=== PATIENT | male | born 1955 | race Caucasian/White ===

== ENCOUNTER 2017-11-12 08:41 | Emergency (ER) | payer OTHER ==
[~2017-11-12] VITALS: Ht 172.7 cm; Wt 99.8 kg
[~2017-11-12 08:41] MED LIST: (None)15 G1 TOP; ACET325 PO; ALUMAG30SU PO; AMLO10 PO; AMLO5 PO; AMLOATOR; AMOCLA875 PO; ANTACID; AQUAPHOR99 GM TOP; ASPI325 PO; ASPI325EC PO; ASPI81CH PO; ASPI81EC PO; Advil200 M1 PO; Aspir 8181 MG PO; Augmentin 875-1 EACH PO; BACITO TOP; BENZ10TG; BENZ10TG MT; BUSP10; BUSP15 PO; Buspirone HCl15 MG PO; CANASA; CANASA PR; CEPH500 PO; CHLGLU.12S; CHLORHEXIDINE GLUCONATE; CIPRSO OD; CLON1 PO; Canasa1000 MG PR; Clotrimazole-Be15 GM TP; DEBROX; DEBROX AU; DEBROX EAR DROPS; DELTASONE20 MG PO; DOC250; DOXY100 PO; EAR WAX DROPS15 ML BOTHEARS; FURO40 PO; Fergon240 M1 PO; Ferrocite324 MG PO; GLIM2 PO; GLIMEPIRIDE; GLUCOSE PO; GUAI100SY PO; Glucophage1000 MG PO; HYDACE5 PO; HYDCHL12.5; HYDCOR1TC TOP; HYDGUAL120 PO; IBUP400; IBUP400 PO; K-Tab10 MEQ PO; LEVFLO500 PO; LEVO-T112 MCG PO; LEVSOD100 PO; LEVSOD112 PO; LEVSOD125 PO; LEVSOD175 PO; LEVSOD200; LISHYD1012 PO; LISHYD2012 PO; LISI20 PO; LOPE2C PO; LOVA20 PO; Lovastatin20 MG PO; MAALOX; MELO7.5 PO; MENTHOL-ZINC OXIDE; MESA400ER; MESALAMINE PR; METF500 PO; METO100ER PO; METO25 PO; METO25ER PO; METO50; METO50 PO; METO50ER PO; MINE10T UD; NYST100P TOP; OLAN10; OLAN10 PO; OLAN5; OLAN7.5 PO; OMEP20ER PO; OXYC5 PO; OXYM.05NI; Omeprazole20 M1 PO; PARO20; PARO20 PO; PAROEX473 ML PO; PEPTO BISMOL PO; PERIDEX; POLY500; Pepto-Bism525 MG/15; Pepto-Bism525 MG/15 PO; Peridex480 ML PO; SACC250C PO; SODBIC650; SODBIC650 PO; SODCHL1 PO; SULTRIDS PO; TERB24TC TOP; TRIA80TC; TRIA80TC TOP; TUSSIN CF COUG118 ML PO; Triple Antibi28.4 G1 TP; Triple Antibio1 EACH TP; VASELINE18 ML TP; VICODIN 5-3001 EACH; VICODIN 5-3001 EACH PO; ZESTRIL40 MG PO; ZINCODVICR; Zestril40 MG; Zyprexa10 MG PO; Zyprexa15 MG PO; [UNRECOGNIZED DRUG - OTHER]; [UNRECOGNIZED DRUG - OTHER]; [UNRECOGNIZED DRUG - OTHER]; [UNRECOGNIZED DRUG - OTHER] PR
[2017-11-12] MEDS ORDERED: Cleocin HCl300 MG PO (10:57)
[2017-11-12] MEDS ORDERED: Cleocin HCl150 MG PO (10:58)
[2017-11-12] MEDS ORDERED: PENVK250 PO (11:22)
[2018-04-29] MEDS ORDERED: GLIP5 PO (12:07)
[2018-05-05] MEDS ORDERED: Ferrocite324 MG PO (10:33)
[2018-05-05] MEDS ORDERED: MAGOXI400 PO (11:59)
== END 2017-11-12 11:29 | disposition home or self-care (01) ==
LOC: ER 08:41
DX: K04.7 Periapical abscess without sinus (principal); K21.9 Gastro-esophageal reflux disease without esophagitis; F32.9 Major depressive disorder, single episode, unspecified; E11.9 Type 2 diabetes mellitus without complications; Z79.899 Other long term (current) drug therapy; Z79.82 Long term (current) use of aspirin; Z79.84 Long term (current) use of oral hypoglycemic drugs; Z86.14 Personal history of Methicillin resistant Staphylococcus aureus infection
CPT/HCPCS: 94640; 99283

== ENCOUNTER 2017-12-03 17:58 | Observation (INO) | payer OTHER ==
[~2017-12-03] VITALS: Ht 182.9 cm; Wt 103.1 kg
[~2017-12-03 17:58] MED LIST changes: +Altoprev20 MG PO; +Cleocin HCl150 MG PO; +Cleocin HCl300 MG PO; -Lovastatin20 MG PO; +PENVK250 PO
[2017-12-03 18:25] LABS: BASOPHILS ABSOLUTE AUTO 0.03 K/mm3 (0.00-0.23); BASOPHILS PERCENT AUTO 0 % (0-2); EOSINOPHILS ABSOLUTE AUTO 0.28 K/mm3 (0.00-0.68); EOSINOPHILS PERCENT AUTO 4 % (0-6); Hematocrit 35.8 % (37.0-53.0); Hemoglobin 10.9 g/dL (13.5-17.5); IMMATURE GRAN ABSOLUTE AUTO 0.05 K/mm3 (0.00-0.10); IMMATURE GRAN PERCENT AUTO 1 % (0-1); LYMPHOCYTES ABSOLUTE AUTO 1.15 K/mm3 (0.84-5.20); LYMPHOCYTES PERCENT AUTO 15 % (21-46); MONOCYTES PERCENT AUTO 9 % (4-13); Mean Corpuscular HGB 22.7 pg (26.0-34.0); Mean Corpuscular HGB Conc 30.4 g/dL (31.5-36.5); Mean Corpuscular Volume 75 fL (80-100); Mean Platelet Volume 9.4 fL (9.1-12.4); NEUTROPHILS PERCENT AUTO 71 % (41-73); Platelet Count 226 K/mm3 (150-400); RDW Coefficient Variation 15.4 % (11.7-14.2); White Blood Cell Count 7.61 K/mm3 (4.00-11.30)
[2017-12-03] MEDS ORDERED: AMLO10 PO (18:25)
[2017-12-03] MEDS ORDERED: SODCHL1 PO (18:27)
[2017-12-03] MEDS ORDERED: GLIP5 PO (18:28)
[2017-12-03 18:45] LABS: Alanine Aminotransfer (ALT/SGP 28 U/L (12-78); Albumin, Blood 3.5 g/dL (3.4-5.0); Alk Phos 64 U/L (50-136); Anion Gap 7 mmol/L (6-16); Aspartate Aminotrans (AST/SGOT 20 U/L (12-37); Bilirubin, Total 0.4 mg/dL (0.1-1.0); Blood Urea Nitrogen 11 mg/dL (8-24); Bun/Creatinine Ratio 12.2 (12.0-20.0); CO2, Blood 30 mmol/L (21-32); Calcium, Blood 8.2 mg/dL (8.5-10.1); Chloride, Blood 92 mmol/L (98-108); Globulin, Blood 3.6 g/dL (2.2-4.0); Glomerular Filtration Rate >60 (60-); Glucose, Blood 110 mg/dL (70-99); Potassium, Blood 3.4 mmol/L (3.5-5.5); Sodium, Blood 129 mmol/L (136-145); Total Protein, Blood 7.1 g/dL (6.4-8.2); Troponin I 0.042 ng/mL (0.000-0.040)
[2017-12-03 19:34] LABS: International Normalized Ratio 1.01; Prothrombin Time Results 10.5 Sec (9.7-11.5)
[2017-12-04 05:27] LABS: BASOPHILS ABSOLUTE AUTO 0.02 K/mm3 (0.00-0.23); BASOPHILS PERCENT AUTO 0 % (0-2); EOSINOPHILS ABSOLUTE AUTO 0.03 K/mm3 (0.00-0.68); EOSINOPHILS PERCENT AUTO 0 % (0-6); Hematocrit 36.4 % (37.0-53.0); Hemoglobin 11.2 g/dL (13.5-17.5); IMMATURE GRAN ABSOLUTE AUTO 0.05 K/mm3 (0.00-0.10); IMMATURE GRAN PERCENT AUTO 1 % (0-1); LYMPHOCYTES PERCENT AUTO 10 % (21-46); MONOCYTES ABSOLUTE AUTO 0.14 K/mm3 (0.16-1.47); MONOCYTES PERCENT AUTO 2 % (4-13); Mean Corpuscular HGB 22.4 pg (26.0-34.0); Mean Corpuscular HGB Conc 30.8 g/dL (31.5-36.5); Mean Corpuscular Volume 73 fL (80-100); Mean Platelet Volume 9.5 fL (9.1-12.4); NEUTROPHILS ABSOLUTE AUTO 6.07 K/mm3 (1.96-9.15); NEUTROPHILS PERCENT AUTO 87 % (41-73); Platelet Count 204 K/mm3 (150-400); RDW Coefficient Variation 15.4 % (11.7-14.2); RDW Standard Deviation 39.6 fL (35.1-46.3); White Blood Cell Count 7.01 K/mm3 (4.00-11.30)
[2017-12-04 05:54] LABS: Anion Gap 10 mmol/L (6-16); Blood Urea Nitrogen 12 mg/dL (8-24); Bun/Creatinine Ratio 14.7 (12.0-20.0); CO2, Blood 28 mmol/L (21-32); Calcium, Blood 8.5 mg/dL (8.5-10.1); Chloride, Blood 94 mmol/L (98-108); Creatinine, Blood 0.82 mg/dL (0.60-1.20); Glomerular Filtration Rate >60 (60-); Glucose, Blood 225 mg/dL (70-99); Potassium, Blood 3.9 mmol/L (3.5-5.5); Sodium, Blood 132 mmol/L (136-145)
[2017-12-04 12:11] LABS: Source, Urine Catheter
[2017-12-04 12:32] LABS: Bilirubin, Urine Neg (Neg); Blood, Urine 2+ (Neg); Glucose Qualitative, Urine 3+ (Neg); Ketones, Urine Neg (Neg); Leukocyte Esterase, Urine 3+ (Neg); Nitrite, Urine Neg (Neg); Protein, Urine Neg (Neg); Urobilinogen, Urine NORM (Normal)
[2017-12-04 12:40] LABS: Color, Urine Pale Yellow (P-Yellow)
[2017-12-04 12:41] LABS: Appearance, Urine Cloudy (Clear); White Blood Cells, Urine TNTC /hpf (0-5)
[2017-12-04 12:42] LABS: Transitional Epithelial Cells Rare /hpf (0-Rare)
[2017-12-04 12:43] LABS: Bacteria Mod /hpf; Squamous Epithelial Cells Not Seen /hpf (Few)
[2017-12-04 16:37] LABS: Influenza A Negative (NEGATIVE); Influenza B Negative (NEGATIVE)
[2017-12-05] MEDS ORDERED: ALBU3IS INH (14:17)
[2017-12-05] MEDS ORDERED: LEVO750 PO (14:18)
== END 2017-12-05 16:44 | disposition home or self-care (01) ==
LOC: ER 17:58 → MEDS 20:45
PROVIDERS: Emergency Medicine; Family Medicine; Hospitalist
DX: J98.11 Atelectasis (principal); N39.0 Urinary tract infection, site not specified; B95.1 Streptococcus, group B, as the cause of diseases classified elsewhere; E11.9 Type 2 diabetes mellitus without complications; D64.9 Anemia, unspecified; E87.1 Hypo-osmolality and hyponatremia; R79.89 Other specified abnormal findings of blood chemistry; I10 Essential (primary) hypertension; E03.9 Hypothyroidism, unspecified; F84.0 Autistic disorder; F89 Unspecified disorder of psychological development; D50.9 Iron deficiency anemia, unspecified; E78.5 Hyperlipidemia, unspecified; K21.9 Gastro-esophageal reflux disease without esophagitis; F32.9 Major depressive disorder, single episode, unspecified; F79 Unspecified intellectual disabilities; R33.9 Retention of urine, unspecified; F29 Unspecified psychosis not due to a substance or known physiological condition; Z79.82 Long term (current) use of aspirin; Z79.899 Other long term (current) drug therapy; Z90.49 Acquired absence of other specified parts of digestive tract; Z93.3 Colostomy status; Z79.84 Long term (current) use of oral hypoglycemic drugs; Z79.01 Long term (current) use of anticoagulants
CPT/HCPCS: 36415; 51701; 71046; 71260; 80048; 80053; 81001; 82947; 83880; 84484; 85025; 85610; 85730; 87086; 87147; 87804; 92610; 93005; 93010; 94640; 94760; 94761; 96372; 96374; 96376; 99285; G0378; G8996; G8997; J1650; J2920; Q9967

== ENCOUNTER 2017-12-12 17:09 | Emergency (ER) | payer OTHER ==
[~2017-12-12] VITALS: Ht 182.9 cm; Wt 99.8 kg
[~2017-12-12 17:09] MED LIST changes: +ALBU3IS INH; +GLIP5 PO; +LEVO750 PO
[2017-12-12 17:56] LABS: BASOPHILS ABSOLUTE AUTO 0.02 K/mm3 (0.00-0.23); BASOPHILS PERCENT AUTO 0 % (0-2); EOSINOPHILS ABSOLUTE AUTO 0.36 K/mm3 (0.00-0.68); EOSINOPHILS PERCENT AUTO 7 % (0-6); Hematocrit 35.3 % (37.0-53.0); Hemoglobin 10.6 g/dL (13.5-17.5); IMMATURE GRAN ABSOLUTE AUTO 0.06 K/mm3 (0.00-0.10); IMMATURE GRAN PERCENT AUTO 1 % (0-1); LYMPHOCYTES ABSOLUTE AUTO 0.68 K/mm3 (0.84-5.20); LYMPHOCYTES PERCENT AUTO 13 % (21-46); MONOCYTES ABSOLUTE AUTO 0.66 K/mm3 (0.16-1.47); MONOCYTES PERCENT AUTO 13 % (4-13); Mean Corpuscular HGB 22.4 pg (26.0-34.0); Mean Corpuscular Volume 75 fL (80-100); Mean Platelet Volume 9.1 fL (9.1-12.4); NEUTROPHILS PERCENT AUTO 65 % (41-73); Platelet Count 196 K/mm3 (150-400); RDW Coefficient Variation 14.9 % (11.7-14.2); RDW Standard Deviation 40.3 fL (35.1-46.3); Red Blood Cell Count 4.73 M/mm3 (4.30-5.90); White Blood Cell Count 5.08 K/mm3 (4.00-11.30)
[2017-12-12 18:16] LABS: Alanine Aminotransfer (ALT/SGP 23 U/L (12-78); Albumin, Blood 3.3 g/dL (3.4-5.0); Alk Phos 62 U/L (50-136); Anion Gap 4 mmol/L (6-16); Aspartate Aminotrans (AST/SGOT 15 U/L (12-37); Bilirubin, Total 0.3 mg/dL (0.1-1.0); Blood Urea Nitrogen 13 mg/dL (8-24); Bun/Creatinine Ratio 14.4 (12.0-20.0); CO2, Blood 31 mmol/L (21-32); Calcium, Blood 8.7 mg/dL (8.5-10.1); Chloride, Blood 96 mmol/L (98-108); Creatinine, Blood 0.91 mg/dL (0.60-1.20); Globulin, Blood 3.4 g/dL (2.2-4.0); Glomerular Filtration Rate >60 (60-); Glucose, Blood 118 mg/dL (70-99); Potassium, Blood 3.9 mmol/L (3.5-5.5); Sodium, Blood 131 mmol/L (136-145); Total Protein, Blood 6.7 g/dL (6.4-8.2)
== END 2017-12-12 19:28 | disposition home or self-care (01) ==
LOC: ER 17:09
PROVIDERS: Emergency Medicine
DX: J98.11 Atelectasis (principal); J98.6 Disorders of diaphragm; K21.9 Gastro-esophageal reflux disease without esophagitis; F32.9 Major depressive disorder, single episode, unspecified; Z79.899 Other long term (current) drug therapy; Z79.82 Long term (current) use of aspirin; Z79.84 Long term (current) use of oral hypoglycemic drugs; Z86.14 Personal history of Methicillin resistant Staphylococcus aureus infection
CPT/HCPCS: 71046; 80053; 83880; 84484; 85025; 93005; 93010; 94640; 99283

== ENCOUNTER 2017-12-23 08:04 | Emergency (ER) | payer OTHER ==
[~2017-12-23] VITALS: Ht 182.9 cm; Wt 86.2 kg
[~2017-12-23 08:04] MED LIST changes: -Altoprev20 MG PO; +Lovastatin20 MG PO
[2017-12-23 08:41] LABS: BASOPHILS ABSOLUTE AUTO 0.05 K/mm3 (0.00-0.23); BASOPHILS PERCENT AUTO 0 % (0-2); EOSINOPHILS ABSOLUTE AUTO 0.17 K/mm3 (0.00-0.68); EOSINOPHILS PERCENT AUTO 1 % (0-6); Hematocrit 32.7 % (37.0-53.0); Hemoglobin 10.2 g/dL (13.5-17.5); IMMATURE GRAN ABSOLUTE AUTO 0.06 K/mm3 (0.00-0.10); IMMATURE GRAN PERCENT AUTO 1 % (0-1); LYMPHOCYTES ABSOLUTE AUTO 0.61 K/mm3 (0.84-5.20); LYMPHOCYTES PERCENT AUTO 5 % (21-46); MONOCYTES ABSOLUTE AUTO 0.72 K/mm3 (0.16-1.47); MONOCYTES PERCENT AUTO 6 % (4-13); Mean Corpuscular HGB 22.7 pg (26.0-34.0); Mean Corpuscular HGB Conc 31.2 g/dL (31.5-36.5); Mean Corpuscular Volume 73 fL (80-100); Mean Platelet Volume 9.7 fL (9.1-12.4); NEUTROPHILS ABSOLUTE AUTO 10.27 K/mm3 (1.96-9.15); NEUTROPHILS PERCENT AUTO 87 % (41-73); Platelet Count 234 K/mm3 (150-400); RDW Coefficient Variation 14.8 % (11.7-14.2); RDW Standard Deviation 39.1 fL (35.1-46.3); Red Blood Cell Count 4.49 M/mm3 (4.30-5.90); White Blood Cell Count 11.88 K/mm3 (4.00-11.30)
[2017-12-23 09:19] LABS: Alanine Aminotransfer (ALT/SGP 24 U/L (12-78); Albumin, Blood 3.1 g/dL (3.4-5.0); Albumin/Globulin Ratio 0.9 (0.8-1.8); Alk Phos 59 U/L (50-136); Anion Gap 6 mmol/L (6-16); Aspartate Aminotrans (AST/SGOT 11 U/L (12-37); Bilirubin, Total 0.4 mg/dL (0.1-1.0); Blood Urea Nitrogen 19 mg/dL (8-24); Bun/Creatinine Ratio 24.9 (12.0-20.0); CO2, Blood 28 mmol/L (21-32); Calcium, Blood 8.6 mg/dL (8.5-10.1); Chloride, Blood 97 mmol/L (98-108); Creatinine, Blood 0.76 mg/dL (0.60-1.20); Globulin, Blood 3.4 g/dL (2.2-4.0); Glomerular Filtration Rate >60 (60-); Glucose, Blood 156 mg/dL (70-99); Potassium, Blood 4.1 mmol/L (3.5-5.5); Sodium, Blood 131 mmol/L (136-145); Total Protein, Blood 6.5 g/dL (6.4-8.2); Troponin I 0.036 ng/mL (0.000-0.040)
[2017-12-23 10:53] LABS: Source, Urine Voided
[2017-12-23 11:06] LABS: Bilirubin, Urine Neg (Neg); Blood, Urine Neg (Neg); Glucose Qualitative, Urine 1+ (Neg); Ketones, Urine Neg (Neg); Leukocyte Esterase, Urine 2+ (Neg); Nitrite, Urine Pos (Neg); Protein, Urine Neg (Neg); Urobilinogen, Urine NORM (Normal)
[2017-12-23 11:09] LABS: Appearance, Urine Clear (Clear); Color, Urine Yellow (P-Yellow)
[2017-12-23 11:14] LABS: White Blood Cells, Urine TNTC /hpf (0-5)
[2017-12-23 11:15] LABS: Bacteria Few /hpf; Red Blood Cells, Urine Not Seen /hpf (0-2); Squamous Epithelial Cells Not Seen /hpf (Few)
[2017-12-23 11:16] LABS: Spermatozoa Few /hpf
[2017-12-23] MEDS ORDERED: CEPH500 PO (11:40)
[2017-12-24] MEDS ORDERED: IRON PO (18:58)
[2017-12-24] MEDS ORDERED: MINERAL OIL BOTHEARS (19:00)
== END 2017-12-23 12:24 | disposition home or self-care (01) ==
LOC: ER 08:04
PROVIDERS: Emergency Medicine
DX: J96.11 Chronic respiratory failure with hypoxia (principal); N39.0 Urinary tract infection, site not specified; K21.9 Gastro-esophageal reflux disease without esophagitis; F32.9 Major depressive disorder, single episode, unspecified; E11.9 Type 2 diabetes mellitus without complications; Z79.899 Other long term (current) drug therapy; Z79.82 Long term (current) use of aspirin; Z79.84 Long term (current) use of oral hypoglycemic drugs
CPT/HCPCS: 71046; 80053; 81001; 83880; 84484; 85025; 87077; 87086; 87186; 93005; 93010; 94640; 96374; 99284; J0696

== ENCOUNTER 2017-12-24 11:21 | Inpatient (IN) | payer OTHER ==
[~2017-12-24] VITALS: Ht 177.8 cm; Wt 104.7 kg
[2017-12-24 12:08] LABS: BASOPHILS ABSOLUTE AUTO 0.03 K/mm3 (0.00-0.23); BASOPHILS PERCENT AUTO 0 % (0-2); EOSINOPHILS ABSOLUTE AUTO 0.23 K/mm3 (0.00-0.68); EOSINOPHILS PERCENT AUTO 2 % (0-6); Hematocrit 37.2 % (37.0-53.0); Hemoglobin 11.1 g/dL (13.5-17.5); IMMATURE GRAN ABSOLUTE AUTO 0.06 K/mm3 (0.00-0.10); IMMATURE GRAN PERCENT AUTO 1 % (0-1); LYMPHOCYTES ABSOLUTE AUTO 0.72 K/mm3 (0.84-5.20); LYMPHOCYTES PERCENT AUTO 6 % (21-46); MONOCYTES ABSOLUTE AUTO 0.65 K/mm3 (0.16-1.47); MONOCYTES PERCENT AUTO 5 % (4-13); Mean Corpuscular HGB 22.4 pg (26.0-34.0); Mean Corpuscular HGB Conc 29.8 g/dL (31.5-36.5); Mean Corpuscular Volume 75 fL (80-100); Mean Platelet Volume 9.8 fL (9.1-12.4); NEUTROPHILS ABSOLUTE AUTO 10.26 K/mm3 (1.96-9.15); NEUTROPHILS PERCENT AUTO 86 % (41-73); Platelet Count 231 K/mm3 (150-400); RDW Coefficient Variation 15.3 % (11.7-14.2); RDW Standard Deviation 41.2 fL (35.1-46.3); Red Blood Cell Count 4.95 M/mm3 (4.30-5.90); White Blood Cell Count 11.95 K/mm3 (4.00-11.30)
[2017-12-24 12:21] LABS: Alanine Aminotransfer (ALT/SGP 24 U/L (12-78); Albumin, Blood 3.5 g/dL (3.4-5.0); Albumin/Globulin Ratio 0.9 (0.8-1.8); Alk Phos 66 U/L (50-136); Anion Gap 5 mmol/L (6-16); Aspartate Aminotrans (AST/SGOT 15 U/L (12-37); Bilirubin, Total 0.4 mg/dL (0.1-1.0); Blood Urea Nitrogen 11 mg/dL (8-24); Bun/Creatinine Ratio 12.2 (12.0-20.0); CO2, Blood 31 mmol/L (21-32); Calcium, Blood 9.1 mg/dL (8.5-10.1); Chloride, Blood 99 mmol/L (98-108); Ethanol (Alcohol), Blood, Med <3 mg/dL; Globulin, Blood 3.9 g/dL (2.2-4.0); Glomerular Filtration Rate >60 (60-); Glucose, Blood 109 mg/dL (70-99); Sodium, Blood 135 mmol/L (136-145); Total Protein, Blood 7.4 g/dL (6.4-8.2)
[2017-12-24 13:05] LABS: PCO2 Arterial 55 mmHg (35-45); PO2 Arterial 92 mmHg (80-100); pH Blood Arterial 7.38 (7.35-7.45)
[2017-12-24] MEDS ORDERED: IRON PO (18:58)
[2017-12-24] MEDS ORDERED: MINERAL OIL BOTHEARS (19:00)
[2017-12-25 04:39] LABS: Albumin, Blood 2.8 g/dL (3.4-5.0); Anion Gap 5 mmol/L (6-16); Blood Urea Nitrogen 11 mg/dL (8-24); Bun/Creatinine Ratio 11.9 (12.0-20.0); CO2, Blood 32 mmol/L (21-32); Calcium, Blood 8.7 mg/dL (8.5-10.1); Chloride, Blood 100 mmol/L (98-108); Creatinine, Blood 0.93 mg/dL (0.60-1.20); Glomerular Filtration Rate >60 (60-); Glucose, Blood 120 mg/dL (70-99); Phosphorus, Blood 3.3 mg/dL (2.5-4.9); Potassium, Blood 3.6 mmol/L (3.5-5.5); Sodium, Blood 137 mmol/L (136-145)
== END 2017-12-26 10:40 | disposition home or self-care (01) | DRG 91 ==
LOC: ER 11:21 → PCU 11:22 → ER 11:22 → PCU 11:23
PROVIDERS: Emergency Medicine; Hospitalist; Internal Medicine
DX: G92 Toxic encephalopathy (principal); J96.01 Acute respiratory failure with hypoxia; J96.02 Acute respiratory failure with hypercapnia; F84.0 Autistic disorder; I10 Essential (primary) hypertension; E11.9 Type 2 diabetes mellitus without complications; E03.9 Hypothyroidism, unspecified; F79 Unspecified intellectual disabilities; N31.2 Flaccid neuropathic bladder, not elsewhere classified; E78.5 Hyperlipidemia, unspecified; K21.9 Gastro-esophageal reflux disease without esophagitis; R33.9 Retention of urine, unspecified
CPT/HCPCS: 36415; 36600; 51701; 71045; 71260; 80053; 80069; 82140; 82803; 82947; 83605; 83735; 83880; 84443; 85025; 87040; 93005; 93010; 94640; 94660; 94762; 96365; 99285; G0480; J0696; J1650; J7120; Q9967

== ENCOUNTER → 2017-12-28 | Outpatient (CLI) | payer OTHER ==
[~2017-12-28] MED LIST changes: +IRON PO; +MINERAL OIL BOTHEARS
[2017-12-28 14:56] LABS: Appearance, Urine Clear (Clear); Bilirubin, Urine Neg (Neg); Blood, Urine Neg (Neg); Color, Urine Yellow (P-Yellow); Glucose Qualitative, Urine Neg (Neg); Ketones, Urine Neg (Neg); Leukocyte Esterase, Urine 1+ (Neg); Nitrite, Urine Neg (Neg); Protein, Urine Neg (Neg); Specific Gravity, Urine 1.005 (1.003-1.022); Urobilinogen, Urine NORM (Normal)
[2017-12-28 15:35] LABS: Bacteria Rare /hpf; Red Blood Cells, Urine Not Seen /hpf (0-2); Squamous Epithelial Cells Few /hpf (Few); White Blood Cells, Urine 0-2 /hpf (0-5)
== END ==
LOC: LAB SHORT 11:21 → LAB 11:21
PROVIDERS: Nurse Practitioner Family
DX: N39.0 Urinary tract infection, site not specified (principal)
CPT/HCPCS: 81001

== ENCOUNTER 2018-04-26 09:45 | Inpatient (IN) | payer OTHER ==
[~2018-04-26] VITALS: Ht 177.8 cm; Wt 100.2 kg
[2018-04-26 10:23] LABS: Source, Urine Catheter
[2018-04-26 10:26] LABS: BASOPHILS ABSOLUTE AUTO 0.02 K/mm3 (0.00-0.23); BASOPHILS PERCENT AUTO 0 % (0-2); EOSINOPHILS PERCENT AUTO 0 % (0-6); Hematocrit 35.6 % (37.0-53.0); IMMATURE GRAN ABSOLUTE AUTO 0.08 K/mm3 (0.00-0.10); IMMATURE GRAN PERCENT AUTO 1 % (0-1); LYMPHOCYTES ABSOLUTE AUTO 0.81 K/mm3 (0.84-5.20); LYMPHOCYTES PERCENT AUTO 6 % (21-46); MONOCYTES ABSOLUTE AUTO 1.16 K/mm3 (0.16-1.47); MONOCYTES PERCENT AUTO 9 % (4-13); Mean Corpuscular HGB 22.8 pg (26.0-34.0); Mean Corpuscular HGB Conc 30.9 g/dL (31.5-36.5); Mean Corpuscular Volume 74 fL (80-100); NEUTROPHILS ABSOLUTE AUTO 11.57 K/mm3 (1.96-9.15); NEUTROPHILS PERCENT AUTO 85 % (41-73); Platelet Count 195 K/mm3 (150-400); RDW Coefficient Variation 16.6 % (11.7-14.2); RDW Standard Deviation 43.4 fL (35.1-46.3); Red Blood Cell Count 4.83 M/mm3 (4.30-5.90); White Blood Cell Count 13.64 K/mm3 (4.00-11.30)
[2018-04-26] MEDS ORDERED: BACITRACIN ZIN1 EACH (10:31)
[2018-04-26 10:35] LABS: Bilirubin, Urine Neg (Neg); Blood, Urine 2+ (Neg); Glucose Qualitative, Urine 3+ (Neg); Ketones, Urine Neg (Neg); Leukocyte Esterase, Urine 2+ (Neg); Nitrite, Urine Neg (Neg); Protein, Urine 3+ (Neg); Urobilinogen, Urine NORM (Normal)
[2018-04-26 11:02] LABS: Alanine Aminotransfer (ALT/SGP 25 U/L (12-78); Albumin, Blood 3.3 g/dL (3.4-5.0); Albumin/Globulin Ratio 0.8 (0.8-1.8); Alk Phos 62 U/L (50-136); Anion Gap 11 mmol/L (6-16); Aspartate Aminotrans (AST/SGOT 10 U/L (12-37); Bilirubin, Total 0.6 mg/dL (0.1-1.0); Blood Urea Nitrogen 16 mg/dL (8-24); Bun/Creatinine Ratio 12.5 (12.0-20.0); CO2, Blood 23 mmol/L (21-32); Calcium, Blood 8.6 mg/dL (8.5-10.1); Chloride, Blood 101 mmol/L (98-108); Creatinine, Blood 1.28 mg/dL (0.60-1.20); Glomerular Filtration Rate >60 (60-); Glucose, Blood 271 mg/dL (70-99); Potassium, Blood 3.6 mmol/L (3.5-5.5); Sodium, Blood 135 mmol/L (136-145); Total Protein, Blood 7.3 g/dL (6.4-8.2); Troponin I 0.096 ng/mL (0.000-0.040)
[2018-04-26 11:06] LABS: Appearance, Urine Hazy (Clear); Color, Urine Yellow (P-Yellow)
[2018-04-26 11:07] LABS: White Blood Cells, Urine TNTC /hpf (0-5)
[2018-04-26 11:08] LABS: Bacteria Many /hpf; Granular Casts TNTC /lpf (0); Red Blood Cells, Urine 25-50 /hpf (0-2); Squamous Epithelial Cells Mod /hpf (Few)
[2018-04-26 11:09] LABS: Transitional Epithelial Cells Few /hpf (0-Rare)
[2018-04-26 19:11] LABS: CPK Creatine Kinase 66 U/L (39-308); Troponin I 0.104 ng/mL (0.000-0.040)
[2018-04-26 19:12] LABS: Creatine Kinase MB < 1.0 ng/mL (0.0-3.6); Creatine Kinase MB Index 1.5 (0.0-4.0)
[2018-04-26 19:13] LABS: Free Thyroxine 1.24 ng/dL (0.70-1.60)
[2018-04-26 19:17] LABS: Thyroid Stimulating Hormone 2.65 uIU/mL (0.360-4.800)
[2018-04-27 02:38] LABS: Hematocrit 33.8 % (37.0-53.0); Hemoglobin 10.1 g/dL (13.5-17.5); Mean Corpuscular HGB 22.6 pg (26.0-34.0); Mean Corpuscular HGB Conc 29.9 g/dL (31.5-36.5); Mean Corpuscular Volume 76 fL (80-100); Mean Platelet Volume 9.7 fL (9.1-12.4); Platelet Count 159 K/mm3 (150-400); RDW Coefficient Variation 16.6 % (11.7-14.2); RDW Standard Deviation 45.1 fL (35.1-46.3); Red Blood Cell Count 4.46 M/mm3 (4.30-5.90); White Blood Cell Count 9.61 K/mm3 (4.00-11.30)
[2018-04-27 02:58] LABS: LDL/HDL RATIO 0.7
[2018-04-27 02:59] LABS: Anion Gap 5 mmol/L (6-16); Blood Urea Nitrogen 16 mg/dL (8-24); Bun/Creatinine Ratio 11.9 (12.0-20.0); CHOL/HDL RATIO 2.6; CO2, Blood 29 mmol/L (21-32); Calcium, Blood 8.1 mg/dL (8.5-10.1); Chloride, Blood 101 mmol/L (98-108); Cholesterol 92 mg/dL (50-200); Creatinine, Blood 1.34 mg/dL (0.60-1.20); Glomerular Filtration Rate 57 (60-); Glucose, Blood 235 mg/dL (70-99); HDL Cholesterol 36 mg/dL (>39); Low Density Lipoprotein Chol 24 mg/dL (0-110); Potassium, Blood 4.1 mmol/L (3.5-5.5); Sodium, Blood 135 mmol/L (136-145); Triglycerides 158 mg/dL (30-160); Very Low Density Lipoprot Chol 31 mg/dL (6-32)
[2018-04-27 03:00] LABS: Creatine Kinase MB 1.7 ng/mL (0.0-3.6); Creatine Kinase MB Index 2.8 (0.0-4.0); Troponin I 0.083 ng/mL (0.000-0.040)
[2018-04-29 05:39] LABS: Hematocrit 35.7 % (37.0-53.0); Hemoglobin 10.8 g/dL (13.5-17.5); Mean Corpuscular HGB 22.5 pg (26.0-34.0); Mean Corpuscular HGB Conc 30.3 g/dL (31.5-36.5); Mean Corpuscular Volume 75 fL (80-100); Mean Platelet Volume 9.7 fL (9.1-12.4); Platelet Count 215 K/mm3 (150-400); RDW Coefficient Variation 15.8 % (11.7-14.2); RDW Standard Deviation 42.4 fL (35.1-46.3); Red Blood Cell Count 4.79 M/mm3 (4.30-5.90); White Blood Cell Count 4.93 K/mm3 (4.00-11.30)
[2018-04-29 06:08] LABS: Anion Gap 7 mmol/L (6-16); Blood Urea Nitrogen 10 mg/dL (8-24); Bun/Creatinine Ratio 10.3 (12.0-20.0); CO2, Blood 28 mmol/L (21-32); Calcium, Blood 8.3 mg/dL (8.5-10.1); Chloride, Blood 101 mmol/L (98-108); Creatinine, Blood 0.97 mg/dL (0.60-1.20); Glomerular Filtration Rate >60 (60-); Glucose, Blood 206 mg/dL (70-99); Potassium, Blood 4.2 mmol/L (3.5-5.5); Sodium, Blood 136 mmol/L (136-145)
[2018-04-29] MEDS ORDERED: CEFU500T30 PO (10:34)
[2018-04-29] MEDS ORDERED: ACIDOPHILUS LA1 EACH PO (10:36)
[2018-04-29] MEDS ORDERED: GLIP5 (12:07)
== END 2018-04-29 14:12 | disposition home or self-care (01) | DRG 698 ==
LOC: ER 09:45 → MEDS 16:23 → ENPENDDIS 04-29 10:29 → MEDS 04-29 11:52
PROVIDERS: Emergency Medicine; Internal Medicine
DX: T83.511A Infection and inflammatory reaction due to indwelling urethral catheter, initial encounter (principal); A41.51 Sepsis due to Escherichia coli [E. coli]; N17.9 Acute kidney failure, unspecified; I24.8 Other forms of acute ischemic heart disease; E87.1 Hypo-osmolality and hyponatremia; F84.0 Autistic disorder; J98.11 Atelectasis; N39.0 Urinary tract infection, site not specified; N31.9 Neuromuscular dysfunction of bladder, unspecified; I48.0 Paroxysmal atrial fibrillation; I10 Essential (primary) hypertension; E11.9 Type 2 diabetes mellitus without complications; R77.8 Other specified abnormalities of plasma proteins; E03.9 Hypothyroidism, unspecified; K21.9 Gastro-esophageal reflux disease without esophagitis; E78.5 Hyperlipidemia, unspecified; R62.50 Unspecified lack of expected normal physiological development in childhood; F91.9 Conduct disorder, unspecified; F29 Unspecified psychosis not due to a substance or known physiological condition; R06.00 Dyspnea, unspecified; B96.20 Unspecified Escherichia coli [E. coli] as the cause of diseases classified elsewhere; Z79.899 Other long term (current) drug therapy; Z79.82 Long term (current) use of aspirin; Z79.84 Long term (current) use of oral hypoglycemic drugs; Z90.49 Acquired absence of other specified parts of digestive tract; Z93.3 Colostomy status; Z86.14 Personal history of Methicillin resistant Staphylococcus aureus infection
CPT/HCPCS: 36415; 71046; 80048; 80053; 80061; 81001; 82550; 82553; 82947; 83036; 84439; 84443; 84484; 85025; 85027; 87077; 87086; 87186; 93005; 93010; 93306; 96365; 99285-25; J0696; J1650; J7030

== ENCOUNTER 2018-05-18 15:13 | Emergency (ER) | payer OTHER ==
[~2018-05-18] VITALS: Ht 177.8 cm; Wt 102.1 kg
[~2018-05-18 15:13] MED LIST changes: +ACIDOPHILUS LA1 EACH PO; +BACITRACIN ZIN1 EACH; +CEFU500T30 PO; +MAGOXI400 PO
== END 2018-05-18 18:20 | disposition home or self-care (01) ==
LOC: ER 15:13
DX: R10.9 Unspecified abdominal pain (principal); Z88.2 Allergy status to sulfonamides; Z88.1 Allergy status to other antibiotic agents; Z79.899 Other long term (current) drug therapy; Z79.82 Long term (current) use of aspirin; Z79.84 Long term (current) use of oral hypoglycemic drugs; E11.9 Type 2 diabetes mellitus without complications; K21.9 Gastro-esophageal reflux disease without esophagitis; F32.9 Major depressive disorder, single episode, unspecified
CPT/HCPCS: 74018; 99283-25

== ENCOUNTER 2018-09-04 11:25 | Day surgery (SDC) | payer OTHER ==
[~2018-09-04] VITALS: Ht 177.8 cm; Wt 93.9 kg
[~2018-09-04 11:25] MED LIST changes: +ALBU2.5V5 NEB; +ALUM-MAG HYDRO360 ML; +AMERICAINE28 GM TP; +Aspirin EC81 MG PO; +BACITRACIN ZIN1 EACH TP; +CHLORASEPTIC MA30 ML; +CORTISONE28 G1 TP; +FERROCITE PLUS PO; +Glucotrol5 MG PO; +Klor-Con 1010 MEQ PO; +LAMISIL AT30 GM; +MINERAL OIL HEAV1 ML; +NYST237S MT; +OMEPRAZOLE MAGN20 MG PO; +PERIDEX15 ML; +PROBIOTIC1 EACH PO; +ROBITUSSIN COU118 ML; +TAMS.4ER PO; +TRIA15CR3 TOP; +TRIPLE ANTIBIO1 EACH; +[UNRECOGNIZED DRUG - OTHER]
== END 2018-09-04 13:16 | disposition home or self-care (01) ==
LOC: ORSCSDS 11:25
PROVIDERS: Surgery
PROC: 0DJD8ZZ Inspection of Lower Intestinal Tract, Via Natural or Artificial Opening Endoscopic (ICD-10-PCS; principal; 2018-09-04 12:30)
DX: K51.20 Ulcerative (chronic) proctitis without complications (principal); I10 Essential (primary) hypertension; G47.33 Obstructive sleep apnea (adult) (pediatric); I48.91 Unspecified atrial fibrillation; E11.9 Type 2 diabetes mellitus without complications; Z79.82 Long term (current) use of aspirin; Z79.899 Other long term (current) drug therapy
CPT/HCPCS: 82947; J7120

== ENCOUNTER → 2018-09-20 | Outpatient (CLI) | payer OTHER ==
[2018-09-20 14:49] LABS: Bilirubin, Urine Neg (Neg); Blood, Urine Neg (Neg); Glucose Qualitative, Urine Neg (Neg); Ketones, Urine Neg (Neg); Leukocyte Esterase, Urine Neg (Neg); Nitrite, Urine Neg (Neg); Protein, Urine 1+ (Neg); Urobilinogen, Urine NORM (Normal)
[2018-09-20 15:01] LABS: Appearance, Urine Clear (Clear); Color, Urine Yellow (P-Yellow)
== END | disposition home or self-care (01) ==
LOC: LAB 13:25 → LAB SHORT 13:25 → LAB FUT 04-27 14:55 → EDSTATUS 04-27 14:55
PROVIDERS: Family Medicine
DX: N39.0 Urinary tract infection, site not specified (principal); R34 Anuria and oliguria
CPT/HCPCS: 81003

== ENCOUNTER 2019-10-17 07:49 | Day surgery (SDC) | payer OTHER ==
[~2019-10-17] VITALS: Ht 177.8 cm; Wt 102.5 kg
[~2019-10-17 07:49] MED LIST changes: +ACET325; +ACIDOPHILUS1 EAC3; +ALBU2.5V5 INH; +AMERICAINE28 GM; +ANTIBIOTIC28.4 GM; +BUDE6HFA INH; +Buspirone HCl15 MG; +CARBAMOXIDE15 ML BOTHEARS; +CORTIZONE 1028 GM; +DIAPER RASH OIN56 GM; +Duoneb 2.5-0.5 M3 ML INH; +GUAI600T33 PO; +IBUP200 PO; +LAMISIL AT12 GM; +MAALOX ADVANCE1 EACH PO; +MINERAL OIL473 ML BOTHEARS; +NYST237S; +PAROEX473 ML; +POTA10T PO; +Paxil20 MG PO; +TRIA15CR3; +TUSSIN CF MAX118 M1; +Triple Antibi28.4 G1; +UCERIS9 MG PR; +ZESTRIL40 M1 PO; +[UNRECOGNIZED DRUG - OTHER]
--- NOTE | 2019-10-17 08:45 | NUR ---
10/17/19 0831 PATY DIAS ONE BAD IV IN FOREARM BY RN, ONE GOOD IV IN R HAND BY RN. RUNNING GREAT.
--- NOTE | 2019-10-17 09:21 | NUR ---
10/17/19 0921 Rocio Carty RECTAL SWAB DONE FOR ESBL.
== END 2019-10-17 09:57 | disposition home or self-care (01) ==
LOC: ORSCSDS 07:49
PROVIDERS: Surgery
PROC: 0DBP8ZX Excision of Rectum, Via Natural or Artificial Opening Endoscopic, Diagnostic (ICD-10-PCS; principal; 2019-10-17 09:00)
DX: Z87.19 Personal history of other diseases of the digestive system (principal); K51.20 Ulcerative (chronic) proctitis without complications; K62.89 Other specified diseases of anus and rectum; I10 Essential (primary) hypertension; E11.9 Type 2 diabetes mellitus without complications; E03.9 Hypothyroidism, unspecified; F84.0 Autistic disorder; G47.33 Obstructive sleep apnea (adult) (pediatric); E66.9 Obesity, unspecified; Z68.33 Body mass index [BMI] 33.0-33.9, adult; Z79.82 Long term (current) use of aspirin; Z79.899 Other long term (current) drug therapy
CPT/HCPCS: 82947; 87081; 88305; J2405; J2704; J7120

== ENCOUNTER → 2019-11-26 | Outpatient (CLI) | payer OTHER ==
[2019-11-26 17:04] LABS: Bilirubin, Urine Neg (Neg); Blood, Urine Neg (Neg); Glucose Qualitative, Urine 2+ (Neg); Ketones, Urine Neg (Neg); Leukocyte Esterase, Urine Neg (Neg); Nitrite, Urine Neg (Neg); Protein, Urine Neg (Neg); Urobilinogen, Urine NORM (Normal)
[2019-11-26 17:07] LABS: Appearance, Urine Clear (Clear); Color, Urine Yellow (P-Yellow)
== END | disposition home or self-care (01) ==
LOC: LAB 14:58 → LAB SHORT 14:58
PROVIDERS: Family Medicine
DX: R82.90 Unspecified abnormal findings in urine (principal)
CPT/HCPCS: 81003

== ENCOUNTER 2020-03-10 09:15 | Inpatient (IN) | payer MEDICARE, OTHER ==
[~2020-03-10] VITALS: Ht 177.8 cm; Wt 87.5 kg
[~2020-03-10 09:15] MED LIST changes: +BASAGLAR K100 UNIT/1 SC; -Buspirone HCl15 MG; +FEROSUL325 M1 PO; +GLUCOPHAGE1000 MG PO; +HUMALOG KW100 UNIT/1 SC; +Nyamyc15 GM TOP; +ONDA4ODT MM; +PROBIOTIC PO; +TYLENOL325 M1 PO; +UCERIS PR
[2020-03-10 10:24] LABS: BASOPHILS ABSOLUTE AUTO 0.07 K/mm3 (0.00-0.23); BASOPHILS PERCENT AUTO 1 % (0-2); EOSINOPHILS ABSOLUTE AUTO 0.06 K/mm3 (0.00-0.68); EOSINOPHILS PERCENT AUTO 1 % (0-6); Hematocrit 46.9 % (37.0-53.0); Hemoglobin 16.3 g/dL (13.5-17.5); IMMATURE GRAN ABSOLUTE AUTO 0.15 K/mm3 (0.00-0.10); IMMATURE GRAN PERCENT AUTO 1 % (0-1); LYMPHOCYTES ABSOLUTE AUTO 1.44 K/mm3 (0.84-5.20); LYMPHOCYTES PERCENT AUTO 12 % (21-46); MONOCYTES ABSOLUTE AUTO 0.92 K/mm3 (0.16-1.47); MONOCYTES PERCENT AUTO 8 % (4-13); Mean Corpuscular HGB 29.5 pg (26.0-34.0); Mean Corpuscular HGB Conc 34.8 g/dL (31.5-36.5); Mean Corpuscular Volume 85 fL (80-100); Mean Platelet Volume 10.3 fL (9.1-12.4); NEUTROPHILS ABSOLUTE AUTO 8.96 K/mm3 (1.96-9.15); NEUTROPHILS PERCENT AUTO 77 % (41-73); Platelet Count 343 K/mm3 (150-400); RDW Coefficient Variation 12.2 % (11.7-14.2); RDW Standard Deviation 37.3 fL (35.1-46.3); Red Blood Cell Count 5.53 M/mm3 (4.30-5.90)
[2020-03-10 10:46] LABS: Source, Urine Clean Catch
[2020-03-10 10:47] LABS: Albumin, Blood 4.2 g/dL (3.4-5.0); Albumin/Globulin Ratio 0.8 (0.8-1.8); Bilirubin, Total 0.7 mg/dL (0.1-1.0); Calcium, Blood 9.9 mg/dL (8.5-10.1); Globulin, Blood 5.6 g/dL (2.2-4.0); Total Protein, Blood 9.8 g/dL (6.4-8.2)
[2020-03-10 10:52] LABS: Bun/Creatinine Ratio 8.7 (12.0-20.0); Creatinine, Blood 8.07 mg/dL (0.60-1.20); Potassium, Blood 7.6 mmol/L (3.5-5.5)
[2020-03-10 10:55] LABS: Blood, Urine 2+ (Neg); Glucose Qualitative, Urine 1+ (Neg); Ketones, Urine Neg (Neg); Leukocyte Esterase, Urine 2+ (Neg); Nitrite, Urine Neg (Neg); Protein, Urine 2+ (Neg); Specific Gravity, Urine 1.025 (1.003-1.022); Urobilinogen, Urine 1+ (Normal)
[2020-03-10 11:03] LABS: Appearance, Urine Hazy (Clear); Bilirubin, Urine 1+ (Neg); Color, Urine Amber (P-Yellow)
[2020-03-10 11:06] LABS: White Blood Cells, Urine 25-50 /hpf (0-5)
[2020-03-10 11:07] LABS: Amorphous Mod (0-Heavy); Bacteria Many /hpf; Spermatozoa Mod /hpf; Squamous Epithelial Cells Few /hpf (Few)
[2020-03-10 11:09] LABS: Granular Casts 0-2 /lpf (0)
[2020-03-10] MEDS ORDERED: ZYPREXA15 MG PO (12:49)
[2020-03-10] MEDS ORDERED: SODCHL1 PO ×2 (12:50→16:10)
[2020-03-10] MEDS ORDERED: OLAN7.5 PO (12:56)
[2020-03-10] MEDS ORDERED: BUDESONIDE PR (12:59)
--- NOTE | 2020-03-10 13:30 | NUR ---
HEMODIALYSIS ORDERED BY DR JIMÉNEZ FOR PATIENT ADMITTED WITH K+ 7.3 URGENT TREATMENT WILL COMMENCE SOON PATIENT TRANSFERED FROM ER TO FLOOR.
[2020-03-10] MEDS ORDERED: Afrin15 ML (15:44)
[2020-03-10] MEDS ORDERED: GLIP5 PO (15:59)
[2020-03-10] MEDS ORDERED: IBUP200 PO (16:01)
[2020-03-10] MEDS ORDERED: METF500 PO (16:04)
[2020-03-10] MEDS ORDERED: Feverall650 MG PR (16:30)
--- NOTE | 2020-03-10 18:34 | NUR ---
PT ARRIVED TO THE MEDICAL FLOOR FROM THE ER AROUND 1530 VIA GURMICHAEL ACCOMPANIED BY CAREGIVER, THE PT APPEARS TO BE BREATHING EASILY AT THIS TIME, PASSPORT SUPPORT ASSOCIATE NANCY IN THE ROOM TO PERFORM DIALYSIS FOR THE PT, THE PT IS MENTALY DELAYED LIVES AT [facility] FOR THE HANDICAPPED. THE PT WAS ORIENTED TO THE ROOM CALL SYSTEM, THE PTS HEART RATE BECAME ELEVATED TO 130-150 AND A-FLUTTER PER TELE, A CALL WAS MADE TO THE HOSPITIALIST AND AN ORDER TO PUSH IV LOPRESSOR WAS GIVEN, SINCE THEN THE PTS HR RATE HAS CAME DOWN INTO THE 120'S PER TELE, PT DENIES ANY PAIN AT THIS TIME, THE PT WAS ABLE TO EAT A FULL DINEER WITHOUT VOMITING SO FAR, BED ALARM ON, CALL LIGHT IN REACH
--- NOTE | 2020-03-10 20:47 | NUR ---
TRANSFER REPORT TAKEN FROM FROM BELINDA DUNHAM TO ASSUME CARE OF PT AT THIS TIME. PT HAS BEEN TRANSFERRED TO ROOM 344. RESTING COMFORTABLY IN BED, BELONGINGS IN PLACE.
--- NOTE | 2020-03-10 20:56 | NUR ---
PT MENTALLY DELAYED. WAS OBSERVED PULLING OFF MED TELE LEADS AND THROWING ITEMS ON THE FLOOR. NON REDIRECTABLE. CHARGE NURSE NOTIFIED, PT TRANSFERRED TO ROOM 344 FOR CLOSER OBSERVATION FOR HIS SAFETY.
--- NOTE | 2020-03-11 04:25 | NUR ---
SHIFT SUMMARY PT HAS RESTED QUIETLY IN BED FOR MOST OF THE NIGHT. THERE ARE TIMES WHEN KURT REMOVES TELE LEADS, BUT HE HAS NOT THROWN THINGS IN THE ROOM AND HAS BEEN COOPERATIVE WITH STAFF. DEVELOPMENTALLY DELAYED. PT A/O TO SELF, AND IS ABLE TO ANSWER SOME OF MY QUESTIONS. HOWEVER, THERE ARE ALSO TIMES WHERE PT JUST REPEATS THE QUESTIONS THAT ARE ASKED WITHOUT GIVING AN ANSWER. PT HAD ALUTTER HR IN THE 120'S BEFORE TRANSFER TO SCU THIS SHIFT. PT MEDICATED BY HIS PRIOR NURSE BEFORE TRANSFER. HR NOW NSR PER TELETYPE OR VARITYPE KEYBOARD OPERATOR. VITALS ARE STABLE. NO ACUTE CHANGES TO REPORT SINCE TRANSFER. BED IN LOWEST POSITION, CALL LIGHT WITHIN REACH.
[2020-03-11 05:35] LABS: BASOPHILS ABSOLUTE AUTO 0.11 K/mm3 (0.00-0.23); BASOPHILS PERCENT AUTO 1 % (0-2); EOSINOPHILS ABSOLUTE AUTO 0.19 K/mm3 (0.00-0.68); EOSINOPHILS PERCENT AUTO 2 % (0-6); Hematocrit 43.1 % (37.0-53.0); Hemoglobin 14.4 g/dL (13.5-17.5); IMMATURE GRAN ABSOLUTE AUTO 0.12 K/mm3 (0.00-0.10); IMMATURE GRAN PERCENT AUTO 1 % (0-1); LYMPHOCYTES ABSOLUTE AUTO 1.47 K/mm3 (0.84-5.20); LYMPHOCYTES PERCENT AUTO 14 % (21-46); MONOCYTES ABSOLUTE AUTO 1.31 K/mm3 (0.16-1.47); MONOCYTES PERCENT AUTO 13 % (4-13); Mean Corpuscular HGB 29.1 pg (26.0-34.0); Mean Corpuscular HGB Conc 33.4 g/dL (31.5-36.5); Mean Corpuscular Volume 87 fL (80-100); Mean Platelet Volume 10.4 fL (9.1-12.4); NEUTROPHILS ABSOLUTE AUTO 7.31 K/mm3 (1.96-9.15); NEUTROPHILS PERCENT AUTO 70 % (41-73); Platelet Count 303 K/mm3 (150-400); RDW Coefficient Variation 12.4 % (11.7-14.2); RDW Standard Deviation 39.5 fL (35.1-46.3); Red Blood Cell Count 4.94 M/mm3 (4.30-5.90); White Blood Cell Count 10.51 K/mm3 (4.00-11.30)
[2020-03-11 05:59] LABS: Albumin, Blood 3.4 g/dL (3.4-5.0); Albumin/Globulin Ratio 0.7 (0.8-1.8); Bilirubin, Total 0.6 mg/dL (0.1-1.0); Bun/Creatinine Ratio 8.9 (12.0-20.0); Calcium, Blood 9.2 mg/dL (8.5-10.1); Creatinine, Blood 6.84 mg/dL (0.60-1.20); Globulin, Blood 4.7 g/dL (2.2-4.0); Magnesium, Blood 1.8 mg/dL (1.6-2.4); Phosphorus, Blood 6.3 mg/dL (2.5-4.9); Potassium, Blood 5.9 mmol/L (3.5-5.5); Total Protein, Blood 8.1 g/dL (6.4-8.2)
[2020-03-11 06:00] LABS: Troponin I 0.066 ng/mL (0.000-0.040)
--- NOTE | 2020-03-11 09:35 | NUR ---
PT TO DIALYSIS VIA HIS BED AT 0922.
--- NOTE | 2020-03-11 12:20 | NUR ---
HD COMPLETE, PATIENT BACK TO ROOM AT 1201. PT REMOVED COLOSTOMY APPLIANCE DURING DIALYSIS, REPLACED BY THIS AUTHOR.
--- NOTE | 2020-03-11 17:32 | NUR ---
SHIFT SUMMARY PATIENT DENIES PAIN, NAUSEA, AND SHORTNESS OF BREATH. PATIENT UP SBA W/FWW. PATIENT HAD DIALYSIS TODAY. PATIENT EATING AND DRINKING WELL. [facility] STAFF MEMBER SAT WITH PATIENT THIS AFTERNOON. CALL LIGHT IN REACH.
--- NOTE | 2020-03-12 04:27 | NUR ---
SHIFT SUMMARY ALERT, ABLE TO MAKE NEEDS KNOWN. COOPERATIVE WITH CARE. ANSWERS QUESTIONS TO OWN ABILITY. NO C/O PAIN/DISCOMFORT. TOOK OFF OSTOMY APPLIANCE; REPLACED, NO FURTHER ATTEMPTS. TOOK MEDS WITHOUT COMPLICATIONS. DRINKING AND EATING WELL. APPEARED TO REST MUCH OF SHIFT. VSS. NO ACUTE CHANGES NOTED OVERNIGHT. BED REAMINS IN LOWEST POSITION; ALARM ON. CALL LIGHT AND BELONGINGS WITHIN REACH. WCTM. REPORT TO ONCOMING RN.
[2020-03-12 05:32] LABS: Hematocrit 37.6 % (37.0-53.0); Hemoglobin 12.7 g/dL (13.5-17.5)
[2020-03-12 06:23] LABS: Albumin, Blood 3.1 g/dL (3.4-5.0); Anion Gap 11 mmol/L (6-16); Blood Urea Nitrogen 56 mg/dL (8-24); CO2, Blood 23 mmol/L (21-32); Calcium, Blood 8.4 mg/dL (8.5-10.1); Chloride, Blood 97 mmol/L (98-108); Glomerular Filtration Rate 10 (60-); Glucose, Blood 127 mg/dL (70-99); Magnesium, Blood 1.5 mg/dL (1.6-2.4); Phosphorus, Blood 5.6 mg/dL (2.5-4.9); Potassium, Blood 4.8 mmol/L (3.5-5.5); Sodium, Blood 131 mmol/L (136-145)
--- NOTE | 2020-03-12 09:46 | NUR ---
PATIENT IS IN DIALYSIS AT THIS TIME
--- NOTE | 2020-03-12 18:08 | NUR ---
PATIENT IS ALERT AND ORIENTED TO SELF, FOLLOWING DIRECTIONS AND HIS CAREGIVER/FRIEND. HE HAD DIALYSIS TODAY. CARE MANAGEMENT IS WORKING WITH AN OUTSIDE SOURCE TO GET THIS PATIENT SET UP WITH [facility] AN OUTPATIENT. HE IS INCONTINENT OF URINE, ATTENDS IN PLACE. HE HAS NOT VOIDED SINCE DIALYSIS, A BLADDER SCAN WAS DONE SHOWING 300ML OF URINE. RN TRIED TO GET THE PATIENT TO USE THE URINAL EARLIER BUT HE BECAME UPSET. WILL ATTEMPT TO USE THE URINAL FOLLOWING DINNER. HE HAS NO COMPLAINTS. WILL CONTINUE TO MONITOR
--- NOTE | 2020-03-13 04:05 | NUR ---
SHIFT SUMMARY ALERT, ABLE TO MAKE NEEDS KNOWN. ANSWERS QUESTIONS TO BEST OF ABILITY. COOPERATIVE WITH CARE. NO C/O PAIN/DISCOMFORT. OSTOMY REMAINED IN PLACE T/O SHIFT. APPEARED TO REST WELL OVERNIGHT. VSS/AFEBRILE. DURING SHIFT CHANGE, NOTED TO THIS RN THAT PATIENT HAD NOT VOIDED AFTER DIALYSIS YESTERDAY. HE WAS BLADDER SCANNED AND YEILDING 300. DURING THIS SHIFT; VOIDED X1 INCONTINENT. BLADDER SCANNED AGAIN YEILDING 295 POST RESIDUAL. WILL KEEP CLOSE EYE ON I/O'S. NO OTHER ACUTE CHANGES NOTED OVERNIGHT. BED REMAINS IN LOWEST POSITION. CALL LIGHT AND BELONGINGS WITHIN REACH. WCTM. REPORT TO ONCOMING RN.
[2020-03-13 05:23] LABS: Hematocrit 32.4 % (37.0-53.0); Hemoglobin 10.9 g/dL (13.5-17.5)
[2020-03-13 05:42] LABS: Magnesium, Blood 1.3 mg/dL (1.6-2.4)
[2020-03-13 05:43] LABS: Albumin, Blood 2.9 g/dL (3.4-5.0); Anion Gap 8 mmol/L (6-16); Blood Urea Nitrogen 39 mg/dL (8-24); Bun/Creatinine Ratio 8.9 (12.0-20.0); CO2, Blood 28 mmol/L (21-32); Calcium, Blood 7.8 mg/dL (8.5-10.1); Chloride, Blood 95 mmol/L (98-108); Creatinine, Blood 4.37 mg/dL (0.60-1.20); Glomerular Filtration Rate 15 (60-); Glucose, Blood 105 mg/dL (70-99); Phosphorus, Blood 3.3 mg/dL (2.5-4.9); Potassium, Blood 3.9 mmol/L (3.5-5.5); Sodium, Blood 131 mmol/L (136-145)
--- NOTE | 2020-03-13 17:24 | NUR ---
PATIENT IS ALERT AND ORIENTED TO FOLLOWING DIRECTIONS AND SURROUNDINGS. HE IS COOPERATIVE WITH CARE. PATIENT WAS STRAIGHT CATHED TODAY TO DRAIN 650ML OF URINE. HE HAS A TELE MONITOR IN PLACE. HE IS A 1PA TO THE BSC AND CHAIR. NO DIALYSIS TODAY. NO COMPLAINTS OF PAIN. WILL CONTINUE TO MONITOR
--- NOTE | 2020-03-14 05:45 | NUR ---
SHIFT SUMMARY: BP 93/59. DENIES DIZZINESS/LIGHTHEADEDNESS. AAO TO SELF AND SURROUNDINGS. COOPERATIVE W/CARES. PERMACATH IN R UPPER CHEST W/DRSG CDI. PT SLEPT WELL. PULLED TELE LEADS OFF SEVERAL TIMES. SINUS RHYTHM 94 PER WHARF WORKER. STRAIGHT CATHED X1 AT HS. 700 CC URINE OUT. PT HAD A CONT AND INCONT VOID THIS AM, SOAKED THE BED. CONSTANT SOFT DARK BROWN STOOL AND GAS FROM COLOSTOMY. BED ALARM AND CHAIR ALARM ON. NO ACUTE CHANGES OVERNIGHT.
--- NOTE | 2020-03-14 07:32 | NUR ---
PT YELLING OUT, FOUND TO BE HITTING HIMSELF IN THE HEAD, BITING HIS WRIST, AND SWATTING AT STAFF. YELLING HE HAS A HEADACHE WHILE HITTING HIMSELF IN THE HEAD. SPOKE W/HOSPITALIST DR. RASCON. NEW ORDER FOR ATIVAN PRN. TYLENOL ADMINISTERED AFTER PT CALMED DOWN SOME. PT RELAXED AND NO ATIVAN NEEDED AT THIS TIME. FOREHEAD APPEARS RED.
--- NOTE | 2020-03-14 17:38 | NUR ---
PT IS ALERT AND PLESANTLY CONFUSED. HE WENT FOR DYALISIS TODAY AND TOLERATED WELL. HE IS EATING AND DRINKING WELL. HIS BLADDER SCAN SHOWED OVER 500, STRAIGHT CATH PER ORDERS. HE AMBULATED IN THE [facility] THIS AFTERNOON. UPDATED HIS CARE PROVIDER. THEY ARE WORKING ON HIGHER LEVEL OF CARE WITHIN THEIR FACILITY
--- NOTE | 2020-03-15 03:16 | NUR ---
PT FOUND TO BE PULLING TELE STICKERS OFF OF HIS CHEST WELL TEGADERM COVERING PERMACATH ON R CHEST. RIPPED THE SUTURES OUT OF THE MEDIAL ASPECT OF THE PERMATH SECUREMENT DEVICE. CLEANSED THE ENTIRE AREA W/CHLORHEXADINE AND REAPPLIED TEGADERM CHG. PLACED TEGADERM OVER ACCESS PORTS WELL TO KEEP PT FROM GRIPPING AND PULLING PORTACATH OUT. WILL CONT TO MONITOR.
[2020-03-15 05:26] LABS: Hematocrit 32.3 % (37.0-53.0); Hemoglobin 11.2 g/dL (13.5-17.5)
[2020-03-15 05:45] LABS: Albumin, Blood 2.9 g/dL (3.4-5.0); Anion Gap 10 mmol/L (6-16); Blood Urea Nitrogen 26 mg/dL (8-24); Bun/Creatinine Ratio 8.3 (12.0-20.0); CO2, Blood 24 mmol/L (21-32); Calcium, Blood 7.7 mg/dL (8.5-10.1); Chloride, Blood 91 mmol/L (98-108); Creatinine, Blood 3.13 mg/dL (0.60-1.20); Glomerular Filtration Rate 21 (60-); Glucose, Blood 150 mg/dL (70-99); Magnesium, Blood 1.2 mg/dL (1.6-2.4); Phosphorus, Blood 2.9 mg/dL (2.5-4.9); Potassium, Blood 3.9 mmol/L (3.5-5.5); Sodium, Blood 125 mmol/L (136-145)
--- NOTE | 2020-03-15 06:49 | NUR ---
SHIFT SUMMARY: AAO TO SELF AND SURROUNDINGS. NO YELLING OR SELF INJURIOUS BEHAVIOR TONIGHT. DID NOT SLEEP WELL. NO VOID TONIGHT. BLADDER SCAN SHOWED >600CC, STRAIGHT CATH PRODUCED 700CC. TYLENOL ADMINISTERED AFTER PT PULLED TAPE OFF OF PERMACATH AND REMOVED TELE LEADS. PT FELL ASLEEP AFTER. TACHYCARDIC AT START OF SHIFT. PULSE DOWN TO 90'S AFTER METOPROLOL. COLOSTOMY PRODUCING SOFT BROWN STOOL. PT COOPERATIVE W/ CARES. NO ACUTE CHANGES OVERNIGHT. WILL CONT TO MONITOR.
--- NOTE | 2020-03-15 17:32 | NUR ---
SHIFT SUMMARY- PT IS PLESANT AND COOPERATIVE. HE IS EATING AND DRINKING WELL. STRIGHT CATH FOR POST VOID RES. HE DID NOT RECIEVE DYALISIS TODAY. WILL BE PLACED ON FLOWMAX. HE REMOVED HIS COLOSTOMY BAG SEVERAL TIMES THIS SHIFT. ORDERED ABDOMINAL BINDER TO PREVENT HIM FROM PULLING IT.
--- NOTE | 2020-03-15 18:07 | NUR ---
pt up eating dinner and comfortable. will remain available if needed for disharge plan.
[2020-03-16 05:53] LABS: Hematocrit 32.9 % (37.0-53.0); Hemoglobin 11.3 g/dL (13.5-17.5)
[2020-03-16 06:17] LABS: Anion Gap 10 mmol/L (6-16); Blood Urea Nitrogen 24 mg/dL (8-24); Bun/Creatinine Ratio 8.9 (12.0-20.0); CO2, Blood 23 mmol/L (21-32); Calcium, Blood 7.8 mg/dL (8.5-10.1); Chloride, Blood 94 mmol/L (98-108); Creatinine, Blood 2.71 mg/dL (0.60-1.20); Glomerular Filtration Rate 25 (60-); Glucose, Blood 165 mg/dL (70-99); Magnesium, Blood 1.4 mg/dL (1.6-2.4); Phosphorus, Blood 3.1 mg/dL (2.5-4.9); Potassium, Blood 4.3 mmol/L (3.5-5.5); Sodium, Blood 127 mmol/L (136-145)
--- NOTE | 2020-03-16 06:44 | NUR ---
SHIFT SUMMARY: VSS. AFEB. AAO TO SELF AND SURROUNDINGS. MED X 2 W/TYL FOR INCREASED FIDGETING/ PULLING APART BEDDING/ AND REMOVING COLOSTOMY BAG. HELPFUL. PT FELL ASLEEP AFTER TYL ADMINISTRATION EACH TIME. PLEASANT AND TALKATIVE. NO SELF INJURIOUS BEHAVIOR OR OUTBURSTS TONIGHT. NO ACUTE CHANGES. WILL CONT TO MONITOR.
--- NOTE | 2020-03-16 18:46 | NUR ---
SHIFT SUMMARY. A&OX1, SBA TO BATHROOM. PT PLEASANT AND APPROPRIATE WITH CARE. PT HAD DIALYSIS TODAY AND TOLERATED WELL. MAG RIDER INFUSED. PT DENIES PAIN, SOB, N/V. GOOD MEAL INTAKE.
[2020-03-17 04:58] LABS: Hematocrit 32.5 % (37.0-53.0); Hemoglobin 11.1 g/dL (13.5-17.5)
--- NOTE | 2020-03-17 05:32 | NUR ---
SHIFT SUMMARY ALERT, DEVELOP. DELAYED. ANSWERS YES/NO QUESTIONS APPROPRIATE. FOLLOWS DIRECTIONS. COOPERATIVE W/CARE, HOWEVER PT YELLED OUT AGRESSIVELY A FEW TIMES TONIGHT & WOULD BITE RIGHT WRIST WHEN YELLING. SMALL SORE NOW ON RT WRIST, GAUZE & COBAN PLACED. NO S/S OF N/V OR DYSPNEA. REPORTED HEADACHE WHEN YELLING & WAS MEDICATED 1X W/TYLENOL, NO FURTHER COMPLAINTS OF PAIN. PT PULLED OUT IV, THEREFORE A NO IV ACCESS ORDER WAS OBTAINED. COLOSTOMY APPLIANCE IS C/D/I & DRAINING SOFT BROWN STOOL. REDNESS AROUND OSTOMY APPLIANCE & ABD FOLD. CALL LIGHT IN REACH & BED ALARM IN PLACE. WCTM.
[2020-03-17 05:33] LABS: Albumin, Blood 3.1 g/dL (3.4-5.0); Anion Gap 8 mmol/L (6-16); Blood Urea Nitrogen 21 mg/dL (8-24); Bun/Creatinine Ratio 8.3 (12.0-20.0); CO2, Blood 26 mmol/L (21-32); Chloride, Blood 97 mmol/L (98-108); Creatinine, Blood 2.52 mg/dL (0.60-1.20); Glomerular Filtration Rate 27 (60-); Glucose, Blood 114 mg/dL (70-99); Magnesium, Blood 1.7 mg/dL (1.6-2.4); Potassium, Blood 4.5 mmol/L (3.5-5.5); Sodium, Blood 131 mmol/L (136-145)
--- NOTE | 2020-03-17 18:17 | NUR ---
SHIFT SUMMARY. NO DIALYSIS TODAY. THERE HAS BEEN NO CHANGE IN PT'S STATUS THIS SHIFT. PLEASANT AND COOPERATIVE WITH CARE. PT RECIEVED SHOWER TODAY. PT DID NOT REMOVE COLOSTOMY TODAY.
[2020-03-18 04:59] LABS: Hematocrit 31.4 % (37.0-53.0); Hemoglobin 10.7 g/dL (13.5-17.5)
--- NOTE | 2020-03-18 05:16 | NUR ---
SHIFT SUMMARY AOX2, PLACE & SELF, DEVELOP DELAYED. VSS. FOLLOWS SIMPLE DIRECTIONS. NO S/S OF N/V OR DYSPNEA. REPORTED HEADACHE & MEDICATED 1X W/TYLENOL, NO FURTHER COMPLAINTS OF PAIN. PT REMOVED OSTOMY & APPLIANCE 1X THIS SHIFT, REPLACED & IS CURRENTLY C/D/I. CALL LIGHT IN REACH.
[2020-03-18 05:27] LABS: Albumin, Blood 3.1 g/dL (3.4-5.0); Anion Gap 5 mmol/L (6-16); Blood Urea Nitrogen 23 mg/dL (8-24); Bun/Creatinine Ratio 8.8 (12.0-20.0); CO2, Blood 26 mmol/L (21-32); Calcium, Blood 8.5 mg/dL (8.5-10.1); Chloride, Blood 93 mmol/L (98-108); Creatinine, Blood 2.62 mg/dL (0.60-1.20); Glomerular Filtration Rate 26 (60-); Glucose, Blood 110 mg/dL (70-99); Magnesium, Blood 1.2 mg/dL (1.6-2.4); Phosphorus, Blood 3.9 mg/dL (2.5-4.9); Potassium, Blood 4.7 mmol/L (3.5-5.5); Sodium, Blood 124 mmol/L (136-145)
--- NOTE | 2020-03-18 10:10 | NUR ---
Hemo dialyiss patient pulled his cath out. 350cc blood loss, bleeding stopped, weight placed, dr aware. floor nurse aware, consult for replacement will be made
--- NOTE | 2020-03-18 10:23 | NUR ---
PATIENT PULLED HIS CATHETER. HIS BLOCK HANDLER WAS AT SIDE AND VERY ATTENTIVE, BUT COULD NOT KEEP THIS FROM HAPPENING. SHE WAS ABLE TO APPLY PRESSURE AND CALL FOR HELP IMMEDIATLEY. BLEEDING WAS STOPPED WITH IN 3 MINS WITH PRESSURE. PATIENT WAS CLEANED UP GOWN AND BEDDING CHANGED. DR JIMÉNEZ WAS CALLED. STAT K, CREATENINE AND HGB PLACED. WILL CALL JESSY WITH RESULTS WHEN THEY ARE IN. ALFREDO SANTOS RN IS ALSO AWARE. PT TAKEN TO ROOM AT 1030. AFTER CLEANING SITE WITH CHLORAPREP A NEW DRESSING WAS PLACED. A WEIGHT WAS APPLIED.
[2020-03-18 10:59] LABS: Creatinine, Blood 2.27 mg/dL (0.60-1.20); Potassium, Blood 4.6 mmol/L (3.5-5.5)
--- NOTE | 2020-03-18 12:48 | NUR ---
pt up in hallway eating lunch. site where catheter pulled is patients. pt criesa and complainst that his ear hurts. prn meds given by nurse. Therpautic time with pt soothing him an playing with his toys. Met with ethic team will meet this afternoon for comprehensive watermelon harvesting supervisor plan for pt.
--- NOTE | 2020-03-18 16:42 | NUR ---
SHIFT SUMMARY PT PULLED PERMACATH THIS AM WHILE IN DIALYSIS. PT HAS DRESSING TO RIGHT CHEST THAT IS INTACT WITH NO NEW BLEEDING. PT DOES TRY TO PULL DRESSING OFF AND STAFF HAS TO REMIND PT TO NOT PULL ON. MEDICATED FOR RIGHT EAR PAIN THIS AFTERNOON. PT HAS A GOOD APPETITE. CAREGIVERS HAVE BEEN IN ROOM WITH PT OFF AND ON. PT HAD AN EPISODE OF AGGITATION BUT CALMED DOWN WITH CAREGIVER. NO ACUTE CHANGES AT THIS TIME. PT SLEEPING AT THIS TIME. CALL LIGHT IN REACH.
--- NOTE | 2020-03-18 20:20 | NUR ---
Multiple visits to pt today and participation in Ethical care plan and consult. Called to dislysis room to review events of the day with pt removal of dislysis catheter. Dialysis expressing distress and concern of events and the care plan. They state the caregiver has difficut task in comforting him and controlling his stimulation and stress during treatment. The dialysis staff notified Lyubov Ayala, Dr Mix, Dr Whaley and hospitaist of the event. Ethics consult requested by physicians and team. Follow up assessment of patient they have him up in chair in the hallway so they can monitor closely he pulls off ostomy bag and they are watching that he does not pull at dressing off catheter site. Theaputic time with pt he is crying and states he has and earache on the side of the catheter. Therputic touch and talked with him about his toy and got him more coffee and some distration. Team ethics meeting to review possible plans of care for pt that would give him a successful discharge plan. Review of treatment and best care that is comprehensive and addresses his primary issues of autism, aging and end stage renal failure. Pt is now requires life supporting dialysis treatments. Careful discussion and review that respects comprehensive disability care. pt was trialed with dialysis. Noted difficutlies with tolerating the stimulus. suggest his care team and decison makers review benefit versus burden and quality of life. pt lennie need to be managed in multiple setting of his home, dialysis clinic, medical appointments and hospital care. pt high risk for infection and self harm. Concern that pt may not be able to express pain or dyspnea to dialysis staff during treatment. Assessment based on the the directive of [employer]I #33 and 57 for ethical care. Will follow up with Care managers, Dialsysis clinic and pysicians. Goal is quailty medical care that enhaces the patients comfort and quality of life. Will review symptoms with Brushing Operator concen is that pt may need restraints to be safe on dialysis. Pt at risk for extended hospital stays and admissions. If he misses treatments at clinic or does not tolerate he may suffer dyspnea nd symtoms of uremia. Concern is if he pulls catheter again and team can not respond fast enough could be life threatening event.
--- NOTE | 2020-03-18 20:26 | NUR ---
ASSUMED CARE. WILL IS AOX3, DISPITE HIS DEVELOPMENT DELAY. HE FOLLOWS DIRECTION WELL. DRESSING TO RIGHT UPPER CHEST HAS BEEN TORN, THE PATIENT WAS MESSING WITH IT. WILL APPLY TEGADERM OVER IT. LUNG SOUNDS CLEAR, HR REGULAR. NO EDEMA NOTED. TOOK ALL OF HIS MEDS WELL IN APPLESAUCE. BLOOD SUGAR 136. LANTUS GIVEN. CHANGED HIS ATTENDS, VOIDED IN URINAL 250ML. DENIES ANY OTHER NEEDS AT THIS TIME. WILL CONTINUE TO MONITOR. BED ALARM ON.
--- NOTE | 2020-03-19 03:35 | NUR ---
CAME BACK FROM LUNCH TO FIND WILL HAD PULLED OFF HIS OSTOMY AND ATTENDS. LINEN CHANGED DUE TO SATURATION OF URINE. NEW APPLIANCE APPLIED TO OSTOMY, ATTENDS PLACED. TUCKED INTO BED, AND TURNED ON HIS MUSIC. WILL CONTINUE TO MONITOR.
--- NOTE | 2020-03-19 05:12 | NUR ---
SHIFT SUMMARY: WILL REMAINED PLEASANT AND COOPERATIVE THIS SHIFT. HE PULLED OFF OSTOMY AND ATTENDS X1. ENCOURAGED HIM TO LEAVE IN PLACE. VS HAVE REMAINED STABLE. AFEBRILE. [facility], HAS BEEN RIPPED SOME, HE CONTINUES TO REMOVE THE EXTRA DRESSING THAT WE KEEP PUTTING ON. HE SLEPT OFF AND ON THROUGHOUT THE NIGHT, PLAYING HIS MUSIC. ALARM REMAINED ON. NO ACUTE CHANGES TO NOTE. WILL CONTINUE TO MONITOR TILL DAY SHIFT ARRIVES.
[2020-03-19 05:47] LABS: Hematocrit 30.3 % (37.0-53.0); Hemoglobin 10.4 g/dL (13.5-17.5)
[2020-03-19 06:12] LABS: Albumin, Blood 3.1 g/dL (3.4-5.0); Anion Gap 6 mmol/L (6-16); Blood Urea Nitrogen 21 mg/dL (8-24); Bun/Creatinine Ratio 8.8 (12.0-20.0); CO2, Blood 26 mmol/L (21-32); Calcium, Blood 8.5 mg/dL (8.5-10.1); Chloride, Blood 93 mmol/L (98-108); Creatinine, Blood 2.38 mg/dL (0.60-1.20); Glomerular Filtration Rate 29 (60-); Glucose, Blood 102 mg/dL (70-99); Phosphorus, Blood 4.4 mg/dL (2.5-4.9); Potassium, Blood 4.5 mmol/L (3.5-5.5); Sodium, Blood 125 mmol/L (136-145)
--- NOTE | 2020-03-19 17:46 | NUR ---
SHIFT SUMMARY PT HAS BEEN SLEEPING MOST OF THE SHIFT. HAS A GOOD APPETITE. NO COMPLAINTS OF PAIN. CAREGIVERS AT BEDSIDE MOST OF THE SHIFT. IVF INFUSING WITHOUT DIFFICULTY. STILL WAITING TO HEAR WHAT THE PLAN IS FOR PT WITH GETTING A NEW PERMACATH OR NOT. NO ACUTE CHANGES AT THIS TIME. CALL LIGHT IN REACH. WILL CONTINUE TO MONITOR. BED ALARM ON FOR SAFETY.
--- NOTE | 2020-03-19 20:30 | NUR ---
ASSUMED CARE: WILL WAS SLEEPING, AWAKEND BY VERBAL STIMULI. AOX3, ABLE TO UNDERSTAND SPEECH BETTER TODAY. HE WAS TALKING ABOUT [employer], AND THAT HE HAD TO LEAVE HIS IV ALONE. CLEANED OUT OSTOMY, STOOL PUDDING LIKE WITH SOME AREAS OF MORE THICK AREAS, COLOR BLACK, NOT GRAIN LIKE. ABDOMIN SOFT ROUND, BRUISED ALL OVER, NON PAINFUL. DID NOT MOVE WHEN GIVING HIS INJECTION MEDICATIONS. ASSISTED WITH URINAL USE. VOIDED 250ML CLEAR YELLOW URINE. ATTENDS DRY. IV STILL INTACT, FLUSHED, IS POSITIONAL. SO FAR HE HAS NOT PULLED IT OUT. HE TALKED ABOUT [employer] AND GETTING THE TOYS THERE. TOOK HIS MEDS IN APPLESAUCE. REPORTED BODY ACHES. NO HEADACHE. BED ALARM ON. DRANK A FULL GLASS OF WATER. CALL LIGHT IN REACH. MUSIC ON. WILL CONTINUE TO MONITOR.
--- NOTE | 2020-03-19 22:31 | NUR ---
WILL IS ASLEEP TOSSING AND TURNING IN BED LISTENING TO HIS MUSIC. NO SIGN OF DISTRESS. IV STILL THERE, OSTOMY STILL ON. BED ALARM ON. WILL CONTINUE TO MONITOR.
--- NOTE | 2020-03-20 02:57 | NUR ---
CAME BACK FROM LUNCH, THE PATIENT WAS AWAKE WITH HIS ATTENDS OFF, BED WET. OSTOMY APPLIANCE PULLED OFF FOR THE SECOND TIME TONIGHT. TRIED TO CONCEAL IT BUT HE JUST UNCOVERS IT AND PULLS IT OFF. LINEN CHANGED, ATTENDS CHANGE, NEW APPLIANCE APPLIED. BED ALARM BACK ON
--- NOTE | 2020-03-20 05:32 | NUR ---
SHIFT SUMMARY: WILL WAS A BUSY JOHNY TONIGHT. HE TOSSED AND TURNED THROUGHOUT THE NIGHT. PULLED HIS OSTOMY APPLIANCE OFF TWICE IN HIS SLEEP ALONG WITH HIS ATTENDS. LINEN CHANGE X1. NEEDS REPEATED INSTRUCTIONS TO NOT TOUCH HIS IV AND OSTOMY. OSTOMY PUT OUT DARK BLACK SOFT STOOLS. SEVERAL WET ATTENDS NOTED. IV CONTINUED TO INFUSE AT 50ML/HR. VS WNL, AFEBRILE. BLOOD SUGAR TONIGHT 129. TOOK MEDS WITH NO PROBLEMS. NO OTHER CHANGES TO NOTE THIS SHIFT.
[2020-03-20 06:02] LABS: Hematocrit 29.3 % (37.0-53.0)
[2020-03-20 06:26] LABS: Albumin, Blood 2.8 g/dL (3.4-5.0); Anion Gap 9 mmol/L (6-16); Blood Urea Nitrogen 18 mg/dL (8-24); Bun/Creatinine Ratio 8.8 (12.0-20.0); CO2, Blood 21 mmol/L (21-32); Calcium, Blood 8.2 mg/dL (8.5-10.1); Chloride, Blood 97 mmol/L (98-108); Creatinine, Blood 2.04 mg/dL (0.60-1.20); Glomerular Filtration Rate 35 (60-); Glucose, Blood 103 mg/dL (70-99); Magnesium, Blood 1.5 mg/dL (1.6-2.4); Phosphorus, Blood 4.3 mg/dL (2.5-4.9); Potassium, Blood 4.6 mmol/L (3.5-5.5); Sodium, Blood 127 mmol/L (136-145); Uric Acid, Blood 6.5 mg/dL (3.5-7.2)
--- NOTE | 2020-03-20 07:33 | NUR ---
ASSUMED CARE OF PT- BEDSIDE REPORT COMPLETED WITH NIGHT RN MARY. PER REPORT PT ALERT TO SELF, VERY DEVELOPMENTALLY DELAYED. PT HAS AN OSTOMY WHICH HE FREQUENTLY REMOVES. PT HAD A PERMACATH FOR DIALYSIS WHICH HE REMOVED HIMSELF. IT HAS YET TO BE DETERMINED IF ANOTHER WILL BE PLACED OR IF THE PT WILL BE BETTER IF PLACED ON HOSPICE. 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 THIS RUNS CONSTATNTLY, THE PT OFTEN TURNS IT UP AND NEEDS TO BE REMINDED THERE ARE OTHERS TRYING TO SLEEP. PT CURRENTLY LAYING IN BED CALL LIGHT IN REACH, THOUGH HE DOES NOT CALL APPROPRIATELY; MUSIC PLAYING AND HE SEEMS COMFORTABLE NO S&S OF DISTRESS NOTED. PT ON THE CAMERAS FOR SAFETY.
[2020-03-20 08:07] LABS: Free Thyroxine 0.74 ng/dL (0.70-1.60)
[2020-03-20 08:08] LABS: Triiodothyronine, Free 1.31 pg/mL (2.18-3.98)
--- NOTE | 2020-03-20 15:52 | NUR ---
SHIFT SUMMARY- PT HAS HAD NO ACUTE CHANGES T/O THE SHIFT. OSTOMY BAG CHANGED ONCE TWICE IT REQUIRED BURPING PT PRODUCES QUITE A BIT OF GAS. OSTOMY APPLIANCE BEGAN LEAKING AROUND THE BASE APPLIANCE WAS CHANGED AT 1545 TODAY. SKIN CONDITION LOOKS GOOD AT THIS TIME SKINTEGRITY APPLIED TO PREVENT DAMAGE. PT TAKES MED WHOLE IN APPLE SAUCE WELL. PT HAS DENIED THE NEED FOR PAIN MEDICATION T/O THE DAY SO FAR, WILL CTM. PT HAS A CAREGIVER AT THE BEDSIDE. PERMACAT SITE THAT THE PT PULLED HAS NO S&S OF BLEEDING OR INFECTION AT THIS TIME. DRESSING IS ROLLING UP A LITTLE ON THE EDGES BUT APPEARS TO BE C/D/I AT THIS TIME.
--- NOTE | 2020-03-20 19:00 | NUR ---
ASSUMED CARE: ALARM SOUNDING, WILL WAS GETTING UP, HAD TO USE THE BATHROOM. ASSISTED HIM TO SIDE OF THE BED, WITH OTHER STAFF TO PREVENT PULLING OUT IV. OSTOMY WAS BLOWN UP WITH GAS, BURPED, BROWN LIQUID STOOL. VOIDED IN URINAL 325ML, CLEAR YELLOW. REPORTED HEADACHE 6/10 TOP OF HEAD. SHAYY TOBAR ADMINISTERED TYLENOL. SAT HIM UP IN CHAIR. IV INFUSING WITH NO PROBLEMS. SKIN IMPROVING, REDNESS NOTED STILL IN PANUS. BRUISING ALL OVER LOWER ABDOMEN. GAVE COOL RAG FOR FORHEAD. AND GOT HIM BACK INTO BED. COVERED UP. BED ALARM ON.
--- NOTE | 2020-03-20 22:15 | NUR ---
WILL PULLED OFF HIS OSTOMY BY THE TIME I GOT TO THE ROOM. NEW ONE APPLIED OSTOMY BELT APPLIED. HE CONTINUES TO PULL OFF HIS GOWN, THEREFORE PUT A SHIRT ON. NEW DRESSING APPLIED TO PERMA CATH SIDE HE TORN THE DRESSING. REMOVED THE PLASTIC WHITE [place] THAT WAS STICHED TO HIS SKIN, DUE TO HIM TRYING TO PULL IT OUT. SAT HIM UP IN THE CHAIR. LINEN AND ATTENDS CHANGED. HE WAS TRYING TO SAY SOMETHING THAT I COULD NOT UNDERSTAND AND GOT FRUSTRATED HITTING HIMSELF IN THE FACE. GOT HIM CALMED DOWN AND GAVE HIM APPLESAUCE.
[2020-03-21 05:12] LABS: Hematocrit 29.7 % (37.0-53.0); Hemoglobin 10.1 g/dL (13.5-17.5)
[2020-03-21 05:32] LABS: Albumin, Blood 2.9 g/dL (3.4-5.0); Anion Gap 8 mmol/L (6-16); Blood Urea Nitrogen 16 mg/dL (8-24); Bun/Creatinine Ratio 8.4 (12.0-20.0); CO2, Blood 21 mmol/L (21-32); Calcium, Blood 7.7 mg/dL (8.5-10.1); Chloride, Blood 97 mmol/L (98-108); Glomerular Filtration Rate 38 (60-); Glucose, Blood 128 mg/dL (70-99); Magnesium, Blood 1.4 mg/dL (1.6-2.4); Phosphorus, Blood 3.9 mg/dL (2.5-4.9); Potassium, Blood 4.7 mmol/L (3.5-5.5); Sodium, Blood 126 mmol/L (136-145)
--- NOTE | 2020-03-21 05:33 | NUR ---
SHIFT SUMMARY: YADI HAS ONE EPISODE WHERE HE GOT AGGITATED, YELLING AND STARTED TO HIT HIMSELF IN THE HEAD. CALMED HIM DOWN WITH A SODA AND GAVE HIM 1MG OF ATIVAN. HE STAYED UP FOR A WHILE WATCHING TV. THEN LAID IN BED TO SLEEP. HE PULLED OFF HIS OSTOMY TWICE THIS SHIFT. WHEN PLACING A NEW ONE ADDED A OSTOMY BELT TO SEE IF IT WILL HELP HIM KEEP IT ON. VITALS WNL. AFEBRILE. IV CONTINUES TO INFUSE. NO ACUTE CHANGES THIS SHIFT.
--- NOTE | 2020-03-21 08:22 | NUR ---
ENTERED THE ROOM AND PT WAS PULLING AT THE DRESSING FOR HIS IV THAT WAS INFUSING IV MAG. PT BECAME AGGITATED WHEN STAFF ADVISED HIM NOT TO TAKE THAT OFF RIPPED THE IV OUT OF HIS ARM AND THREW IT AT STAFF. WRAPPED THE SITE WITH GAUZE AND COBAN AND HE PROMPTLY REMOVED THAT WELL. CALLED DR FREEDMAN AND RECIEVED ORDER FOR PO MAGNESIUM AND NO IV ACCESS NEEDED.
--- NOTE | 2020-03-21 11:52 | NUR ---
CALLED [facility] TO UPDATE ON PT CONDITION. DR FREEDMAN ASKED RN TO INFORM THEM OF THE PLAN TO DISCHARGE HIM BACK HOME TOMORROW. SPOKE TO LEE THE HOUSE AND SHE IS CONTACTING THE NURSE. LEFT CONTACT INFO SHE IS AFRAID THEY CANT TAKE THE PT BACK UNTIL MONDAY SHE WILL CALL BACK AFTER TALKING TO THE NURSE.
--- NOTE | 2020-03-21 12:18 | NUR ---
SPOKE TO OLGA FROM [facility] AND SHE STATED THEY ARE UNABLE TO TAKE THE PT BACK UNTIL MONDAY. CALLED DR FREEDMAN AND SHE IS AWARE OF THIS. OLGA ALSO WANTED STAFF TO KNOW WHEN THE PT DISCHARGES HE CAN NOT HAVE A SLIDING SCALE INSULIN THEY CAN NOT ADMINISTER THAT AT THERE HOUSE.
--- NOTE | 2020-03-21 16:49 | NUR ---
SHIFT SUMMARY- PT ALERT AND ORIENTED TO SELF. PT HAS BEEN COMPLIANT WITH CARE AFTER THIS MORING WHEN HE PULLED OUT HIS IV AND THREW IT AT STAFF. PT HAS BEEN PLEASENT THIS AFTERNOON, PT HAS NOT REMOVED HIS OSTOMY T/O THE DAY AND HE HAS BEEN CONTINENT IN THE ABILITY TO USE THE BATHROOM HOWEVER HE HAS BECOME MORE IMPULSIVE BECAUSE OF IT. ATTENDS ARE DAMP SO CHANGED EACH TIME HE VOIDS. PT SITTING IN BED AT THIS TIME WAITING FOR DINNER TO ARRIVE, MEDS WHOLE IN APPLESAUCE, OSTOMY JUST EMPTIED, HE JUST WENT TO THE BATHROOM AND VOIDED WELL. CALL LIGHT IS IN REACH, HE DOES NOT USE IT. PLAN IS FOR HIM TO DISCHARGE HOME ON MONDAY. FOLLOW UP OUT PT WITH DR JIMÉNEZ.
--- NOTE | 2020-03-22 00:32 | NUR ---
03/22/20 8782 PT PULLED OFF COLOSTOMY APPLIANCE AND BAG. SITE CLEANSED AND NEW APPLIANCE REAPPLIED. ABDOMINAL BINDER PUT ON PT TO PREVENT HIM FREQUENTLY TAKING OFF BAG AND/OR APPLIANCE. REPOSITIONED IN BED FOR COMFORT. BED ALARM ON AT ALL TIMES. SIDERAILS X 3 UP.
[2020-03-22 08:54] LABS: Hemoglobin 10.6 g/dL (13.5-17.5)
[2020-03-22 09:08] LABS: Albumin, Blood 3.2 g/dL (3.4-5.0); Anion Gap 7 mmol/L (6-16); Blood Urea Nitrogen 13 mg/dL (8-24); Bun/Creatinine Ratio 7.3 (12.0-20.0); CO2, Blood 22 mmol/L (21-32); Calcium, Blood 8.4 mg/dL (8.5-10.1); Chloride, Blood 100 mmol/L (98-108); Creatinine, Blood 1.77 mg/dL (0.60-1.20); Glomerular Filtration Rate 41 (60-); Glucose, Blood 116 mg/dL (70-99); Sodium, Blood 129 mmol/L (136-145)
[2020-03-22 09:25] LABS: Magnesium, Blood 1.1 mg/dL (1.6-2.4)
--- NOTE | 2020-03-22 15:43 | NUR ---
SHIFT SUMMARY- PT HAS HAD NO ACUTE CHANGE T/O THE DAY MAG LEVEL WAS LOW AGAIN THIS MORNINING DR JIMÉNEZ CHANGED THE BID MAG TO TID MAGOX. PT HAS BEEN MORE PLEASENT TODAY AND MORE AWAKE. PLAN IS FOR HIM TO DC BACK TO [facility] TOMORROW. WILL PASS ALL ON TO NIGHT RN IN BEDSIDE REPORT.
--- NOTE | 2020-03-23 00:55 | NUR ---
03/23/20 0025 DURING ROUNDS, FRUIT SORTER FOUND THAT PT HAD REMOVED COLOSTOMY BAG AND APPLIANCE AGAIN. ONLY SMALL AMT OF BROWN STOOL IN BAG. PT DID NOT SAY WHY HE REMOVED IT. PT ALSO PLAYING HIS MUSIC LOUD AND DISRUPTING OTHER PTS. RN SHUT OFF MUSIC AND EXPLAINED THAT IT WAS TOO LOUD. PT BECAME VERY UPSET AND WAS YELLING VERY LOUD INCOHERANT WORDS AND CRYING. AFTER 10M MINUTES OF THIS LOUD YELLING, RN TURNED HIS MUSIC BACK ON. NEW COLOSTOMY APPLIANCE APPLIED AND ABDOMINAL BINDER REAPPLIED TO HELP PREVENT FURTHER EPISODES OF REMOVAL. PT THEN BECAME QUIET AND RESTING IN BED.
--- NOTE | 2020-03-23 05:55 | NUR ---
03/23/20 0515 PT AWAKE AND VOIDED IN BR WITH HELP OF FRONT END APPLICATION DEVELOPER. C/O HEADACHE AND MEDICATED PER OCT. ANXIOUS AND WANTING TO SIT IN CHAIR IN HALLWAY BY NURSES. COLOSTOMY BAG IN PLACE AND ABDOMINAL BINDER ON TO HAMPER FREQUENT REMOVALS.
[2020-03-23 06:58] LABS: Hemoglobin 10.6 g/dL (13.5-17.5)
[2020-03-23 07:27] LABS: Albumin, Blood 3.3 g/dL (3.4-5.0); Anion Gap 6 mmol/L (6-16); Blood Urea Nitrogen 12 mg/dL (8-24); Bun/Creatinine Ratio 6.9 (12.0-20.0); CO2, Blood 23 mmol/L (21-32); Calcium, Blood 8.8 mg/dL (8.5-10.1); Chloride, Blood 99 mmol/L (98-108); Creatinine, Blood 1.74 mg/dL (0.60-1.20); Glomerular Filtration Rate 42 (60-); Glucose, Blood 96 mg/dL (70-99); Phosphorus, Blood 3.7 mg/dL (2.5-4.9); Potassium, Blood 4.7 mmol/L (3.5-5.5); Sodium, Blood 128 mmol/L (136-145)
[2020-03-23 07:30] LABS: Magnesium, Blood 1.1 mg/dL (1.6-2.4)
[2020-03-23] MEDS ORDERED: EUTHYROX125 MCG PO (10:44)
[2020-03-23] MEDS ORDERED: MAGNESIUM OXID400 M1 PO (10:45)
[2020-03-23] MEDS ORDERED: SENN187 PO (10:46)
[2020-03-23] MEDS ORDERED: TAMS.4ER PO (10:47)
[2020-03-23] MEDS ORDERED: Afrin15 ML (12:32)
[2020-03-23] MEDS ORDERED: Aquaphor Healin50 GM TOP (12:33)
[2020-03-23] MEDS ORDERED: [UNRECOGNIZED DRUG - OTHER] (12:35)
[2020-03-23] MEDS ORDERED: BENADRYL25 MG PO (12:36)
[2020-03-23] MEDS ORDERED: Chloraseptic177 ML TOP (12:37)
[2020-03-23] MEDS ORDERED: PAROEX473 ML TOP (12:38)
[2020-03-23] MEDS ORDERED: DEBROX 6.5% TOP (12:44)
[2020-03-23] MEDS ORDERED: [UNRECOGNIZED DRUG - OTHER] TOP (12:47)
[2020-03-23] MEDS ORDERED: ALMACONE SUSPE355 ML TOP (12:49)
[2020-03-23] MEDS ORDERED: MINERAL OIL LIGHT TOP (12:53)
[2020-03-23] MEDS ORDERED: ORAJEL 20% (12:54)
[2020-03-23] MEDS ORDERED: ROBITUSSIN COU118 M2 PO (12:55)
[2020-03-23] MEDS ORDERED: [UNRECOGNIZED DRUG - OTHER] (12:56)
[2020-03-23] MEDS ORDERED: TRIA15CR3 TOP (12:57)
[2020-03-23] MEDS ORDERED: TRIPLE ANTIBIO TOP (12:58)
[2020-03-23] MEDS ORDERED: UCERIS PO (12:59)
[2020-03-23] MEDS ORDERED: PETROLEUM JELLY (13:00)
--- NOTE | 2020-03-23 13:26 | NUR ---
DISCHARGE NOTE: EDUCATION/INSTRUCTIONS GONE OVER WITH PT'S CAREGIVER DUE TO PATIENT HAVING A DEVELOPMENTAL DELAY. CAREGIVER HAD NO ADDITIONAL QUESTIONS. IV REMOVED FROM LEFT WRIST. PT TOW. PT TAKEN TO [place] VIA W/C BY CAREGIVERS. PT DISCHARGED AT 1319.
[2020-04-14] MEDS ORDERED: Afrin15 ML (21:54)
== END 2020-03-23 13:20 | disposition home or self-care (01) | DRG 682 ==
LOC: ER 09:15 → MEDS 12:38
PROVIDERS: Internal Medicine Nephrology; Physician Assistant; ADMIT Internal Medicine
PROC: 5A1D70Z Performance of Urinary Filtration, Intermittent, Less than 6 Hours Per Day (ICD-10-PCS; principal; 2020-03-10)
DX: I12.0 Hypertensive chronic kidney disease with stage 5 chronic kidney disease or end stage renal disease (principal); R65.11 Systemic inflammatory response syndrome (SIRS) of non-infectious origin with acute organ dysfunction; N18.6 End stage renal disease; N25.81 Secondary hyperparathyroidism of renal origin; E87.1 Hypo-osmolality and hyponatremia; E87.2 Acidosis; E87.5 Hyperkalemia; N31.9 Neuromuscular dysfunction of bladder, unspecified; E03.9 Hypothyroidism, unspecified; E78.5 Hyperlipidemia, unspecified; Z79.4 Long term (current) use of insulin; R62.50 Unspecified lack of expected normal physiological development in childhood; Z93.2 Ileostomy status; E11.65 Type 2 diabetes mellitus with hyperglycemia; Z90.49 Acquired absence of other specified parts of digestive tract; K21.9 Gastro-esophageal reflux disease without esophagitis; E83.39 Other disorders of phosphorus metabolism; E11.22 Type 2 diabetes mellitus with diabetic chronic kidney disease; I48.0 Paroxysmal atrial fibrillation
CPT/HCPCS: 36415; 51701; 71045; 74176; 80053; 80069; 81001; 82533; 82565; 82947; 83605; 83735; 84100; 84132; 84439; 84443; 84481; 84484; 84550; 85014; 85018; 85025; 87040; 87086; 93005; 93010; 94760; 96361; 96365; 96366; 99285-25; A9270; G0103; J0610; J1644; J1815; J2060; J2997; J3475; J7030

== ENCOUNTER → 2020-04-06 | Outpatient (CLI) | payer OTHER ==
[~2020-04-06] MED LIST changes: +ALMACONE SUSPE355 ML TOP; +Afrin15 ML; +Aquaphor Healin50 GM TOP; +BENADRYL25 MG PO; +BUDESONIDE PR; +Chloraseptic177 ML TOP; +DEBROX 6.5% TOP; +EUTHYROX125 MCG PO; +Feverall650 MG PR; +MAGNESIUM OXID400 M1 PO; +MINERAL OIL LIGHT TOP; +ORAJEL 20%; +PAROEX473 ML TOP; +PETROLEUM JELLY; +ROBITUSSIN COU118 M2 PO; +SENN187 PO; +TRIPLE ANTIBIO TOP; +UCERIS PO; +ZYPREXA15 MG PO; +[UNRECOGNIZED DRUG - OTHER]; +[UNRECOGNIZED DRUG - OTHER]; +[UNRECOGNIZED DRUG - OTHER] TOP
[2020-04-06 17:11] LABS: Microalbumin, Urine Quant. 17.8 mg/L (0.000-20.000); Protein, Urine Quantitative 5.2 mg/dL (0.0-11.9)
== END | disposition home or self-care (01) ==
LOC: LAB SHORT 15:25 → LAB 15:25 → LAB FUT 04-03 10:35 → EDSTATUS 04-03 10:35
PROVIDERS: Internal Medicine Nephrology
DX: E55.9 Vitamin D deficiency, unspecified (principal); N25.81 Secondary hyperparathyroidism of renal origin; E78.00 Pure hypercholesterolemia, unspecified; N18.3 Chronic kidney disease, stage 3 (moderate); D63.1 Anemia in chronic kidney disease; R76.9 Abnormal immunological finding in serum, unspecified; R94.5 Abnormal results of liver function studies; G60.9 Hereditary and idiopathic neuropathy, unspecified; R94.6 Abnormal results of thyroid function studies
CPT/HCPCS: 81050; 82043; 82570; 84156

== ENCOUNTER 2020-05-25 17:19 | Inpatient (IN) | payer OTHER ==
[~2020-05-25] VITALS: Ht 177.8 cm; Wt 90.7 kg
[2020-05-25 18:20] LABS: BASOPHILS ABSOLUTE AUTO 0.03 K/mm3 (0.00-0.23); BASOPHILS PERCENT AUTO 0 % (0-2); EOSINOPHILS ABSOLUTE AUTO 0.22 K/mm3 (0.00-0.68); EOSINOPHILS PERCENT AUTO 3 % (0-6); Hematocrit 36.9 % (37.0-53.0); IMMATURE GRAN ABSOLUTE AUTO 0.03 K/mm3 (0.00-0.10); IMMATURE GRAN PERCENT AUTO 0 % (0-1); LYMPHOCYTES ABSOLUTE AUTO 1.05 K/mm3 (0.84-5.20); LYMPHOCYTES PERCENT AUTO 13 % (21-46); MONOCYTES PERCENT AUTO 9 % (4-13); Mean Corpuscular HGB 30.2 pg (26.0-34.0); Mean Corpuscular HGB Conc 35.2 g/dL (31.5-36.5); Mean Corpuscular Volume 86 fL (80-100); Mean Platelet Volume 8.7 fL (9.1-12.4); NEUTROPHILS ABSOLUTE AUTO 5.85 K/mm3 (1.96-9.15); NEUTROPHILS PERCENT AUTO 74 % (41-73); Platelet Count 199 K/mm3 (150-400); RDW Coefficient Variation 12.9 % (11.7-14.2); White Blood Cell Count 7.88 K/mm3 (4.00-11.30)
[2020-05-25 18:49] LABS: Troponin I 0.063 ng/mL (0.000-0.040)
[2020-05-25 18:50] LABS: Alanine Aminotransfer (ALT/SGP 20 U/L (12-78); Albumin, Blood 3.5 g/dL (3.4-5.0); Alk Phos 62 U/L (50-136); Anion Gap 7 mmol/L (6-16); Aspartate Aminotrans (AST/SGOT 22 U/L (12-37); Bilirubin, Total 0.6 mg/dL (0.1-1.0); Blood Urea Nitrogen 11 mg/dL (8-24); Bun/Creatinine Ratio 10.5 (12.0-20.0); CO2, Blood 30 mmol/L (21-32); Chloride, Blood 90 mmol/L (98-108); Creatinine, Blood 1.05 mg/dL (0.60-1.20); Globulin, Blood 3.6 g/dL (2.2-4.0); Glomerular Filtration Rate >60 (60-); Glucose, Blood 146 mg/dL (70-99); Potassium, Blood 3.5 mmol/L (3.5-5.5); Sodium, Blood 127 mmol/L (136-145); Total Protein, Blood 7.1 g/dL (6.4-8.2)
[2020-05-25] MEDS ORDERED: ACET325 PO (23:19)
[2020-05-25] MEDS ORDERED: LOSA25 PO (23:23)
[2020-05-25] MEDS ORDERED: FURO40 PO (23:27)
[2020-05-25] MEDS ORDERED: OLAN7.5 PO (23:32)
[2020-05-25] MEDS ORDERED: POTA10T PO (23:33)
[2020-05-25] MEDS ORDERED: Vitamin D2000 UNIT PO (23:35)
[2020-05-25] MEDS ORDERED: Afrin15 ML (23:37)
[2020-05-26 04:56] LABS: BASOPHILS ABSOLUTE AUTO 0.03 K/mm3 (0.00-0.23); BASOPHILS PERCENT AUTO 1 % (0-2); EOSINOPHILS PERCENT AUTO 3 % (0-6); Hematocrit 36.3 % (37.0-53.0); Hemoglobin 12.7 g/dL (13.5-17.5); IMMATURE GRAN ABSOLUTE AUTO 0.02 K/mm3 (0.00-0.10); IMMATURE GRAN PERCENT AUTO 0 % (0-1); LYMPHOCYTES PERCENT AUTO 11 % (21-46); MONOCYTES ABSOLUTE AUTO 0.66 K/mm3 (0.16-1.47); MONOCYTES PERCENT AUTO 10 % (4-13); Mean Corpuscular HGB 30.3 pg (26.0-34.0); Mean Corpuscular Volume 87 fL (80-100); Mean Platelet Volume 8.8 fL (9.1-12.4); NEUTROPHILS ABSOLUTE AUTO 4.75 K/mm3 (1.96-9.15); NEUTROPHILS PERCENT AUTO 75 % (41-73); Platelet Count 177 K/mm3 (150-400); RDW Coefficient Variation 12.8 % (11.7-14.2); RDW Standard Deviation 40.1 fL (35.1-46.3); Red Blood Cell Count 4.19 M/mm3 (4.30-5.90); White Blood Cell Count 6.36 K/mm3 (4.00-11.30)
--- NOTE | 2020-05-26 04:58 | NUR ---
SHIFT SUMMARY ADMITTED FROM ER THIS SHIFT FOR PNEUMONIA. FULL CODE. SOFT BILAT WRIST RESTRAINTS APPLIED THIS SHIFT. PT PULLED OFF TWO COLOSTOMY APPLIANCES SINCE ADMIT AND REMOVED TELEMETRY CORDS. PT IS AUTISTIC AND DEVELOPMENTALLY DELAYED. NS IS INFUSING @ 100 ML/HR. PT IS ON A MECHANICAL SOFT ADA DIET AT HIS FACILITY. TELEMETRY: NSR W/BBB AND PVC'S @ 66 BPM. HE IS ALERT TO SELF AND CAREGIVERS ONLY. HE IS COVID NEGATIVE. PLAN IS FOR IV ANTIBIOTICS AND FLUIDS, MONITOR LABS & S/SX, THEN DC BACK TO HIS FACILITY WHEN STABLE. HE IS ON 3 LPM O2 VIA NC, RA @ HOME.
[2020-05-26 05:17] LABS: Anion Gap 5 mmol/L (6-16); Blood Urea Nitrogen 7 mg/dL (8-24); Bun/Creatinine Ratio 6.3 (12.0-20.0); CO2, Blood 32 mmol/L (21-32); Calcium, Blood 8.3 mg/dL (8.5-10.1); Chloride, Blood 89 mmol/L (98-108); Creatinine, Blood 1.11 mg/dL (0.60-1.20); Glomerular Filtration Rate >60 (60-); Glucose, Blood 121 mg/dL (70-99); Sodium, Blood 126 mmol/L (136-145); Troponin I 0.069 ng/mL (0.000-0.040)
--- NOTE | 2020-05-26 16:02 | NUR ---
PT WAS ABLE TO GET OUT OF RESTAINTS . HE HAS HAD CAREGIVERS WITH HIM ALL SHIFT. PT HAS NOT BEEN DISTRUPTIVE, JUST VERY CONFUSED AND WOULD PULL AT HIS IV OR COLOSTOMY BAG. PT IS COMPLIANT WITH HIS CG PRESENT. HE IS VERY PLEASANT AND COOPERATIVE WITH STAFF WHEN HE CAN UNDERSTAND WHAT IS BEING ASKED OF HIM. PT CONTINUES TO DESAT WHEN O2 IS REMOVED. PT CURRENTLY AT 3 L NC. CG IN ROOM AT THIS TIME, CALL LIGHT WITHIN REACH.
--- NOTE | 2020-05-27 04:40 | NUR ---
SHIFT SUMMARY ADMITTED FOR LLL PNEUMONIA. FULL CODE. PLAN IS FOR POSSIBLE DC TODAY TO [facility]. BLOOD CULTURES POSITIVE FOR GRAM POSITIVE COCCI IN CLUSTERS, HOSPITALIST INFORMED. TELEMETRY: NSR @ 82 BPM. CAREGIVERS INFORM ME THAT HIS MEDS SHOULD BE CRUSHED IN APPLESAUCE. HE SHOULD BE ON A MECHANICAL SOFT DIET. CAREGIVERS AT BEDSIDE. IV FLUIDS INFUSING @ 100 ML/HR
[2020-05-27 04:49] LABS: BASOPHILS ABSOLUTE AUTO 0.02 K/mm3 (0.00-0.23); BASOPHILS PERCENT AUTO 0 % (0-2); EOSINOPHILS ABSOLUTE AUTO 0.18 K/mm3 (0.00-0.68); EOSINOPHILS PERCENT AUTO 3 % (0-6); Hematocrit 36.9 % (37.0-53.0); Hemoglobin 12.8 g/dL (13.5-17.5); IMMATURE GRAN ABSOLUTE AUTO 0.02 K/mm3 (0.00-0.10); IMMATURE GRAN PERCENT AUTO 0 % (0-1); LYMPHOCYTES ABSOLUTE AUTO 0.69 K/mm3 (0.84-5.20); LYMPHOCYTES PERCENT AUTO 12 % (21-46); MONOCYTES ABSOLUTE AUTO 0.51 K/mm3 (0.16-1.47); MONOCYTES PERCENT AUTO 9 % (4-13); Mean Corpuscular HGB 30.4 pg (26.0-34.0); Mean Corpuscular HGB Conc 34.7 g/dL (31.5-36.5); Mean Corpuscular Volume 88 fL (80-100); Mean Platelet Volume 8.7 fL (9.1-12.4); NEUTROPHILS ABSOLUTE AUTO 4.56 K/mm3 (1.96-9.15); NEUTROPHILS PERCENT AUTO 76 % (41-73); Platelet Count 186 K/mm3 (150-400); RDW Coefficient Variation 12.9 % (11.7-14.2); RDW Standard Deviation 41.3 fL (35.1-46.3); Red Blood Cell Count 4.21 M/mm3 (4.30-5.90); White Blood Cell Count 5.98 K/mm3 (4.00-11.30)
[2020-05-27 05:09] LABS: Alanine Aminotransfer (ALT/SGP 15 U/L (12-78); Albumin, Blood 3.1 g/dL (3.4-5.0); Albumin/Globulin Ratio 0.9 (0.8-1.8); Alk Phos 61 U/L (50-136); Anion Gap 4 mmol/L (6-16); Aspartate Aminotrans (AST/SGOT 14 U/L (12-37); Bilirubin, Total 0.5 mg/dL (0.1-1.0); Blood Urea Nitrogen 9 mg/dL (8-24); Bun/Creatinine Ratio 9.1 (12.0-20.0); CO2, Blood 32 mmol/L (21-32); Calcium, Blood 8.6 mg/dL (8.5-10.1); Chloride, Blood 95 mmol/L (98-108); Creatinine, Blood 0.98 mg/dL (0.60-1.20); Globulin, Blood 3.3 g/dL (2.2-4.0); Glomerular Filtration Rate >60 (60-); Glucose, Blood 186 mg/dL (70-99); Potassium, Blood 3.7 mmol/L (3.5-5.5); Sodium, Blood 131 mmol/L (136-145); Total Protein, Blood 6.4 g/dL (6.4-8.2)
[2020-05-27] MEDS ORDERED: LEVFLO500 PO (11:04)
--- NOTE | 2020-05-27 11:39 | NUR ---
1115 PT DISCHARGED BACK TO HOME. MEDS FAXED TO [facility]. PT LIVES AT [facility] AND STAFF PRESENT. NURSE WENT OVER NEW MEDS WITH CAREGIVERS. PT WAS DRESSED AND PACKED BY CAREGIVERS. IV REMOVED WITH NO SS OF INFECTION NOTED. PT WAS TAKEN OUT BY WC BY NURSE. PT TO FOLLOW UP WITH PCP.
== END 2020-05-27 11:30 | disposition home or self-care (01) | DRG 193 ==
LOC: ER 17:19 → MEDS 21:34
PROVIDERS: Internal Medicine; Physician Assistant; ADMIT Hospitalist
DX: J18.9 Pneumonia, unspecified organism (principal); J96.01 Acute respiratory failure with hypoxia; E87.1 Hypo-osmolality and hyponatremia; F84.0 Autistic disorder; I24.8 Other forms of acute ischemic heart disease; K51.90 Ulcerative colitis, unspecified, without complications; I16.0 Hypertensive urgency; I10 Essential (primary) hypertension; E11.9 Type 2 diabetes mellitus without complications; E03.9 Hypothyroidism, unspecified; N40.0 Benign prostatic hyperplasia without lower urinary tract symptoms; E66.9 Obesity, unspecified; Z68.28 Body mass index [BMI] 28.0-28.9, adult; Z79.82 Long term (current) use of aspirin; Z79.4 Long term (current) use of insulin; Z93.3 Colostomy status
CPT/HCPCS: 36415; 71046; 80048; 80053; 82947; 83605; 83880; 84484; 85025; 87040; 93005; 93010; 96365; 96366; 99285-25; A9270; A9270-GY; J0692; J1650; J7030; U0003

== ENCOUNTER 2020-05-29 21:04 | Emergency (ER) | payer OTHER ==
[~2020-05-29] VITALS: Ht 175.3 cm; Wt 107.7 kg
[~2020-05-29 21:04] MED LIST changes: +CARB10OTL BOTHEARS; -DEBROX 6.5% TOP; +DIAPER RASH113 G1 PR; +LOSA25 PO; +Vitamin D2000 UNIT PO; -[UNRECOGNIZED DRUG - OTHER] TOP
[2020-05-29 21:45] LABS: BASOPHILS ABSOLUTE AUTO 0.04 K/mm3 (0.00-0.23); BASOPHILS PERCENT AUTO 1 % (0-2); EOSINOPHILS ABSOLUTE AUTO 0.33 K/mm3 (0.00-0.68); EOSINOPHILS PERCENT AUTO 4 % (0-6); Hematocrit 37.5 % (37.0-53.0); IMMATURE GRAN ABSOLUTE AUTO 0.04 K/mm3 (0.00-0.10); IMMATURE GRAN PERCENT AUTO 1 % (0-1); LYMPHOCYTES PERCENT AUTO 12 % (21-46); MONOCYTES ABSOLUTE AUTO 0.78 K/mm3 (0.16-1.47); MONOCYTES PERCENT AUTO 10 % (4-13); Mean Corpuscular HGB 30.8 pg (26.0-34.0); Mean Corpuscular HGB Conc 34.7 g/dL (31.5-36.5); Mean Corpuscular Volume 89 fL (80-100); Mean Platelet Volume 8.9 fL (9.1-12.4); NEUTROPHILS ABSOLUTE AUTO 5.68 K/mm3 (1.96-9.15); NEUTROPHILS PERCENT AUTO 73 % (41-73); Platelet Count 213 K/mm3 (150-400); RDW Coefficient Variation 12.9 % (11.7-14.2); Red Blood Cell Count 4.22 M/mm3 (4.30-5.90); White Blood Cell Count 7.77 K/mm3 (4.00-11.30)
[2020-05-29 22:02] LABS: Alanine Aminotransfer (ALT/SGP 27 U/L (12-78); Albumin, Blood 3.4 g/dL (3.4-5.0); Albumin/Globulin Ratio 0.9 (0.8-1.8); Alk Phos 61 U/L (50-136); Anion Gap 7 mmol/L (6-16); Aspartate Aminotrans (AST/SGOT 27 U/L (12-37); Bilirubin, Total 0.4 mg/dL (0.1-1.0); Blood Urea Nitrogen 12 mg/dL (8-24); Bun/Creatinine Ratio 12.2 (12.0-20.0); CO2, Blood 29 mmol/L (21-32); Calcium, Blood 8.6 mg/dL (8.5-10.1); Chloride, Blood 91 mmol/L (98-108); Creatinine, Blood 0.98 mg/dL (0.60-1.20); Globulin, Blood 3.8 g/dL (2.2-4.0); Glomerular Filtration Rate >60 (60-); Glucose, Blood 215 mg/dL (70-99); Potassium, Blood 3.5 mmol/L (3.5-5.5); Sodium, Blood 127 mmol/L (136-145); Total Protein, Blood 7.2 g/dL (6.4-8.2)
== END 2020-05-30 03:10 ==
LOC: ER 21:04
PROVIDERS: Physician Assistant
DX: I10 Essential (primary) hypertension (principal); K21.9 Gastro-esophageal reflux disease without esophagitis; F32.9 Major depressive disorder, single episode, unspecified; E11.9 Type 2 diabetes mellitus without complications; F29 Unspecified psychosis not due to a substance or known physiological condition; N40.0 Benign prostatic hyperplasia without lower urinary tract symptoms; E03.9 Hypothyroidism, unspecified; Z88.2 Allergy status to sulfonamides; Z88.1 Allergy status to other antibiotic agents; Z88.8 Allergy status to other drugs, medicaments and biological substances; Z79.82 Long term (current) use of aspirin; Z79.899 Other long term (current) drug therapy; Z79.4 Long term (current) use of insulin; Z79.52 Long term (current) use of systemic steroids
CPT/HCPCS: 36415; 51798; 71045; 71260; 80053; 83605; 83880; 84484; 85025; 93005; 93010; 96374; 99284-25; Q9967

== ENCOUNTER 2020-06-01 10:56 | Observation (INO) | payer OTHER ==
[~2020-06-01] VITALS: Ht 177.8 cm; Wt 102.3 kg
[2020-06-01 12:11] LABS: BASOPHILS ABSOLUTE AUTO 0.04 K/mm3 (0.00-0.23); BASOPHILS PERCENT AUTO 1 % (0-2); EOSINOPHILS ABSOLUTE AUTO 0.17 K/mm3 (0.00-0.68); EOSINOPHILS PERCENT AUTO 3 % (0-6); Hematocrit 40.1 % (37.0-53.0); Hemoglobin 13.6 g/dL (13.5-17.5); IMMATURE GRAN ABSOLUTE AUTO 0.06 K/mm3 (0.00-0.10); IMMATURE GRAN PERCENT AUTO 1 % (0-1); LYMPHOCYTES ABSOLUTE AUTO 0.91 K/mm3 (0.84-5.20); LYMPHOCYTES PERCENT AUTO 16 % (21-46); MONOCYTES ABSOLUTE AUTO 0.59 K/mm3 (0.16-1.47); MONOCYTES PERCENT AUTO 10 % (4-13); Mean Corpuscular HGB 30.1 pg (26.0-34.0); Mean Corpuscular HGB Conc 33.9 g/dL (31.5-36.5); Mean Corpuscular Volume 89 fL (80-100); Mean Platelet Volume 8.8 fL (9.1-12.4); NEUTROPHILS ABSOLUTE AUTO 4.01 K/mm3 (1.96-9.15); NEUTROPHILS PERCENT AUTO 70 % (41-73); Platelet Count 223 K/mm3 (150-400); RDW Coefficient Variation 12.6 % (11.7-14.2); RDW Standard Deviation 41.1 fL (35.1-46.3); Red Blood Cell Count 4.52 M/mm3 (4.30-5.90); White Blood Cell Count 5.78 K/mm3 (4.00-11.30)
[2020-06-01 12:28] LABS: Alanine Aminotransfer (ALT/SGP 30 U/L (12-78); Albumin, Blood 3.6 g/dL (3.4-5.0); Albumin/Globulin Ratio 0.9 (0.8-1.8); Alk Phos 55 U/L (50-136); Anion Gap 4 mmol/L (6-16); Aspartate Aminotrans (AST/SGOT 15 U/L (12-37); Bilirubin, Total 0.6 mg/dL (0.1-1.0); Blood Urea Nitrogen 12 mg/dL (8-24); Bun/Creatinine Ratio 11.5 (12.0-20.0); CO2, Blood 38 mmol/L (21-32); Calcium, Blood 9.3 mg/dL (8.5-10.1); Chloride, Blood 91 mmol/L (98-108); Creatinine, Blood 1.04 mg/dL (0.60-1.20); Globulin, Blood 4.1 g/dL (2.2-4.0); Glomerular Filtration Rate >60 (60-); Glucose, Blood 136 mg/dL (70-99); Potassium, Blood 3.1 mmol/L (3.5-5.5); Sodium, Blood 133 mmol/L (136-145); Total Protein, Blood 7.7 g/dL (6.4-8.2); Troponin I 0.079 ng/mL (0.000-0.040)
[2020-06-01 12:34] LABS: Source, Urine Catheter
[2020-06-01 12:46] LABS: Bilirubin, Urine Neg (Neg); Blood, Urine Neg (Neg); Glucose Qualitative, Urine Neg (Neg); Ketones, Urine Neg (Neg); Leukocyte Esterase, Urine Neg (Neg); Nitrite, Urine Neg (Neg); Protein, Urine Neg (Neg); Urobilinogen, Urine NORM (Normal); pH, Urine 6.5 (5.0-8.0)
[2020-06-01 12:51] LABS: Appearance, Urine Clear (Clear); Color, Urine Pale Yellow (P-Yellow)
[2020-06-01 12:55] LABS: PO2 Arterial 62.4 mmHg (80-100); pH Blood Arterial 7.45 (7.35-7.45)
[2020-06-01 13:43] LABS: Stool Occult Blood Guaiac 1 Neg (Neg)
[2020-06-01 15:23] LABS: Campylobacter Sp Not Detected (NOT DETECT)
[2020-06-01 15:24] LABS: Adenovirus F 40/41 Not Detected (NOT DETECT); Astrovirus Not Detected (NOT DETECT); Cryptosporidium Not Detected (NOT DETECT); Cyclospora Cayetanensis Not Detected (NOT DETECT); E. Coli O157 Not Detected (NOT DETECT); Entamoeba Histolytica Not Detected (NOT DETECT); Enteroaggregative E. coli-EAEC Not Detected (NOT DETECT); Enteropathogenic E. coli-EPEC Not Detected (NOT DETECT); Enterotoxigenic E. coli-ETEC Not Detected (NOT DETECT); Giardia Lamblia Not Detected (NOT DETECT); Norovirus GI/GII Not Detected (NOT DETECT); Plesiomonas Shigelloides Not Detected (NOT DETECT); Rotavirus A Not Detected (NOT DETECT); Salmonella Sp Not Detected (NOT DETECT); Sapovirus Not Detected (NOT DETECT); Shiga Toxin-prod E. coli-STEC Not Detected (NOT DETECT); Shigella/Enteroin E. coli-EIEC Not Detected (NOT DETECT); Vibrio Cholerae Not Detected (NOT DETECT); Vibrio Sp Not Detected (NOT DETECT); Yersinia Enterocolitica Not Detected (NOT DETECT)
[2020-06-01] MEDS ORDERED: HURRICAINE PO (20:53)
[2020-06-01] MEDS ORDERED: UCERIS PR (20:56)
[2020-06-01] MEDS ORDERED: TRIPLE ANTIBIOT28 GM TOP (20:59)
[2020-06-01] MEDS ORDERED: OXYM.05NI (21:01)
[2020-06-01] MEDS ORDERED: CHLORASEPTIC177 ML PO (21:02)
[2020-06-01] MEDS ORDERED: Q-Tussin100 MG/5 M PO (21:02)
[2020-06-01] MEDS ORDERED: SODIUM CHLORIDE (21:04)
[2020-06-01] MEDS ORDERED: VITAMIN D32000 UNI1 PO (21:05)
[2020-06-01] MEDS ORDERED: [UNRECOGNIZED DRUG - OTHER] TOP (21:06)
[2020-06-01] MEDS ORDERED: LEVFLO500 PO (21:07)
--- NOTE | 2020-06-02 05:40 | NUR ---
SUMMARY: PT IS DEVELOPMENTALLY DELAYED W/CAREGIVERS AT BEDSIDE WHO ASSIST W/CARE AND CONVEYING NEEDS. SPEECH IS GARBLED BUT HE'S ABLE TO RELAY NEEDS EFFECTIVELY. HE USED URINAL APPROPRIATELY W/ASSIST, ATE SNACKS AND FED SELF. PILLS TOLERATED CRUSHED IN APPLESAUCE. PT REMOVED ILEOSTOMY APPARATUS WHICH HE APPARENTLY DOES OFTEN, SKIN WAS CLEANSED AND APPARATUS REPLACED. STOMA IS PINK W/BROWN SOFT STOOL OUTPUT OBSERVED. HE ALSO PULLED HIS OWN IV OUT AND REMOVED TELEMTRY T/O NOCTE. NEW IV WAS PLACED TO L.WRIST AND WAS SL THEN SECURED W/COBAN AND GAUZE. HE WAS NSR W/BBB AND PVC'S AT 60'S-80'S BPM PER PCU FORESTRY FIRE AID. SPO2 WNL ON 3L O2 (BASELINE). BP IMPROVED T/O NOCTE W/SCHEDULED APRESOLINE AND ANTIHYPERTENSIVES PROVING EFFECTIVE. NO ACUTE CHANGES, VSS AND AFEBRILE. WCTM AND REPORT TO DAY RN.
[2020-06-02 05:54] LABS: Anion Gap 4 mmol/L (6-16); Blood Urea Nitrogen 15 mg/dL (8-24); CO2, Blood 38 mmol/L (21-32); Calcium, Blood 9.5 mg/dL (8.5-10.1); Chloride, Blood 91 mmol/L (98-108); Creatinine, Blood 1.15 mg/dL (0.60-1.20); Glomerular Filtration Rate >60 (60-); Glucose, Blood 146 mg/dL (70-99); Potassium, Blood 3.1 mmol/L (3.5-5.5); Sodium, Blood 133 mmol/L (136-145)
[2020-06-02 06:48] LABS: BASOPHILS ABSOLUTE AUTO 0.05 K/mm3 (0.00-0.23); BASOPHILS PERCENT AUTO 1 % (0-2); EOSINOPHILS ABSOLUTE AUTO 0.22 K/mm3 (0.00-0.68); EOSINOPHILS PERCENT AUTO 3 % (0-6); Hematocrit 39.3 % (37.0-53.0); IMMATURE GRAN ABSOLUTE AUTO 0.04 K/mm3 (0.00-0.10); IMMATURE GRAN PERCENT AUTO 1 % (0-1); LYMPHOCYTES ABSOLUTE AUTO 0.98 K/mm3 (0.84-5.20); LYMPHOCYTES PERCENT AUTO 13 % (21-46); MONOCYTES ABSOLUTE AUTO 0.64 K/mm3 (0.16-1.47); MONOCYTES PERCENT AUTO 8 % (4-13); Mean Corpuscular HGB 29.6 pg (26.0-34.0); Mean Corpuscular HGB Conc 33.1 g/dL (31.5-36.5); Mean Corpuscular Volume 90 fL (80-100); Mean Platelet Volume 8.7 fL (9.1-12.4); NEUTROPHILS ABSOLUTE AUTO 5.76 K/mm3 (1.96-9.15); NEUTROPHILS PERCENT AUTO 75 % (41-73); Platelet Count 218 K/mm3 (150-400); RDW Coefficient Variation 12.5 % (11.7-14.2); RDW Standard Deviation 41.2 fL (35.1-46.3); Red Blood Cell Count 4.39 M/mm3 (4.30-5.90); White Blood Cell Count 7.69 K/mm3 (4.00-11.30)
--- NOTE | 2020-06-02 17:19 | NUR ---
SHIFT SUMMARY- PT IS ALERT, PLESANT AND COOPERATIVE. HE HAD AN EPISODE THIS MORNING OF YELLING, BITING HIS HAND AND BEING DIFFICULT TO SETTLE. CARE PROVIDERS AT BEDSIDE AND WE WERE ABLE TO CALM HIM. HE HAS BEEN PLESANT THE REST OF THE DAY. CARE PROVIDERS HAVE BEEN AT BED SIDE THROUGHOUT THIS SHIFT. HE IS USING THE URINAL AND VOIDING WELL. HE IS RECIEVING BLOOD PRESSURE MEDICATIONS AND HIS PRESSURES HAVE GONE DOWN. HE HAS SLEPT INTERMITENTLY THROUGHOUT THIS SHIFT. HE IS EATING AND DRINKING WELL
--- NOTE | 2020-06-02 23:54 | NUR ---
SONAM OK'D TO LEAVE IV OUT AT THIS TIME DESPITE PT BEING ON TELEMTRY W/INSTRUCTION TO HAVE DAY SHIFT HOSPITALIST REEVALUATE. PT PULLED HIS IV OUT AGAIN WHICH MAKES 2 IV'S REMOVED IN LESS THAN 24 HOURS. HE IS ALSO A PROBABLE DC TOMORROW AND IS RECIEVING NO IV MEDS AND HASN'T SINCE ADMIT. HIS BP HAS IMPROVED AND REMAINED STABLE AT 150'S/90'S. WILL ENSURE DAY STAFF ARE AWARE.
--- NOTE | 2020-06-03 04:16 | NUR ---
SUMMARY: PT A/O TO SELF AND CAREGIVERS. HE LOOKS FORWARD TO GOING HOME TO [facility] AND BEHAVIOR HAS BEEN A SLIGHTLY MORE LABILE AND IMPULSIVE LIKELY IN REACTION TO HOSPITALISATION AND CHANGE IN ROUTINE. PT OCCASIONALLY YELLS OUT AND GETS AGGITATED WHEN CARE NEEDS AREN'T MET QUICKLY. HE WAS COOPERATIV W/CARE OTHERWISE. HE PULLED HIS IV OUT AGAIN AND SONAM OK LEAVING IT OUT UNTIL DAY HOSPITALIST REEVALUATION. HIS RHYTHM IS UNCHANGED AND REMAINS NSR W/BBB AND PVC'S PER TELEMETRY. BP CONT'S TO IMPROVE FROM SBP 150'S TO 130'S. SNACKS AND DRINKS PROVIDED PER PT REQUEST. MEDS TOLERATED CRUSHED IN APPLESAUCE. BT'S (+) X4 QUADS. CAREGIVERS HELP TO MANAGE ILEOSTOMY. TYLENOL RECIEVED PRN FOR TOLERABLE RELIEF OF MONTEIRO. PT ASSISTED W/REPOSITIONING AND URINAL USE. HE REMAINS ON 3L O2 (BASELINE) BUT REMOVES IT OFTEN AND WILL DESAT TO 80'S% ON RA. NO S/S RESP OR CARDIAC DISTRESS. PROBABLE D/C TODAY. VSS AND AFEBRILE, NO ACUTE CHANGES. WCTM AND REPORT TO DAY RN.
[2020-06-03] MEDS ORDERED: CLON.1 PO (12:03)
[2020-06-03] MEDS ORDERED: HYDR10 PO ×2 (12:04→12:05)
[2020-06-03] MEDS ORDERED: HYDCHL25 PO (12:05)
--- NOTE | 2020-06-03 12:59 | NUR ---
PATIENT DISCHARGED AT 1259 ON 06/03/20
== END 2020-06-03 13:00 | disposition home or self-care (01) ==
LOC: ER 10:56 → MEDS 10:57
PROVIDERS: Physician Assistant; ADMIT Internal Medicine
DX: I16.0 Hypertensive urgency (principal); F84.0 Autistic disorder; E11.22 Type 2 diabetes mellitus with diabetic chronic kidney disease; N18.2 Chronic kidney disease, stage 2 (mild); E87.1 Hypo-osmolality and hyponatremia; K51.90 Ulcerative colitis, unspecified, without complications; Z88.2 Allergy status to sulfonamides; Z88.8 Allergy status to other drugs, medicaments and biological substances; Z79.82 Long term (current) use of aspirin; Z79.4 Long term (current) use of insulin; Z79.899 Other long term (current) drug therapy; E03.9 Hypothyroidism, unspecified; K21.9 Gastro-esophageal reflux disease without esophagitis; Z88.1 Allergy status to other antibiotic agents
CPT/HCPCS: 0097U; 36415; 36600; 71045; 80048; 80053; 81003; 82272; 82803; 82947; 83605; 83880; 84132; 84484; 85025; 87040; 87086; 93005; 93010; 96372; 99285-25; A9270; A9270-GY; G0008; G0378; J1650; Q2038

== ENCOUNTER 2020-06-10 17:28 | Inpatient (IN) | payer OTHER ==
[~2020-06-10] VITALS: Ht 170.2 cm; Wt 103.8 kg
[~2020-06-10 17:28] MED LIST changes: -ALBU2.5V5 INH; -ALMACONE SUSPE355 ML TOP; -Aquaphor Healin50 GM TOP; -BASAGLAR K100 UNIT/1 SC; -BENADRYL25 MG PO; -CARB10OTL BOTHEARS; +CLON.1 PO; -DIAPER RASH113 G1 PR; -EUTHYROX125 MCG PO; -FEROSUL325 M1 PO; +HURRICAINE PO; +HYDCHL25 PO; +HYDR10 PO; -LOSA25 PO; -MAGNESIUM OXID400 M1 PO; -SENN187 PO; +SODIUM CHLORIDE; +VITAMIN D32000 UNI1 PO; -Vitamin D2000 UNIT PO; -ZYPREXA15 MG PO
[2020-06-10 18:10] LABS: BASOPHILS ABSOLUTE AUTO 0.04 K/mm3 (0.00-0.23); BASOPHILS PERCENT AUTO 0 % (0-2); EOSINOPHILS ABSOLUTE AUTO 0.22 K/mm3 (0.00-0.68); EOSINOPHILS PERCENT AUTO 3 % (0-6); Hemoglobin 14.6 g/dL (13.5-17.5); IMMATURE GRAN ABSOLUTE AUTO 0.03 K/mm3 (0.00-0.10); IMMATURE GRAN PERCENT AUTO 0 % (0-1); LYMPHOCYTES ABSOLUTE AUTO 0.88 K/mm3 (0.84-5.20); LYMPHOCYTES PERCENT AUTO 10 % (21-46); MONOCYTES ABSOLUTE AUTO 0.72 K/mm3 (0.16-1.47); MONOCYTES PERCENT AUTO 8 % (4-13); Mean Corpuscular HGB 30.4 pg (26.0-34.0); Mean Corpuscular HGB Conc 36.5 g/dL (31.5-36.5); Mean Corpuscular Volume 83 fL (80-100); Mean Platelet Volume 9.3 fL (9.1-12.4); NEUTROPHILS ABSOLUTE AUTO 7.03 K/mm3 (1.96-9.15); NEUTROPHILS PERCENT AUTO 79 % (41-73); Platelet Count 234 K/mm3 (150-400); RDW Standard Deviation 36.6 fL (35.1-46.3); White Blood Cell Count 8.92 K/mm3 (4.00-11.30)
[2020-06-10 18:28] LABS: Alanine Aminotransfer (ALT/SGP 22 U/L (12-78); Albumin, Blood 3.5 g/dL (3.4-5.0); Albumin/Globulin Ratio 0.9 (0.8-1.8); Alk Phos 71 U/L (50-136); Anion Gap 10 mmol/L (6-16); Aspartate Aminotrans (AST/SGOT 20 U/L (12-37); Bilirubin, Total 0.6 mg/dL (0.1-1.0); Blood Urea Nitrogen 12 mg/dL (8-24); Bun/Creatinine Ratio 13.3 (12.0-20.0); CO2, Blood 32 mmol/L (21-32); Calcium, Blood 8.8 mg/dL (8.5-10.1); Chloride, Blood 76 mmol/L (98-108); Glomerular Filtration Rate >60 (60-); Glucose, Blood 257 mg/dL (70-99); Potassium, Blood 2.8 mmol/L (3.5-5.5); Sodium, Blood 118 mmol/L (136-145); Total Protein, Blood 7.5 g/dL (6.4-8.2)
[2020-06-10] MEDS ORDERED: MAGNESIUM OXID400 M1 PO (20:41)
[2020-06-10] MEDS ORDERED: BASAGLAR K100 UNIT/1 SC (20:42)
[2020-06-10] MEDS ORDERED: LEVSOD150 PO (20:42)
[2020-06-10] MEDS ORDERED: INSULIN LI100 UNIT/6 SC (20:44)
[2020-06-10] MEDS ORDERED: Buspirone HCl15 MG PO (20:45)
[2020-06-10] MEDS ORDERED: OLAN7.5 PO (20:45)
[2020-06-10 20:48] LABS: Magnesium, Blood 1.7 mg/dL (1.6-2.4)
[2020-06-10 21:27] LABS: Source, Urine Voided
[2020-06-10 21:30] LABS: Bilirubin, Urine Neg (Neg); Blood, Urine Neg (Neg); Glucose Qualitative, Urine 2+ (Neg); Ketones, Urine Neg (Neg); Leukocyte Esterase, Urine Neg (Neg); Nitrite, Urine Neg (Neg); Protein, Urine 2+ (Neg); Urobilinogen, Urine NORM (Normal); pH, Urine 6.5 (5.0-8.0)
[2020-06-10 21:33] LABS: Appearance, Urine Clear (Clear); Color, Urine Yellow (P-Yellow)
[2020-06-10 21:43] LABS: Bacteria Not Seen /hpf; Red Blood Cells, Urine Not Seen /hpf (0-2); Squamous Epithelial Cells Rare /hpf (Few); White Blood Cells, Urine Not Seen /hpf (0-5)
[2020-06-10] MEDS ORDERED: METO25 PO (21:52)
[2020-06-10] MEDS ORDERED: Lovastatin20 MG PO (21:53)
[2020-06-10] MEDS ORDERED: FEROSUL325 M1 PO (21:54)
[2020-06-10] MEDS ORDERED: CLON1 PO (21:54)
[2020-06-10] MEDS ORDERED: ALBU2.5V5 INH (21:55)
[2020-06-10] MEDS ORDERED: Aspirin EC81 MG PO (21:55)
[2020-06-10] MEDS ORDERED: OMEP20ER PO (21:56)
[2020-06-10] MEDS ORDERED: SENN187 PO (21:56)
[2020-06-10] MEDS ORDERED: TAMS.4ER PO (21:57)
[2020-06-10] MEDS ORDERED: TRIA15CR3 TOP (21:57)
[2020-06-10] MEDS ORDERED: ACET325 PO (21:58)
[2020-06-10] MEDS ORDERED: LOSA25 PO (21:59)
[2020-06-10] MEDS ORDERED: Vitamin D2000 UNIT PO (21:59)
[2020-06-10] MEDS ORDERED: CARB10OTL BOTHEARS (22:13)
[2020-06-10] MEDS ORDERED: FURO40 PO (22:14)
[2020-06-10] MEDS ORDERED: POTA10T PO (22:16)
[2020-06-10] MEDS ORDERED: ZYPREXA15 MG PO (22:16)
[2020-06-10] MEDS ORDERED: OXYM.05NI (22:58)
[2020-06-10] MEDS ORDERED: BENADRYL25 MG PO (22:59)
[2020-06-10] MEDS ORDERED: Aquaphor Healin50 GM TOP (22:59)
[2020-06-10] MEDS ORDERED: Chloraseptic177 ML PO (23:01)
[2020-06-10] MEDS ORDERED: DIAPER RASH113 G1 PR (23:01)
[2020-06-10] MEDS ORDERED: ALMACONE SUSPE355 ML TOP (23:03)
[2020-06-10] MEDS ORDERED: Muri-Lube Minera2 ML BOTHEARS (23:04)
[2020-06-10] MEDS ORDERED: [UNRECOGNIZED DRUG - OTHER] PO (23:07)
[2020-06-10] MEDS ORDERED: UCERIS PR (23:08)
[2020-06-10] MEDS ORDERED: TRIPLE ANTIBIOT28 GM TOP (23:08)
[2020-06-10] MEDS ORDERED: VASELINE TOP (23:09)
[2020-06-10] MEDS ORDERED: AQUAPHOR99 GM TOP (23:27)
[2020-06-10] MEDS ORDERED: AYR SALINE TOP (23:31)
[2020-06-10] MEDS ORDERED: [UNRECOGNIZED DRUG - OTHER] MT (23:38)
[2020-06-11] MEDS ORDERED: HYDR10 PO (00:13)
[2020-06-11] MEDS ORDERED: HYDCHL12.5 PO (00:15)
[2020-06-11 04:12] LABS: BASOPHILS ABSOLUTE AUTO 0.04 K/mm3 (0.00-0.23); BASOPHILS PERCENT AUTO 1 % (0-2); EOSINOPHILS ABSOLUTE AUTO 0.17 K/mm3 (0.00-0.68); EOSINOPHILS PERCENT AUTO 3 % (0-6); Hematocrit 34.7 % (37.0-53.0); Hemoglobin 12.4 g/dL (13.5-17.5); IMMATURE GRAN ABSOLUTE AUTO 0.03 K/mm3 (0.00-0.10); IMMATURE GRAN PERCENT AUTO 0 % (0-1); LYMPHOCYTES PERCENT AUTO 10 % (21-46); MONOCYTES ABSOLUTE AUTO 0.77 K/mm3 (0.16-1.47); MONOCYTES PERCENT AUTO 11 % (4-13); Mean Corpuscular HGB Conc 35.7 g/dL (31.5-36.5); Mean Corpuscular Volume 84 fL (80-100); Mean Platelet Volume 9.3 fL (9.1-12.4); NEUTROPHILS ABSOLUTE AUTO 5.11 K/mm3 (1.96-9.15); NEUTROPHILS PERCENT AUTO 75 % (41-73); Platelet Count 203 K/mm3 (150-400); RDW Standard Deviation 36.6 fL (35.1-46.3); Red Blood Cell Count 4.14 M/mm3 (4.30-5.90); White Blood Cell Count 6.82 K/mm3 (4.00-11.30)
[2020-06-11 04:29] LABS: Albumin, Blood 2.8 g/dL (3.4-5.0); Anion Gap 8 mmol/L (6-16); Blood Urea Nitrogen 10 mg/dL (8-24); CO2, Blood 32 mmol/L (21-32); Calcium, Blood 7.7 mg/dL (8.5-10.1); Chloride, Blood 79 mmol/L (98-108); Creatinine, Blood 0.91 mg/dL (0.60-1.20); Glomerular Filtration Rate >60 (60-); Glucose, Blood 221 mg/dL (70-99); Phosphorus, Blood 3.5 mg/dL (2.5-4.9); Potassium, Blood 3.1 mmol/L (3.5-5.5); Sodium, Blood 119 mmol/L (136-145)
--- NOTE | 2020-06-11 05:45 | NUR ---
SHIFT SUMMARY PT ARRIVED TO THE UNIT AROUND 2315 IN STABLE CONDTION, BP HYPERTENSIVE 184/115 SLOWLY FALLING T/O THE MORNING COMING DOWN TO 131/87. HR STABLE IN THE 80'S, O2 SATS IN LOW 90'S WHEN PT WAS AWAKE, WHEN PT SLEPT O2 SATS DROPPED DOWN INTO THE LOW 80'S. PUT ON 3L VIA NC AND O2 SATS IN THE LOW 90'S. SODIUM CRITICAL LOW AT 118 UPON ARRIVAL, UP TO 119 AT [facility] DRAW. POTASSIUM WAS 2.8 AND UP TO 3.1 BY AM. PT WAS CONFUSED AT TIMES AND IS DIFFICULT TO UNDERSTAND DUE TO A DEVELOPMENTAL DELAY. PT QUIET AND SLEPT MOST OF THE SHIFT. WILL CONTINUE TO MONITOR UNTIL SHIFT CHANGE.
[2020-06-11 09:22] LABS: Anion Gap 7 mmol/L (6-16); Blood Urea Nitrogen 10 mg/dL (8-24); Bun/Creatinine Ratio 11.4 (12.0-20.0); CO2, Blood 32 mmol/L (21-32); Calcium, Blood 8.1 mg/dL (8.5-10.1); Chloride, Blood 83 mmol/L (98-108); Creatinine, Blood 0.88 mg/dL (0.60-1.20); Glomerular Filtration Rate >60 (60-); Glucose, Blood 163 mg/dL (70-99); Potassium, Blood 3.4 mmol/L (3.5-5.5); Sodium, Blood 122 mmol/L (136-145)
--- NOTE | 2020-06-11 10:25 | NUR ---
NS INCREASED TO 100ML/HR PER ORDERS.
[2020-06-11 13:44] LABS: Anion Gap 5 mmol/L (6-16); Blood Urea Nitrogen 9 mg/dL (8-24); Bun/Creatinine Ratio 8.8 (12.0-20.0); CO2, Blood 33 mmol/L (21-32); Calcium, Blood 7.8 mg/dL (8.5-10.1); Chloride, Blood 83 mmol/L (98-108); Creatinine, Blood 1.02 mg/dL (0.60-1.20); Glomerular Filtration Rate >60 (60-); Glucose, Blood 171 mg/dL (70-99); Potassium, Blood 3.6 mmol/L (3.5-5.5); Sodium, Blood 121 mmol/L (136-145)
[2020-06-11 17:27] LABS: Anion Gap 8 mmol/L (6-16); Blood Urea Nitrogen 8 mg/dL (8-24); Bun/Creatinine Ratio 7.7 (12.0-20.0); CO2, Blood 30 mmol/L (21-32); Calcium, Blood 8.2 mg/dL (8.5-10.1); Chloride, Blood 87 mmol/L (98-108); Creatinine, Blood 1.04 mg/dL (0.60-1.20); Glomerular Filtration Rate >60 (60-); Glucose, Blood 130 mg/dL (70-99); Potassium, Blood 3.6 mmol/L (3.5-5.5); Sodium, Blood 125 mmol/L (136-145)
--- NOTE | 2020-06-11 17:38 | NUR ---
ASSUMED CARE AT 0700, REPORT FROM EKATERINA GONZALEZ. ALERT AND AWAKE TO BASELINE PER CAREGIVER WHO IS IN ROOM. HX OF DEVELOPMENTAL DELAY, MUMBLES WHEN ASKED QUESTIONS AND IS DIFFICULTY TO UNDERSTAND. FOLLOWS INSTRUCTIONS. 3L [address] THROUGHOUT DAY WHEN SLEEPING TO MAINTAIN SATS OF 94% ILLEOSTOMY IN PLACE, USES URINAL WITH ASSISTANCE FROM CAREGIVER. NS INFUSING AT 100ML/HR PER ORDER FOR SODIUM OF 121. MEDICATED PER ORDERS THROUGHOUT DAY, MEDS CRUSHED IN APPLESAUCE. NO ACUTE MEDICAL CHANGES DURING SHIFT, WILL CONTINUE TO TREAT AND MONITOR UNTIL CHANGE OF SHIFT.
[2020-06-11 21:01] LABS: Anion Gap 7 mmol/L (6-16); Blood Urea Nitrogen 9 mg/dL (8-24); CO2, Blood 32 mmol/L (21-32); Calcium, Blood 8.6 mg/dL (8.5-10.1); Chloride, Blood 87 mmol/L (98-108); Glomerular Filtration Rate >60 (60-); Glucose, Blood 137 mg/dL (70-99); Potassium, Blood 3.8 mmol/L (3.5-5.5); Sodium, Blood 126 mmol/L (136-145)
--- NOTE | 2020-06-12 02:15 | NUR ---
ASSUMED CARE AT 1900. CARE PERSON SISI RELIEVING OTHER CARE PERSON. PT SHOWS COMFORT AND EXCITEMENT IN SISI HIS HELPER.PRIOR TO THIS W/ OTHER CARE PERSON PULLED OFF COLOSTOMY FLANGE X 2. REPLACED AND LEFT ON SINCE 2029. THICK STICKY VERY DK BROWN STOOL, SMALL AMT. EXPRESSES FOOD DESIRES AND FASTS FOOD LOVE HE MUMBLES , AND VERY DIFFICULT TO UNDERSTAND, CARE PERSON FROM [facility] EASILY UNDERSTANDS REPETITIVE COMMENTS AND TWO - THREE SENTENCES. KEEPS EYES CLOSED AT ALL TIMES. ALLOWS THIS NURSE TO CHECK PUPILS. PIN POINT. FED CRUSHED PILLS W/ APPLE SAUCE. AND TOLERATED VERY WELL. ADDITIONAL APPLE SAUCE AND YOGURT. FEEDS SELF W/ COMPLETE SUPERVISION. WHEN FALLS TO SLEEP EASILY ACCEPTS O2 PER NC. INITIALLY NEEDED 6L NC IN MOUTH COMPLETE MOUTH BREATHER.REPOSITIONED HEAD AND REDUCING TO 3 L. SAME IN MOUTH THOUGH. REPOSITIONED SLIGHTLY TO GET OFF BACK. SOAKED BED X 2 AT BEGINNING OF SHIFT. REPORTS NEED TO VOID BUT URINAL NOT FASST ENOUGH. MEDS REDUCED BP , BUT ALSO ASLEEP WHEN RETAKE. ASSISTS SELF EARLIER W/ DRINKING H2O W/O STRAW. ASPIRATION PRECAUTIONS..HOB HIGH FOWLEERS.
--- NOTE | 2020-06-12 05:47 | NUR ---
SHIFT SUMMARY. SLEPT ALL NOC AND INCONTINENT OF URINE X3 AND PARTIALLY WAKES UP WITH COMPLETE BED CHANGE. MUMBLES PARTIALLY AND BACK TO SLEEP. NOT AWAKE ENOUGH TO GIVE 0600 MEDS NOW. ADJUSTSING HEAD POSITIONING AND O2 NC RQANGES 3-4L. NO SKIN CONDITIONS OR BREAK DOWN. TURNED Q 2-3 HR WITH BED CHANGES AND PILLOW CHANGES. SR W/ PACS BBB
--- NOTE | 2020-06-12 12:53 | NUR ---
review of pt with nursing. Will call [facility] to see what the plan is for his care and if they have a polst or AD. pt high risk for readmission.
[2020-06-12 16:58] LABS: Anion Gap 5 mmol/L (6-16); Blood Urea Nitrogen 8 mg/dL (8-24); Bun/Creatinine Ratio 9.1 (12.0-20.0); CO2, Blood 33 mmol/L (21-32); Calcium, Blood 8.3 mg/dL (8.5-10.1); Chloride, Blood 91 mmol/L (98-108); Creatinine, Blood 0.88 mg/dL (0.60-1.20); Glomerular Filtration Rate >60 (60-); Glucose, Blood 127 mg/dL (70-99); Potassium, Blood 3.9 mmol/L (3.5-5.5); Sodium, Blood 129 mmol/L (136-145)
--- NOTE | 2020-06-12 17:37 | NUR ---
SHIFT SUMMARY PT ALERT AND ORIENTED TO SELF AND FOLLOWING DIRECTIONS. SPEECH IS GARBLED AND MOST TIMES, PT JUST MOANS. PT DEVELOPMENTALLY DELAYED AT BASELINE. VS STABLE. O2 SATS REMAIN ABOVE 90% ON 2L NC. PT PULLS NC OFF FREQUENTLY WHEN AWAKE. BP STABLE. TELEMETRY DISCONTINUED THIS SHIFT. PT REPOSITIONED Q2H. PT CONTINENT OF BLADDER WHEN AWAKE AND INCONTINENT WHEN HE IS SLEEPING. ATTENDS IN PLACE. OSTOMY WITH SOFT BROWN OUTPUT. CAREGIVER AT BEDSIDE. WILL CONTINUE TO MONITOR AND REPORT TO ONCOMING RN.
[2020-06-13 03:34] LABS: BASOPHILS ABSOLUTE AUTO 0.03 K/mm3 (0.00-0.23); BASOPHILS PERCENT AUTO 0 % (0-2); EOSINOPHILS ABSOLUTE AUTO 0.09 K/mm3 (0.00-0.68); EOSINOPHILS PERCENT AUTO 1 % (0-6); Hematocrit 38.8 % (37.0-53.0); Hemoglobin 13.2 g/dL (13.5-17.5); IMMATURE GRAN ABSOLUTE AUTO 0.06 K/mm3 (0.00-0.10); IMMATURE GRAN PERCENT AUTO 1 % (0-1); LYMPHOCYTES ABSOLUTE AUTO 0.82 K/mm3 (0.84-5.20); LYMPHOCYTES PERCENT AUTO 10 % (21-46); MONOCYTES ABSOLUTE AUTO 0.83 K/mm3 (0.16-1.47); MONOCYTES PERCENT AUTO 10 % (4-13); Mean Corpuscular Volume 88 fL (80-100); Mean Platelet Volume 8.7 fL (9.1-12.4); NEUTROPHILS ABSOLUTE AUTO 6.58 K/mm3 (1.96-9.15); NEUTROPHILS PERCENT AUTO 78 % (41-73); Platelet Count 203 K/mm3 (150-400); RDW Standard Deviation 38.9 fL (35.1-46.3); White Blood Cell Count 8.41 K/mm3 (4.00-11.30)
[2020-06-13 03:48] LABS: Albumin, Blood 3.1 g/dL (3.4-5.0); Anion Gap 4 mmol/L (6-16); Blood Urea Nitrogen 9 mg/dL (8-24); Bun/Creatinine Ratio 10.2 (12.0-20.0); CO2, Blood 34 mmol/L (21-32); Calcium, Blood 8.7 mg/dL (8.5-10.1); Chloride, Blood 88 mmol/L (98-108); Creatinine, Blood 0.89 mg/dL (0.60-1.20); Glomerular Filtration Rate >60 (60-); Glucose, Blood 143 mg/dL (70-99); Magnesium, Blood 1.8 mg/dL (1.6-2.4); Potassium, Blood 3.6 mmol/L (3.5-5.5); Sodium, Blood 126 mmol/L (136-145)
--- NOTE | 2020-06-13 06:04 | NUR ---
END OF SHIFT SUMMARY NO ACUTE CHANGES THIS SHIFT. VSS EXCEPT HYPERTENSIVE EPISODE, MEDS PER EMAR. PT REMAINS AXO BUT SLOW. CAREGIVER WAS AT BEDSIDE AT BEGINNING OF SHIFT BUT LEFT BEFORE 0000. ILEOSTOMY REMAINS INTACT, WITH MODERATE OUTPUT. PT WITH MINIMAL ORAL FLUID INTAKE. REMAINS OFF OF TELE PER ORDERS. FOLLOWING COMMANDS, HAD 0 BEHAVIORAL ISSUES THIS SHIFT. HAS BEEN SLEEPING T/O MOST OF SHIFT. BED ALARM IN PLACE. WILL CONTINUE TO MONITOR UNTIL SHIFT CHANGE.
--- NOTE | 2020-06-13 07:30 | NUR ---
ASSUMED CARE: PT RESTING IN BED, CAREGIVER AT BEDSIDE. BED ALARM ON. MED NO TELE STATUS. NO ACUTE NEEDS OR CONCERNS AT THIS TIME.
--- NOTE | 2020-06-13 08:08 | NUR ---
DR JOHNS AT BEDSIDE. ORDERED IV FLUIDS AND RECHECK THIS AFTERNOON. RELAYED TO HIM THAT CAREGIVERS STATE THAT THIS IS NOT PT'S BASELINE. PT CONTINUES TO REST AT THIS TIME.
--- NOTE | 2020-06-13 14:17 | NUR ---
REPORT GIVEN TO EKATERINA CARDOZA. AWARE OF CAREGIVERS AT BEDSIDE AND CONTINUED MONITORING OF SODIUM AND NEURO STATUS. CAREGIVER AT BEDSIDE AND AWARE OF NEW ROOM NUMBER AND TRANSFER. TRANSFERRED VIA BED BY TITLE AGENT ON 3L O2.
--- NOTE | 2020-06-13 19:05 | NUR ---
ASSUMED CARE RECEIVED REPORT FROM EKATERINA CARDOZA. ASSUMED CARE OF PT. PT ASLEEP AT THIS TIME, RESP EVEN AND UNLABORED. NO S/S ACUTE DISTRESS NOTED. DENIES NEEDS. CALL LIGHT, POSSESSIONS IN REACH, BED IN LOWEST POSITION WITH ALARMS ON. CAREGIVER FROM [facility] AT THE BEDSIDE. WILL CONTINUE TO MONITOR PT.
--- NOTE | 2020-06-14 00:50 | NUR ---
NOTIFIED DR. PIERCE OF PT'S CONTINUED DROWSINESS AND HOLDING SEDATING MEDICATIONS. NO NEW ORDERS RECEIVED. CONTINUE TO MONITOR.
[2020-06-14 05:45] LABS: Anion Gap 2 mmol/L (6-16); Blood Urea Nitrogen 10 mg/dL (8-24); Bun/Creatinine Ratio 10.8 (12.0-20.0); CO2, Blood 34 mmol/L (21-32); Calcium, Blood 8.4 mg/dL (8.5-10.1); Chloride, Blood 94 mmol/L (98-108); Creatinine, Blood 0.93 mg/dL (0.60-1.20); Glomerular Filtration Rate >60 (60-); Glucose, Blood 130 mg/dL (70-99); Potassium, Blood 4.1 mmol/L (3.5-5.5); Sodium, Blood 130 mmol/L (136-145)
--- NOTE | 2020-06-14 06:45 | NUR ---
THIS RN IN PT ROOM ASSESSING PT O2 SATS. CURRENTLY SATTING IN LOW 80'S ON 3L/NC. INCREASED TO 8L/NC PER RT DIRECTION. O2 SATS INCREASING SLOWLY. VS TAKEN, BBS CONGESTED, RHONCHI NOTED TO UPPER LOBES, FINE CRACKLES IN BASES. TACHYPNEIC. ENCOURAGED PT TO TAKE SLOW DEEP BREATHS. RT AT THE BEDSIDE. WILL NOTIFY PROVIDER OF PT CONDITION.
--- NOTE | 2020-06-14 07:02 | NUR ---
SPOKE TO DR. JOHNS REGARDING PT'S INCREASED O2 NEEDS. ORDERS RECEIVED.
--- NOTE | 2020-06-14 07:48 | NUR ---
SHIFT SUMMARY PT RESTING COMFORTABLY, VS REVIEWED, O2 SATS IMPROVING. RT AT BEDSIDE ADJUSTING CPAP. PT HAS HAD AN UNEVENTFUL NIGHT OTHERWISE, SLEPT T/O. REMAINS DROWSY. TOLERATED CARES WELL. [facility] CAREGIVE AT BEDSIDE. PT DENIES NEEDS AT THIS TIME. CALL LIGHT, POSSESSIONS IN REACH, BED IN LOW POSITION WITH ALARMS ON. REPORT GIVEN TO EKATERINA CARDOZA.
[2020-06-14 08:01] LABS: PO2 Arterial 77.6 mmHg (80-100); pH Blood Arterial 7.32 (7.35-7.45)
--- NOTE | 2020-06-14 11:58 | NUR ---
PT HAS BEEN VERY DROWSY THIS MORNING, DIFFICULT TO AROUSE, NOT AWAKENING ENOUGH TO SWALLOW, AM PO MEDICATIONS HELD. CPAP IN PLACE WITH 5 LITERS O2. SATS MAINTAINING 92-93%. WILL CONTINUE TO MONITOR
--- NOTE | 2020-06-14 13:08 | NUR ---
PT AWOKE WITH ATTENDS CHANGE, AWAKE AND TALKING, BIPAP REMOVED AND OXYMIZER PLACED, PT SITTING UPRIGHT EATING LUNCH. O2 SATS AT 91%. WILL MONITOR
--- NOTE | 2020-06-14 19:10 | NUR ---
ASSUMED CARE RECEIVED REPORT FROM EKATERINA CARDOZA. ASSUMED CARE OF PT. NO S/S ACUTE DISTRESS NOTED, O2 SATS STABLE. TALKING TO CAREGIVER AND STAFF. RESPS EVEN AND UNLABORED. DENIES NEEDS AT THIS TIME. CALL LIGHT, POSSESSIONS IN REACH, BED IN LOWEST POSITION WITH ALARMS ON. WILL CONTINUE TO MONITOR.
[2020-06-15 05:27] LABS: Anion Gap 3 mmol/L (6-16); Blood Urea Nitrogen 12 mg/dL (8-24); Bun/Creatinine Ratio 10.6 (12.0-20.0); CO2, Blood 35 mmol/L (21-32); Calcium, Blood 9.1 mg/dL (8.5-10.1); Chloride, Blood 95 mmol/L (98-108); Creatinine, Blood 1.13 mg/dL (0.60-1.20); Glomerular Filtration Rate >60 (60-); Glucose, Blood 101 mg/dL (70-99); Sodium, Blood 133 mmol/L (136-145)
--- NOTE | 2020-06-15 05:52 | NUR ---
SHIFT SUMMARY PT RESTING AT THIS TIME, WAS UP MOST OF THE NIGHT, CONVERSING WITH STAFF. O2 SATS STABLE ON 4L /. TOLERATED MEDS WELL, NO S/S ASPIRATION NOTED. VS REVIEWED, BP IMPROVING. AM LABS REVIEWED. PT DENIES NEEDS AT THIS TIME. CALL LIGHT, POSSESSIONS IN REACH, BED IN LOWEST POSITION WITH ALARMS ON. WILL CONTINUE TO MONITOR AND PROVIDE CARE NEEDED UNTIL DAY RN ASSUMES CARE.
--- NOTE | 2020-06-15 17:39 | NUR ---
SHIFT SUMMARY PT HAS DEVELOPMENTAL DELAYED. PARTS SALESPERSON AT BEDSIDE. PT ON 4L 02 VIA OXYMIZER. SATS ON HIGH 80S AND LOW 90S. DR JOHNS AWARE. PT IS A HIGH RISK ASPIRATION PRECAUTION- SPEECH EVAL TODAY- SEE ORDERS. PT C/O HEADACHE THIS LATE AFTERNOON; MEDICATED PER EMAR. PT HAS ILEOSTOMY THAT IS INTACT. NO OTHER ACUTE CHANGES AT THIS SHIFT. BED IS IN THE LOWEST POSITION; CALLS LIGHTS WITHIN REACH AND WILL CONT MONITOR.
[2020-06-16 04:52] LABS: Anion Gap 4 mmol/L (6-16); Blood Urea Nitrogen 14 mg/dL (8-24); Bun/Creatinine Ratio 12.4 (12.0-20.0); CO2, Blood 34 mmol/L (21-32); Calcium, Blood 9.1 mg/dL (8.5-10.1); Chloride, Blood 98 mmol/L (98-108); Creatinine, Blood 1.13 mg/dL (0.60-1.20); Glomerular Filtration Rate >60 (60-); Glucose, Blood 106 mg/dL (70-99); Potassium, Blood 3.6 mmol/L (3.5-5.5); Sodium, Blood 136 mmol/L (136-145)
--- NOTE | 2020-06-16 05:25 | NUR ---
SHIFT SUMMARY NO ACUTE CHANGES THIS SHIFT. PT HAS NOT SLEPT DURING THIS SHIFT. PT WILL TAKE OFF O2 CONSISTANTLY, THIS RN HAS REEDUCATED ON WHY O2 IS NEEDED. MEDICATED FOR HEADACHE X1 PER MAR. PT IS LAYING IN BED, AWAKE. EVEN AND UNLABORED RESPIRATIONS. BED IS IN LOWERED POSITION WITH BED ALARM ON. CALL LIGHT AND PERSONAL ITEMS WITHIN REACH. NO APPARENT NEEDS OR DISTRESS AT THIS TIME, WILL CONTINUE TO MONITOR UNTIL REPORT GIVEN TO RN.
--- NOTE | 2020-06-16 18:35 | NUR ---
SHIFT SUMMARY PT HAD EPISODES OF SCREAMING TODAY. PT IS ON OXYMIZER 4L; SATS HIGH 80S TO LOW 90S. PT C/O HEADACHE;MEDICATED PER EMAR. PT ALSO HAD EPISODES OF HIGH BP; CALLED DR JOHNS THIS MORNING AND RECEIVED AN ORDER FOR LASIX DUE TO THE FACT THAT THE PT DEVELOPED SOME CRACKLES IN THE BASES. ALSO RECEIVED AN ORDER FOR CLONIDINE FOR HTN. BED ALARM IS ON; CALL LIGHTS WITHIN REACH; AND BED IS IN THE LOWEST POSITION.
--- NOTE | 2020-06-17 03:44 | NUR ---
SHIFT SUMMARY PT HAS RESTED COMFORTABLY MOST OF THE NIGHT. PLESANTLY CONFUSED, HE DENIES NEEDS WHEN ASKS. TOOK MEDICATIONS CRUSHED IN APPLESAUCE WITHOUT DIFFICULTY. NEW IV ESTABLISHED THIS SHIFT AND PT RECEIVED IV LASIKS D/T FLUID OVERLOAD. PT HAS BEEN VOIDING ADEQUATLY. AT TIMES PT IS INCONTINENT AND OTHER TIMES HE IS ABLE TO USE THE URINAL WITH ASSISTANCE. OSTOMY IN PLACE, PATENT AND DRAINING TO RLQ, PT GASSY AND OSTOMY REQUIRES BURPING. THERE HAVE BEEN NO ACUTE CHANGES IN PT ASSESSMENT. BED IN LOWEST POSITION, CALL LIGHT WITHIN REACH.
[2020-06-17 05:13] LABS: Hematocrit 42.4 % (37.0-53.0); Mean Corpuscular HGB 29.5 pg (26.0-34.0); Mean Corpuscular Volume 90 fL (80-100); Mean Platelet Volume 8.5 fL (9.1-12.4); Platelet Count 234 K/mm3 (150-400); RDW Coefficient Variation 11.9 % (11.7-14.2); Red Blood Cell Count 4.74 M/mm3 (4.30-5.90); White Blood Cell Count 6.68 K/mm3 (4.00-11.30)
[2020-06-17 05:40] LABS: Anion Gap 6 mmol/L (6-16); Blood Urea Nitrogen 15 mg/dL (8-24); Bun/Creatinine Ratio 12.3 (12.0-20.0); CO2, Blood 36 mmol/L (21-32); Calcium, Blood 9.2 mg/dL (8.5-10.1); Chloride, Blood 92 mmol/L (98-108); Creatinine, Blood 1.22 mg/dL (0.60-1.20); Glomerular Filtration Rate >60 (60-); Glucose, Blood 132 mg/dL (70-99); Potassium, Blood 3.4 mmol/L (3.5-5.5); Sodium, Blood 134 mmol/L (136-145)
--- NOTE | 2020-06-17 18:13 | NUR ---
SHIFT SUMMARY PT GARBLED SPEECH BUT FOLLOWS SOME COMMANDS. DIFFICULT TO UNDERSTAND SPEECH AT TIMES. ON 5L THROUGHOUT THE SHIFT CORRIE NC HOWEVER, PT REMOVES NC AND EAR PROBE FREQUENTLY. AT 1710 PT DESAT TO 84. RT CALLED. PT O2 BUMPED TO 7L NC PER CHARGE NURSE CELIA MARTINEZ RN. PT 88% ON 5L AT THIS TIME BUT KEEPS REMOVING NC. OSTOMY APPLIANCE CHANGED THIS SHIFT. BED IN LOW POSITION, CALL LIGHT WITHIN REACH, BED ALARM ON. VSS.
[2020-06-18 12:07] LABS: Anion Gap 5 mmol/L (6-16); Blood Urea Nitrogen 16 mg/dL (8-24); Bun/Creatinine Ratio 13.8 (12.0-20.0); CO2, Blood 36 mmol/L (21-32); Calcium, Blood 9.8 mg/dL (8.5-10.1); Chloride, Blood 94 mmol/L (98-108); Creatinine, Blood 1.16 mg/dL (0.60-1.20); Glomerular Filtration Rate >60 (60-); Glucose, Blood 133 mg/dL (70-99); Potassium, Blood 3.4 mmol/L (3.5-5.5); Sodium, Blood 135 mmol/L (136-145)
[2020-06-18] MEDS ORDERED: AMLO5 PO (14:40)
[2020-06-18] MEDS ORDERED: HURRICAINE ONE1 EACH TOP (14:42)
[2020-06-18] MEDS ORDERED: CLON.1 PO (14:49)
[2020-06-18] MEDS ORDERED: AMOCLA875 PO (15:06)
--- NOTE | 2020-06-18 16:10 | NUR ---
PATIENT DISCHARGED TO [facility] WITH CAREGIVERS. IV SALINE LOCK REMOVED WITHOUT INCIDENT. CAREGIVERS GIVEN DISCHARGE INSTRUCTIONS AND NEW MEDICATION LIST. PATIENT TAKEN OFF UNIT IN HIS OWN W/C BY CAREGIVERS AT 1406. NO BELONGINGS LEFT BEHIND.
== END 2020-06-18 16:09 | DRG 640 ==
LOC: ER 17:28 → PCU 17:29 → MEDS 06-11 12:11 → PCU 06-11 12:11 → MEDS 06-13 14:48
PROVIDERS: Emergency Medicine; Internal Medicine; Nurse Practitioner Acute Care; Physician Assistant; ADMIT Family Medicine
DX: E87.1 Hypo-osmolality and hyponatremia (principal); G92 Toxic encephalopathy; J96.01 Acute respiratory failure with hypoxia; J69.0 Pneumonitis due to inhalation of food and vomit; F84.0 Autistic disorder; K51.90 Ulcerative colitis, unspecified, without complications; Z79.82 Long term (current) use of aspirin; Z79.4 Long term (current) use of insulin; K21.9 Gastro-esophageal reflux disease without esophagitis; E03.9 Hypothyroidism, unspecified; Z93.2 Ileostomy status; Z90.49 Acquired absence of other specified parts of digestive tract; E87.6 Hypokalemia; E78.5 Hyperlipidemia, unspecified; I48.0 Paroxysmal atrial fibrillation; N18.1 Chronic kidney disease, stage 1; E11.22 Type 2 diabetes mellitus with diabetic chronic kidney disease
CPT/HCPCS: 36415; 36600; 71045; 80048; 80053; 80069; 80400; 81001; 82530; 82533; 82570; 82803; 82947; 83735; 83880; 83935; 84100; 84145; 84295; 84300; 84439; 84481; 85025; 85027; 92526; 92610; 93005; 93010; 94640; 94660; 94760; 94761; 94762; 96361; 96372; 96374; 99284-25; A9270; A9270-GY; G0378; J0696; J0834; J1650; J1940; J2060; J3480; J7030; J7050

== ENCOUNTER 2020-07-20 09:49 | Inpatient (IN) | payer OTHER ==
[~2020-07-20] VITALS: Ht 165.1 cm; Wt 101.6 kg
[~2020-07-20 09:49] MED LIST changes: +ALBU2.5V5 INH; +ALMACONE SUSPE355 ML TOP; +AYR SALINE TOP; +Aquaphor Healin50 GM TOP; +BASAGLAR K100 UNIT/1 SC; +BENADRYL25 MG PO; +CARB10OTL BOTHEARS; +Chloraseptic177 ML PO; +DIAPER RASH113 G1 PR; +FEROSUL325 M1 PO; +FURO20 PO; +HURRICAINE ONE1 EACH TOP; +HYDCHL12.5 PO; +INSULIN LI100 UNIT/6 SC; +LEVSOD150 PO; +LOSA25 PO; +MAGNESIUM OXID400 M1 PO; +Muri-Lube Minera2 ML BOTHEARS; +SENN187 PO; +TRIPLE ANTIBIOT28 GM TOP; +VASELINE TOP; +Vitamin D2000 UNIT PO; +ZYPREXA15 MG PO; +[UNRECOGNIZED DRUG - OTHER] MT; +[UNRECOGNIZED DRUG - OTHER] PO
[2020-07-20 11:14] LABS: BASOPHILS ABSOLUTE AUTO 0.04 K/mm3 (0.00-0.23); BASOPHILS PERCENT AUTO 1 % (0-2); EOSINOPHILS ABSOLUTE AUTO 0.08 K/mm3 (0.00-0.68); EOSINOPHILS PERCENT AUTO 1 % (0-6); Hematocrit 29.2 % (37.0-53.0); Hemoglobin 10.2 g/dL (13.5-17.5); IMMATURE GRAN ABSOLUTE AUTO 0.13 K/mm3 (0.00-0.10); IMMATURE GRAN PERCENT AUTO 2 % (0-1); LYMPHOCYTES ABSOLUTE AUTO 0.85 K/mm3 (0.84-5.20); LYMPHOCYTES PERCENT AUTO 12 % (21-46); MONOCYTES ABSOLUTE AUTO 0.77 K/mm3 (0.16-1.47); MONOCYTES PERCENT AUTO 11 % (4-13); Mean Corpuscular HGB 29.1 pg (26.0-34.0); Mean Corpuscular HGB Conc 34.9 g/dL (31.5-36.5); Mean Corpuscular Volume 83 fL (80-100); Mean Platelet Volume 8.9 fL (9.1-12.4); NEUTROPHILS ABSOLUTE AUTO 5.09 K/mm3 (1.96-9.15); NEUTROPHILS PERCENT AUTO 73 % (41-73); NRBC ABSOLUTE 0.02 K/mm3 (0.00-0.02); NRBC Auto 0.3 /100 WBC (0.0-0.2); Platelet Count 136 K/mm3 (150-400); RDW Coefficient Variation 12.9 % (11.7-14.2); RDW Standard Deviation 38.7 fL (35.1-46.3); Red Blood Cell Count 3.51 M/mm3 (4.30-5.90); White Blood Cell Count 6.96 K/mm3 (4.00-11.30)
[2020-07-20 11:42] LABS: Free Thyroxine 1.17 ng/dL (0.70-1.60); Magnesium, Blood 1.7 mg/dL (1.6-2.4)
[2020-07-20 11:43] LABS: Alanine Aminotransfer (ALT/SGP 19 U/L (12-78); Albumin/Globulin Ratio 0.9 (0.8-1.8); Alk Phos 62 U/L (50-136); Anion Gap 4 mmol/L (6-16); Aspartate Aminotrans (AST/SGOT 19 U/L (12-37); Bilirubin, Total 1.3 mg/dL (0.1-1.0); Blood Urea Nitrogen 14 mg/dL (8-24); Bun/Creatinine Ratio 16.9 (12.0-20.0); CO2, Blood 36 mmol/L (21-32); Calcium, Blood 8.8 mg/dL (8.5-10.1); Chloride, Blood 77 mmol/L (98-108); Creatinine, Blood 0.83 mg/dL (0.60-1.20); Globulin, Blood 3.3 g/dL (2.2-4.0); Glomerular Filtration Rate >60 (60-); Glucose, Blood 113 mg/dL (70-99); Potassium, Blood 3.3 mmol/L (3.5-5.5); Sodium, Blood 117 mmol/L (136-145); Total Protein, Blood 6.3 g/dL (6.4-8.2)
[2020-07-20 12:06] LABS: Influenza A, PCR Negative (NEGATIVE); Influenza B, PCR Negative (NEGATIVE); Resp Syncytial Virus, PCR Negative (NEGATIVE); SARS-Cov-2 (COVID-19) PCR, MMC Negative (NEGATIVE)
[2020-07-20] MEDS ORDERED: SYNTHROID175 MC1 PO (13:25)
[2020-07-20] MEDS ORDERED: CLONAZEPAM1 MG PO (13:27)
[2020-07-20] MEDS ORDERED: OLANZAPINE PO (13:31)
[2020-07-20 13:39] LABS: PCO2 Arterial 63.4 mmHg (35-45); PO2 Arterial 71.7 mmHg (80-100); pH Blood Arterial 7.36 (7.35-7.45)
[2020-07-20 14:33] LABS: International Normalized Ratio 1.04; Prothrombin Time Results 11.1 Sec (9.7-11.5)
[2020-07-20 15:06] LABS: Source, Urine Voided
[2020-07-20 15:25] LABS: Appearance, Urine Clear (Clear); Bilirubin, Urine Neg (Neg); Blood, Urine Neg (Neg); Color, Urine Yellow (P-Yellow); Glucose Qualitative, Urine Neg (Neg); Ketones, Urine Neg (Neg); Leukocyte Esterase, Urine Neg (Neg); Nitrite, Urine Neg (Neg); Protein, Urine 1+ (Neg); Specific Gravity, Urine 1.015 (1.003-1.022); Urobilinogen, Urine NORM (Normal); pH, Urine 6.5 (5.0-8.0)
[2020-07-20 15:28] LABS: Anion Gap 1 mmol/L (6-16); Blood Urea Nitrogen 13 mg/dL (8-24); Bun/Creatinine Ratio 14.1 (12.0-20.0); CO2, Blood 39 mmol/L (21-32); Calcium, Blood 8.5 mg/dL (8.5-10.1); Chloride, Blood 82 mmol/L (98-108); Creatinine, Blood 0.92 mg/dL (0.60-1.20); Glomerular Filtration Rate >60 (60-); Glucose, Blood 107 mg/dL (70-99); Potassium, Blood 3.2 mmol/L (3.5-5.5); Sodium, Blood 122 mmol/L (136-145)
[2020-07-20 17:12] LABS: U Amphetamine Screen Not Detected; U Barbituate Screen Not Detected; U Benzodiazapine Screen Not Detected; U Buprenorphine Screen Not Detected; U Cannabinoids Screen Not Detected; U Cocaine Screen Not Detected; U Methadone Screen Not Detected; U Methamphetamine Screen Not Detected; U Opiates Screen Not Detected; U Oxycodone Screen Not Detected; U Phencyclidine Screen Not Detected; U Propoxyphene Screen Not Detected
[2020-07-20 19:37] LABS: Hemoglobin 9.7 g/dL (13.5-17.5)
[2020-07-20 20:07] LABS: Anion Gap 4 mmol/L (6-16); Blood Urea Nitrogen 12 mg/dL (8-24); Bun/Creatinine Ratio 14.8 (12.0-20.0); CO2, Blood 38 mmol/L (21-32); Calcium, Blood 8.2 mg/dL (8.5-10.1); Chloride, Blood 78 mmol/L (98-108); Creatinine, Blood 0.81 mg/dL (0.60-1.20); Glomerular Filtration Rate >60 (60-); Glucose, Blood 179 mg/dL (70-99); Potassium, Blood 3.5 mmol/L (3.5-5.5); Sodium, Blood 120 mmol/L (136-145)
--- NOTE | 2020-07-20 20:27 | NUR ---
REPORT RECIEVED REPORT RECIEVED FROM EKATERINA COLEMAN.
[2020-07-20] MEDS ORDERED: CLON.1 PO (21:16)
[2020-07-20] MEDS ORDERED: OLAN7.5 PO (21:20)
[2020-07-21 03:58] LABS: Hematocrit 28.1 % (37.0-53.0); Hemoglobin 9.7 g/dL (13.5-17.5)
[2020-07-21 04:00] LABS: BASOPHILS ABSOLUTE AUTO 0.03 K/mm3 (0.00-0.23); BASOPHILS PERCENT AUTO 1 % (0-2); EOSINOPHILS ABSOLUTE AUTO 0.05 K/mm3 (0.00-0.68); EOSINOPHILS PERCENT AUTO 1 % (0-6); Hematocrit 28.7 % (37.0-53.0); Hemoglobin 9.8 g/dL (13.5-17.5); IMMATURE GRAN ABSOLUTE AUTO 0.07 K/mm3 (0.00-0.10); IMMATURE GRAN PERCENT AUTO 1 % (0-1); LYMPHOCYTES ABSOLUTE AUTO 0.58 K/mm3 (0.84-5.20); LYMPHOCYTES PERCENT AUTO 10 % (21-46); MONOCYTES ABSOLUTE AUTO 0.62 K/mm3 (0.16-1.47); MONOCYTES PERCENT AUTO 10 % (4-13); Mean Corpuscular HGB Conc 34.1 g/dL (31.5-36.5); Mean Corpuscular Volume 85 fL (80-100); Mean Platelet Volume 9.3 fL (9.1-12.4); NEUTROPHILS ABSOLUTE AUTO 4.62 K/mm3 (1.96-9.15); NEUTROPHILS PERCENT AUTO 77 % (41-73); Platelet Count 150 K/mm3 (150-400); RDW Standard Deviation 39.5 fL (35.1-46.3); Red Blood Cell Count 3.38 M/mm3 (4.30-5.90); White Blood Cell Count 5.97 K/mm3 (4.00-11.30)
[2020-07-21 04:20] LABS: Alanine Aminotransfer (ALT/SGP 19 U/L (12-78); Albumin/Globulin Ratio 0.9 (0.8-1.8); Alk Phos 62 U/L (50-136); Anion Gap 4 mmol/L (6-16); Aspartate Aminotrans (AST/SGOT 15 U/L (12-37); Bilirubin, Total 1.3 mg/dL (0.1-1.0); Blood Urea Nitrogen 10 mg/dL (8-24); Bun/Creatinine Ratio 12.2 (12.0-20.0); CO2, Blood 39 mmol/L (21-32); Calcium, Blood 8.4 mg/dL (8.5-10.1); Chloride, Blood 80 mmol/L (98-108); Creatinine, Blood 0.82 mg/dL (0.60-1.20); Globulin, Blood 3.3 g/dL (2.2-4.0); Glomerular Filtration Rate >60 (60-); Glucose, Blood 92 mg/dL (70-99); Potassium, Blood 3.1 mmol/L (3.5-5.5); Sodium, Blood 123 mmol/L (136-145); Total Protein, Blood 6.3 g/dL (6.4-8.2)
--- NOTE | 2020-07-21 04:43 | NUR ---
PHYSICIAN UPDATED PHYSICIAN UPDATED ON CURRENT SODIUM LEVEL OF 123. NO ORDERS PROVIDED AT THIS TIME.
--- NOTE | 2020-07-21 06:10 | NUR ---
SHIFT SUMMARY PT LETHARGIC UPON ARRIVAL TO UNIT. PT WAKES UP TO VERBAL STIMULI AT TIMES. UPON ARRIVAL TO UNIT PT ON 4 L OF OXYGEN VIA NC. PT OXYGEN LEVEL AT 90%. RESPIRATORY CARE ORDERED. PT NOW ON CPAP AT 10-14 L BLEED IN. PT OXYGEN SATURATION MAINTAINED AT 93%. PT HAS ILLEOSTOMY IN RLQ. PT TURNED Q 2 HRS. HR REMAINED STABLE. BP STABLE. UNABLE TO ASSESS PT'S PAIN D/T COGNITIVE LEVEL. CAREGIVER TO ARRIVE THIS AM. PT ALERT TO SELF, CAREGIVERS AND LOCATION. WILL CONTINUE TO MONITOR UNTIL REPORT GIVEN TO DAYSJOSHUA RN.
--- NOTE | 2020-07-21 06:38 | NUR ---
PHYSICIAN NOTIFIED PHYSICIAN NOTIFIED OF PT'S K+ LEVEL OF 3.1. PHYSICIAN ORDERED 40 MEQ OF K+ ONCE.
[2020-07-21 11:14] LABS: Hematocrit 28.8 % (37.0-53.0); Hemoglobin 10.2 g/dL (13.5-17.5)
[2020-07-21 12:06] LABS: Anion Gap 5 mmol/L (6-16); Blood Urea Nitrogen 11 mg/dL (8-24); Bun/Creatinine Ratio 11.5 (12.0-20.0); CO2, Blood 35 mmol/L (21-32); Calcium, Blood 8.6 mg/dL (8.5-10.1); Chloride, Blood 82 mmol/L (98-108); Creatinine, Blood 0.96 mg/dL (0.60-1.20); Glomerular Filtration Rate >60 (60-); Glucose, Blood 153 mg/dL (70-99); Potassium, Blood 3.7 mmol/L (3.5-5.5); Sodium, Blood 122 mmol/L (136-145)
--- NOTE | 2020-07-21 18:30 | NUR ---
SHIFT SUMMARY; INCREASINGLY MORE ALERT THROUGHOUT DAY. APPEARS TO BE AT BASELINE PER CAREGIVERS WHO VISITED TODAY. HX OF AUTISM. 4L O2 VIA NC THROUGHOUT SHIFT. VSS, SATS 94%. ASSISTED WITH EATING WITH GOOD APPETITITE. REPOSITIONS SELF IN BED NEEDED. ILLEOSTOMY BAG IN PLACE AND EPTIED THROUGHOUT SHIFT. NO ACUTE MEDICAL CHANGES, WILL CONTINUE TO MONITOR.
[2020-07-22 04:08] LABS: BASOPHILS ABSOLUTE AUTO 0.03 K/mm3 (0.00-0.23); BASOPHILS PERCENT AUTO 0 % (0-2); EOSINOPHILS ABSOLUTE AUTO 0.06 K/mm3 (0.00-0.68); EOSINOPHILS PERCENT AUTO 1 % (0-6); Hematocrit 29.7 % (37.0-53.0); IMMATURE GRAN ABSOLUTE AUTO 0.07 K/mm3 (0.00-0.10); IMMATURE GRAN PERCENT AUTO 1 % (0-1); LYMPHOCYTES ABSOLUTE AUTO 0.96 K/mm3 (0.84-5.20); LYMPHOCYTES PERCENT AUTO 13 % (21-46); MONOCYTES ABSOLUTE AUTO 1.08 K/mm3 (0.16-1.47); MONOCYTES PERCENT AUTO 14 % (4-13); Mean Corpuscular HGB 29.5 pg (26.0-34.0); Mean Corpuscular HGB Conc 33.7 g/dL (31.5-36.5); Mean Corpuscular Volume 88 fL (80-100); Mean Platelet Volume 8.9 fL (9.1-12.4); NEUTROPHILS ABSOLUTE AUTO 5.36 K/mm3 (1.96-9.15); NEUTROPHILS PERCENT AUTO 71 % (41-73); NRBC ABSOLUTE 0.02 K/mm3 (0.00-0.02); NRBC Auto 0.3 /100 WBC (0.0-0.2); Platelet Count 144 K/mm3 (150-400); RDW Coefficient Variation 13.2 % (11.7-14.2); RDW Standard Deviation 41.3 fL (35.1-46.3); Red Blood Cell Count 3.39 M/mm3 (4.30-5.90); White Blood Cell Count 7.56 K/mm3 (4.00-11.30)
[2020-07-22 04:25] LABS: Alanine Aminotransfer (ALT/SGP 16 U/L (12-78); Albumin, Blood 2.9 g/dL (3.4-5.0); Albumin/Globulin Ratio 0.9 (0.8-1.8); Alk Phos 62 U/L (50-136); Anion Gap 3 mmol/L (6-16); Aspartate Aminotrans (AST/SGOT 13 U/L (12-37); Bilirubin, Total 1.5 mg/dL (0.1-1.0); Blood Urea Nitrogen 9 mg/dL (8-24); Bun/Creatinine Ratio 8.1 (12.0-20.0); CO2, Blood 36 mmol/L (21-32); Calcium, Blood 8.7 mg/dL (8.5-10.1); Chloride, Blood 86 mmol/L (98-108); Creatinine, Blood 1.11 mg/dL (0.60-1.20); Globulin, Blood 3.4 g/dL (2.2-4.0); Glomerular Filtration Rate >60 (60-); Glucose, Blood 94 mg/dL (70-99); Potassium, Blood 3.7 mmol/L (3.5-5.5); Sodium, Blood 125 mmol/L (136-145); Total Protein, Blood 6.3 g/dL (6.4-8.2)
--- NOTE | 2020-07-22 06:57 | NUR ---
SHIFT SUMMARY UNABLE TO THOROUGHLY ASSESS PT MENTATION. PT UNABLE TO STATE NAME & , OR ANSWER ASSESSMENT Q's, BUT PT CONFIRMING NAME & WHEN STATED. PT VSS. SPO2 > 92% ON 4L NC OR CPAP WHILE SLEEPING. MONITOR SHOWING SR-ST, HR 80's-110. ILEOSTOMY IN TACT W/ LOOSE BROWN STOOL. NO EVENTS OVER NIGHT.
--- NOTE | 2020-07-22 18:47 | NUR ---
SHIFT SUMMARY; A/A/OX4 AT PT'S BASELINE THROUGHOUT SHIFT. REMAINS ON 4L O2 VIA NC. STATUS CHANGED TO MEDICAL TODAY. CONSULT CALLED FOR ORTHO FOR POSSIBLE RIGHT LEG HEMATOMA EVACUATION. ASSISTED WITH EATING WITH GOOD APPETITE. ILLEOSTOMY CARE BY NETWORK OPERATIONS MANAGER THROUGHOUT SHIFT. REPOSITIONED Q 2 HOURS FOR COMFORT. NO ACUTE MEDICAL CHANGES DURING SHIFT. WILL CONTINUE TO MONITOR AND TREAT UNTIL CHANGE OF SHIFT.
[2020-07-23 03:48] LABS: BASOPHILS ABSOLUTE AUTO 0.02 K/mm3 (0.00-0.23); BASOPHILS PERCENT AUTO 0 % (0-2); EOSINOPHILS ABSOLUTE AUTO 0.07 K/mm3 (0.00-0.68); EOSINOPHILS PERCENT AUTO 1 % (0-6); Hematocrit 28.5 % (37.0-53.0); Hemoglobin 9.7 g/dL (13.5-17.5); IMMATURE GRAN ABSOLUTE AUTO 0.07 K/mm3 (0.00-0.10); IMMATURE GRAN PERCENT AUTO 1 % (0-1); LYMPHOCYTES ABSOLUTE AUTO 0.86 K/mm3 (0.84-5.20); LYMPHOCYTES PERCENT AUTO 11 % (21-46); MONOCYTES ABSOLUTE AUTO 1.15 K/mm3 (0.16-1.47); MONOCYTES PERCENT AUTO 15 % (4-13); Mean Corpuscular HGB 29.8 pg (26.0-34.0); Mean Corpuscular Volume 88 fL (80-100); Mean Platelet Volume 8.8 fL (9.1-12.4); NEUTROPHILS ABSOLUTE AUTO 5.72 K/mm3 (1.96-9.15); NEUTROPHILS PERCENT AUTO 72 % (41-73); Platelet Count 154 K/mm3 (150-400); RDW Coefficient Variation 13.2 % (11.7-14.2); RDW Standard Deviation 41.8 fL (35.1-46.3); Red Blood Cell Count 3.25 M/mm3 (4.30-5.90); White Blood Cell Count 7.89 K/mm3 (4.00-11.30)
[2020-07-23 04:07] LABS: Alanine Aminotransfer (ALT/SGP 15 U/L (12-78); Albumin, Blood 2.8 g/dL (3.4-5.0); Albumin/Globulin Ratio 0.9 (0.8-1.8); Alk Phos 57 U/L (50-136); Anion Gap 4 mmol/L (6-16); Aspartate Aminotrans (AST/SGOT 17 U/L (12-37); Bilirubin, Total 1.9 mg/dL (0.1-1.0); Blood Urea Nitrogen 7 mg/dL (8-24); Bun/Creatinine Ratio 6.7 (12.0-20.0); CO2, Blood 35 mmol/L (21-32); Calcium, Blood 8.8 mg/dL (8.5-10.1); Chloride, Blood 88 mmol/L (98-108); Creatinine, Blood 1.05 mg/dL (0.60-1.20); Globulin, Blood 3.2 g/dL (2.2-4.0); Glomerular Filtration Rate >60 (60-); Glucose, Blood 125 mg/dL (70-99); Potassium, Blood 3.9 mmol/L (3.5-5.5); Sodium, Blood 127 mmol/L (136-145)
--- NOTE | 2020-07-23 05:58 | NUR ---
SHIFT SUMMARY ASSUMED CARE OF PT AT 1900. PT IS A/OX1, DIFFICULT TO ASSESS DUE TO MENATION. HEART SOUNDS REGULAR, TELE SHOWS SINUS TACH W/PVC/PAC @ 110. LUNG SOUNDS CLEAR, PT WORE CPAP T/O THE NIGHT. PT IS HAVING LOOSE KENNA STOOLS FROM ILEOSTOMY. PT WAS INCONTINENT OF URINE T/O THE NIGHT. PT R LEG IS SWOLLEN AND BRUISED, PT SHOUTS IN PAIN WHEN TOUCHED. NO ACUTE EVETNS DURING THE NIGHT. PT SLEPT T/O THE NIGHT. CALL LIGHT IN REACH, BED IN LOWEST POSTION, WILL CONTINUE TO MONITOR UNTIL DAYSHIFT NURSE ARRIVES.
--- NOTE | 2020-07-23 07:15 | NUR ---
ASSUMING CARE OF PT, RECEIVED REPORT FROM EKATERINA JACOB. PT RESTING QUIETLY IN BED WITH CPAP IN PLACE, EYES CLOSED, EVEN AND UNLABORED RESPIRATIONS.
--- NOTE | 2020-07-23 13:54 | NUR ---
DR LAINEZ TO AND FROM ROOM FOR EVAL OF PT'S RT LEG. PER DR LAINEZ, CT SCAN IS NEGATIVE, HEMATOMA AROUND RT KNEE IS SOFT. THIS RN ASSISTS DR LAINEZ WITH APPLICATION OF ABD BANDAGE TO RT KNEE AND TOM BANDAGE TO RT LEG. LEG IS PROPPED ON PILLOW TO AID WITH EDEMA. PT TOLERATES WELL.
--- NOTE | 2020-07-23 16:44 | NUR ---
PT CONTINUES ALERT AND COOPERATIVE WITH CARE TODAY. PT RESTS QUIETLY WHEN ALONE, ENGAGES WITH STAFF WHILE IN ROOM, SPEECH IS GARBLED AND DIFFICULT TO UNDERSTAND AT TIMES. PT CONTINUES INCONTINENT OF URINE, ATTENS CHANGED NEEDED T/OUT SHIFT. PT'S OSTOMY BAG ALSO EMPTIED NEEDED T/OUT SHIFT. RT LEG CONTINUES ELEVATED ON PILLOWS. PT TOLERATING OXYGEN VIA NC AT 4L/MIN. REPORT HAS BEEN GIVEN TO EKATERINA SHAH TO RECEIVE PT IN MEDICAL DEPT.
[2020-07-24 05:10] LABS: BASOPHILS ABSOLUTE AUTO 0.03 K/mm3 (0.00-0.23); BASOPHILS PERCENT AUTO 0 % (0-2); EOSINOPHILS ABSOLUTE AUTO 0.13 K/mm3 (0.00-0.68); EOSINOPHILS PERCENT AUTO 2 % (0-6); Hematocrit 29.6 % (37.0-53.0); Hemoglobin 9.8 g/dL (13.5-17.5); IMMATURE GRAN ABSOLUTE AUTO 0.07 K/mm3 (0.00-0.10); IMMATURE GRAN PERCENT AUTO 1 % (0-1); LYMPHOCYTES ABSOLUTE AUTO 1.08 K/mm3 (0.84-5.20); LYMPHOCYTES PERCENT AUTO 13 % (21-46); MONOCYTES ABSOLUTE AUTO 1.22 K/mm3 (0.16-1.47); MONOCYTES PERCENT AUTO 15 % (4-13); Mean Corpuscular HGB 29.3 pg (26.0-34.0); Mean Corpuscular HGB Conc 33.1 g/dL (31.5-36.5); Mean Corpuscular Volume 89 fL (80-100); Mean Platelet Volume 8.5 fL (9.1-12.4); NEUTROPHILS ABSOLUTE AUTO 5.68 K/mm3 (1.96-9.15); NEUTROPHILS PERCENT AUTO 69 % (41-73); Platelet Count 170 K/mm3 (150-400); RDW Coefficient Variation 13.2 % (11.7-14.2); RDW Standard Deviation 42.9 fL (35.1-46.3); Red Blood Cell Count 3.34 M/mm3 (4.30-5.90); White Blood Cell Count 8.21 K/mm3 (4.00-11.30)
--- NOTE | 2020-07-24 05:18 | NUR ---
SHIFT SUMMARY NO ACUTE CHANGES TO REPORT THIS SHIFT. PT HAS RESTED MOST OF THE NIGHT. TOLERATED HIS CPAP. PT FORGETFUL AND WILL CLIMB OOB WITHOUT ASSISTANCE. BED ALARM IN PLACE FOR SAFETY. ASSESSMENT HAS REMAINED UNCHANGED. BED IN LOWEST POSITION, CALL LIGHT WITHIN REACH.
[2020-07-24 05:34] LABS: Alanine Aminotransfer (ALT/SGP 14 U/L (12-78); Albumin, Blood 2.7 g/dL (3.4-5.0); Albumin/Globulin Ratio 0.7 (0.8-1.8); Alk Phos 54 U/L (50-136); Anion Gap 5 mmol/L (6-16); Aspartate Aminotrans (AST/SGOT 10 U/L (12-37); Bilirubin, Total 1.7 mg/dL (0.1-1.0); Blood Urea Nitrogen 13 mg/dL (8-24); Bun/Creatinine Ratio 11.3 (12.0-20.0); CO2, Blood 34 mmol/L (21-32); Calcium, Blood 9.4 mg/dL (8.5-10.1); Chloride, Blood 91 mmol/L (98-108); Creatinine, Blood 1.15 mg/dL (0.60-1.20); Globulin, Blood 3.8 g/dL (2.2-4.0); Glomerular Filtration Rate >60 (60-); Glucose, Blood 143 mg/dL (70-99); Magnesium, Blood 1.7 mg/dL (1.6-2.4); Phosphorus, Blood 4.5 mg/dL (2.5-4.9); Potassium, Blood 3.9 mmol/L (3.5-5.5); Sodium, Blood 130 mmol/L (136-145); Total Protein, Blood 6.5 g/dL (6.4-8.2)
--- NOTE | 2020-07-24 14:10 | NUR ---
PT H/R FLUCTUATING BETWEEN 115-145 PER PULSE BIOX ON WALL. CALLED ISTRATE. PT IS ASYMPTOMATIC, BUT IS AUTISTIC. ORDERS FOR 500 FLUID BOLUS. NO TELE.
--- NOTE | 2020-07-24 17:19 | NUR ---
PT PLEASANT TODAY. ALWAYS GARBLED AND MUMBLES AT BASELINE, BUT PLEASANT AND SAYS MARIBELL, HAPPY BIRTHDAY,THINGS LIKE THIS. DENIES PAIN. LEG WAS OBSERVED AND REWRAPPED BY DR LAINEZ AND MYSELF. KNEE WOUND IS CLEAN AND DRY. COVERED WITH DRESSING. PT HAS ILLIOSTOMY AND ATTENDS FOR INCONT OF URINE. NO NEW CONCERHNS AT THIS ITME. BED IN LOW POSITION, CALL LITE IN REACH, BED ALARM ON FOR SAFETY
--- NOTE | 2020-07-24 18:13 | NUR ---
PT H/R INCREASES TO MID 140S WITH SITTING UP. EATING, DECAFF COFFEE, ETC. CALLED DR DE LA VEGA. NEW MED ORDDRED.
--- NOTE | 2020-07-25 04:03 | NUR ---
LETTERER SUMMARY PT A&OX2, GARBLED SPEECH. ABLE TO MAKE NEEDS KNOWN. PLEASANT AND COOPERATIVE TO CARE. PT MEDICATED FOR RLE PAIN PER EMAR. PT ALSO MEDICATED WITH X1 DOSE OF ZYPREXA 10MG IM ORDERED FOR ANXIETY. PT CALM AND RESTED IN BED REMAINING OF SHIFT. ON O2 4LPM VIA NC. RESP EVEN AND UNLABORED. NO C/O CP OR N&V. TOM WRAP ON RLE CDI. AFFECTED AREA ELEVATED. BED AT LOWEST POSITION, CALL LIGHT WITHIN REACH.
[2020-07-25 04:57] LABS: BASOPHILS ABSOLUTE AUTO 0.02 K/mm3 (0.00-0.23); BASOPHILS PERCENT AUTO 0 % (0-2); EOSINOPHILS ABSOLUTE AUTO 0.23 K/mm3 (0.00-0.68); EOSINOPHILS PERCENT AUTO 3 % (0-6); Hematocrit 28.6 % (37.0-53.0); Hemoglobin 9.3 g/dL (13.5-17.5); IMMATURE GRAN ABSOLUTE AUTO 0.06 K/mm3 (0.00-0.10); IMMATURE GRAN PERCENT AUTO 1 % (0-1); LYMPHOCYTES ABSOLUTE AUTO 0.93 K/mm3 (0.84-5.20); LYMPHOCYTES PERCENT AUTO 13 % (21-46); MONOCYTES ABSOLUTE AUTO 0.92 K/mm3 (0.16-1.47); MONOCYTES PERCENT AUTO 13 % (4-13); Mean Corpuscular HGB 29.3 pg (26.0-34.0); Mean Corpuscular HGB Conc 32.5 g/dL (31.5-36.5); Mean Corpuscular Volume 90 fL (80-100); Mean Platelet Volume 8.9 fL (9.1-12.4); NEUTROPHILS ABSOLUTE AUTO 4.76 K/mm3 (1.96-9.15); NEUTROPHILS PERCENT AUTO 69 % (41-73); Platelet Count 173 K/mm3 (150-400); RDW Coefficient Variation 12.9 % (11.7-14.2); RDW Standard Deviation 42.6 fL (35.1-46.3); Red Blood Cell Count 3.17 M/mm3 (4.30-5.90); White Blood Cell Count 6.92 K/mm3 (4.00-11.30)
[2020-07-25 05:26] LABS: Alanine Aminotransfer (ALT/SGP 17 U/L (12-78); Albumin, Blood 2.7 g/dL (3.4-5.0); Albumin/Globulin Ratio 0.7 (0.8-1.8); Alk Phos 47 U/L (50-136); Anion Gap 4 mmol/L (6-16); Aspartate Aminotrans (AST/SGOT 17 U/L (12-37); Bilirubin, Total 1.6 mg/dL (0.1-1.0); Blood Urea Nitrogen 17 mg/dL (8-24); Bun/Creatinine Ratio 14.2 (12.0-20.0); CO2, Blood 34 mmol/L (21-32); Calcium, Blood 9.1 mg/dL (8.5-10.1); Chloride, Blood 95 mmol/L (98-108); Globulin, Blood 3.8 g/dL (2.2-4.0); Glomerular Filtration Rate >60 (60-); Glucose, Blood 139 mg/dL (70-99); Magnesium, Blood 1.6 mg/dL (1.6-2.4); Phosphorus, Blood 4.1 mg/dL (2.5-4.9); Potassium, Blood 4.1 mmol/L (3.5-5.5); Sodium, Blood 133 mmol/L (136-145); Total Protein, Blood 6.5 g/dL (6.4-8.2)
[2020-07-25] MEDS ORDERED: ACET325 PO (10:08)
[2020-07-25] MEDS ORDERED: NYSTATIN15 GM TOP ×2 (10:09→11:32)
[2020-07-25] MEDS ORDERED: ONDA4ODT MM (10:10)
[2020-07-25] MEDS ORDERED: VISBIOME PROBIOTIC PO (10:11)
[2020-07-25] MEDS ORDERED: Norco 5-325 Ta1 EACH PO (11:11)
--- NOTE | 2020-07-25 14:54 | NUR ---
PT DISCHARGED AT TO [facility] TODAY. ALL PAPERWORK WAS SENT WITH PT AND CASEWORK PICKED PT UP VIA [facility].PT ESCORTED OUT VIA HIS OWN WHEEL CHAIR. PT WAS A TWO PERSON TRANSFER HE DOES NOT WANT TO STAND ON HIS L FOOT DUE TO IT BEING SORE. ALL BELONGINGS COLLECTED AND IVs REMOVED PRIOR TO DISCHARGE. HARD SCRIPT FOR PAIN MEDS SENT IN PACKET. NO DISTRESS NOTED.
== END 2020-07-25 13:22 | disposition home or self-care (01) | DRG 640 ==
LOC: ER 09:49 → PCU 16:04 → ERHOLD 16:04 → PCU 20:55 → MEDS 07-23 16:53
PROVIDERS: Emergency Medicine; Family Medicine; ADMIT Internal Medicine
DX: E87.1 Hypo-osmolality and hyponatremia (principal); G93.41 Metabolic encephalopathy; J96.01 Acute respiratory failure with hypoxia; F84.0 Autistic disorder; E87.6 Hypokalemia; E86.0 Dehydration; E11.65 Type 2 diabetes mellitus with hyperglycemia; E78.5 Hyperlipidemia, unspecified; D63.8 Anemia in other chronic diseases classified elsewhere; E03.9 Hypothyroidism, unspecified; F32.9 Major depressive disorder, single episode, unspecified; G47.33 Obstructive sleep apnea (adult) (pediatric); K21.9 Gastro-esophageal reflux disease without esophagitis; N31.9 Neuromuscular dysfunction of bladder, unspecified; S70.11XA Contusion of right thigh, initial encounter; Z93.3 Colostomy status; I95.9 Hypotension, unspecified; I10 Essential (primary) hypertension; W19.XXXA Unspecified fall, initial encounter; Z20.828 Contact with and (suspected) exposure to other viral communicable diseases
CPT/HCPCS: 0241U; 36415; 36600; 70450; 71045; 73552; 73590; 73701; 80048; 80053; 82140; 82803; 82947; 83735; 84100; 84439; 84443; 85014; 85018; 85025; 85379; 85610; 93005; 93010; 93971; 94660; 94762; 96361; 96365; 96366; 96375; 99285-25; A9270; A9270-GY; J2310; J3010; J3480; J7030; J7040; Q9967

== ENCOUNTER → 2020-09-29 | Outpatient (CLI) | payer OTHER ==
[~2020-09-29] MED LIST changes: +AMOCLA250S PO; +AQUAPHOR ITCH R28 GM TOP; +CLONAZEPAM1 MG PO; +FURO80 PO; +HYDROCODONE-AC1 EA11 PO; +INSULANPEN SC; +NYSTATIN15 GM TOP; +Norco 5-325 Ta1 EACH PO; +OLANZAPINE PO; +ORAL ANESTHETIC9 GM MM; +PAROEX473 ML MM; +Q-Tussin100 MG/5 M PO; +SYNTHROID175 MC1 PO; +VISBIOME PROBIOTIC PO
[2020-09-29 14:17] LABS: Source, Urine Clean Catch
[2020-09-29 16:06] LABS: Appearance, Urine Clear (Clear); Bilirubin, Urine Neg (Neg); Blood, Urine Neg (Neg); Color, Urine Yellow (P-Yellow); Glucose Qualitative, Urine Neg (Neg); Ketones, Urine Neg (Neg); Leukocyte Esterase, Urine Neg (Neg); Nitrite, Urine Neg (Neg); Protein, Urine Neg (Neg); Specific Gravity, Urine 1.015 (1.003-1.022); Urobilinogen, Urine NORM (Normal)
== END ==
LOC: PLD 14:00 → LAB SHORT 14:00
PROVIDERS: Family Medicine
DX: R30.0 Dysuria (principal)
CPT/HCPCS: 81003

== ENCOUNTER 2020-11-12 20:20 | Inpatient (IN) | payer OTHER, MEDICARE ==
[~2020-11-12] VITALS: Ht 180.3 cm; Wt 96.2 kg
[~2020-11-12 20:20] MED LIST changes: -AMOCLA250S PO; -AQUAPHOR ITCH R28 GM TOP; -FURO80 PO; -HYDROCODONE-AC1 EA11 PO; -INSULANPEN SC; -ORAL ANESTHETIC9 GM MM; -PAROEX473 ML MM; -Q-Tussin100 MG/5 M PO
[2020-11-12 22:25] LABS: BASOPHILS ABSOLUTE AUTO 0.03 K/mm3 (0.00-0.23); BASOPHILS PERCENT AUTO 0 % (0-2); EOSINOPHILS ABSOLUTE AUTO 0.09 K/mm3 (0.00-0.68); EOSINOPHILS PERCENT AUTO 1 % (0-6); Hematocrit 45.5 % (37.0-53.0); Hemoglobin 15.9 g/dL (13.5-17.5); IMMATURE GRAN ABSOLUTE AUTO 0.03 K/mm3 (0.00-0.10); IMMATURE GRAN PERCENT AUTO 0 % (0-1); LYMPHOCYTES ABSOLUTE AUTO 0.87 K/mm3 (0.84-5.20); LYMPHOCYTES PERCENT AUTO 8 % (21-46); MONOCYTES ABSOLUTE AUTO 1.06 K/mm3 (0.16-1.47); MONOCYTES PERCENT AUTO 10 % (4-13); Mean Corpuscular HGB 30.2 pg (26.0-34.0); Mean Corpuscular HGB Conc 34.9 g/dL (31.5-36.5); Mean Corpuscular Volume 86 fL (80-100); NEUTROPHILS ABSOLUTE AUTO 8.68 K/mm3 (1.96-9.15); NEUTROPHILS PERCENT AUTO 81 % (41-73); Platelet Count 194 K/mm3 (150-400); RDW Coefficient Variation 13.1 % (11.7-14.2); RDW Standard Deviation 40.8 fL (35.1-46.3); Red Blood Cell Count 5.27 M/mm3 (4.30-5.90); White Blood Cell Count 10.76 K/mm3 (4.00-11.30)
[2020-11-12 22:40] LABS: Alanine Aminotransfer (ALT/SGP 24 U/L (12-78); Albumin, Blood 3.4 g/dL (3.4-5.0); Albumin/Globulin Ratio 0.8 (0.8-1.8); Alk Phos 66 U/L (50-136); Anion Gap 5 mmol/L (6-16); Aspartate Aminotrans (AST/SGOT 16 U/L (12-37); Bilirubin, Total 0.5 mg/dL (0.1-1.0); Blood Urea Nitrogen 17 mg/dL (8-24); Bun/Creatinine Ratio 16.2 (12.0-20.0); CO2, Blood 35 mmol/L (21-32); Calcium, Blood 8.5 mg/dL (8.5-10.1); Chloride, Blood 97 mmol/L (98-108); Creatinine, Blood 1.05 mg/dL (0.60-1.20); Glomerular Filtration Rate >60 (60-); Glucose, Blood 271 mg/dL (70-99); Potassium, Blood 3.3 mmol/L (3.5-5.5); Sodium, Blood 137 mmol/L (136-145); Total Protein, Blood 7.4 g/dL (6.4-8.2); Troponin I 0.045 ng/mL (0.000-0.040)
[2020-11-13] MEDS ORDERED: FURO80 PO (01:11)
--- NOTE | 2020-11-13 04:58 | NUR ---
SHIFT SUMMARY: PT ARRIVED ON MED FLOOR FROM ED AT 0050. [id number]. REPEATS PHRASES SAID TO HIM. ACCOMPANIED BY CAREGIVER WHO LEFT AFTER ABOUT 1 HOUR. 02 93-95% ON 5L VIA NC. NO OBSERVED SOB OR COUGH. LSCTA W/ DIM BASES. PT REMAINS NPO AT THIS TIME. AFEB. BOTH CONT/INCONT OF URINE. COLOSTOMY IN PLACE AT TIME OF ARRIVAL. PT PULLED OFF COLOSTOMY AND THREW IT IN DIRECTION OF STAFF 1X TONIGHT. WILL ATTEMPT TO OBTAIN ABD BINDER TO PREVENT PT FROM REMOVING COLOSTOMY. BED ALARM ON. CALL BUTTON IN REACH. WCTM.
[2020-11-13 05:00] LABS: BASOPHILS ABSOLUTE AUTO 0.02 K/mm3 (0.00-0.23); BASOPHILS PERCENT AUTO 0 % (0-2); EOSINOPHILS ABSOLUTE AUTO 0.07 K/mm3 (0.00-0.68); EOSINOPHILS PERCENT AUTO 1 % (0-6); Hematocrit 44.3 % (37.0-53.0); Hemoglobin 15.4 g/dL (13.5-17.5); IMMATURE GRAN ABSOLUTE AUTO 0.04 K/mm3 (0.00-0.10); IMMATURE GRAN PERCENT AUTO 1 % (0-1); LYMPHOCYTES PERCENT AUTO 8 % (21-46); MONOCYTES ABSOLUTE AUTO 0.88 K/mm3 (0.16-1.47); MONOCYTES PERCENT AUTO 12 % (4-13); Mean Corpuscular HGB 30.4 pg (26.0-34.0); Mean Corpuscular HGB Conc 34.8 g/dL (31.5-36.5); Mean Corpuscular Volume 87 fL (80-100); Mean Platelet Volume 9.3 fL (9.1-12.4); NEUTROPHILS ABSOLUTE AUTO 5.95 K/mm3 (1.96-9.15); NEUTROPHILS PERCENT AUTO 79 % (41-73); Platelet Count 151 K/mm3 (150-400); RDW Coefficient Variation 13.1 % (11.7-14.2); RDW Standard Deviation 41.4 fL (35.1-46.3); Red Blood Cell Count 5.07 M/mm3 (4.30-5.90); White Blood Cell Count 7.56 K/mm3 (4.00-11.30)
[2020-11-13 05:20] LABS: Anion Gap 5 mmol/L (6-16); Blood Urea Nitrogen 15 mg/dL (8-24); Bun/Creatinine Ratio 13.5 (12.0-20.0); CO2, Blood 36 mmol/L (21-32); Calcium, Blood 8.5 mg/dL (8.5-10.1); Chloride, Blood 99 mmol/L (98-108); Creatinine, Blood 1.11 mg/dL (0.60-1.20); Glomerular Filtration Rate >60 (60-); Glucose, Blood 157 mg/dL (70-99); Potassium, Blood 3.2 mmol/L (3.5-5.5); Sodium, Blood 140 mmol/L (136-145)
[2020-11-13 09:04] LABS: Influenza A, PCR NEGATIVE (NEGATIVE); Influenza B, PCR NEGATIVE (NEGATIVE); Resp Syncytial Virus, PCR NEGATIVE (NEGATIVE); SARS-Cov-2 (COVID-19) PCR, MMC NEGATIVE (NEGATIVE)
--- NOTE | 2020-11-13 17:12 | NUR ---
SUMMARY PT RESTING QUIETLY IN BED, PT IS DD, PT HAS SLEPT OFF AND ON T/O THE DAY, CURRENTLY AWAITING SPEECH EVAL FOR DIET RECOMMENDATIONS, BED ALARM ON FOR SAFETY, VSS, WILL CONT TO MONITOR
--- NOTE | 2020-11-13 19:05 | NUR ---
ASSUMED CARE RECEIVED REPORT FROM EKATERINA PITT. PT LYING IN BED, REMOVED NC FROM NOSE. REPLACED. NO ACUTE DISTRESS NOTED. NO ACUTE NEEDS ASSESSED AT THIS TIME. CALL LIGHT IN REACH, BED IN LOW POSITION WITH ALARMS ON. CONTINUE TO MONITOR.
--- NOTE | 2020-11-13 21:15 | NUR ---
SPOKE TO RILEY MASTERS REGARDING PT'S NPO STATUS AND MEDICATIONS HELD WELL CBG RESULT. ORDERS RECEIVED. WILL CONTINUE TO MONITOR.
--- NOTE | 2020-11-13 22:40 | NUR ---
THIS RN PROVIDED AN UPDATE TO RADHA CORTEZ AT PT'S HALFWAY. UPDATED ON PT CONDITION AND PLAN OF CARE. ALLOWED FOR QUESTIONS AND PROVIDED REASSURANCE. CAREGIVER INFORMED THIS RN THAT DAY CAREGIVER WOULD BE CALLING FOR AN UPDATE IN THE MORNING.
--- NOTE | 2020-11-14 00:21 | NUR ---
PT O2 SATS IN LOW 90'S, O2 TITRATED UP TO 7L/OXYMIZER. O2 INCREASING TO 93%. APPEARS TO BE TOLERATING WELL. CONTINUE TO MONITOR.
--- NOTE | 2020-11-14 01:10 | NUR ---
THIS RN IN PT ROOM, PULSE OX ALARMING. PT O2 SATS DROPPING TO 77-78% ON 7L. TITRATED UP TO 8L. O2 SATS REMAIN LOW. TITRATED O2 TO 15L, RT AWARE. O2 SATS AT 96%. BBS COARSE, RESPS SHALLOW. WILL NOTIFY PROVIDER OF PT CHANGE IN CONDITION.
--- NOTE | 2020-11-14 01:27 | NUR ---
SPOKE TO DR. RASCON REGARDING PT'S INCREASED O2 NEEDS, AND CURRENTLY BEING ON 15L/OXYMIZER. ORDERS RECEIVED. WILL CONTINUE TO MONITOR.
--- NOTE | 2020-11-14 04:30 | NUR ---
[employer] BOAT SUMMARY PT ASLEEP, A&O TO SELF. AROUSES TO VERBAL STIMULI. IN NO ACUTE DISTRESS. VS REVIEWED, WNL. 02 SATS STABLE ON 15L/OXYMIZER, RESPS SHALLOW BUT UNLABORED; PT REFUSES TO WEAR CPAP. REPOSITIONED AND CHANGED THROUGHOUT THE NIGHT, PT TOLERATED WELL. NO OTHER ACUTE CHANGES NOTED, DENIES NEEDS. CALL LIGHT IN REACH, BED IN LOW POSITION WITH ALARMS ON. WILL CONTINUE TO PROVIDE CARE, REPORT OFF TO ONCOMING RN.
[2020-11-14 13:13] LABS: BASOPHILS ABSOLUTE AUTO 0.02 K/mm3 (0.00-0.23); BASOPHILS PERCENT AUTO 0 % (0-2); EOSINOPHILS ABSOLUTE AUTO 0.13 K/mm3 (0.00-0.68); EOSINOPHILS PERCENT AUTO 2 % (0-6); Hematocrit 44.8 % (37.0-53.0); Hemoglobin 14.9 g/dL (13.5-17.5); IMMATURE GRAN ABSOLUTE AUTO 0.02 K/mm3 (0.00-0.10); IMMATURE GRAN PERCENT AUTO 0 % (0-1); LYMPHOCYTES ABSOLUTE AUTO 0.62 K/mm3 (0.84-5.20); LYMPHOCYTES PERCENT AUTO 10 % (21-46); MONOCYTES ABSOLUTE AUTO 0.77 K/mm3 (0.16-1.47); MONOCYTES PERCENT AUTO 13 % (4-13); Mean Corpuscular HGB 30.2 pg (26.0-34.0); Mean Corpuscular HGB Conc 33.3 g/dL (31.5-36.5); Mean Corpuscular Volume 91 fL (80-100); Mean Platelet Volume 9.7 fL (9.1-12.4); NEUTROPHILS ABSOLUTE AUTO 4.45 K/mm3 (1.96-9.15); NEUTROPHILS PERCENT AUTO 74 % (41-73); Platelet Count 158 K/mm3 (150-400); RDW Coefficient Variation 12.9 % (11.7-14.2); RDW Standard Deviation 42.3 fL (35.1-46.3); Red Blood Cell Count 4.93 M/mm3 (4.30-5.90); White Blood Cell Count 6.01 K/mm3 (4.00-11.30)
[2020-11-14 13:31] LABS: Albumin, Blood 2.9 g/dL (3.4-5.0); Anion Gap 4 mmol/L (6-16); Blood Urea Nitrogen 12 mg/dL (8-24); CO2, Blood 38 mmol/L (21-32); Calcium, Blood 8.6 mg/dL (8.5-10.1); Chloride, Blood 101 mmol/L (98-108); Glomerular Filtration Rate >60 (60-); Glucose, Blood 183 mg/dL (70-99); Phosphorus, Blood 3.4 mg/dL (2.5-4.9); Potassium, Blood 3.4 mmol/L (3.5-5.5); Sodium, Blood 143 mmol/L (136-145)
--- NOTE | 2020-11-14 19:15 | NUR ---
ASSUMED CARE REPORT RECEIVED FROM EKATERINA WATSON. PT RESTING COMFORTABLY, IN NO ACUTE DISTRESS. NO ACUTE NEEDS ASSESSED AT THIS TIME. CALL LIGHT IN REACH, BED ALARM ON.
--- NOTE | 2020-11-14 19:23 | NUR ---
SHIFT SUMMARY: NO ACUTE CAHNGES TO REPORT THIS SHIFT. PT DEVELOPMENTALLY DELAYED; ALERT; ORIENTED TO SELF; CALM AND COOPERATIVE WITH CARE. SPEECH EVAL; DIET ADVANCED TO PUREE; THIN LIQUIDS BY SPOON; NO STRAWS; FEEDER. CAREGIVER @ [facility] UPDATED ON PATIENT STATUS. IV ABX CONTINUING. REPORT GIVEN TO CARLI TOBAR.
--- NOTE | 2020-11-15 00:34 | NUR ---
PHONE CALL PLACED TO OLESYA AT [facility], UPDATED ON PT CONDITION. ALLOWED FOR QUESTIONS. OLESYA REPORTING TO THIS RN THAT [facility] WILL BE ON SHIFT AT 0600. INFORMED OLESYA THAT DAY RN WOULD CONTACT THEM WITH UPDATES ON PT CONDITION.
--- NOTE | 2020-11-15 03:05 | NUR ---
RADIO CONTROL CRANE OPERATOR SUMMARY PT RESTING QUIETLY, IN NO ACUTE DISTRESS. VS REVIEWED,WNL. O2 SATS STABLE ON 13-15L/OXYMIZER. OSTOMY APPLIANCE CHANGED THIS SHIFT, ABD BINDER PLACE TO MAINTAIN C/D/I. TOLERATED PO MEDS WELL, NO S/S ASPIRATION NOTED; SEDATING MEDS HELD. NO OTHER ACUTE CHANGES THIS SHIFT. CALL LIGHT, POSSESSIONS IN REACH, BED IN LOW POSITION. CONITNUE TO MONITOR, REPORT OFF TO ONCOMING RN.
[2020-11-15 04:43] LABS: BASOPHILS ABSOLUTE AUTO 0.03 K/mm3 (0.00-0.23); BASOPHILS PERCENT AUTO 1 % (0-2); EOSINOPHILS ABSOLUTE AUTO 0.24 K/mm3 (0.00-0.68); EOSINOPHILS PERCENT AUTO 4 % (0-6); Hematocrit 43.4 % (37.0-53.0); Hemoglobin 14.4 g/dL (13.5-17.5); IMMATURE GRAN ABSOLUTE AUTO 0.02 K/mm3 (0.00-0.10); IMMATURE GRAN PERCENT AUTO 0 % (0-1); LYMPHOCYTES ABSOLUTE AUTO 0.73 K/mm3 (0.84-5.20); LYMPHOCYTES PERCENT AUTO 13 % (21-46); MONOCYTES ABSOLUTE AUTO 0.76 K/mm3 (0.16-1.47); MONOCYTES PERCENT AUTO 14 % (4-13); Mean Corpuscular HGB 29.8 pg (26.0-34.0); Mean Corpuscular HGB Conc 33.2 g/dL (31.5-36.5); Mean Corpuscular Volume 90 fL (80-100); Mean Platelet Volume 9.8 fL (9.1-12.4); NEUTROPHILS ABSOLUTE AUTO 3.71 K/mm3 (1.96-9.15); NEUTROPHILS PERCENT AUTO 68 % (41-73); Platelet Count 160 K/mm3 (150-400); RDW Standard Deviation 42.3 fL (35.1-46.3); Red Blood Cell Count 4.83 M/mm3 (4.30-5.90); White Blood Cell Count 5.49 K/mm3 (4.00-11.30)
[2020-11-15 05:01] LABS: Albumin, Blood 2.8 g/dL (3.4-5.0); Anion Gap 3 mmol/L (6-16); Blood Urea Nitrogen 16 mg/dL (8-24); Bun/Creatinine Ratio 15.7 (12.0-20.0); CO2, Blood 35 mmol/L (21-32); Calcium, Blood 8.9 mg/dL (8.5-10.1); Chloride, Blood 105 mmol/L (98-108); Creatinine, Blood 1.02 mg/dL (0.60-1.20); Glomerular Filtration Rate >60 (60-); Glucose, Blood 117 mg/dL (70-99); Phosphorus, Blood 3.6 mg/dL (2.5-4.9); Potassium, Blood 4.3 mmol/L (3.5-5.5); Sodium, Blood 143 mmol/L (136-145)
--- NOTE | 2020-11-15 19:15 | NUR ---
ASSUMED CARE RECEIVED REPORT FROM EKATERINA WATSON. PT RESTING, IN NO ACUTE DISTRESS. NO ACUTE NEEDS ASSESSED AT THIS TIME. CALL LIGHT, POSSESSIONS IN REACH, CONTINUE TO MONITOR.
--- NOTE | 2020-11-15 19:28 | NUR ---
SHIFT SUMMARY: NO ACUTE CHANGES TO REPORT THIS SHIFT. PT ALERT; ORIENTED TO SELF ONLY; CALM AND COOPERATIVE WITHCARE. MEDICATED FOR GENERALIZED PAIN PER EMAR. O2 @ 5L. CAREGIVERS ([facility] UPDATED ON PLAN OF CARE. IV ABX CONTINUING. REPORT GIVEN TO ONCOMING RN.
--- NOTE | 2020-11-16 06:17 | NUR ---
CHAIRMAN OF THE BOARD SUMMARY PT ASLEEP, IN NO ACUTE DISTRESS. VS REVIEWED,WNL. NO ACUTE CHANGES TO REPORT THIS SHIFT, O2 SATS STABLE ON 3L/OXYMIZER WHILE AWAKE, 9L WHEN ASLEEP. PT INCREASINGLY ALERT, TALKATIVE TOWARDS STAFF. SCANT AMOUNT OF RUST-COLORED BLOOD OK NOTED, PT REPORTS SORENESS TO RECTAL AREA; CLEANSED AND KEPT CLEAN AND DRY. OSTOMY INTACT, ABD BINDER IN PLACE. PT DENIES PAIN, NEEDS AT THIS TIME. CALL LIGHT, POSSESSIONS IN REACH, BED IN LOW POSITION WITH ALARMS ON. WILL REPORT OFF TO ONCOMING RN.
--- NOTE | 2020-11-16 17:26 | NUR ---
Pt was admitted with Acute respiratory failure, but symptoms have improved. He may be returning home tomorrow. Met with a CG in pt's room, CG states he has worked with the pt for many years, but does not know anything about who helps make decisions with POLST, advanced directive, etc. Pt is pleasant. He is unable to make decisions on his own due to cognition, but plan to call [facility] to find out what their process is, and if pt does in fact have any living relatives or POA. No specific needs identified at this time without further discussion with [facility]. Pt denies pain or SOB, and is currently using 02. He uses it at home as well. Will remain available as needed. Plan to follow up tomorrow with [facility].
--- NOTE | 2020-11-16 18:34 | NUR ---
SHIFT SUMMARY PT AxOx1 TO SELF. PT IS DEVELOPMENTALLY DELAYED AT BASELINE. LIVES AT [facility]. PT IS ON 5L O2 VIA OXIMIZER. PT RIPS O2 OFF OCCASIONALLY, USUALLY REDIRECTABLE. PT RIPPED OFF OSTOMY BAG TODAY. PT CLEANED UP AND BAG REPLACED. INTAKE AND OUTPUT IS WNL. PT GETTING IV ABX. PT AND OT WORKED WITH PATIENT TODAY. PT 1 ASSIST WITH FWW AND GB. SAT UP IN CHAIR FOR DINNER. CURRENTLY RESTING IN BED WATCHING TV, WITH CALL LIGHT IN REACH. CAREGIVER IN FOR VISIT TODAY. STAFF FROM [facility] CALLED AND GIVEN UPDATE. VITALS REVIEWED. PT APPEARS CONTENT AT THIS TIME.
--- NOTE | 2020-11-16 23:15 | NUR ---
CALLED WORKING FOREMAN/ PT AGITATED PT IS AGITATED AND CONTINUOUSLY REMOVING HIS OXYGEN. HE IS CONTINUOUSLY REMOVING THE COBAN COVERING HIS IV FREQUENTLY WELL. HE YELLS, "NO!" WHEN WE TRY TO PUT THE OXYGEN BACK ON OR REWRAP THE IV WITH COBAN. HE DOES NOT UNDERSTAND WHY WE DO THESE THINGS HE IS DEVELOPMENTALY DELAYED. NEW MEDICATION GIVEN FOR AGITATION. THE HOPE IS THAT WE CAN GET HIS OXYGEN BACK ON IF HE FALLS ASLEEP.
--- NOTE | 2020-11-17 03:51 | NUR ---
SHIFT SUMMARY ADMITTED FOR HYPOXIA. POSSIBLE ASPIRATION PNEUMONIA. FULL CODE. PT COMES FROM [facility] AND WILL RETURN THERE WHEN STABLE. HE IS ON ASPIRATION PRECAUTIONS, FEEDER, MEDS CRUSHED IN APPLESAUCE. OSTOMY BAG IN PLACE, COVERED WITH A BINDER THE PT REMOVES HIS OSTOMY AND THROWS IT. PT REMOVES HIS OXYGEN, HE DOES DESATURATE. ZYPREXA GIVEN LAST NIGHT FOR AGITATION. HE IS DEVELOPMENTALY DELAYED. IV ANTIBIOTICS ARE SCHEDULED
[2020-11-17 04:49] LABS: BASOPHILS ABSOLUTE AUTO 0.02 K/mm3 (0.00-0.23); BASOPHILS PERCENT AUTO 0 % (0-2); EOSINOPHILS ABSOLUTE AUTO 0.27 K/mm3 (0.00-0.68); EOSINOPHILS PERCENT AUTO 6 % (0-6); Hematocrit 42.5 % (37.0-53.0); Hemoglobin 14.4 g/dL (13.5-17.5); IMMATURE GRAN ABSOLUTE AUTO 0.01 K/mm3 (0.00-0.10); IMMATURE GRAN PERCENT AUTO 0 % (0-1); LYMPHOCYTES ABSOLUTE AUTO 1.05 K/mm3 (0.84-5.20); LYMPHOCYTES PERCENT AUTO 21 % (21-46); MONOCYTES ABSOLUTE AUTO 0.59 K/mm3 (0.16-1.47); MONOCYTES PERCENT AUTO 12 % (4-13); Mean Corpuscular HGB 29.3 pg (26.0-34.0); Mean Corpuscular HGB Conc 33.9 g/dL (31.5-36.5); Mean Corpuscular Volume 87 fL (80-100); Mean Platelet Volume 9.3 fL (9.1-12.4); NEUTROPHILS ABSOLUTE AUTO 2.98 K/mm3 (1.96-9.15); NEUTROPHILS PERCENT AUTO 61 % (41-73); Platelet Count 156 K/mm3 (150-400); RDW Coefficient Variation 12.5 % (11.7-14.2); RDW Standard Deviation 39.8 fL (35.1-46.3); Red Blood Cell Count 4.91 M/mm3 (4.30-5.90); White Blood Cell Count 4.92 K/mm3 (4.00-11.30)
[2020-11-17 05:20] LABS: Anion Gap 5 mmol/L (6-16); Blood Urea Nitrogen 13 mg/dL (8-24); Bun/Creatinine Ratio 13.9 (12.0-20.0); CO2, Blood 32 mmol/L (21-32); Calcium, Blood 8.9 mg/dL (8.5-10.1); Chloride, Blood 102 mmol/L (98-108); Creatinine, Blood 0.94 mg/dL (0.60-1.20); Glomerular Filtration Rate >60 (60-); Glucose, Blood 89 mg/dL (70-99); Potassium, Blood 3.3 mmol/L (3.5-5.5); Sodium, Blood 139 mmol/L (136-145)
--- NOTE | 2020-11-17 16:35 | NUR ---
SHIFT SUMMARY PATIENT MEDICATED X1 FOR HEADACHE. DENIES NAUSEA AND SHORTNESS OF BREATH. 3L/NC TO MAINTAIN OXYGEN SATURATION ABOVE 92%. UP SBA TO CHAIR. OSTOMY PRODUCING STOOL, STOMA RED AND BEEFY. NEW IV TO RIGHT HAND. EATING AND DRINKING WELL. SPEECH EVAL TODAY, PATIENT ON THIN LIQUIDS, SUPERVISED FEEDING, AND PUREE. ASPIRATION PRECAUTIONS. PATIENT MOSTLY COOPERATIVE WITH CARE BUT HAD SEVERAL OUTBURTS WITH SCREAMING AND THROWING ITEMS. PATIETN TRANSFERED TO SCU. REPORT GIVEN TO EKATERINA SMITH.
--- NOTE | 2020-11-17 16:44 | NUR ---
I visited with pt today for a breif time, because he began to yell out during the visit appeared to cause some agitation, as pt was sipping on a drinki on my arrival and as I entered the open jacquelyn, he said,"Stay out! Don't you take my drink away!" I attemtped to calm him, but was not successful. His primary nurse entered the room and he did quickly calm, so I quickly left. Placed call to [facility], spoke to greenhouse technician Peggy regarding pt's code status and asked who assists this pt with his decisions. She reports it is made by the "IFP" teamc but she didn't specify how the groud decides on code status when needed. She did state the PCP will be involved and will assist with this process. She did say they would review him polst when he returns home, and that the doctor will review the information.
--- NOTE | 2020-11-17 18:44 | NUR ---
SHIFT SUMMARY PATIENT ALERT TO SELF. PATIENT TRANFERED ROOMS LATE THIS SHIFT. PATIENT COOPERATIVE WITH CARE THIS SHIFT. PATIENT ORIENTED TO ROOM AND MADE COMFORTABLE. PATIENT ASSISTED WITH DINNER BY AUTOMATIC PAD MAKING MACHINE OPERATOR. PATIENT CURRENTLY SITTING IN BED WATCHING TELEVISION.
[2020-11-18 05:06] LABS: BASOPHILS ABSOLUTE AUTO 0.02 K/mm3 (0.00-0.23); BASOPHILS PERCENT AUTO 0 % (0-2); EOSINOPHILS PERCENT AUTO 5 % (0-6); Hematocrit 43.6 % (37.0-53.0); Hemoglobin 14.9 g/dL (13.5-17.5); IMMATURE GRAN ABSOLUTE AUTO 0.01 K/mm3 (0.00-0.10); IMMATURE GRAN PERCENT AUTO 0 % (0-1); LYMPHOCYTES ABSOLUTE AUTO 0.94 K/mm3 (0.84-5.20); LYMPHOCYTES PERCENT AUTO 21 % (21-46); MONOCYTES ABSOLUTE AUTO 0.42 K/mm3 (0.16-1.47); MONOCYTES PERCENT AUTO 9 % (4-13); Mean Corpuscular HGB 29.6 pg (26.0-34.0); Mean Corpuscular HGB Conc 34.2 g/dL (31.5-36.5); Mean Corpuscular Volume 87 fL (80-100); Mean Platelet Volume 9.2 fL (9.1-12.4); NEUTROPHILS ABSOLUTE AUTO 2.87 K/mm3 (1.96-9.15); NEUTROPHILS PERCENT AUTO 64 % (41-73); Platelet Count 153 K/mm3 (150-400); RDW Coefficient Variation 12.5 % (11.7-14.2); RDW Standard Deviation 39.3 fL (35.1-46.3); Red Blood Cell Count 5.03 M/mm3 (4.30-5.90); White Blood Cell Count 4.46 K/mm3 (4.00-11.30)
[2020-11-18 05:23] LABS: Anion Gap 3 mmol/L (6-16); Blood Urea Nitrogen 15 mg/dL (8-24); Bun/Creatinine Ratio 14.3 (12.0-20.0); CO2, Blood 34 mmol/L (21-32); Calcium, Blood 8.9 mg/dL (8.5-10.1); Chloride, Blood 101 mmol/L (98-108); Creatinine, Blood 1.05 mg/dL (0.60-1.20); Glomerular Filtration Rate >60 (60-); Glucose, Blood 101 mg/dL (70-99); Potassium, Blood 3.9 mmol/L (3.5-5.5); Sodium, Blood 138 mmol/L (136-145)
--- NOTE | 2020-11-18 05:58 | NUR ---
65 year old MAle developmentally delayed who has KRIS uses home cpap at [facility] home continues to have KRIS here & desats intermittantly to as low as 86. He is also as high as 92 % on room air. He has [employer] monitor which alarms frequently. Requires oxygen 2 to 5 l to maintain sats greater than 90%. Aspiration risk needs supervision or feeding. Incontinent of large amts of urine & emptied colostomy bag of soft brown stool. Trickle of maroon drainage from rectum. Able to communicate, pleasant confusion.
--- NOTE | 2020-11-18 10:32 | NUR ---
BLOOD DISCHARGED FROM RECTUM DR. DE LA VEGA NOTIFIES OF BURGUNGY BLOOD & CLOTS SEEN AROUND PTS RECTUM. NO EXTERNAL HEMORRHOIDS NOTED. ORDER TO DC LOVENOX RECIEVED AT THIS TIME.
--- NOTE | 2020-11-18 12:20 | NUR ---
O2 TITRATED TO 2L. PT TITRATED TO 2L O2 AT 1200. PT SATING AT 92% ON 2L O2. PT CONTINUES TO DESAT ON RA TO THE MID 80S.
--- NOTE | 2020-11-18 12:27 | NUR ---
CHRISTIANO INTERNAL HEMORRHOIDS SPOKE WITH PTS CAREGIVER AT [facility] WHO INFORMED THIS RN THAT THE PT HAD A RECIEVE COLONOSCOPY ON 11/12, AND INTERNAL HEMORROIDS WERE SEEN BY . CAREGIVERS WERE INSTRUCTED TO CALL OFFICE IF BLEEDING GOT WORSE OR SIGNIFICANT AMOUNTS WERE SEEN.
--- NOTE | 2020-11-18 17:41 | NUR ---
SHIFT SUMMARY PT DID BECOME AGITATED ONCE TODAY WHEN HE THOUGHT THE SPEECH THERAPIST WAS TAKING HIS FOOD AWAY FROM HIM. P[T WAS CALMED DOWN ONCE HE REALIZED SHE WAS NOT GOING TO KEEP IT FROM HIM. SEE ST NOTE FOR INSTRUCTIONS ON RECOMMENDATIONS. [facility] CAREGIVER CAME IN TO VISIST PT & INFORMED THIS RN OF THE PTS BASELINE. THIS INCLUDES BEING CONTINENT OF URINE AND WALKING. PT DID TRANSFER WITH MINIMAL ASSIST TO THE RECLINER THIS AFTERNOON. NO IV ACCESS ORDER OBTAINED FROM DR. DE LA VEGA AFTER PT PULLED OUT HIS IV. OSTOMY BAG CHANGED AFTER PT REMOVED OLD ONE. ABD BINDER PLACED BACK OVER OSTOMY TO HELP KEEP PT FROM REMOVING IT. NO FURTHER BLEEDING FROM RECTUM THIS SHIFT. PT NOW ON REMOTE MONITORING. NO OTHER ACUTE CHANGES IN ASSESSMENT AT THIS TIME. VS REVIEWED & STABLE. CALL LIGHT IN REACH. O2 IN PLACE. CONT PULSE OX ON PTS TOE.
--- NOTE | 2020-11-18 19:15 | NUR ---
ASSUMED CARE REPORT RECEIVED FROM EKATERINA SHARP. PT TRANSFERRED FROM RECLINER TO BED WITH ASSIST OF ONE, STEADY GAIT. O2 SATS STABLE ON 2L/NC. ABD BIND IN PLACE TO KEEP COLOSTOMY FROM BEING REMOVED. PT A&O TO SELF, TALKATIVE TO STAFF. NO ACUTE DISTRESS OR NEEDS NOTED AT THIS TIME. CONTINUE TO MONITOR.
--- NOTE | 2020-11-19 04:01 | NUR ---
SUPPLY AIDE SUMMARY PT ASLEEP, IN NO ACUTE DISTRESS. VS REVIEWED,WNL, CURRENTLY ON 5L/NC TO MAINTAIN SATS >92%. COLOSTOMY INTACT, ABD BINDER IN PLACE. SLEPT T/O NIGHT. CALM AND COOPERATIVE WITH CARES, TOOK HS MEDS WITHOUT DIFFICULTY, NO S/S ASPIRATION NOTED. NO SIGNS OF PAIN, NO ACUTE NEEDS ASSESSED AT THIS TIME. CALL LIGHT, POSSESSIONS IN REACH, BED IN LOW POSITION WITH ALARMS ON. WILL REPORT OFF TO DAY RN.
[2020-11-19 05:07] LABS: BASOPHILS ABSOLUTE AUTO 0.02 K/mm3 (0.00-0.23); BASOPHILS PERCENT AUTO 0 % (0-2); EOSINOPHILS ABSOLUTE AUTO 0.23 K/mm3 (0.00-0.68); EOSINOPHILS PERCENT AUTO 4 % (0-6); Hematocrit 41.6 % (37.0-53.0); Hemoglobin 14.2 g/dL (13.5-17.5); IMMATURE GRAN ABSOLUTE AUTO 0.02 K/mm3 (0.00-0.10); IMMATURE GRAN PERCENT AUTO 0 % (0-1); LYMPHOCYTES ABSOLUTE AUTO 1.05 K/mm3 (0.84-5.20); LYMPHOCYTES PERCENT AUTO 20 % (21-46); MONOCYTES PERCENT AUTO 9 % (4-13); Mean Corpuscular HGB 29.4 pg (26.0-34.0); Mean Corpuscular HGB Conc 34.1 g/dL (31.5-36.5); Mean Corpuscular Volume 86 fL (80-100); Mean Platelet Volume 9.3 fL (9.1-12.4); NEUTROPHILS PERCENT AUTO 66 % (41-73); Platelet Count 158 K/mm3 (150-400); RDW Coefficient Variation 12.3 % (11.7-14.2); Red Blood Cell Count 4.83 M/mm3 (4.30-5.90); White Blood Cell Count 5.32 K/mm3 (4.00-11.30)
--- NOTE | 2020-11-19 19:05 | NUR ---
ASSUMED CARE RECEIVED REPORT FROM EKATERINA CARDOZA. PT RESTING, IN NO ACUTE DISTRESS. O2 SATS WNL ON 3L/NC. NO ACUTE NEEDS ASSESSED AT THIS TIME. CALL LIGHT, POSSESSIONS IN REACH, BED IN LOW POSITION WITH ALARMS ON.
--- NOTE | 2020-11-19 21:37 | NUR ---
CBG 161 AT 2115. GLUCOMETER NOT TRANSFERRING READING INTO Polatis.
--- NOTE | 2020-11-20 04:09 | NUR ---
LINOLEUM TILE LAYER SUMMARY PT ASLEEP, IN NO ACUTE DISTRESS. VS REVIEWED, WNL. O2 SATS STABLE ON 4L/NC AT THIS TIME. NO ACUTE CHANGES IN CONDITION TO REPORT. PT UP TO BATHROOM WITH 1 ASSIST, AMBULATES WELL. COLOSTOMY INTACT TO RLQ, ABD BINDER REMAINS IN PLACE. NO ACUTE NEEDS ASSESSED AT THIS TIME. CALL LIGHT, POSSESSIONS IN REACH, BED IN LOW POSITION WITH ALARMS ON. WILL REPORT OFF TO ONCOMING RN.
[2020-11-20 04:57] LABS: Hematocrit 43.5 % (37.0-53.0); Mean Corpuscular HGB 29.7 pg (26.0-34.0); Mean Corpuscular HGB Conc 34.5 g/dL (31.5-36.5); Mean Corpuscular Volume 86 fL (80-100); Mean Platelet Volume 9.2 fL (9.1-12.4); Platelet Count 158 K/mm3 (150-400); RDW Coefficient Variation 12.4 % (11.7-14.2); Red Blood Cell Count 5.05 M/mm3 (4.30-5.90); White Blood Cell Count 6.48 K/mm3 (4.00-11.30)
[2020-11-20 05:12] LABS: Anion Gap 3 mmol/L (6-16); Blood Urea Nitrogen 14 mg/dL (8-24); CO2, Blood 33 mmol/L (21-32); Chloride, Blood 102 mmol/L (98-108); Creatinine, Blood 1.08 mg/dL (0.60-1.20); Glomerular Filtration Rate >60 (60-); Glucose, Blood 104 mg/dL (70-99); Sodium, Blood 138 mmol/L (136-145)
--- NOTE | 2020-11-20 16:03 | NUR ---
PT HAS NOT BEEN VOIDING TODAY, HE DID FINALLY VOID 175 ML, BLADDER SCAN FOR PVR SHOWED 1343 REMAINING. T/C TO DR DE LA VEGA, ORDERS FOR STRAIGHT CATH TIME ONE AND THEN CAN PLACE PABON IF PT DOES NOT COMMENCE VOIDING ON HIS OWN THIS AFTERNOON
--- NOTE | 2020-11-20 16:10 | NUR ---
PABON CATH USED STRAIGHT CATH D/T LARGE AMOUNT OF PVR SHOWN ON BLADDER SCAN. 1400 CC URINE DRAINED WITHIN 10 MINUTES, T/C TO DR DE LA VEGA, ORDER TO LEAVE PABON IN PLACE AT THIS TIME.
[2020-11-20 17:36] LABS: Source, Urine Catheter
[2020-11-20 17:48] LABS: Appearance, Urine Clear (Clear); Bilirubin, Urine Neg (Neg); Blood, Urine 1+ (Neg); Color, Urine Yellow (P-Yellow); Glucose Qualitative, Urine Neg (Neg); Ketones, Urine Neg (Neg); Leukocyte Esterase, Urine Neg (Neg); Nitrite, Urine Neg (Neg); Protein, Urine Neg (Neg); Urobilinogen, Urine NORM (Normal)
[2020-11-20 18:01] LABS: Bacteria Not Seen /hpf; Red Blood Cells, Urine 0-2 /hpf (0-2); Squamous Epithelial Cells Not Seen /hpf (Few); White Blood Cells, Urine Not Seen /hpf (0-5)
--- NOTE | 2020-11-20 18:42 | NUR ---
PT UP TO BEDSIDE CHAIR FOR MEALS, INTO SHOWER WITHOUT DIFFICULTY. PABON CATHETER PLACED FOR RETENTION THIS AFTERNOON. WILL CONTINUE TO MONITOR AND REPORT TO ONCOMING RN
--- NOTE | 2020-11-21 06:39 | NUR ---
DIGITAL COMMUNICATIONS MANAGER SUMMARY NO ACUTE CHANGES THIS SHIFT. PT AAOX1 VERY PLEASANT AND FOLLOWS DIRECTION. COLOSTOMY BAG EMPTIED X2 WITH SOFT DARK GREEN STOOL. ABD BINDER OVER TOP OF COLOSTOMY PT HAS HX OF REMOVING BAGS. GIVEN PRN HYDRALAZINE THIS AM FOR SBP 165. O2 SATS >90% ON 2L O2 BUT DOES DESAT TO 80'S WHEN PT REMOVED CANULA. PT REMOVES CANULA OFTEN. OTHER VSS, WILL CONTINUE TO MONITOR.
--- NOTE | 2020-11-21 17:28 | NUR ---
PT IS ALERT, ORIENTED TO SELF ONLY, THE PT WAS UP IN THE CHAIR TODAY FOR MEALS, THE PT WAS TAKEN OFF O2 AROUND LUNCH O2 SAT'S ARE 88-94% RANGE, PT DOES NOT APPEARS SOB, THE PTS PABON CATHETER WAS REMOVED PER DR. DE LA VEGA VERBAL ORDER PT WAS ENCOURAGED TO DRINK MORE FLUIDS AFTER, WILL BLADDER SCAN IF PT IS UNABLE TO VOID, PT APPEARED TO HAVE SOME ABD DISCOMFORT AT ONE TIME TODAY AFTER REPOSITIONING THAT RESOLVED SHORTLY AFTER, CALL LIGHT IN REACH BED ALARM ON WILL CONTINUE TO MONITOR FOR CHANGES
--- NOTE | 2020-11-21 19:30 | NUR ---
O2 NC off and O2 sats at 85. O2 NC placed back in nose. O2 sats increased to 94%. Call light in reach
--- NOTE | 2020-11-22 03:17 | NUR ---
SHIFT SUMMARY AWAKE AT TIMES THIS SHIFT, TO VOID IN URINAL ANDONCE WHEN HE CRIED, FELT BETTER WHEN STAFF APPLIED A WARM BLANKET. VERBAL RESPONSE SLOW AND HAPPY. MADE VERBAL COMMENTS - "ITS ALMOST FULL..ITS ALMOST FULL.." WHEN HE VOIDED IN URINAL. CALL LIGHT IN REACH. NO NOTED S/S ACUTE DISTRESS.RAILS UP X 3
[2020-11-22 04:52] LABS: BASOPHILS ABSOLUTE AUTO 0.03 K/mm3 (0.00-0.23); BASOPHILS PERCENT AUTO 1 % (0-2); EOSINOPHILS ABSOLUTE AUTO 0.27 K/mm3 (0.00-0.68); EOSINOPHILS PERCENT AUTO 5 % (0-6); Hematocrit 42.1 % (37.0-53.0); Hemoglobin 14.5 g/dL (13.5-17.5); IMMATURE GRAN ABSOLUTE AUTO 0.01 K/mm3 (0.00-0.10); IMMATURE GRAN PERCENT AUTO 0 % (0-1); LYMPHOCYTES ABSOLUTE AUTO 1.26 K/mm3 (0.84-5.20); LYMPHOCYTES PERCENT AUTO 23 % (21-46); MONOCYTES ABSOLUTE AUTO 0.53 K/mm3 (0.16-1.47); MONOCYTES PERCENT AUTO 10 % (4-13); Mean Corpuscular HGB 29.5 pg (26.0-34.0); Mean Corpuscular HGB Conc 34.4 g/dL (31.5-36.5); Mean Corpuscular Volume 86 fL (80-100); Mean Platelet Volume 9.4 fL (9.1-12.4); NEUTROPHILS ABSOLUTE AUTO 3.28 K/mm3 (1.96-9.15); NEUTROPHILS PERCENT AUTO 61 % (41-73); Platelet Count 174 K/mm3 (150-400); RDW Coefficient Variation 12.4 % (11.7-14.2); RDW Standard Deviation 38.3 fL (35.1-46.3); Red Blood Cell Count 4.91 M/mm3 (4.30-5.90); White Blood Cell Count 5.38 K/mm3 (4.00-11.30)
[2020-11-22 05:33] LABS: Anion Gap 3 mmol/L (6-16); Blood Urea Nitrogen 11 mg/dL (8-24); Bun/Creatinine Ratio 10.5 (12.0-20.0); CO2, Blood 30 mmol/L (21-32); Calcium, Blood 8.9 mg/dL (8.5-10.1); Chloride, Blood 103 mmol/L (98-108); Creatinine, Blood 1.05 mg/dL (0.60-1.20); Glomerular Filtration Rate >60 (60-); Glucose, Blood 112 mg/dL (70-99); Potassium, Blood 3.9 mmol/L (3.5-5.5); Sodium, Blood 136 mmol/L (136-145)
--- NOTE | 2020-11-22 18:29 | NUR ---
PT IS ALERT ORIENTED TO SELF ONLY, THE PY IS UP TO THE CHAIR WITH MINIMAL ASSIST, THE PT HAS VOIDED SEVERAL TIMES TODAY, THE PT APPEARS TO BE BREATHING EASILY ON RA, CONTINUOUS BIX ON SAT'S IN THE LOW 90'S, PT WAS ENCOURAGED TO DRINK FLUIDS T/O THE DAY. PLAN IS FOR THE PT TO BE DISCHARGED TOMMOROW AM BACK TO HIS SENIOR LIVING, CALL ;LIGHT IN REACH, BED ALARM ON WILL CONTINUE TO MONITOR ANS ASSESS FOR CHANGES
--- NOTE | 2020-11-22 20:28 | NUR ---
RESTING QUIETLY. O2 MONITOR IN USE. SATS IN THE 90'S. CALL LIGHT IN REACH
--- NOTE | 2020-11-22 22:43 | NUR ---
O2 SATS DROPPED TO 87, NURSE CAME IN TO PLACE O2 CANNULA ON HIM, HE REFUSED "I DONT WANT IT - I DONT WANT IT!" ENCOURAGED TO TAKE DEEP BREATHS. HOB ELEVATED. CALL LIGHT IN REACH. WILL CONTINUE TOMONITOR
--- NOTE | 2020-11-23 04:35 | NUR ---
SHIFT SUMMARY INTERMITTENT WAKEFULNESS. REFUSED TO WEAR THE O2 NC WHEN SATS DROPPED IN THE HIGH 80'S, CAUSING O2 SAT ALARM. HOB REMAINED ELEVATED FOR BETTER BREATHING. DENIED DISTRESS WHEN ASKED. CALL LIGHT IN REACH. AWAKE EARLIER, AFFECT CHEERFUL. WILL CONTINUE TO MONITOR
[2020-11-23 04:52] LABS: BASOPHILS ABSOLUTE AUTO 0.03 K/mm3 (0.00-0.23); BASOPHILS PERCENT AUTO 1 % (0-2); EOSINOPHILS ABSOLUTE AUTO 0.28 K/mm3 (0.00-0.68); EOSINOPHILS PERCENT AUTO 5 % (0-6); Hematocrit 44.3 % (37.0-53.0); Hemoglobin 15.5 g/dL (13.5-17.5); IMMATURE GRAN ABSOLUTE AUTO 0.03 K/mm3 (0.00-0.10); IMMATURE GRAN PERCENT AUTO 1 % (0-1); LYMPHOCYTES ABSOLUTE AUTO 1.37 K/mm3 (0.84-5.20); LYMPHOCYTES PERCENT AUTO 23 % (21-46); MONOCYTES ABSOLUTE AUTO 0.59 K/mm3 (0.16-1.47); MONOCYTES PERCENT AUTO 10 % (4-13); Mean Corpuscular HGB 29.8 pg (26.0-34.0); Mean Corpuscular Volume 85 fL (80-100); Mean Platelet Volume 9.5 fL (9.1-12.4); NEUTROPHILS ABSOLUTE AUTO 3.72 K/mm3 (1.96-9.15); NEUTROPHILS PERCENT AUTO 62 % (41-73); Platelet Count 187 K/mm3 (150-400); RDW Coefficient Variation 12.3 % (11.7-14.2); RDW Standard Deviation 37.8 fL (35.1-46.3); White Blood Cell Count 6.02 K/mm3 (4.00-11.30)
[2020-11-23] MEDS ORDERED: HYDR10 PO (11:25)
--- NOTE | 2020-11-23 11:30 | NUR ---
REVIEW D'C WITH CAREGIVER. NO CHANGES IN MEDS. NORMALLY ON LOW SLIDING SCALE INSULIN AND HAS NOT CHANGED. AWARE CAN BRING BACK TO E.R. AWARE NEEDS TO MAKE F/U APPT WITH PCP FOR WITHIN ONE WEEK. ANSWER ALL QUESTIONS. VERBALIZES UNDERSTANDING. IN W/C TO POV.
[2020-12-02] MEDS ORDERED: BENADRYL25 MG PO (00:09)
== END 2020-11-23 11:45 | disposition home or self-care (01) | DRG 205 ==
LOC: ER 20:20 → MEDS 20:21 → ENPENDDIS 11-23 10:53 → MEDS 11-23 11:45
PROVIDERS: Emergency Medicine; Family Medicine; Nurse Practitioner Acute Care; ADMIT Internal Medicine
DX: J95.89 Other postprocedural complications and disorders of respiratory system, not elsewhere classified (principal); G92 Toxic encephalopathy; J69.0 Pneumonitis due to inhalation of food and vomit; J96.01 Acute respiratory failure with hypoxia; F84.0 Autistic disorder; K51.20 Ulcerative (chronic) proctitis without complications; K51.90 Ulcerative colitis, unspecified, without complications; R65.10 Systemic inflammatory response syndrome (SIRS) of non-infectious origin without acute organ dysfunction; E87.1 Hypo-osmolality and hyponatremia; Z20.822 Contact with and (suspected) exposure to COVID-19; E87.6 Hypokalemia; E11.22 Type 2 diabetes mellitus with diabetic chronic kidney disease; N18.2 Chronic kidney disease, stage 2 (mild); E78.5 Hyperlipidemia, unspecified; E03.9 Hypothyroidism, unspecified; K21.9 Gastro-esophageal reflux disease without esophagitis; F32.9 Major depressive disorder, single episode, unspecified; Z93.3 Colostomy status; Z88.2 Allergy status to sulfonamides; Z88.8 Allergy status to other drugs, medicaments and biological substances; Z79.82 Long term (current) use of aspirin; Z79.4 Long term (current) use of insulin
CPT/HCPCS: 0241U; 36415; 71045; 80048; 80053; 80069; 81001; 82947; 83880; 84132; 84484; 85025; 85027; 85379; 92526; 92610; 93005; 93010; 94762; 96365; 96366; 96372; 96376; 97162; 99285-25; A9270; G0378; J0295; J1650; J2405; J2704; J7030; J7050; J7120

== ENCOUNTER 2020-12-02 20:32 | Inpatient (IN) | payer OTHER, MEDICARE ==
[~2020-12-02] VITALS: Ht 177.8 cm; Wt 96.8 kg
[~2020-12-02 20:32] MED LIST changes: +FURO80 PO
[2020-12-02 22:31] LABS: BASOPHILS ABSOLUTE AUTO 0.03 K/mm3 (0.00-0.23); BASOPHILS PERCENT AUTO 0 % (0-2); EOSINOPHILS ABSOLUTE AUTO 0.24 K/mm3 (0.00-0.68); EOSINOPHILS PERCENT AUTO 2 % (0-6); Hematocrit 39.5 % (37.0-53.0); IMMATURE GRAN ABSOLUTE AUTO 0.05 K/mm3 (0.00-0.10); IMMATURE GRAN PERCENT AUTO 0 % (0-1); LYMPHOCYTES ABSOLUTE AUTO 1.01 K/mm3 (0.84-5.20); LYMPHOCYTES PERCENT AUTO 9 % (21-46); MONOCYTES ABSOLUTE AUTO 0.86 K/mm3 (0.16-1.47); MONOCYTES PERCENT AUTO 7 % (4-13); Mean Corpuscular HGB 30.2 pg (26.0-34.0); Mean Corpuscular HGB Conc 35.4 g/dL (31.5-36.5); Mean Corpuscular Volume 85 fL (80-100); Mean Platelet Volume 9.9 fL (9.1-12.4); NEUTROPHILS ABSOLUTE AUTO 9.61 K/mm3 (1.96-9.15); NEUTROPHILS PERCENT AUTO 81 % (41-73); Platelet Count 202 K/mm3 (150-400); RDW Coefficient Variation 12.4 % (11.7-14.2); RDW Standard Deviation 38.1 fL (35.1-46.3); Red Blood Cell Count 4.63 M/mm3 (4.30-5.90)
[2020-12-02 22:54] LABS: Alanine Aminotransfer (ALT/SGP 19 U/L (12-78); Albumin/Globulin Ratio 0.9 (0.8-1.8); Alk Phos 71 U/L (50-136); Anion Gap 3 mmol/L (6-16); Aspartate Aminotrans (AST/SGOT 8 U/L (12-37); Bilirubin, Total 0.7 mg/dL (0.1-1.0); Blood Urea Nitrogen 14 mg/dL (8-24); Bun/Creatinine Ratio 14.6 (12.0-20.0); CO2, Blood 34 mmol/L (21-32); Calcium, Blood 8.4 mg/dL (8.5-10.1); Chloride, Blood 97 mmol/L (98-108); Creatinine, Blood 0.96 mg/dL (0.60-1.20); Globulin, Blood 3.3 g/dL (2.2-4.0); Glomerular Filtration Rate >60 (60-); Glucose, Blood 289 mg/dL (70-99); Potassium, Blood 3.5 mmol/L (3.5-5.5); Sodium, Blood 134 mmol/L (136-145); Total Protein, Blood 6.3 g/dL (6.4-8.2); Troponin I 0.021 ng/mL (0.000-0.040)
[2020-12-02 23:23] LABS: PCO2 Arterial 60.9 mmHg (35-45); PO2 Arterial 58.2 mmHg (80-100); pH Blood Arterial 7.38 (7.35-7.45)
[2020-12-03 04:33] LABS: BASOPHILS ABSOLUTE AUTO 0.04 K/mm3 (0.00-0.23); BASOPHILS PERCENT AUTO 1 % (0-2); EOSINOPHILS ABSOLUTE AUTO 0.23 K/mm3 (0.00-0.68); EOSINOPHILS PERCENT AUTO 3 % (0-6); Hematocrit 40.1 % (37.0-53.0); Hemoglobin 13.8 g/dL (13.5-17.5); IMMATURE GRAN ABSOLUTE AUTO 0.04 K/mm3 (0.00-0.10); IMMATURE GRAN PERCENT AUTO 1 % (0-1); LYMPHOCYTES ABSOLUTE AUTO 1.03 K/mm3 (0.84-5.20); LYMPHOCYTES PERCENT AUTO 13 % (21-46); MONOCYTES ABSOLUTE AUTO 0.62 K/mm3 (0.16-1.47); MONOCYTES PERCENT AUTO 8 % (4-13); Mean Corpuscular HGB 29.8 pg (26.0-34.0); Mean Corpuscular HGB Conc 34.4 g/dL (31.5-36.5); Mean Corpuscular Volume 87 fL (80-100); Mean Platelet Volume 9.4 fL (9.1-12.4); NEUTROPHILS ABSOLUTE AUTO 6.31 K/mm3 (1.96-9.15); NEUTROPHILS PERCENT AUTO 76 % (41-73); Platelet Count 181 K/mm3 (150-400); RDW Coefficient Variation 12.6 % (11.7-14.2); RDW Standard Deviation 39.7 fL (35.1-46.3); Red Blood Cell Count 4.63 M/mm3 (4.30-5.90); White Blood Cell Count 8.27 K/mm3 (4.00-11.30)
[2020-12-03 04:50] LABS: Anion Gap 4 mmol/L (6-16); Blood Urea Nitrogen 13 mg/dL (8-24); Bun/Creatinine Ratio 13.9 (12.0-20.0); CO2, Blood 34 mmol/L (21-32); Calcium, Blood 8.4 mg/dL (8.5-10.1); Chloride, Blood 102 mmol/L (98-108); Creatinine, Blood 0.93 mg/dL (0.60-1.20); Glomerular Filtration Rate >60 (60-); Glucose, Blood 160 mg/dL (70-99); Potassium, Blood 3.2 mmol/L (3.5-5.5); Sodium, Blood 140 mmol/L (136-145)
--- NOTE | 2020-12-03 05:47 | NUR ---
SHIFT SUMMARY PT ARRIVED ON FLOOR VIA STRETCHER FROM ED WITH CAREGIVER. PT IS ALERT AND KNOWS WHERE HE IS; IDENTIFIES CAREGIVER; ORIENTED TO SELF AND SITUATION. PT HAS NOT HAD ANY ACUTE CHANGES SINCE ARRIVAL. DENIES PAIN. PT IS ON BIPAP HIGHFLOW SETTING OF 50LPM WITH SATS >90. PT HAS ILIOSTOMY AT RIGHT ABDOMEN THAT IS INTACT AND DRAINING. PT WAS INCONT OF URINE WHEN ARRIVED PLUS WHEN BEING CLEANED UP. PT HAS IV INTACT AND IS INFUSING. CAREGIVER WENT HOME AFTER HELPING FILL INFORMATION REGARDING PT. PT HAS NOT BEEN COMBATIVE DURING TIME ON UNIT.
[2020-12-03] MEDS ORDERED: AQUAPHOR ITCH R28 GM TOP (08:02)
--- NOTE | 2020-12-03 09:41 | NUR ---
SPOKE WITH PHYSICIAN HOLDING PO MEDICATION AT THIS TIME D/T POSSIBLE ASPIRATION. PT TO HAVE SWALLOW EVALUATION WHEN CAREGIVER AT BEDSIDE.
[2020-12-03] MEDS ORDERED: PAROEX473 ML MM (13:36)
[2020-12-03] MEDS ORDERED: Chloraseptic177 ML PO (13:37)
[2020-12-03] MEDS ORDERED: HYDROCODONE-AC1 EA11 PO (13:44)
[2020-12-03] MEDS ORDERED: ALMACONE SUSPE355 ML TOP (13:55)
[2020-12-03] MEDS ORDERED: ORAL ANESTHETIC9 GM MM (13:56)
[2020-12-03] MEDS ORDERED: Q-Tussin100 MG/5 M PO (14:00)
--- NOTE | 2020-12-03 15:20 | NUR ---
SPOKE WITH [facility] SPOKE WITH PLASTIC INJECTION MOLD MAKER OF [facility] REGARDING PT. WOULD LIKE ALL MEDICAL RECORDS FAXED AT DISCHARGE INCLUDING SWALLOW EVALUATION FROM SPEECH THERAPIST.
--- NOTE | 2020-12-03 17:53 | NUR ---
UPDATE ZI NICOLAS'Nora CURRENT PO MEDICATIONS. SYNTHROID, METOPROLOL, LASIX AND HYDRALIAZINE ORDERED IV UNDER PHYSICIAN ORDER. SEE EMAR. PO MEDICATIONS HELD FOR STRICT NPO AT THIS TIME.
--- NOTE | 2020-12-03 17:57 | NUR ---
SHIFT SUMMARY PT ALERT TO SELF AND LOCATION. DD. HR STABLE. BP STABLE. OXYGEN SATURATION MAINTAINED ABOVE 90% ON 50 L OF OXYGEN, FIOW 95% ON AIRVO. NO CP OR PRESSURE REPORTED. DEPENDS IN PLACE FOR INCONTINENCE. ILEOSTOMY BAG INTACT, WNL. PT ABLE TO TURN SELF IN BED. BED ALARM IN PLACE. SEE NOTES REGARDING UPDATES WITH PHYSICIAN, AND [facility]. WILL CONTINUE TO MONITOR UNTIL REPORT GIVEN TO NIGHTSHIFT RN.
--- NOTE | 2020-12-03 22:51 | NUR ---
TALKED TO BEAR LIN REGARDING PT'S SEVERE HEADACHE. PT CRYING AND POUNDING ON HEAD THAT HE HURTS. VERBAL ORDER OF 2MG OF MORPHINE X1.
--- NOTE | 2020-12-04 06:48 | NUR ---
SHIFT SUMMARY PT IS ALERT. PT IS COOPERATIVE WITH CARE AND RECEPTIVE TO CARE. DENIES PAIN. PT IS ON AIRVO/BIPAP 40L AT 95% WITH SATS OF >90%. TOLERATES HAVING TUBING ON WELL. PT HAS WEAKNESS AND IS TOLERATING TURNING WELL. INCONT OF URINE AND ATTENDS IN PLACE. ILEOSTOMY IS INTACT AND DRAINING WITH PINK STOMA. PT HAS RED RASH IN GROIN THAT IS ITCHY BECAUSE HE REACHES DOWN TO SCRATCH WITH CHANGES. SOME REDNESS ON SACRUM. NS IS INFUSING.
--- NOTE | 2020-12-04 08:00 | NUR ---
pt laying in bed, makes eye contact, speech is very difficult to understand, but he is able to make his needs known, lungs are clear in upper sorensen, dim in bases, resp even and unlabored at rest, currently on an airvo, no cough noted, hrr, tele in place running st per monitor, see strip, no edema noted, ppp+1, cap refill <3sec, vs stable, afebrile, iv sites are clear and pantent, btx4, abd round soft nontender, voids without diff, incont of urine, skin has yeast rash to eric area, other moore skin is clear, all ext weak, matteo, call light in reach.
--- NOTE | 2020-12-04 13:01 | NUR ---
Pt resting in bed and is on AIRVO. Pt reports pain in his abdomen, FLACC score of 2/10. Pt's speach difficult to understand at times. Pt is pleasant and states wanting meat loaf for dinner. Spoke with Bedside RN Faina and discussed case. Called and spoke with Pt's caregiver Peggy. Discussed Pt's code status with Peggy confirming Pt's wishes to be Full Code. Peggy reports no concerns at this time. Called and spoke with admitting. Changed person to notify to Peggy or any staff member. Current person to notify is outdated and incorrect. Palliative Care will remain available.
--- NOTE | 2020-12-04 18:01 | NUR ---
pt was assisted with eating, doing well with given small amounts at a time. no further changes this shift, call light in reach.
[2020-12-05 04:23] LABS: BASOPHILS ABSOLUTE AUTO 0.01 K/mm3 (0.00-0.23); BASOPHILS PERCENT AUTO 0 % (0-2); EOSINOPHILS ABSOLUTE AUTO 0.23 K/mm3 (0.00-0.68); EOSINOPHILS PERCENT AUTO 4 % (0-6); Hemoglobin 13.9 g/dL (13.5-17.5); IMMATURE GRAN ABSOLUTE AUTO 0.02 K/mm3 (0.00-0.10); IMMATURE GRAN PERCENT AUTO 0 % (0-1); LYMPHOCYTES ABSOLUTE AUTO 0.77 K/mm3 (0.84-5.20); LYMPHOCYTES PERCENT AUTO 13 % (21-46); MONOCYTES ABSOLUTE AUTO 0.54 K/mm3 (0.16-1.47); MONOCYTES PERCENT AUTO 9 % (4-13); Mean Corpuscular HGB 29.8 pg (26.0-34.0); Mean Corpuscular HGB Conc 33.9 g/dL (31.5-36.5); Mean Corpuscular Volume 88 fL (80-100); NEUTROPHILS ABSOLUTE AUTO 4.39 K/mm3 (1.96-9.15); NEUTROPHILS PERCENT AUTO 74 % (41-73); Platelet Count 170 K/mm3 (150-400); RDW Coefficient Variation 12.6 % (11.7-14.2); RDW Standard Deviation 40.1 fL (35.1-46.3); Red Blood Cell Count 4.66 M/mm3 (4.30-5.90); White Blood Cell Count 5.96 K/mm3 (4.00-11.30)
[2020-12-05 04:46] LABS: Alanine Aminotransfer (ALT/SGP 16 U/L (12-78); Albumin, Blood 2.9 g/dL (3.4-5.0); Albumin/Globulin Ratio 0.8 (0.8-1.8); Alk Phos 61 U/L (50-136); Anion Gap 2 mmol/L (6-16); Aspartate Aminotrans (AST/SGOT 8 U/L (12-37); Bilirubin, Total 0.7 mg/dL (0.1-1.0); Blood Urea Nitrogen 10 mg/dL (8-24); Bun/Creatinine Ratio 10.2 (12.0-20.0); CO2, Blood 36 mmol/L (21-32); Calcium, Blood 8.8 mg/dL (8.5-10.1); Chloride, Blood 106 mmol/L (98-108); Creatinine, Blood 0.98 mg/dL (0.60-1.20); Globulin, Blood 3.8 g/dL (2.2-4.0); Glomerular Filtration Rate >60 (60-); Glucose, Blood 159 mg/dL (70-99); Potassium, Blood 3.1 mmol/L (3.5-5.5); Sodium, Blood 144 mmol/L (136-145); Total Protein, Blood 6.7 g/dL (6.4-8.2)
--- NOTE | 2020-12-05 05:52 | NUR ---
PATIENT ADMITTED TO FLOOR AND RN ASSUMED CARE AT APPROXIMETLY 0130 FROM ED FOR SEPSIS/UTI. AMS MUCH IMPROVED PER PATIENT REPORT. STILL FORGETFUL AT TIMES BUT ALERT AND ORIENTED. FOLLOWS COMMANDS AND MOVES ALL EXTREMITIES. VSS. ON RA. SR ON THE MONITOR. VOIDING PER URINAL WITH SOME BURNING WITH URINATION NOTED. UP WITH ONE ASSIST TO BATHROOM AND SOME DIZZINESS NOTED SO BED ALARM IN PLACE. PATIENT EDUCATED ON FALL PRECAUTIONS. NPO STATUS REMAINS IN PLACE. AT BEDSIDE. NO COMPLAINTS OF PAIN OR DISTRESS NOTED. WILL CONTINUE TO MONITOR.
--- NOTE | 2020-12-05 07:48 | NUR ---
pt laying in bed, he was just changed and ostomy emtied, in good spirits today, ready for breakfast, lungs are clear in upper sorensen, dim in bases, resp even and unlabored, is currently on 6 liters 02 via high flow cannula, no cough noted, hrr, tele in place running sr to st per monitor, see strip, no edema noted, ppp+2, cap refill <3sec, vs stable, afebrile, iv sites are clear and patent, bt x3, illiostomy in place, draining brown soft stool, incont of urine, attends in place, helps to turn himself, has yeast rash to eric area, applying nystatin when changed, matteo, call light in reach.
--- NOTE | 2020-12-05 14:23 | NUR ---
pt states he's feeling some sob, placed him on 2 liters 02 via n/c, he immediatly felt better, v.s. stable. no further changes or complaints, sats were 94% on r/a, call light in reach.
--- NOTE | 2020-12-05 14:26 | NUR ---
pt resting in bed, wakes easily when staff enters room, v.s. stable. did remove one iv. call light in reach.
--- NOTE | 2020-12-05 18:34 | NUR ---
pt doing ok, no acute changes this shift. started him on his oral meds and potassium, eating really well with assist, no further changes this shift. call light in reach.
--- NOTE | 2020-12-06 02:56 | NUR ---
ASSUMED CARE OF PATIENT AT APPROXIMETLY 1900. PATIENT WITH DEVELOPMENTAL DELAY AND NEURO STATUS APPEARS BACK TO BASELINE. MOVING ALL EXTREMEITES. INTERMITTENTLY FOLLWS COMMANDS. FREQUENT BOUTS OF CRYING NOTED AND EASILY GETS ANXIOUS. WORKING WITH RT TO WEAN O2 AND CURRENTLY AT 6LNC SATING IN THE HIGH 90'S. VSS. TOLERATING NECTAR THICK LIQUIDS AND ORAL MEDS CRUSHED IN APPLESUACE. ORAL CARE ATTEMPTED Q2H WITH PATIENT OFTEN REFUSING. ILEOSTOMY REPLACED AT START OF SHIFT AND INCONTINENT IN BRIEF AT TIMES. EXCORATION TO REMIGIO AREA IMPROVING. NO SIGNS OF ACUTE DISTRESS OR PAIN NOTED. WILL CONTINUE TO MONITOR.
[2020-12-06 04:06] LABS: Hematocrit 41.6 % (37.0-53.0); Mean Corpuscular HGB 29.9 pg (26.0-34.0); Mean Corpuscular HGB Conc 33.7 g/dL (31.5-36.5); Mean Corpuscular Volume 89 fL (80-100); Mean Platelet Volume 9.4 fL (9.1-12.4); Platelet Count 156 K/mm3 (150-400); RDW Coefficient Variation 12.5 % (11.7-14.2); RDW Standard Deviation 40.2 fL (35.1-46.3); Red Blood Cell Count 4.68 M/mm3 (4.30-5.90); White Blood Cell Count 6.16 K/mm3 (4.00-11.30)
[2020-12-06 04:27] LABS: Alanine Aminotransfer (ALT/SGP 15 U/L (12-78); Albumin/Globulin Ratio 0.8 (0.8-1.8); Alk Phos 59 U/L (50-136); Anion Gap 2 mmol/L (6-16); Aspartate Aminotrans (AST/SGOT 10 U/L (12-37); Bilirubin, Total 0.6 mg/dL (0.1-1.0); Blood Urea Nitrogen 14 mg/dL (8-24); Bun/Creatinine Ratio 12.8 (12.0-20.0); CO2, Blood 37 mmol/L (21-32); Chloride, Blood 105 mmol/L (98-108); Creatinine, Blood 1.09 mg/dL (0.60-1.20); Globulin, Blood 3.7 g/dL (2.2-4.0); Glomerular Filtration Rate >60 (60-); Glucose, Blood 176 mg/dL (70-99); Potassium, Blood 3.4 mmol/L (3.5-5.5); Sodium, Blood 144 mmol/L (136-145); Total Protein, Blood 6.7 g/dL (6.4-8.2)
--- NOTE | 2020-12-06 17:19 | NUR ---
SHIFT SUMMARY: NO ACUTE CHANGES T/OUT THIS SHIFT. PT CONTINUES ALERT, ORIENTED TO SELF, PLACE, DAY OF WEEK. PT MAINTAINING O2 SATS >92% ON 4 L/MIN, DOES PULL NC OFF OFTEN AND O2 SATS WILL DECLINE TO MID-80s. STRICT FEEDING PLAN CONTINUES, PT IS TOLERATING NECTAR THICK LIQUIDS AND PUREE DIET WELL. OSTOMY BAG AND ATTENDS CHANGED NEEDED T/OUT SHIFT. WILL CONTINUE TO MONITOR AND TREAT ACCORDINGLY UNTIL CHANGE OF SHIFT.
--- NOTE | 2020-12-07 02:10 | NUR ---
SHIFT SUMMARY ASSUMED CARE OF PATIENT AT SHIFT CHANGE. NEURO STATUS AT BASELINE CONFUSION WITH DEVELOPMENTAL DELAY. FOLLOWS SOME COMMANDS. WALL. EMOTIONAL AT TIMES BUT EASILY REORIENTED AND DISTRACTED. ON 3.5L NC SATING IN MID 90'S WITH NO ACUTE DISTRESS NOTED UPON ASSESSMENT. STILL WITH INTERMITTENT DRY COUGH. NO TELE IN PLACE BUT HR/BP STABLE. TOLERATING MEDS IN APPLESAUCE AND NECTAR THICK LIQUIDS WITH SUPERVISED DRINKING AND ONLY WHEN SITTING UPRIGHT. ORAL CARE PERFORMED Q4H. CHECKING BRIEF OFTEN AND APPLYING BARRIER CREAM. TO PREVENT MORE REMIGIO SKIN BREAKDOWN FROM MOUISTURE. VSS. WILL CONTINUE TO MONITOR.
[2020-12-07 04:35] LABS: BASOPHILS ABSOLUTE AUTO 0.02 K/mm3 (0.00-0.23); BASOPHILS PERCENT AUTO 0 % (0-2); EOSINOPHILS PERCENT AUTO 8 % (0-6); Hematocrit 42.1 % (37.0-53.0); IMMATURE GRAN ABSOLUTE AUTO 0.01 K/mm3 (0.00-0.10); IMMATURE GRAN PERCENT AUTO 0 % (0-1); LYMPHOCYTES ABSOLUTE AUTO 0.99 K/mm3 (0.84-5.20); LYMPHOCYTES PERCENT AUTO 20 % (21-46); MONOCYTES ABSOLUTE AUTO 0.54 K/mm3 (0.16-1.47); MONOCYTES PERCENT AUTO 11 % (4-13); Mean Corpuscular HGB 29.4 pg (26.0-34.0); Mean Corpuscular HGB Conc 33.3 g/dL (31.5-36.5); Mean Corpuscular Volume 88 fL (80-100); Mean Platelet Volume 9.2 fL (9.1-12.4); NEUTROPHILS ABSOLUTE AUTO 3.04 K/mm3 (1.96-9.15); NEUTROPHILS PERCENT AUTO 61 % (41-73); Platelet Count 168 K/mm3 (150-400); RDW Coefficient Variation 12.3 % (11.7-14.2); RDW Standard Deviation 40.1 fL (35.1-46.3); Red Blood Cell Count 4.76 M/mm3 (4.30-5.90)
[2020-12-07 04:56] LABS: Alanine Aminotransfer (ALT/SGP 16 U/L (12-78); Albumin/Globulin Ratio 0.8 (0.8-1.8); Alk Phos 57 U/L (50-136); Anion Gap 2 mmol/L (6-16); Aspartate Aminotrans (AST/SGOT 10 U/L (12-37); Bilirubin, Total 0.8 mg/dL (0.1-1.0); Blood Urea Nitrogen 19 mg/dL (8-24); Bun/Creatinine Ratio 17.8 (12.0-20.0); CO2, Blood 36 mmol/L (21-32); Calcium, Blood 9.1 mg/dL (8.5-10.1); Chloride, Blood 105 mmol/L (98-108); Creatinine, Blood 1.07 mg/dL (0.60-1.20); Globulin, Blood 3.7 g/dL (2.2-4.0); Glomerular Filtration Rate >60 (60-); Glucose, Blood 133 mg/dL (70-99); Potassium, Blood 3.5 mmol/L (3.5-5.5); Sodium, Blood 143 mmol/L (136-145); Total Protein, Blood 6.7 g/dL (6.4-8.2)
[2020-12-07] MEDS ORDERED: AMOCLA250S PO (13:35)
[2020-12-07] MEDS ORDERED: INSULANPEN SC (13:46)
--- NOTE | 2020-12-07 14:45 | NUR ---
PT DISCHARGE: PT RETURNING TO BASELINE FUNCTION. DISCHARGE PAPERWORK AND INSTRUCTIONS PROVIDED, ERVIN AT [facility] HAS BEEN UPDATED AND INFORMED OF STRICT FEEDING PLAN. PT DEPARTS FROM UNIT IN NAD.
== END 2020-12-07 14:38 | disposition home or self-care (01) | DRG 177 ==
LOC: ER 20:32 → PCU 23:33 → ERHOLD 23:33 → PCU 12-03 01:18
PROVIDERS: Emergency Medicine; Internal Medicine; Nurse Practitioner Acute Care; ADMIT Internal Medicine
DX: J69.0 Pneumonitis due to inhalation of food and vomit (principal); J96.21 Acute and chronic respiratory failure with hypoxia; F84.0 Autistic disorder; E78.5 Hyperlipidemia, unspecified; G47.33 Obstructive sleep apnea (adult) (pediatric); E87.6 Hypokalemia; E11.22 Type 2 diabetes mellitus with diabetic chronic kidney disease; I12.9 Hypertensive chronic kidney disease with stage 1 through stage 4 chronic kidney disease, or unspecified chronic kidney disease; N18.9 Chronic kidney disease, unspecified; E03.9 Hypothyroidism, unspecified; K21.9 Gastro-esophageal reflux disease without esophagitis; F32.9 Major depressive disorder, single episode, unspecified; Z88.2 Allergy status to sulfonamides; Z79.84 Long term (current) use of oral hypoglycemic drugs; Z79.82 Long term (current) use of aspirin; Z86.14 Personal history of Methicillin resistant Staphylococcus aureus infection
CPT/HCPCS: 36415; 36600; 71045; 80048; 80053; 82803; 82947; 83605; 83880; 84484; 85025; 85027; 87040; 92526; 92610; 93005; 93010; 94640; 94660; 94762; 96365; 96375; 97110; 97112; 97116; 97161; 97530; 99285-25; A9270; J0360; J0456; J0696; J1650; J1940; J2270; J7030; J7050

== ENCOUNTER 2020-12-14 06:18 | Emergency (ER) | payer OTHER ==
[~2020-12-14] VITALS: Ht 177.8 cm; Wt 95.2 kg
[~2020-12-14 06:18] MED LIST changes: +AMOCLA250S PO; +AQUAPHOR ITCH R28 GM TOP; +HYDROCODONE-AC1 EA11 PO; +INSULANPEN SC; +ORAL ANESTHETIC9 GM MM; +PAROEX473 ML MM; +Q-Tussin100 MG/5 M PO
[2020-12-14 08:06] LABS: BASOPHILS ABSOLUTE AUTO 0.03 K/mm3 (0.00-0.23); BASOPHILS PERCENT AUTO 1 % (0-2); EOSINOPHILS ABSOLUTE AUTO 0.22 K/mm3 (0.00-0.68); EOSINOPHILS PERCENT AUTO 4 % (0-6); Hematocrit 40.4 % (37.0-53.0); IMMATURE GRAN ABSOLUTE AUTO 0.06 K/mm3 (0.00-0.10); IMMATURE GRAN PERCENT AUTO 1 % (0-1); LYMPHOCYTES PERCENT AUTO 23 % (21-46); MONOCYTES ABSOLUTE AUTO 0.44 K/mm3 (0.16-1.47); MONOCYTES PERCENT AUTO 8 % (4-13); Mean Corpuscular HGB Conc 34.7 g/dL (31.5-36.5); Mean Corpuscular Volume 87 fL (80-100); Mean Platelet Volume 9.9 fL (9.1-12.4); NEUTROPHILS ABSOLUTE AUTO 3.29 K/mm3 (1.96-9.15); NEUTROPHILS PERCENT AUTO 63 % (41-73); Platelet Count 177 K/mm3 (150-400); RDW Coefficient Variation 12.7 % (11.7-14.2); RDW Standard Deviation 39.8 fL (35.1-46.3); Red Blood Cell Count 4.66 M/mm3 (4.30-5.90); White Blood Cell Count 5.24 K/mm3 (4.00-11.30)
[2020-12-14 08:26] LABS: Alanine Aminotransfer (ALT/SGP 21 U/L (12-78); Albumin, Blood 3.3 g/dL (3.4-5.0); Albumin/Globulin Ratio 0.9 (0.8-1.8); Alk Phos 57 U/L (50-136); Anion Gap 3 mmol/L (6-16); Aspartate Aminotrans (AST/SGOT 11 U/L (12-37); Bilirubin, Total 0.5 mg/dL (0.1-1.0); Blood Urea Nitrogen 15 mg/dL (8-24); Bun/Creatinine Ratio 12.7 (12.0-20.0); CO2, Blood 27 mmol/L (21-32); Calcium, Blood 8.7 mg/dL (8.5-10.1); Chloride, Blood 111 mmol/L (98-108); Creatinine, Blood 1.18 mg/dL (0.60-1.20); Globulin, Blood 3.6 g/dL (2.2-4.0); Glomerular Filtration Rate >60 (60-); Glucose, Blood 107 mg/dL (70-99); Potassium, Blood 4.1 mmol/L (3.5-5.5); Sodium, Blood 141 mmol/L (136-145); Total Protein, Blood 6.9 g/dL (6.4-8.2)
[2020-12-14 08:28] LABS: Troponin I 0.021 ng/mL (0.000-0.040)
[2020-12-14 10:18] LABS: Influenza A, PCR Negative (NEGATIVE); Influenza B, PCR Negative (NEGATIVE); Resp Syncytial Virus, PCR Negative (NEGATIVE); SARS-Cov-2 (COVID-19) PCR, MMC Negative (NEGATIVE)
== END 2020-12-14 11:00 | disposition home or self-care (01) ==
LOC: ER 06:18
PROVIDERS: Emergency Medicine
DX: J18.9 Pneumonia, unspecified organism (principal); Z20.822 Contact with and (suspected) exposure to COVID-19
CPT/HCPCS: 0241U; 36415; 71045; 80053; 83880; 84484; 85025; 93005; 93010; 99284-25

== ENCOUNTER 2021-09-24 13:17 | Emergency (ER) | payer OTHER ==
[~2021-09-24] VITALS: Ht 180.3 cm; Wt 96.2 kg
[2021-09-24 14:12] LABS: BASOPHILS ABSOLUTE AUTO 0.05 K/mm3 (0.00-0.23); BASOPHILS PERCENT AUTO 1 % (0-2); EOSINOPHILS ABSOLUTE AUTO 0.32 K/mm3 (0.00-0.68); EOSINOPHILS PERCENT AUTO 4 % (0-6); Hematocrit 49.7 % (37.0-53.0); Hemoglobin 17.4 g/dL (13.5-17.5); IMMATURE GRAN ABSOLUTE AUTO 0.03 K/mm3 (0.00-0.10); IMMATURE GRAN PERCENT AUTO 0 % (0-1); LYMPHOCYTES ABSOLUTE AUTO 1.03 K/mm3 (0.84-5.20); LYMPHOCYTES PERCENT AUTO 13 % (21-46); MONOCYTES ABSOLUTE AUTO 0.52 K/mm3 (0.16-1.47); MONOCYTES PERCENT AUTO 7 % (4-13); Mean Corpuscular HGB 30.9 pg (26.0-34.0); Mean Corpuscular Volume 88 fL (80-100); Mean Platelet Volume 9.8 fL (9.1-12.4); NEUTROPHILS ABSOLUTE AUTO 5.76 K/mm3 (1.96-9.15); NEUTROPHILS PERCENT AUTO 75 % (41-73); Platelet Count 210 K/mm3 (150-400); RDW Coefficient Variation 12.1 % (11.7-14.2); RDW Standard Deviation 38.7 fL (35.1-46.3); Red Blood Cell Count 5.64 M/mm3 (4.30-5.90); White Blood Cell Count 7.71 K/mm3 (4.00-11.30)
[2021-09-24 14:17] LABS: Albumin, Blood 3.9 g/dL (3.4-5.0); Albumin/Globulin Ratio 0.9 (0.8-1.8); Bilirubin, Total 0.6 mg/dL (0.1-1.0); Calcium, Blood 9.5 mg/dL (8.5-10.1); Creatinine, Blood 1.33 mg/dL (0.60-1.20); Globulin, Blood 4.2 g/dL (2.2-4.0); Total Protein, Blood 8.1 g/dL (6.4-8.2)
[2021-09-24 16:21] LABS: Source, Urine Clean Catch
[2021-09-24 16:31] LABS: Bilirubin, Urine Neg (Neg); Blood, Urine Neg (Neg); Glucose Qualitative, Urine Neg (Neg); Ketones, Urine Neg (Neg); Leukocyte Esterase, Urine Neg (Neg); Nitrite, Urine Neg (Neg); Protein, Urine 2+ (Neg); Specific Gravity, Urine 1.015 (1.003-1.022); Urobilinogen, Urine NORM (Normal)
[2021-09-24 16:43] LABS: Appearance, Urine Clear (Clear); Color, Urine Pale Yellow (P-Yellow)
[2021-09-24 16:44] LABS: Bacteria Rare /hpf; Red Blood Cells, Urine 0-2 /hpf (0-2); Squamous Epithelial Cells Rare /hpf (Few); White Blood Cells, Urine 0-2 /hpf (0-5)
== END 2021-09-24 17:02 | disposition home or self-care (01) ==
LOC: ER 13:17
PROVIDERS: Physician Assistant
DX: K94.01 Colostomy hemorrhage (principal); K21.9 Gastro-esophageal reflux disease without esophagitis; E11.9 Type 2 diabetes mellitus without complications; E03.9 Hypothyroidism, unspecified; E78.5 Hyperlipidemia, unspecified; Z88.2 Allergy status to sulfonamides; Z79.899 Other long term (current) drug therapy
CPT/HCPCS: 36415; 74176; 80053; 81001; 85025; 86850; 86900; 86901; 93005; 93010

== ENCOUNTER 2022-02-04 07:23 | Day surgery (SDC) | payer OTHER ==
[~2022-02-04] VITALS: Ht 165.1 cm; Wt 98.2 kg
== END 2022-02-04 10:25 | disposition home or self-care (01) ==
LOC: ORSCSDS 07:23
PROVIDERS: Surgery
PROC: 0DJD8ZZ Inspection of Lower Intestinal Tract, Via Natural or Artificial Opening Endoscopic (ICD-10-PCS; principal; 2022-02-04 08:45)
DX: K51.90 Ulcerative colitis, unspecified, without complications (principal); K51.211 Ulcerative (chronic) proctitis with rectal bleeding; E11.9 Type 2 diabetes mellitus without complications; G47.33 Obstructive sleep apnea (adult) (pediatric); E03.9 Hypothyroidism, unspecified; F84.0 Autistic disorder; I10 Essential (primary) hypertension; R09.02 Hypoxemia; Z79.82 Long term (current) use of aspirin; Z79.4 Long term (current) use of insulin; Z79.899 Other long term (current) drug therapy
CPT/HCPCS: 82947; J2704; J7120

== ENCOUNTER → 2022-02-06 15:56 | Emergency (ER) | payer OTHER ==
[~2022-02-06 15:56] MED LIST changes: +CIPR500 PO; +Calcium Carbon500 MG PO; +Chloraseptic177 ML MM; +HYDRA25 PO; +NOVOLOG FL100 UNIT/3 SC; +NYAMYC15 G1 TOP; +Synthroid200 MCG PO
== END | disposition left against medical advice (07) ==
LOC: ER 15:56
DX: K94.11 Enterostomy hemorrhage (principal); Z53.21 Procedure and treatment not carried out due to patient leaving prior to being seen by health care provider
CPT/HCPCS: 36415; 74177; 80048; 81001; 85025; 87077; 87086; 87186; 99283-25; A9270; Q9967

== ENCOUNTER 2022-02-15 10:39 | Inpatient (IN) | payer OTHER ==
[~2022-02-15] VITALS: Ht 182.9 cm; Wt 98.5 kg
[~2022-02-15 10:39] MED LIST changes: -CIPR500 PO; -Calcium Carbon500 MG PO; -Chloraseptic177 ML MM; -HYDRA25 PO; -NOVOLOG FL100 UNIT/3 SC; -NYAMYC15 G1 TOP; -Synthroid200 MCG PO
[2022-02-15] MEDS ORDERED: CIPR500 PO (11:26)
[2022-02-15] MEDS ORDERED: FURO80 PO (11:27)
[2022-02-15] MEDS ORDERED: HYDRA25 PO (11:28)
[2022-02-15] MEDS ORDERED: Synthroid200 MCG PO (11:30)
[2022-02-15] MEDS ORDERED: NOVOLOG FL100 UNIT/3 SC (11:30)
[2022-02-15] MEDS ORDERED: POTA10T PO (11:33)
[2022-02-15 11:36] LABS: BASOPHILS ABSOLUTE AUTO 0.08 K/mm3 (0.00-0.23); BASOPHILS PERCENT AUTO 1 % (0-2); EOSINOPHILS ABSOLUTE AUTO 0.21 K/mm3 (0.00-0.68); EOSINOPHILS PERCENT AUTO 3 % (0-6); Hematocrit 43.3 % (37.0-53.0); Hemoglobin 15.2 g/dL (13.5-17.5); IMMATURE GRAN ABSOLUTE AUTO 0.14 K/mm3 (0.00-0.10); IMMATURE GRAN PERCENT AUTO 2 % (0-1); LYMPHOCYTES ABSOLUTE AUTO 1.06 K/mm3 (0.84-5.20); LYMPHOCYTES PERCENT AUTO 15 % (21-46); MONOCYTES ABSOLUTE AUTO 0.76 K/mm3 (0.16-1.47); MONOCYTES PERCENT AUTO 11 % (4-13); Mean Corpuscular HGB 31.3 pg (26.0-34.0); Mean Corpuscular HGB Conc 35.1 g/dL (31.5-36.5); Mean Corpuscular Volume 89 fL (80-100); NEUTROPHILS PERCENT AUTO 69 % (41-73); NRBC ABSOLUTE 0.03 K/mm3 (0.00-0.02); NRBC Auto 0.4 /100 WBC (0.0-0.2); RDW Coefficient Variation 13.5 % (11.7-14.2); RDW Standard Deviation 43.7 fL (35.1-46.3); Red Blood Cell Count 4.86 M/mm3 (4.30-5.90); White Blood Cell Count 7.25 K/mm3 (4.00-11.30)
[2022-02-15 11:44] LABS: Albumin, Blood 3.6 g/dL (3.4-5.0); Albumin/Globulin Ratio 1.1 (0.8-1.8); Bilirubin, Total 0.5 mg/dL (0.1-1.0); Bun/Creatinine Ratio 14.7 (12.0-20.0); Calcium, Blood 9.1 mg/dL (8.5-10.1); Creatinine, Blood 1.29 mg/dL (0.60-1.20); Globulin, Blood 3.4 g/dL (2.2-4.0)
[2022-02-15 12:15] LABS: PCO2 Arterial 67.4 mmHg (35-45); pH Blood Arterial 7.32 (7.35-7.45)
[2022-02-15 12:46] LABS: Influenza A, PCR NEGATIVE (NEGATIVE); Influenza B, PCR NEGATIVE (NEGATIVE); Resp Syncytial Virus, PCR NEGATIVE (NEGATIVE); SARS-Cov-2 (COVID-19) PCR, MMC NEGATIVE (NEGATIVE)
[2022-02-15 17:29] LABS: PCO2 Arterial 59.4 mmHg (35-45); PO2 Arterial 69.9 mmHg (80-100); pH Blood Arterial 7.37 (7.35-7.45)
--- NOTE | 2022-02-15 20:30 | NUR ---
PATIENT ARRIVED TO PCU 10 VIA GURNEY FROM ED. BIPAP 12/7 FIO2 35% IN PLACE, RT AT BEDSIDE. PATIENT TRANSFERRED TO PCU BED USING SLIDER SHEET, AND PLACED ON PCU MONITORING. PATIENT AWAKE AT BASELINE MENTATION PER CAREGIVER WHO IS AT BEDSIDE. RED RASH TO LEFT SIDE AND AXILLA, SKIN AROUND ILEOSTOMY RED, REDNESS ALSO TO PERIAREA AND UNDER PANUS. PICTURES PLACED ON CHART.
[2022-02-15 20:53] LABS: Source, Urine Clean Catch
[2022-02-15 20:56] LABS: Appearance, Urine Clear (Clear); Bilirubin, Urine Neg (Neg); Blood, Urine Neg (Neg); Color, Urine Yellow (P-Yellow); Glucose Qualitative, Urine Neg (Neg); Ketones, Urine Neg (Neg); Leukocyte Esterase, Urine Neg (Neg); Nitrite, Urine Neg (Neg); Protein, Urine 2+ (Neg); Urobilinogen, Urine NORM (Normal)
[2022-02-15 21:02] LABS: Granular Casts 0-2 /lpf (0); Hyaline Casts 0-2 /lpf (0-2)
[2022-02-15 21:03] LABS: Bacteria Few /hpf; Squamous Epithelial Cells Few /hpf (Few)
--- NOTE | 2022-02-15 22:47 | NUR ---
PATIENT PLACED ON 4L/NC FOR PO MEDICATIONS. PATIENT ML PILLS CRUSHED AND IN APPLESAUCE. WHILE AWAKE BIOX >90. PATIENT ASSISTED WITH ORAL CARE. BIPAP REPLACED FOR SLEEP DUE TO BIOX DROPPING DOWN TO 87%
[2022-02-16] MEDS ORDERED: OXYM.05NI (00:34)
[2022-02-16] MEDS ORDERED: Chloraseptic177 ML MM (00:37)
[2022-02-16] MEDS ORDERED: Calcium Carbon500 MG PO (00:38)
[2022-02-16] MEDS ORDERED: NYAMYC15 G1 TOP (00:40)
[2022-02-16 04:14] LABS: Base Excess Venous 9.8 mmol/L; PCO2 Venous 62.1 mmHg (38-42); PO2 Venous 57.8 mmHg (38-42); pH Blood Venous 7.36 (7.34-7.37)
[2022-02-16 04:26] LABS: BASOPHILS ABSOLUTE AUTO 0.04 K/mm3 (0.00-0.23); BASOPHILS PERCENT AUTO 1 % (0-2); EOSINOPHILS PERCENT AUTO 3 % (0-6); Hematocrit 41.3 % (37.0-53.0); IMMATURE GRAN ABSOLUTE AUTO 0.09 K/mm3 (0.00-0.10); IMMATURE GRAN PERCENT AUTO 1 % (0-1); LYMPHOCYTES PERCENT AUTO 17 % (21-46); MONOCYTES ABSOLUTE AUTO 0.71 K/mm3 (0.16-1.47); MONOCYTES PERCENT AUTO 10 % (4-13); Mean Corpuscular HGB 31.1 pg (26.0-34.0); Mean Corpuscular HGB Conc 33.9 g/dL (31.5-36.5); Mean Corpuscular Volume 92 fL (80-100); Mean Platelet Volume 9.1 fL (9.1-12.4); NEUTROPHILS ABSOLUTE AUTO 5.02 K/mm3 (1.96-9.15); NEUTROPHILS PERCENT AUTO 69 % (41-73); Platelet Count 153 K/mm3 (150-400); RDW Coefficient Variation 13.6 % (11.7-14.2); RDW Standard Deviation 45.7 fL (35.1-46.3); White Blood Cell Count 7.26 K/mm3 (4.00-11.30)
[2022-02-16 04:50] LABS: Albumin, Blood 3.1 g/dL (3.4-5.0); Albumin/Globulin Ratio 1.1 (0.8-1.8); Bilirubin, Total 0.5 mg/dL (0.1-1.0); Bun/Creatinine Ratio 14.9 (12.0-20.0); Calcium, Blood 8.7 mg/dL (8.5-10.1); Creatinine, Blood 1.21 mg/dL (0.60-1.20); Globulin, Blood 2.7 g/dL (2.2-4.0); Magnesium, Blood 1.7 mg/dL (1.6-2.4); Potassium, Blood 3.7 mmol/L (3.5-5.5); Total Protein, Blood 5.8 g/dL (6.4-8.2)
--- NOTE | 2022-02-16 05:21 | NUR ---
SUMMARY PATIENT SLEEPING T/O NIGHT WITH BIPAP 18/10 FIO2 45% IN PLACE. AWAKENS FOR REPOSITIONING FALLING BACK TO SLEEP WHEN UNDISTURBED. CAREGIVER FROM [facility] AT BEDSIDE PROVIDING GOOD SUPPORT. WHEN AWAKE FOR HS MEDICATIONS PATIENT ON 4L/NC TO KEEP BIOX >90%. ILEOSTOMY TO RIGHT UPPER QUD WITH SMALL AMT OF DARK BROWN STOOL CONTAINED IN OSTOMY BAG. SKIN REMANS RED TO AREA AROUND OSTOMY SITE AND LOW ABD. RASH TO LEFT SIDE AND ARM REMAINS UNCHANGED. PATIENT USING URINAL WITH ASSISTANCE. PATIENT DIFFICULT TO UNDERSTAND AT TIMES YET IS ABLE TO MAKE NEEDS KNOWN. NEEDING OCCASIONAL REMINDER TO KEEP BIPAP IN PLACE AND REQUIRING REASSURANCE PATIENT RESPONDING WELL TO CAREGIVERS.
--- NOTE | 2022-02-16 06:23 | NUR ---
PATIENT PLACED ON 4L/NC FOR 0600 MEDICATIONS. PLAN TO REPLACE BIPAP IF NEEDED.
--- NOTE | 2022-02-16 10:11 | NUR ---
Pt was given incentive spirometer and he and the caregiver Yony were instructed on its use. Pt demonstrated several times use of the incentive spirometer. Caregiver was instructed to have the pt use it at least once an hour. Pt took his oral medications without any difficulty.
--- NOTE | 2022-02-16 13:47 | NUR ---
Pt appears to be sleeping, caregiver at the bedside.
--- NOTE | 2022-02-16 15:08 | NUR ---
SpO2 decreased to 84-85% without any distress while awake and talking. Repositioned, encouraged to deep breathe and cough. Also had him use the incentive spirometer, but still had persistent hypoxia at 87%. Increased O2 to 7 l/min. Spo2 improved then to 89-90%. RT notified and high flow nasal cannula placed on the pt.
--- NOTE | 2022-02-16 16:35 | NUR ---
Dr. Moreno informed of increased oxygen requirements. Pt will be staying in PCU.
[2022-02-17 04:07] LABS: BASOPHILS ABSOLUTE AUTO 0.04 K/mm3 (0.00-0.23); BASOPHILS PERCENT AUTO 1 % (0-2); EOSINOPHILS ABSOLUTE AUTO 0.24 K/mm3 (0.00-0.68); EOSINOPHILS PERCENT AUTO 3 % (0-6); Hematocrit 40.4 % (37.0-53.0); Hemoglobin 13.9 g/dL (13.5-17.5); IMMATURE GRAN ABSOLUTE AUTO 0.06 K/mm3 (0.00-0.10); IMMATURE GRAN PERCENT AUTO 1 % (0-1); LYMPHOCYTES PERCENT AUTO 18 % (21-46); MONOCYTES ABSOLUTE AUTO 0.83 K/mm3 (0.16-1.47); MONOCYTES PERCENT AUTO 11 % (4-13); Mean Corpuscular HGB 30.7 pg (26.0-34.0); Mean Corpuscular HGB Conc 34.4 g/dL (31.5-36.5); Mean Corpuscular Volume 89 fL (80-100); Mean Platelet Volume 9.1 fL (9.1-12.4); NEUTROPHILS ABSOLUTE AUTO 4.88 K/mm3 (1.96-9.15); NEUTROPHILS PERCENT AUTO 66 % (41-73); Platelet Count 168 K/mm3 (150-400); RDW Coefficient Variation 13.2 % (11.7-14.2); RDW Standard Deviation 43.1 fL (35.1-46.3); Red Blood Cell Count 4.53 M/mm3 (4.30-5.90); White Blood Cell Count 7.35 K/mm3 (4.00-11.30)
[2022-02-17 04:27] LABS: Anion Gap 6 mmol/L (6-16); Blood Urea Nitrogen 15 mg/dL (8-24); Bun/Creatinine Ratio 13.4 (12.0-20.0); CO2, Blood 34 mmol/L (21-32); Calcium, Blood 7.8 mg/dL (8.5-10.1); Chloride, Blood 92 mmol/L (98-108); Creatinine, Blood 1.12 mg/dL (0.60-1.20); Glomerular Filtration Rate 72 (60-); Glucose, Blood 149 mg/dL (70-99); Magnesium, Blood 1.5 mg/dL (1.6-2.4); Phosphorus, Blood 3.4 mg/dL (2.5-4.9); Sodium, Blood 132 mmol/L (136-145)
--- NOTE | 2022-02-17 05:16 | NUR ---
SHIFT SUMMARY PT ALERT AND ORIENTED X3. AT BASELINE ACCORDING TO CAREGIVER. WILL FOLLOW COMMANDS, BUT SPEECH WILL BE RANDOM. CALLS OUT, OFTEN EXCLUSIVELY TALKING ABOUT FOOD OR DRINK ONLY. CAN MAKE NEEDS KNOWN. ON 12L OXYMIZER, SATS OVER 89%. ON BIPAP 18/10 45% FIO2, SATS OVER 93%. STOOL FROM OSTOMY BAG BROWN AND LOOSE. CAREGIVERS IN ROOM /, ALTERNATING. IN BED SLEEP WITH BIPAP ON, WILL CONTINUE TO MONITOR UNTIL REPORT GIVEN TO DAYSHIFT RN.
[2022-02-17 08:31] LABS: PCO2 Arterial 52.9 mmHg (35-45); PO2 Arterial 51.4 mmHg (80-100); pH Blood Arterial 7.46 (7.35-7.45)
--- NOTE | 2022-02-17 09:06 | NUR ---
Able to wean down from 11 l/min O2 to 8 l/min delivery at this time. SpO2 is 90% at this time, with patient sitting up in recliner chair after having taken his medications scheduled this morning.
--- NOTE | 2022-02-17 10:27 | NUR ---
Pt was given flutter valve and caregivers were instructed on its use. The pt was able to use it a little, but he is emotionally labile today, often bursting into tears. Caregiver states that the pt is becoming tired of being in the hospital and is less willing to be compliant with the incentive spirometer and flutter valve therapy. SpO2 was 88% on 8 l/min while sitting up in bed awake. Increased oxygen flow to 11 l/min and SpO2 improved to 90-91%.
--- NOTE | 2022-02-17 10:58 | NUR ---
The pt is very emotional and somewhat uncooperative this morning. He pulled his oxygen off and refused to let the caregiver put it back on. He was lying flat in bed, at his earlier request, to take a nap, caregiver said. Bipap put on the pt, by RN, and he was willing to do this. SpO2 had dropped at this point to 80%. Pt recovered to 97% spO2 after 2 minutes wearing the bipap. Settings unchanged on bipap.
--- NOTE | 2022-02-17 12:08 | NUR ---
Pt wore bipap for one hour until he was awakened by caregiver for lunchtime. His spo2 was 96-97 % while on the bipap, FiO2 setting 45%. He tolerated the bipap very well. Now sitting up in bed, eating lunch with assistance from the caregiver
--- NOTE | 2022-02-17 13:47 | NUR ---
pt went to imaging in wheelchair for 2 V chest XRay. Caregiver Yony accompanied him. Returned to room and pt pulled off his oxygen tubing while caregiver was in the bathroom, and spo2 dropped to 85%. Pt was agreeable to wear his bipap and appears to be settling down for a nap. spo2 improved to 95% while lying flat with the bipap on. Caregiver is at the bedside.
--- NOTE | 2022-02-17 16:10 | NUR ---
Pt took another nap this afternoon, for an hour, wearing the bipap.
--- NOTE | 2022-02-17 16:52 | NUR ---
SpO2 dropped to 85% while patient was lying in bed, HOB elevated. He was wearing his oxgyen at 10 l/min flow. Had the patient do some deep breathing, and O2 flow increased to 15 l/min. Had pt sit on side of bed. He was agreeable to get up into the chair for dinner, so when his spo2 was 90% he did this, and the oxygen levels improved to 97%. O2 flow was then decreased back to 10 l/min.
--- NOTE | 2022-02-18 05:02 | NUR ---
SHIFT SUMMARY PT ALERT. TITRATED OXYGEN DOWN FROM 10L TO 5L THROUGHOUT SHIFT. MAINTAINING SATS OVER 94%. BP STABLE. AFEBRILE. CAREGIVER IN ROOM 20/03. PT ENJOYS TALKING ABOUT FOOD, WILL CONSTANTLY ASK WHAT IS FOR LUNCH OR DINNER. BETWEEN 1-2 PT RIPS OF NC, BP CUFF, OSTOMY BAG, IV, AND TELE STICKERS ALL WITHIN A COUPLE MINUTES. DUE TO PT IMPROVING CONDITION, HOSPITALIST OKAY WITH NO IV ACCESS. PT LIKELY TO PULL IF NEW IV PLACED. PT RESTING COMFORTABLY WITH CAREGIVER IN ROOM. WILL CONTINUE TO MONITOR UNTIL REPORT GIVEN TO DAYSHIFT RN
--- NOTE | 2022-02-18 17:50 | NUR ---
SHIFT SUMMARY: NO ACUTE CHANGES THIS SHIFT. PT CONTINUES ALERT, ORIENTED TO SELF, CAREGIVERS, SURROUNDINGS AND IS AGREEABLE WITH CARE. PT MAINTAINS O2 SATS >90% 3.5 L/MIN VIA HUMIDIFIED HIFLO, RESPIRATIONS UNLABORED BUT SHALLOW, PT DOES REQUIRE REMINDERS/CUES TO DEEP BREATHE. SR ON MONITOR, RATE IN 70s. PT TOLERATING PUREE DIET AND NECTAR THICK LIQUIDS WELL, ILEOSTOMY BAG EMPTIED/CHANGED NEEDED. PT TAKING MEDICATIONS CRUSHED IN APPLESAUCE W/OUT DIFFICULTY. CAREGIVERS AT BEDSIDE. AT THIS TIME, PT RESTING QUIETLY IN ROOM WITH TV ON AND CALL LIGHT WITHIN REACH. WILL CONTINUE TO MONITOR AND TREAT ACCORDINGLY UNTIL CHANGE OF SHIFT.
[2022-02-19 04:47] LABS: Albumin, Blood 3.3 g/dL (3.4-5.0); Anion Gap 6 mmol/L (6-16); Blood Urea Nitrogen 14 mg/dL (8-24); Bun/Creatinine Ratio 12.5 (12.0-20.0); CO2, Blood 36 mmol/L (21-32); Calcium, Blood 7.9 mg/dL (8.5-10.1); Chloride, Blood 87 mmol/L (98-108); Creatinine, Blood 1.12 mg/dL (0.60-1.20); Glomerular Filtration Rate 72 (60-); Glucose, Blood 141 mg/dL (70-99); Phosphorus, Blood 2.4 mg/dL (2.5-4.9); Potassium, Blood 3.2 mmol/L (3.5-5.5); Sodium, Blood 129 mmol/L (136-145)
--- NOTE | 2022-02-19 06:00 | NUR ---
SHIFT SUMMARY PT ALERT. HX OF DEMENTIA AND AUTISM. CAREGIVER IN ROOM 20/03. GENERALLY COOPERATIVE TO CARE, YET HAS EPISODES OF WANTING TO PULL AT O2 LINES, TELE, AND OSTOMY BAG. HAS PULLED OFF OSTOMY BAG X6 THIS EVENING. PT WILL LASH OUT IN FRUSTRATION WHEN NOT ABLE TO PULL OFF OSTOMY BAG. PER REPORT FROM CAREGIVER, BEST TO LET PT RIP OF OSTOMY BAG. BP STABLE. ON 6L O2 SATS OVER 93%. WHILE SLEEPING WILL DESAT INTO LOW 80'S AT TIMES. PT APNEIC, REFUSES BIPAP. AFEBRILE. HR 70-80'S 1 DEGREE BLOCK W/ BBB. MEDS CRUSHED WITH APPLESAUCE. PT IN ROOM AWAKE WITH CAREGIVER AT SIDE, WILL CONTINUE TO MONITOR UNTIL REPORT GIVEN TO DAYSHIFT EKATERINA
--- NOTE | 2022-02-19 09:22 | NUR ---
CLAUDIA HAS BEEN AWAKE AND ALERT, COOPERATIVE WITH ALL CARE. HE IS SITTING UPRIGHT IN HIS BED. HE HAS TAKEN OFF HIS OXYGEN, SATS REMAIN AT 90%. HE IS TAKING HIS PILLS CRUSHED VIA APPLESAUCE AND DOES WELL. CAREGIVER CHANGE @ 0900. CALL TO DR. FERNANDEZ REGARDING IV FLUID ORDERS, PATIENT IS WITHOUT IV ACCESS. ORDERS CHANGED TO P.O. CLAUDIA TOLERATED THE K+ AND NA TABLETS WITHOUT INCIDENT. OSTOMY BAG IN PLACE, RED PATEL ALL OVER SKIN AND AROUND THE SITE OF OSTOMY FROM PT PICKING/SCRATCHING. DID WELL WITH ORAL CARE WITH CHLORHEXIDINE. ASKS OFTEN ABOUT LUNCH AND DINNER. VSS.
--- NOTE | 2022-02-19 09:53 | NUR ---
DURING BATH, PT'S OSTOMY CAME OFF. AREA CLEANED AND DRIED, ENCOURAGED BILL TO LEAVE IT ALONE BECAUSE OF HIS SKIN BEING SO FRAGILE AT THE SITE.
[2022-02-19] MEDS ORDERED: SODCHL1 PO (12:30)
--- NOTE | 2022-02-19 13:32 | NUR ---
DISCHARGE ORDERS RECEIVED FOR CLAUDIA. HE HAS BEEN ON AND OFF HIS NASAL CANNULA T/O THE DAY. WHEN HE EATS HE DROPS TO THE 80'S WITHOUT HIS OXYGEN ON. CAREGIVER GIVEN DISCHARGE INFORMATION, PT CHANGED TO HIS CLOTHING. TRANSPORT IS UNAVAILABLE, SO THEY ARE GETTING THEIR VAN TO TRANSPORT HIM. HE IS WITH STAFF AT THIS TIME.
--- NOTE | 2022-02-19 13:53 | NUR ---
CLAUDIA IS DRESSED IN HIS HOME CLOTHES AND AWAITING HIS RIDE. HE HAS BEEN UP IN THE CHAIR AND IS NOW BACK IN BED. HE IS COOPERATIVE AND RESPONSIVE TO DIRECTION.
--- NOTE | 2022-02-19 14:00 | NUR ---
CLAUDIA'S CAREGIVER RETURNED, HE WAS INCONTINENT IN HIS PANTS UPON HER RETURN. CLOTHES CHANGED, WHEELCHAIR RIDE TO THE VAN TO THE CARE OF THE CAREGIVER. SHE DECLINED ANY QUESTIONS OR CONCERNS.
== END 2022-02-19 14:12 | disposition home or self-care (01) | DRG 189 ==
LOC: ER 10:39 → ERHOLD 10:40 → PCU 10:40
PROVIDERS: Internal Medicine; Nurse Practitioner Acute Care; Student in an Organized Health Care Education/Training Program; ADMIT Internal Medicine
PROC: 5A0935A Assistance with Respiratory Ventilation, Less than 24 Consecutive Hours, High Flow/Velocity Cannula (ICD-10-PCS; principal; 2022-02-18)
DX: J96.21 Acute and chronic respiratory failure with hypoxia (principal); G93.41 Metabolic encephalopathy; J18.9 Pneumonia, unspecified organism; F84.0 Autistic disorder; J98.11 Atelectasis; E87.1 Hypo-osmolality and hyponatremia; Z20.822 Contact with and (suspected) exposure to COVID-19; J96.22 Acute and chronic respiratory failure with hypercapnia; E78.5 Hyperlipidemia, unspecified; E03.9 Hypothyroidism, unspecified; D50.9 Iron deficiency anemia, unspecified; G47.33 Obstructive sleep apnea (adult) (pediatric); D63.1 Anemia in chronic kidney disease; K21.9 Gastro-esophageal reflux disease without esophagitis; F32.A Depression, unspecified; N31.9 Neuromuscular dysfunction of bladder, unspecified; E11.22 Type 2 diabetes mellitus with diabetic chronic kidney disease; N40.0 Benign prostatic hyperplasia without lower urinary tract symptoms; R62.50 Unspecified lack of expected normal physiological development in childhood; I12.9 Hypertensive chronic kidney disease with stage 1 through stage 4 chronic kidney disease, or unspecified chronic kidney disease; N18.9 Chronic kidney disease, unspecified; Z98.890 Other specified postprocedural states; Z90.89 Acquired absence of other organs; Z88.2 Allergy status to sulfonamides; Z79.4 Long term (current) use of insulin; Z79.82 Long term (current) use of aspirin; Z79.899 Other long term (current) drug therapy
CPT/HCPCS: 0241U; 36415; 36600; 70450; 71045; 71046; 80053; 80069; 81001; 82533; 82803; 82947; 83735; 84145; 84436; 84443; 85025; 85379; 87086; 93005; 93010; 94640; 94660; 94664; 94762; 96372; 96374; 99285-25; A9270; G0378; J0696; J1650; J1815; J3475

== ENCOUNTER 2022-02-20 01:15 | Emergency (ER) | payer OTHER ==
[~2022-02-20] VITALS: Ht 175.3 cm; Wt 113.4 kg
[~2022-02-20 01:15] MED LIST changes: +CIPR500 PO; +Calcium Carbon500 MG PO; +Chloraseptic177 ML MM; +HYDRA25 PO; +NOVOLOG FL100 UNIT/3 SC; +NYAMYC15 G1 TOP; +Synthroid200 MCG PO
[2022-02-20 02:58] LABS: BASOPHILS ABSOLUTE AUTO 0.04 K/mm3 (0.00-0.23); BASOPHILS PERCENT AUTO 1 % (0-2); EOSINOPHILS ABSOLUTE AUTO 0.36 K/mm3 (0.00-0.68); EOSINOPHILS PERCENT AUTO 4 % (0-6); Hematocrit 42.2 % (37.0-53.0); Hemoglobin 15.2 g/dL (13.5-17.5); IMMATURE GRAN ABSOLUTE AUTO 0.04 K/mm3 (0.00-0.10); IMMATURE GRAN PERCENT AUTO 1 % (0-1); LYMPHOCYTES ABSOLUTE AUTO 1.26 K/mm3 (0.84-5.20); LYMPHOCYTES PERCENT AUTO 15 % (21-46); MONOCYTES ABSOLUTE AUTO 0.92 K/mm3 (0.16-1.47); MONOCYTES PERCENT AUTO 11 % (4-13); Mean Corpuscular HGB 31.3 pg (26.0-34.0); Mean Corpuscular Volume 87 fL (80-100); NEUTROPHILS ABSOLUTE AUTO 5.65 K/mm3 (1.96-9.15); NEUTROPHILS PERCENT AUTO 68 % (41-73); Platelet Count 160 K/mm3 (150-400); RDW Coefficient Variation 12.9 % (11.7-14.2); RDW Standard Deviation 40.6 fL (35.1-46.3); Red Blood Cell Count 4.86 M/mm3 (4.30-5.90); White Blood Cell Count 8.27 K/mm3 (4.00-11.30)
[2022-02-20 03:18] LABS: Albumin, Blood 3.5 g/dL (3.4-5.0); Bilirubin, Total 1.2 mg/dL (0.1-1.0); Bun/Creatinine Ratio 14.9 (12.0-20.0); Calcium, Blood 8.3 mg/dL (8.5-10.1); Creatinine, Blood 1.01 mg/dL (0.60-1.20); Globulin, Blood 3.5 g/dL (2.2-4.0); Potassium, Blood 2.9 mmol/L (3.5-5.5)
[2022-02-20 06:45] LABS: Influenza A, PCR NEGATIVE (NEGATIVE); Influenza B, PCR NEGATIVE (NEGATIVE); Resp Syncytial Virus, PCR NEGATIVE (NEGATIVE); SARS-Cov-2 (COVID-19) PCR, MMC NEGATIVE (NEGATIVE)
[2022-02-20 06:48] LABS: Magnesium, Blood 1.7 mg/dL (1.6-2.4)
[2022-02-20 07:21] LABS: Base Excess Venous 14.3 mmol/L; Bicarbonate Venous 35.1 mmol/L (24.0-30.0); PCO2 Venous 59.3 mmHg (38-42); pH Blood Venous 7.42 (7.34-7.37)
== END 2022-02-20 14:02 | disposition home or self-care (01) ==
LOC: ER 01:15
PROVIDERS: Student in an Organized Health Care Education/Training Program
DX: R09.02 Hypoxemia (principal); R06.89 Other abnormalities of breathing; E87.6 Hypokalemia; K21.9 Gastro-esophageal reflux disease without esophagitis; E11.9 Type 2 diabetes mellitus without complications; E03.9 Hypothyroidism, unspecified; E78.5 Hyperlipidemia, unspecified; N18.9 Chronic kidney disease, unspecified; Z88.2 Allergy status to sulfonamides; Z88.8 Allergy status to other drugs, medicaments and biological substances; Z79.899 Other long term (current) drug therapy; Z79.4 Long term (current) use of insulin
CPT/HCPCS: 0241U; 36415; 71045; 80053; 82248; 82803; 83735; 83880; 84145; 84484; 85025; 85379; 93005; 93010; A9270; J3475; J3480; J7030

== ENCOUNTER 2022-04-30 19:21 | Inpatient (IN) | payer OTHER ==
[~2022-04-30] VITALS: Ht 177.8 cm; Wt 101.2 kg
[2022-04-30 19:45] LABS: PO2 Arterial 106 mmHg (80-100)
[2022-04-30 19:48] LABS: PCO2 Arterial 80.1 mmHg (35-45)
[2022-04-30 21:39] LABS: Base Excess Venous 14.4 mmol/L; Bicarbonate Venous 34.3 mmol/L (24.0-30.0); PCO2 Venous 78.6 mmHg (38-42); pH Blood Venous 7.32 (7.34-7.37)
[2022-04-30 21:43] LABS: BASOPHILS ABSOLUTE AUTO 0.04 K/mm3 (0.00-0.23); BASOPHILS PERCENT AUTO 1 % (0-2); EOSINOPHILS ABSOLUTE AUTO 0.11 K/mm3 (0.00-0.68); EOSINOPHILS PERCENT AUTO 2 % (0-6); Hematocrit 41.8 % (37.0-53.0); Hemoglobin 14.7 g/dL (13.5-17.5); IMMATURE GRAN ABSOLUTE AUTO 0.17 K/mm3 (0.00-0.10); IMMATURE GRAN PERCENT AUTO 2 % (0-1); LYMPHOCYTES ABSOLUTE AUTO 0.93 K/mm3 (0.84-5.20); LYMPHOCYTES PERCENT AUTO 13 % (21-46); MONOCYTES ABSOLUTE AUTO 0.58 K/mm3 (0.16-1.47); MONOCYTES PERCENT AUTO 8 % (4-13); Mean Corpuscular HGB 31.9 pg (26.0-34.0); Mean Corpuscular HGB Conc 35.2 g/dL (31.5-36.5); Mean Corpuscular Volume 91 fL (80-100); Mean Platelet Volume 9.3 fL (9.1-12.4); NEUTROPHILS ABSOLUTE AUTO 5.26 K/mm3 (1.96-9.15); NEUTROPHILS PERCENT AUTO 74 % (41-73); Platelet Count 146 K/mm3 (150-400); RDW Coefficient Variation 12.8 % (11.7-14.2); RDW Standard Deviation 41.3 fL (35.1-46.3); Red Blood Cell Count 4.61 M/mm3 (4.30-5.90); White Blood Cell Count 7.09 K/mm3 (4.00-11.30)
[2022-04-30 21:59] LABS: Albumin, Blood 3.5 g/dL (3.4-5.0); Albumin/Globulin Ratio 1.1 (0.8-1.8); Bilirubin, Total 0.6 mg/dL (0.1-1.0); Bun/Creatinine Ratio 14.4 (12.0-20.0); Calcium, Blood 8.9 mg/dL (8.5-10.1); Creatinine, Blood 1.11 mg/dL (0.60-1.20); Globulin, Blood 3.3 g/dL (2.2-4.0); Potassium, Blood 3.3 mmol/L (3.5-5.5); Total Protein, Blood 6.8 g/dL (6.4-8.2)
[2022-04-30 23:28] LABS: Triiodothyronine, Free 1.83 pg/mL (2.18-3.98)
[2022-05-01 03:24] LABS: Influenza A, PCR NEGATIVE (NEGATIVE); Influenza B, PCR NEGATIVE (NEGATIVE); Resp Syncytial Virus, PCR NEGATIVE (NEGATIVE); SARS-Cov-2 (COVID-19) PCR, MMC NEGATIVE (NEGATIVE)
[2022-05-01 03:32] LABS: Hematocrit 44.9 % (37.0-53.0); Mean Corpuscular HGB 31.6 pg (26.0-34.0); Mean Corpuscular HGB Conc 33.4 g/dL (31.5-36.5); Mean Corpuscular Volume 95 fL (80-100); NRBC ABSOLUTE 0.02 K/mm3 (0.00-0.02); NRBC Auto 0.2 /100 WBC (0.0-0.2); Platelet Count 136 K/mm3 (150-400); RDW Coefficient Variation 13.1 % (11.7-14.2); RDW Standard Deviation 44.4 fL (35.1-46.3); Red Blood Cell Count 4.75 M/mm3 (4.30-5.90); White Blood Cell Count 13.01 K/mm3 (4.00-11.30)
[2022-05-01 03:44] LABS: Base Excess Venous 10.6 mmol/L
[2022-05-01 03:46] LABS: PCO2 Venous > 105 mmHg (38-42); pH Blood Venous 7.09 (7.34-7.37)
[2022-05-01 03:53] LABS: Bun/Creatinine Ratio 14.2 (12.0-20.0); Calcium, Blood 8.4 mg/dL (8.5-10.1); Creatinine, Blood 1.13 mg/dL (0.60-1.20); Potassium, Blood 3.5 mmol/L (3.5-5.5)
[2022-05-01 04:13] LABS: BAND PERCENT MAN 6 % (0-8); BASOPHILS PERCENT MAN 0 % (0-2); EOSINOPHILS PERCENT MAN 0 % (0-6); LYMPHOCYTES ABSOLUTE MAN 1.95 K/mm3 (0.84-5.20); LYMPHOCYTES PERCENT MAN 15 % (21-46); METAMYELOCYTE ABSOLUTE MAN 0.39 K/mm3 (0.00-0.00); METAMYELOCYTE PERCENT MAN 3 % (0-0); MONOCYTES PERCENT MAN 10 % (4-13); MYELOCYTE ABSOLUTE MAN 0.39 K/mm3 (0.00-0.00); MYELOCYTE PERCENT MAN 3 % (0-0); NEUTROPHILS ABSOLUTE MAN 8.97 K/mm3 (1.96-9.15); SEG NEUTROPHILS PERCENT MAN 63 % (41-73); TOTAL CELLS COUNTED 100
[2022-05-01 05:13] LABS: PO2 Arterial 74.8 mmHg (80-100)
[2022-05-01 05:14] LABS: pH Blood Arterial 7.08 (7.35-7.45)
[2022-05-01 05:15] LABS: PCO2 Arterial > 105 mmHg (35-45)
[2022-05-01 06:38] LABS: Source, Urine Clean Catch
[2022-05-01 06:51] LABS: Appearance, Urine Clear (Clear); Bilirubin, Urine Neg (Neg); Blood, Urine 2+ (Neg); Color, Urine Yellow (P-Yellow); Glucose Qualitative, Urine 3+ (Neg); Ketones, Urine Neg (Neg); Leukocyte Esterase, Urine Neg (Neg); Nitrite, Urine Neg (Neg); Protein, Urine 2+ (Neg); Specific Gravity, Urine 1.015 (1.003-1.022); Urobilinogen, Urine NORM (Normal)
[2022-05-01 07:06] LABS: Bacteria Rare /hpf; Hyaline Casts 0-2 /lpf (0-2); Squamous Epithelial Cells Rare /hpf (Few); White Blood Cells, Urine 0-2 /hpf (0-5)
[2022-05-01 08:21] LABS: PCO2 Arterial 52.2 mmHg (35-45); PO2 Arterial 53.9 mmHg (80-100); pH Blood Arterial 7.44 (7.35-7.45)
--- NOTE | 2022-05-01 11:55 | NUR ---
RECEIVED PATIENT FROM [facility].DEPT @ 0911 FROM [facility]. PT ON VENTILATOR 30/500/5/50% WITH SANTOSH FROM RT. UPON MOVING PATIENT TO THE ICU BED AND PLACING THE PULSE OX, IT WAS NOTED THAT THE PATIENT WAS AT 54% SAT. WE DISCONNECTED FROM VENT AND BEGAN BAGGING PATIENT TO BRING UP HIS SATS. HE REC- OVERED QUICKLY, IN TO THE BEDSIDE. PT ON PROPOFOL @ 10MCG/KG WITH SOME EYE OPENING AND SELF POSITIONING WHILE IT WAS BRIEFLY OFF. ONCE SETTLED, POWER GLIDE WAS PLACED BY EKATERINA WATKINSPATENT CLERK. CAREGIVER IN TO THE ROOM, ADMIT COMPLETED. CATHETER CARE, ORAL CARE AND BED BATH GIVEN.
--- NOTE | 2022-05-01 18:30 | NUR ---
CLAUDIA HAS BEEN TOLERATING THE VENTILATOR ON PROPOFOL 20MCG/KG IN THE RIGHT PG. IV NS @ 75ML/HR JUST STARTED PER , SETTINGS REMAIN UNCHANGED tV500, PEEP 5, FIO2 55%. SATS 90%. COPIOUS THICK ORAL SECRETIONS, ETT SUCTION IS DRY UPON RETURN. OG WITH BROWN/GREEN RETURN TO LIS. PABON DARK KENNA COLORED WITH SEDIMENT. RIGHT KNEE WITH SMALL "BRUISE" NOTED. COCCYX IN GOOD CONDITION. PT HAS BEEN TURNED Q2, HOB ELEV. ORAL CARE Q4, CATH CARE AND MINI BED BATH COMP. CAREGIVER AT BEDSIDE.
--- NOTE | 2022-05-01 19:00 | NUR ---
Assumed care. Report received from willie TOBAR. Pt in bed, sedated and ventilated via ETT. Vent settings AC/VC+ 20/500/5/55%. Propofol infusing at 20 mcg/kg/min. NS infusing at 75 ml/hr. PG in GEOVANI, R/AC IV in place. Pt has R/illeostomy in place, device in place. Temp moreno in place, draining to gravity. No acute needs ATT, will continue to monitor.
[2022-05-02 03:37] LABS: PCO2 Arterial 32.6 mmHg (35-45)
[2022-05-02 03:39] LABS: PO2 Arterial 49.9 mmHg (80-100); pH Blood Arterial 7.65 (7.35-7.45)
[2022-05-02 03:46] LABS: BASOPHILS ABSOLUTE AUTO 0.02 K/mm3 (0.00-0.23); BASOPHILS PERCENT AUTO 0 % (0-2); EOSINOPHILS ABSOLUTE AUTO 0.03 K/mm3 (0.00-0.68); EOSINOPHILS PERCENT AUTO 0 % (0-6); Hematocrit 38.9 % (37.0-53.0); Hemoglobin 13.8 g/dL (13.5-17.5); IMMATURE GRAN ABSOLUTE AUTO 0.06 K/mm3 (0.00-0.10); IMMATURE GRAN PERCENT AUTO 1 % (0-1); LYMPHOCYTES ABSOLUTE AUTO 1.18 K/mm3 (0.84-5.20); LYMPHOCYTES PERCENT AUTO 17 % (21-46); MONOCYTES PERCENT AUTO 11 % (4-13); Mean Corpuscular HGB Conc 35.5 g/dL (31.5-36.5); Mean Platelet Volume 9.3 fL (9.1-12.4); NEUTROPHILS ABSOLUTE AUTO 5.02 K/mm3 (1.96-9.15); NEUTROPHILS PERCENT AUTO 71 % (41-73); NRBC ABSOLUTE 0.02 K/mm3 (0.00-0.02); NRBC Auto 0.3 /100 WBC (0.0-0.2); Platelet Count 145 K/mm3 (150-400); RDW Coefficient Variation 13.2 % (11.7-14.2); RDW Standard Deviation 42.5 fL (35.1-46.3); Red Blood Cell Count 4.31 M/mm3 (4.30-5.90); White Blood Cell Count 7.11 K/mm3 (4.00-11.30)
[2022-05-02 03:54] LABS: Mean Corpuscular Volume 90 fL (80-100)
[2022-05-02 04:03] LABS: Bun/Creatinine Ratio 13.8 (12.0-20.0); Calcium, Blood 8.5 mg/dL (8.5-10.1); Creatinine, Blood 1.81 mg/dL (0.60-1.20); Magnesium, Blood 1.2 mg/dL (1.6-2.4); Phosphorus, Blood 1.3 mg/dL (2.5-4.9)
[2022-05-02 05:34] LABS: PCO2 Arterial 44.5 mmHg (35-45); pH Blood Arterial 7.53 (7.35-7.45)
[2022-05-02 05:35] LABS: PO2 Arterial 67.6 mmHg (80-100)
--- NOTE | 2022-05-02 10:18 | NUR ---
ONE LITER NS INFUSING PER ORDER, PT'S PROPOFOL DOWN TO 15MCG/KG. PT ABLE TO REMAIN CALM ON VENTILATOR, MOVE HEAD AND REPOSITION, OPENS EYES TO VOICE. DOES NOT FOLLOW COMMANDS.
--- NOTE | 2022-05-02 13:31 | NUR ---
VHP TUBE FEEDING STARTED AT 25ML/HR WITH GOAL TO 55ML/HR. WILL ADJUST AT 2130.
--- NOTE | 2022-05-02 18:20 | NUR ---
CLAUDIA HAS CONTINUED ON THE VENTILATOR, HE WAS CHANGED TO 60% FIO2 AND PEEP OF 5. HE WAS DOWN TO 15MCG/KG OF PROPOFOL, HE HAS BECOME MORE ALERT AND RESPON- SIVE AND HAS TRIED TO SEPARATE HIS TUBE FROM HIS CIRCUIT. WITH THE INCREASE IN AWARENESS THE PROPOFOL WAS JUST INCREASED TO 20MCG/KG FOR THE EVENING. HE HAD BEEN CALM AND COOPERATIVE T/O THE AFTERNOON. HE NOW HAS A CAREGIVER AT HIS SIDE WHO IS VISITING WITH HIM, UNSURE IF THIS IS CAUSING THE INCREASE IN THE AGITATION. WILL CONTINUE TO ASSESS AND TITRATE THE PROPOFOL ACCORDINGLY. HIS ILEOSTOMY APPLIANCE WAS CHANGED, CLEANED. HE HAD 200 OUT. HIS URINE OUTPUT WAS <500, DESPITE THE FLUID BOLUS EARLIER TODAY. HE HAS BEEN TURNED Q2, ORAL CARE Q4 AND FREQUENT ORAL SUCTIONING FOR THE EXCESS DROOLING. HE MOVES HIS FEET AND HEAD INDEPENDENTLY. WRISTS RESTRAINED FOR TUBE SAFETY. TUBE FEEDINGS CONTINUE AT 25ML/HR VITAL HIGH PROTEIN, WITH AN INCREASE DUE AT 2130. ON RESIDUAL CHECK HE HAD <10ML. WILL CONTINUE TO MONITOR AND TREAT, REPORTING OFF TO NEXT SHIFT WHEN ABLE.
--- NOTE | 2022-05-02 19:34 | NUR ---
Assumed care, report received from willie TOBAR. Pt continues sedated and ventilated via ETT. Vent settings: AC/VC+ 14/500/5/60%. Propofol infusing at 20 mcg/kg/min, NS TKO. OG tube in place, TF running at 25 ml/hr. R/illeostomy pouch in place. Hernadez catheter in place, draining to gravity. VS stable, no acute needs noted. Will continue to monitor.
--- NOTE | 2022-05-02 21:33 | NUR ---
Summary of event. At approximately 2036, called into pt room, upon entry found that pt had dislodged their ET tube completely. Rt called to bedside, NC placed on pt at 6 L/min. Pt was able to respond verbally to questions, 02 sats dropped into low 80s briefly but returned to upper 80s with NC. RT placed bipap on PT, 10/04, 100% Fi02, quickly titrated down to 75%. Pt tolerated well. Dr. Campbell called and notified, orders obtained for precedex and instructions to monitor pt status. Dr Wallace notified of pt status by RT. Will continue to monitor.
[2022-05-02 22:03] LABS: PCO2 Arterial 48.2 mmHg (35-45); PO2 Arterial 92.3 mmHg (80-100); pH Blood Arterial 7.48 (7.35-7.45)
[2022-05-03 03:21] LABS: PCO2 Arterial 54.4 mmHg (35-45); PO2 Arterial 72.1 mmHg (80-100); pH Blood Arterial 7.43 (7.35-7.45)
[2022-05-03 03:35] LABS: BASOPHILS ABSOLUTE AUTO 0.03 K/mm3 (0.00-0.23); BASOPHILS PERCENT AUTO 1 % (0-2); EOSINOPHILS ABSOLUTE AUTO 0.28 K/mm3 (0.00-0.68); EOSINOPHILS PERCENT AUTO 4 % (0-6); Hematocrit 40.9 % (37.0-53.0); Hemoglobin 13.8 g/dL (13.5-17.5); IMMATURE GRAN ABSOLUTE AUTO 0.06 K/mm3 (0.00-0.10); IMMATURE GRAN PERCENT AUTO 1 % (0-1); LYMPHOCYTES ABSOLUTE AUTO 0.82 K/mm3 (0.84-5.20); LYMPHOCYTES PERCENT AUTO 12 % (21-46); MONOCYTES PERCENT AUTO 11 % (4-13); Mean Corpuscular HGB 31.2 pg (26.0-34.0); Mean Corpuscular HGB Conc 33.7 g/dL (31.5-36.5); Mean Corpuscular Volume 93 fL (80-100); Mean Platelet Volume 8.8 fL (9.1-12.4); NEUTROPHILS ABSOLUTE AUTO 4.75 K/mm3 (1.96-9.15); NEUTROPHILS PERCENT AUTO 72 % (41-73); Platelet Count 133 K/mm3 (150-400); RDW Standard Deviation 43.9 fL (35.1-46.3); Red Blood Cell Count 4.42 M/mm3 (4.30-5.90); White Blood Cell Count 6.64 K/mm3 (4.00-11.30)
[2022-05-03 04:04] LABS: Bun/Creatinine Ratio 13.4 (12.0-20.0); Calcium, Blood 8.1 mg/dL (8.5-10.1); Creatinine, Blood 1.42 mg/dL (0.60-1.20); Magnesium, Blood 1.7 mg/dL (1.6-2.4); Phosphorus, Blood 3.5 mg/dL (2.5-4.9); Potassium, Blood 2.8 mmol/L (3.5-5.5)
--- NOTE | 2022-05-03 18:14 | NUR ---
PT TRANSFERRED FROM ICU 5 TO PCU 10 @1750 VIA CHAIR. BP STABLE. HR 70'S. AFEBRILE. PT SATING >94% ON 6L NC. LUNG SOUNDS CLEAR IN UPPER, DIMINISHED IN BASES. PT DEVELOPMENTALLY DELAYED AND UNABLE TO ANSWER QUESTIONS. PT ABLE TO FOLLOW SIMPLE COMMANDS. PABON CATH IN PLACE DRAINING YELLOW URINE TO GRAVITY. ILEOSTOMY IN PLACE DRAINING BROWN LIQUID STOOL. POWERGLIDE TO GEOVANI. CAREGIVER AT BEDSIDE. CALL LIGHT IN REACH.
--- NOTE | 2022-05-03 18:16 | NUR ---
SUMMARY PT WAS ABLE TO COME OFF BIPAP THIS AM AND PRECEDEX. ON 6L NC MOST OF THE DAY. ONLY DESATS IF HE TAKES NC OUT OF NOSE. PT IS ORIENTED TO SELF AND PLACE. ABLE TO STATE "HOSPITAL". FOLLOWS COMMANDS. SPEECH IS GARBLED BUT THIS MIGHT BE BASELINE FOR HIM. GOT PT UP TO RECLINER WITH LIFT AND TOLERATED WELL. ATE PUREED LUNCH WITHOUT ISSUE. PT DOES NEED ASSIST WITH FEEDING. ABLE TO MAKE NEEDS KNOWN. WHEN ILEOSTOMY BAG WAS FULL PT POINTED TO IT AND STATES "BAG FULL". PT DOWNGRADED TO PCU STATUS AND WAS TAKE TO PCU THIS EVENING. CAREGIVER UPDATED ON NEW ROOM NUMBER. NO SIGN OF DISTRESS HE LEFT THE UNIT.
[2022-05-04 06:21] LABS: Magnesium, Blood 1.7 mg/dL (1.6-2.4)
[2022-05-04 06:22] LABS: Bun/Creatinine Ratio 13.2 (12.0-20.0); Calcium, Blood 7.8 mg/dL (8.5-10.1); Creatinine, Blood 1.29 mg/dL (0.60-1.20); Phosphorus, Blood 2.1 mg/dL (2.5-4.9); Potassium, Blood 3.2 mmol/L (3.5-5.5)
--- NOTE | 2022-05-04 07:19 | NUR ---
NIGHTSHIFT SUMMARY PT HAD NO OVERNIGHT EVENTS. PT BEGAN SHIFT IN THE CHAIR W 02 SATS >90% ON 6L NC. PT ASSISTED BACK TO BED W THE CEILING LIFT AND PLACED ON BIPAP. THE PT HAD O2 SATS >90% ON BIPAP ALL NIGHT. BP ELEVATED AT THE START OF THE SHIFT BUT IMPROVED THROUGHOUT THE NIGHT. TELE SHOWING ST 100'S WHEN THE PT WAS AWAKE BUT SR IN THE 70'S FOR MOST OF THE NIGHT. WILL REPORT TO ONCOMING RN.
[2022-05-04 07:55] LABS: BASOPHILS ABSOLUTE AUTO 0.02 K/mm3 (0.00-0.23); BASOPHILS PERCENT AUTO 0 % (0-2); EOSINOPHILS ABSOLUTE AUTO 0.18 K/mm3 (0.00-0.68); EOSINOPHILS PERCENT AUTO 3 % (0-6); Hematocrit 40.5 % (37.0-53.0); Hemoglobin 13.8 g/dL (13.5-17.5); IMMATURE GRAN ABSOLUTE AUTO 0.03 K/mm3 (0.00-0.10); IMMATURE GRAN PERCENT AUTO 0 % (0-1); LYMPHOCYTES ABSOLUTE AUTO 0.81 K/mm3 (0.84-5.20); LYMPHOCYTES PERCENT AUTO 12 % (21-46); MONOCYTES ABSOLUTE AUTO 0.64 K/mm3 (0.16-1.47); MONOCYTES PERCENT AUTO 9 % (4-13); Mean Corpuscular HGB 31.7 pg (26.0-34.0); Mean Corpuscular HGB Conc 34.1 g/dL (31.5-36.5); Mean Corpuscular Volume 93 fL (80-100); Mean Platelet Volume 8.9 fL (9.1-12.4); NEUTROPHILS ABSOLUTE AUTO 5.31 K/mm3 (1.96-9.15); NEUTROPHILS PERCENT AUTO 76 % (41-73); Platelet Count 145 K/mm3 (150-400); RDW Coefficient Variation 12.9 % (11.7-14.2); RDW Standard Deviation 44.5 fL (35.1-46.3); Red Blood Cell Count 4.36 M/mm3 (4.30-5.90); White Blood Cell Count 6.99 K/mm3 (4.00-11.30)
--- NOTE | 2022-05-04 13:57 | NUR ---
Brief supportive visit this afternoon. Pt difficult to understand and states being sore. Offered gentle voice and engaged in trivial conversation. Pt's attention appears to be focused on the cartoons airing on television. Spoke with Primary RN and discussed case. Palliative Care will remain available.
--- NOTE | 2022-05-04 18:12 | NUR ---
SHIFT SUMMARY: PT HAD NO ACUTE EVENTS THIS SHIFT. ABLE TO FOLLOW COMMANDS. VSS. PT HAS PABON CATH DRAINING RED TINGED URINE TO GRAVITY. NO BM THIS SHIFT. PT SPENT A MAJORITY OF THE DAY UP IN A RECLINER. CURRENTLY IN BED, EATING DINNER WITH SUPERVISION. BED IN LOW, ALARM ON, CALL LIGHT IN REACH. WILL REPORT TO ONCOMING RN.
[2022-05-05 04:01] LABS: Hematocrit 41.8 % (37.0-53.0); Mean Corpuscular HGB 31.3 pg (26.0-34.0); Mean Corpuscular HGB Conc 33.5 g/dL (31.5-36.5); Mean Corpuscular Volume 94 fL (80-100); Mean Platelet Volume 9.7 fL (9.1-12.4); Platelet Count 155 K/mm3 (150-400); RDW Coefficient Variation 12.9 % (11.7-14.2); RDW Standard Deviation 44.4 fL (35.1-46.3); Red Blood Cell Count 4.47 M/mm3 (4.30-5.90); White Blood Cell Count 5.74 K/mm3 (4.00-11.30)
[2022-05-05 04:24] LABS: Anion Gap 5 mmol/L (6-16); Blood Urea Nitrogen 16 mg/dL (8-24); Bun/Creatinine Ratio 13.9 (12.0-20.0); CO2, Blood 32 mmol/L (21-32); Chloride, Blood 104 mmol/L (98-108); Creatinine, Blood 1.15 mg/dL (0.60-1.20); Glomerular Filtration Rate 70 (60-); Glucose, Blood 128 mg/dL (70-99); Magnesium, Blood 1.7 mg/dL (1.6-2.4); Phosphorus, Blood 2.3 mg/dL (2.5-4.9); Potassium, Blood 3.8 mmol/L (3.5-5.5); Sodium, Blood 141 mmol/L (136-145)
--- NOTE | 2022-05-05 05:51 | NUR ---
NOC SHIFT SUMMARY PT SLEPT WELL OVERNIGHT, ORIENTED TO SELF ONLY, GARBLED SPEECH BASELINE PER CAREGIVER AND HX OF DEVELOPMENTAL DELAY. FLAVIO, WEAK STRENGTH THROUGHOUT. VSS PER PT TREND - SBP IN 150S-160S. PRNS AVAILABLE FOR ABOVE 170 SBP. R ILEOSTOMY BAG CHANGED X1, BURPED FREQUENTLY THROUGHOUT THE NIGHT. ON 2L NC OR BIPAP PER RT MANAGEMENT. NO COMPLAINTS OF PAIN OR DISCOMFORT. SWALLOWED PILLS CRUSHED W/APPLESAUCE. Q2 TURN. PABON DRAINING BLOODY URINE - TEAM NOTIFIED PER DAY RN. SR ON TELEMETRY. WILL PASS ON TO DAY RN
[2022-05-05] MEDS ORDERED: AMOCLA875 PO (11:42)
--- NOTE | 2022-05-05 13:35 | NUR ---
DISCHARGE NOTE PT DISCHARGE BACK TO [facility] FOR [facility]. PT A&O, ABLE TO STAND & TRANSFER FROM PCU BED TO WHEELCHAIR. SPO2 > 92% ON 2L NC. PIVs REMOVED. REPORT CALLED TO [facility] BY PT's PRIMARY RN. DISCHARGE INSTRUCTIONS REVIEWED W/ [facility] STAFF MEMBER TRANSPORTING PT. PT TAKEN OUT BY WHEELCHAIR W/ OXYGEN @ APPOX 1320.
== END 2022-05-05 13:36 | disposition home or self-care (01) | DRG 208 ==
LOC: ER 19:21 → ERHOLD 23:00 → ICUE 23:00 → PCU 05-03 18:06
PROVIDERS: Emergency Medicine; Internal Medicine; Internal Medicine Critical Care Medicine; ADMIT Family Medicine
PROC: 0BH17EZ Insertion of Endotracheal Airway into Trachea, Via Natural or Artificial Opening (ICD-10-PCS; 2022-05-01)
PROC: 5A1935Z Respiratory Ventilation, Less than 24 Consecutive Hours (ICD-10-PCS; principal; 2022-05-02)
DX: J96.21 Acute and chronic respiratory failure with hypoxia (principal); J69.0 Pneumonitis due to inhalation of food and vomit; G92.8 Other toxic encephalopathy; N17.9 Acute kidney failure, unspecified; F84.0 Autistic disorder; E87.1 Hypo-osmolality and hyponatremia; E87.2 Acidosis; J96.22 Acute and chronic respiratory failure with hypercapnia; F81.9 Developmental disorder of scholastic skills, unspecified; I10 Essential (primary) hypertension; E87.6 Hypokalemia; E03.9 Hypothyroidism, unspecified; G47.33 Obstructive sleep apnea (adult) (pediatric); D69.6 Thrombocytopenia, unspecified; Z20.822 Contact with and (suspected) exposure to COVID-19; B95.8 Unspecified staphylococcus as the cause of diseases classified elsewhere; K21.9 Gastro-esophageal reflux disease without esophagitis; F32.A Depression, unspecified; N31.9 Neuromuscular dysfunction of bladder, unspecified; F29 Unspecified psychosis not due to a substance or known physiological condition; E78.00 Pure hypercholesterolemia, unspecified; R94.6 Abnormal results of thyroid function studies; N18.9 Chronic kidney disease, unspecified; F15.90 Other stimulant use, unspecified, uncomplicated; E11.22 Type 2 diabetes mellitus with diabetic chronic kidney disease; F12.90 Cannabis use, unspecified, uncomplicated; R41.841 Cognitive communication deficit; Z86.14 Personal history of Methicillin resistant Staphylococcus aureus infection; Z87.19 Personal history of other diseases of the digestive system; Z79.51 Long term (current) use of inhaled steroids; Z88.8 Allergy status to other drugs, medicaments and biological substances; Z88.2 Allergy status to sulfonamides; Z79.82 Long term (current) use of aspirin; Z79.01 Long term (current) use of anticoagulants; Z79.899 Other long term (current) drug therapy; Q67.6 Pectus excavatum; Z79.4 Long term (current) use of insulin; Z98.890 Other specified postprocedural states; Z93.1 Gastrostomy status; Z90.49 Acquired absence of other specified parts of digestive tract; Z93.2 Ileostomy status
CPT/HCPCS: 0241U; 31500; 36415; 36600; 51702; 70450; 71045; 71260; 80048; 80053; 80069; 81001; 82803; 82947; 83605; 83735; 83880; 84100; 84145; 84439; 84443; 84481; 84484; 85025; 85027; 87040; 87070; 87205; 92526; 92610; 93005; 93010; 94002; 94003; 94644; 94660; 94664; 94762; 96365-59; 96375-59; 99291-25; A9270; C1751; C9113; J0360; J0456; J0696; J1650; J1815; J2060; J2250; J2405; J2543; J2704; J3010; J3475; J3480; J7030; J7050; J7060; Q9967

== ENCOUNTER 2022-08-03 10:19 | Emergency (ER) | payer OTHER ==
[~2022-08-03] VITALS: Ht 180.3 cm; Wt 86.2 kg
[2022-08-03 11:46] LABS: BASOPHILS ABSOLUTE AUTO 0.03 K/mm3 (0.00-0.23); BASOPHILS PERCENT AUTO 0 % (0-2); EOSINOPHILS ABSOLUTE AUTO 0.09 K/mm3 (0.00-0.68); EOSINOPHILS PERCENT AUTO 1 % (0-6); Hematocrit 39.5 % (37.0-53.0); Hemoglobin 14.3 g/dL (13.5-17.5); IMMATURE GRAN ABSOLUTE AUTO 0.07 K/mm3 (0.00-0.10); IMMATURE GRAN PERCENT AUTO 1 % (0-1); LYMPHOCYTES ABSOLUTE AUTO 0.76 K/mm3 (0.84-5.20); LYMPHOCYTES PERCENT AUTO 11 % (21-46); MONOCYTES ABSOLUTE AUTO 1.11 K/mm3 (0.16-1.47); MONOCYTES PERCENT AUTO 16 % (4-13); Mean Corpuscular HGB 31.3 pg (26.0-34.0); Mean Corpuscular HGB Conc 36.2 g/dL (31.5-36.5); Mean Corpuscular Volume 86 fL (80-100); Mean Platelet Volume 9.1 fL (9.1-12.4); NEUTROPHILS PERCENT AUTO 71 % (41-73); Platelet Count 163 K/mm3 (150-400); Red Blood Cell Count 4.57 M/mm3 (4.30-5.90); White Blood Cell Count 6.96 K/mm3 (4.00-11.30)
[2022-08-03] MEDS ORDERED: BASAGLAR K100 UNIT/1 SC (11:48)
[2022-08-03 12:30] LABS: Albumin, Blood 3.5 g/dL (3.4-5.0); Albumin/Globulin Ratio 0.9 (0.8-1.8); Bilirubin, Total 0.7 mg/dL (0.1-1.0); Bun/Creatinine Ratio 14.9 (12.0-20.0); Calcium, Blood 9.2 mg/dL (8.5-10.1); Creatinine, Blood 1.54 mg/dL (0.60-1.20); Globulin, Blood 3.7 g/dL (2.2-4.0); Potassium, Blood 3.9 mmol/L (3.5-5.5); Total Protein, Blood 7.2 g/dL (6.4-8.2)
[2022-08-03 12:34] LABS: Influenza B, PCR NEGATIVE (NEGATIVE); Resp Syncytial Virus, PCR NEGATIVE (NEGATIVE); SARS-Cov-2 (COVID-19) PCR, MMC NEGATIVE (NEGATIVE)
[2022-08-03 12:47] LABS: Influenza A, PCR POSITIVE (NEGATIVE)
== END 2022-08-03 13:27 | disposition home or self-care (01) ==
LOC: ER 10:19
PROVIDERS: Emergency Medicine
DX: J10.1 Influenza due to other identified influenza virus with other respiratory manifestations (principal); N17.9 Acute kidney failure, unspecified; E87.1 Hypo-osmolality and hyponatremia; E11.22 Type 2 diabetes mellitus with diabetic chronic kidney disease; E03.9 Hypothyroidism, unspecified; E78.5 Hyperlipidemia, unspecified; F84.0 Autistic disorder; Z88.2 Allergy status to sulfonamides; Z88.1 Allergy status to other antibiotic agents; Z79.899 Other long term (current) drug therapy; Z79.4 Long term (current) use of insulin; Z20.822 Contact with and (suspected) exposure to COVID-19; Z99.81 Dependence on supplemental oxygen
CPT/HCPCS: 0241U; 36415; 71260; 80053; 85025; J7030; Q9967

== ENCOUNTER 2022-08-06 03:56 | Emergency (ER) | payer OTHER ==
[~2022-08-06] VITALS: Ht 182.9 cm; Wt 104.3 kg
[2022-08-06 06:29] LABS: Influenza B, PCR NEGATIVE (NEGATIVE); Resp Syncytial Virus, PCR NEGATIVE (NEGATIVE); SARS-Cov-2 (COVID-19) PCR, MMC NEGATIVE (NEGATIVE)
[2022-08-06 07:09] LABS: Influenza A, PCR POSITIVE (NEGATIVE)
[2022-08-06] MEDS ORDERED: METPRE4DP PO (07:43)
== END 2022-08-06 08:30 | disposition home or self-care (01) ==
LOC: ER 03:56
PROVIDERS: Emergency Medicine
DX: J10.1 Influenza due to other identified influenza virus with other respiratory manifestations (principal); E11.9 Type 2 diabetes mellitus without complications; J98.01 Acute bronchospasm; Z79.890 Hormone replacement therapy; Z79.82 Long term (current) use of aspirin; Z79.899 Other long term (current) drug therapy; Z79.4 Long term (current) use of insulin
CPT/HCPCS: 0241U; J7512

== ENCOUNTER 2022-08-08 01:40 | Inpatient (IN) | payer OTHER ==
[~2022-08-08 01:40] MED LIST changes: +METPRE4DP PO
[2022-08-08 02:18] LABS: BASOPHILS ABSOLUTE AUTO 0.01 K/mm3 (0.00-0.23); BASOPHILS PERCENT AUTO 0 % (0-2); EOSINOPHILS PERCENT AUTO 0 % (0-6); Hematocrit 35.8 % (37.0-53.0); Hemoglobin 12.7 g/dL (13.5-17.5); IMMATURE GRAN ABSOLUTE AUTO 0.03 K/mm3 (0.00-0.10); IMMATURE GRAN PERCENT AUTO 0 % (0-1); LYMPHOCYTES ABSOLUTE AUTO 0.61 K/mm3 (0.84-5.20); LYMPHOCYTES PERCENT AUTO 9 % (21-46); MONOCYTES ABSOLUTE AUTO 0.52 K/mm3 (0.16-1.47); MONOCYTES PERCENT AUTO 8 % (4-13); Mean Corpuscular HGB 31.4 pg (26.0-34.0); Mean Corpuscular HGB Conc 35.5 g/dL (31.5-36.5); Mean Corpuscular Volume 88 fL (80-100); NEUTROPHILS ABSOLUTE AUTO 5.52 K/mm3 (1.96-9.15); NEUTROPHILS PERCENT AUTO 83 % (41-73); Platelet Count 187 K/mm3 (150-400); RDW Standard Deviation 39.1 fL (35.1-46.3); Red Blood Cell Count 4.05 M/mm3 (4.30-5.90); White Blood Cell Count 6.69 K/mm3 (4.00-11.30)
[2022-08-08 02:35] LABS: Albumin/Globulin Ratio 0.8 (0.8-1.8); Bilirubin, Total 0.3 mg/dL (0.1-1.0); Bun/Creatinine Ratio 20.7 (12.0-20.0); Calcium, Blood 8.6 mg/dL (8.5-10.1); Creatinine, Blood 1.64 mg/dL (0.60-1.20); Globulin, Blood 3.9 g/dL (2.2-4.0); Potassium, Blood 4.5 mmol/L (3.5-5.5); Total Protein, Blood 6.9 g/dL (6.4-8.2)
--- NOTE | 2022-08-09 04:42 | NUR ---
SUMMARY: PATIENT AOX1. DEVELOPMENTALLY DELAYED. CALLED [facility], SHE STATED HE IS ON A PURE DIET AND NECTAR THICK LIQUIDS. CALLED MD FOR HOME DIET. MEDS CRUSHED IN APPLESAUCE. GAVE PATIENT THICKENED PROTEIN SHAKE AND PUDDING BEFORE BED. PATIENT PULLED ABDOMINAL BINDER OFF, REMOVED COLOSTMY BAG OVERNIGHT. CLEANED PATIENT AND APPLIED NEW BAG AND ABDOMINAL BINDER. TURNED PATIENT IN BED THROUGHOUT NIGHT. VSS. ON 4.5 L NC STATING IN LOW 90S. PATIENT FREQUENTLY REMOVES O2. FREQUENT ROUNDING TO PREVENT PATIENT FROM PULLING CANNULA AND COLOSTOMY BAG OFF. REQUESTED SCU BED FOR [facility] MONITORING WHEN ONE COMES AVAILABLE.
[2022-08-09] MEDS ORDERED: IPRAT-ALBUT 0.5-3 ML INH (13:57)
--- NOTE | 2022-08-09 15:16 | NUR ---
PATIENT ALERT AND ORIENTED TO SELF AND SORROUNDING. PATIENT DENIES CP/CHEST DISCOMFORT. ON TELE ST IN 120'S c PAC AND PVC PER COMPUTER ENGINEERING TECHNICIANKAITY ECHOLS. PATIENT ON O2 3L VIA NC WITH SPO2 ABOVE 90%. DENIES SOB. LUNGS CLEAR/DIM T/O TO AUSCULTATIONS. INCONTIN FOR URINE, ATTENDS CHANGED AND REPOSITIONED. PATIENT HAS COLOSTOMY APPLIANCE AND HAS BEEN PRODUCING BROWN UNFORM BROWN STOOL. EMPTIED MULTIPLE TIMES TODAY. PUREE DIET AND HAS BEEN TOLERATING DIET WELL. PATIENT ON ISOLATION FOR DROPLET INFLUENZA A. RECEIVED SCHEDULED MEDS TODAY. PLEASANT, CALM AND COOPERATIVE WITH CARE. IV TO L AC WAS DC'D. VITAL SIGNS REVIEWED. PATIENT DISCHARGE TO [facility]. DISCHARGE INSTRUCTIONS PACKET GIVEN TO [facility] PERSONEL. RX WAS FAXED TO [facility]. UPDATE GIVEN TO EMPLOYEE AT [facility] THIS AM. ALL PATIENT BELONGINGS WERE SENT HOME WITH THE PATIENT. PATIENT WAS TRANSPORTED VIA WHEELCHAIR BY [employer]. PATIENT LEFT THE ROOM AT 1503.
== END 2022-08-09 15:11 | DRG 193 ==
LOC: ER 01:40 → ERHOLD 04:28 → MEDS 04:28
PROVIDERS: Student in an Organized Health Care Education/Training Program; ADMIT Internal Medicine
DX: J10.1 Influenza due to other identified influenza virus with other respiratory manifestations (principal); G93.41 Metabolic encephalopathy; J96.21 Acute and chronic respiratory failure with hypoxia; J96.22 Acute and chronic respiratory failure with hypercapnia; K21.9 Gastro-esophageal reflux disease without esophagitis; F32.A Depression, unspecified; N31.9 Neuromuscular dysfunction of bladder, unspecified; E03.9 Hypothyroidism, unspecified; E78.5 Hyperlipidemia, unspecified; E11.22 Type 2 diabetes mellitus with diabetic chronic kidney disease; N18.9 Chronic kidney disease, unspecified; Z86.14 Personal history of Methicillin resistant Staphylococcus aureus infection; Z93.2 Ileostomy status; Z98.890 Other specified postprocedural states; Z88.1 Allergy status to other antibiotic agents; Z88.2 Allergy status to sulfonamides; Z79.4 Long term (current) use of insulin; Z79.82 Long term (current) use of aspirin; Z79.899 Other long term (current) drug therapy
CPT/HCPCS: 36415; 71045; 80053; 82947; 83880; 84145; 84484; 85025; 92610; 93005; 93010; 99285-25; A9270; J1650; J1815; J7030

== ENCOUNTER 2022-09-20 07:53 | Inpatient (IN) | payer OTHER ==
[~2022-09-20] VITALS: Ht 177.8 cm; Wt 87.7 kg
[~2022-09-20 07:53] MED LIST changes: +IPRAT-ALBUT 0.5-3 ML INH
[2022-09-20 08:59] LABS: Albumin, Blood 2.9 g/dL (3.4-5.0); Albumin/Globulin Ratio 0.7 (0.8-1.8); Bilirubin, Total 0.9 mg/dL (0.1-1.0); Bun/Creatinine Ratio 18.6 (12.0-20.0); Calcium, Blood 7.8 mg/dL (8.5-10.1); Creatinine, Blood 3.11 mg/dL (0.60-1.20); Globulin, Blood 3.9 g/dL (2.2-4.0); Potassium, Blood 4.5 mmol/L (3.5-5.5); Total Protein, Blood 6.8 g/dL (6.4-8.2)
[2022-09-20 09:49] LABS: Source, Urine Clean Catch
[2022-09-20 09:51] LABS: BASOPHILS ABSOLUTE AUTO 0.03 K/mm3 (0.00-0.23); BASOPHILS PERCENT AUTO 0 % (0-2); EOSINOPHILS ABSOLUTE AUTO 0.21 K/mm3 (0.00-0.68); EOSINOPHILS PERCENT AUTO 3 % (0-6); Hematocrit 34.5 % (37.0-53.0); Hemoglobin 12.8 g/dL (13.5-17.5); IMMATURE GRAN ABSOLUTE AUTO 0.12 K/mm3 (0.00-0.10); IMMATURE GRAN PERCENT AUTO 2 % (0-1); LYMPHOCYTES ABSOLUTE AUTO 1.51 K/mm3 (0.84-5.20); LYMPHOCYTES PERCENT AUTO 19 % (21-46); MONOCYTES ABSOLUTE AUTO 0.83 K/mm3 (0.16-1.47); MONOCYTES PERCENT AUTO 10 % (4-13); Mean Corpuscular HGB 30.5 pg (26.0-34.0); Mean Corpuscular Volume 82 fL (80-100); Mean Platelet Volume 9.1 fL (9.1-12.4); NEUTROPHILS ABSOLUTE AUTO 5.48 K/mm3 (1.96-9.15); NEUTROPHILS PERCENT AUTO 67 % (41-73); Platelet Count 205 K/mm3 (150-400); RDW Coefficient Variation 12.6 % (11.7-14.2); RDW Standard Deviation 37.8 fL (35.1-46.3); Red Blood Cell Count 4.19 M/mm3 (4.30-5.90); White Blood Cell Count 8.18 K/mm3 (4.00-11.30)
[2022-09-20 09:52] LABS: Mean Corpuscular HGB Conc 37.1 g/dL (31.5-36.5)
[2022-09-20 10:03] LABS: Bilirubin, Urine Neg (Neg); Blood, Urine 3+ (Neg); Glucose Qualitative, Urine Neg (Neg); Ketones, Urine Neg (Neg); Leukocyte Esterase, Urine 1+ (Neg); Nitrite, Urine Neg (Neg); Protein, Urine Neg (Neg); Urobilinogen, Urine NORM (Normal)
[2022-09-20 10:22] LABS: Appearance, Urine Clear (Clear); Color, Urine Yellow (P-Yellow)
[2022-09-20 10:23] LABS: Bacteria Few /hpf; Renal Epithelial Rare /hpf (0-Rare); Squamous Epithelial Cells Rare /hpf (Few)
[2022-09-20 12:34] LABS: Bun/Creatinine Ratio 19.6 (12.0-20.0); Calcium, Blood 6.4 mg/dL (8.5-10.1); Creatinine, Blood 2.7 mg/dL (0.60-1.20)
--- NOTE | 2022-09-20 17:30 | NUR ---
SHIFT SUMMARY PT HAS BEEN RESTING QUIETLY IN ROOM SINCE ADMISSION. PT IS DEVELOPMENTALLY DELAYED AND VERBAL COMMUNICATION IS DIFFICULT. PT IS ABLE TO MAKE NEEDS KNOWN. A CARE-PET WALKER FROM THE FACILITY WHERE THE PT RESIDES ACCOMPANIED PT TO ROOM AND WAS PRESENT FOR SEVERAL HOURS. ONCE THE CARE-PET WALKER LEFT, PT BECAME AGITATED AND UNCOOPERATIVE WITH CARE. PT WAS CALMED WITH THERAPEUTIC COMMUNICATION. DIASTOLIC BP HAS BEEN READING 111-120, ATTEMPTS TO REPOSITION CUFF AND PT HAVE CONTINUED TO RETURN DBP IN THIS RANGE. ALL OTHER VITALS HAVE REMAINED STABLE. PT HAS CONTINUALLY ASKED FOR PO FLUIDS.
--- NOTE | 2022-09-20 19:37 | NUR ---
[address] [facility] [place]. Received report and assumed patient care. He is resting in bed, and denies pain or discomfort. Speech is mumbled and hard to understand baseline. Repositioned, vitals checked and offered toileting.
--- NOTE | 2022-09-21 06:49 | NUR ---
SHIFT SUMMARY NURSING REPORT Mr. Beavers was admitted yesterday for SAMANTA and hyponatremia 119. He has developmental delay and Autism. He is alert and communicates with a severe speech impediment. He has constant need for attention for someone to play with him and his toys. When left alone, he pulled colostomy bag and base x2 yesterday prior to being place on bilateral wrist restrains. Colostomy bag area and Hernadez covered with white sheet and gown. He was repositioned and rounded on frequently. Fluids offered moderately, as he has a constant need to consume lots of tap water unrestrained.
[2022-09-21 10:21] LABS: Percent Saturation 30.2 % (20.0-50.0)
--- NOTE | 2022-09-21 17:53 | NUR ---
SHIFT SUMMARY PT HAS BEEN RESTING QUIETLY IN ROOM FOR A MAJORITY OF THE SHIFT. PT SLEPT FOR A FEW HOURS IN THE AFTERNOON. PT BECAME AGITATED AND WAS NOT READILY REDIRECTED AFTER WAKING UP. ALL VITAL SIGNS HAVE REMAINED STABLE. PT HAS HAD GOOD OUTPUT FROM URINARY CATHETER AND COLOSTOMY. CARE GIVERS FROM PT'S RESIDENCE VISITED WITH PT AND RECEIVED AN UPDATE ON CURRENT CONDITION AND PLAN OF CARE. TELEMETRY WAS DISCONTINUED AFTER PROVIDER ROUNDS, PT WAS SINUS RHYTHM AT THAT TIME.
--- NOTE | 2022-09-22 05:27 | NUR ---
PT AWAKE MOST OF THIS SHIFT, DID NOT USE COMMUNICATION BOARD THAT WAS PROVIDED, DOES ANSWER YES/NO QUESTIONS AND HAS OCCASIONAL WORDS THAT CAN BE UNDERSTOOD SUCH WATER AND BATHROOM. NOTED ANXIOUS AND TEARFUL AT TIMES, HOWEVER UNABLE TO FIND THE CORRECT INQUIRY OF WHAT WAS MAKING HER ANXIOUS TO GENERATE A "YES" RESPONSE. ATIVAN 1 MG IV ADMIN X 2 THIS SHIFT FOR INCREASED AGITATION THAT INQUIRIES REVEALED WAS DUE TO CRAMPING IN BILAT LOWER EXTREMITIES. ATIVAN WAS TOLERATED WELL AND PT REPORTED RELIEF OF CRAMPING SENSATION TO LOWER EXTREMITIES. SHE DID REMOVE HER IV AT THE BEGINNING OF THE SHIFT AND WAS TEARFUL AT THE TIME, REGAINING IV ACCESS WAS DIFFICULT WITH 3 NURSES ATTEMPTING AND A TOTAL OF 6 INSERTION ATTEMPTS, EXTENDED DWELL ACCESS WAS OBTAINED BY JOSHUA SEE RN AFTER MIDNOC AND KEPPRA WAS ADMINISTERED IMMEDIATELY AFTER ACCESS ESTABLISHED. PUREWICK URINE DEVICE IN USE, PT DID NOT VOID UNTIL AFTER GREATER THAN 600 ML IN BLADDER AT WHICH TIME THIS RN SHOWED URINE COLLECTION IN CANNISTER TO PT AND SHE WAS NOTED TO LAUGH.
--- NOTE | 2022-09-22 05:45 | NUR ---
PT AWAKE UNTIL AFTER 2300 THIS SHIFT AND AWAKENED AT 0430 FOR ATTENDS AND LINEN CHANGE. HE CONTINUES TO HAVE DIFFICULT TO UNDERSTAND SPEECH PATTERN AND IS NOTED TO YELL WHEN THIS RN STATES THAT I CANNOT UNDERSTAND WHAT HE IS TRYING TO SAY. DECISION WAS MADE TO DC PABON CATHETER TO PREVENT PT PULLING IT HIMSELF AND HE HAS VOIDED WELL SINCE REMOVAL, HE WAS NOTED INCONTINENT OF A LARGE AMOUNT OF URINE IN ATTENDS WELL 1 VOID IN URINAL. HE FREQUENTLY REQUESTS [employer] AND [employer] WITH A NEW TOY FOR LUNCH TODAY WELL SPAGHE[employer] FOR DINNER. DECISION WAS MADE AT TO ALLOW PT TO DRESS IN HIS CLOTHES FROM HOME PER HIS REQUEST TO PUT HIS PAJAMAS ON, OF THIS TIME, HE HAS NOT BEEN NOTED TO ATTEMPT TO REMOVE HIS COLOSTOMY APPLIANCE. WILL CONTINUE TO MONITOR AND REPORT TO DAY SHIFT.
[2022-09-22 07:55] LABS: Bun/Creatinine Ratio 19.7 (12.0-20.0); Calcium, Blood 7.1 mg/dL (8.5-10.1); Creatinine, Blood 1.32 mg/dL (0.60-1.20); Potassium, Blood 4.4 mmol/L (3.5-5.5)
[2022-09-22 09:28] LABS: BASOPHILS ABSOLUTE AUTO 0.03 K/mm3 (0.00-0.23); BASOPHILS PERCENT AUTO 1 % (0-2); EOSINOPHILS ABSOLUTE AUTO 0.21 K/mm3 (0.00-0.68); EOSINOPHILS PERCENT AUTO 3 % (0-6); Hematocrit 30.4 % (37.0-53.0); IMMATURE GRAN ABSOLUTE AUTO 0.07 K/mm3 (0.00-0.10); IMMATURE GRAN PERCENT AUTO 1 % (0-1); LYMPHOCYTES PERCENT AUTO 15 % (21-46); MONOCYTES ABSOLUTE AUTO 0.63 K/mm3 (0.16-1.47); MONOCYTES PERCENT AUTO 10 % (4-13); Mean Corpuscular Volume 82 fL (80-100); Mean Platelet Volume 8.7 fL (9.1-12.4); NEUTROPHILS PERCENT AUTO 70 % (41-73); Platelet Count 166 K/mm3 (150-400); RDW Coefficient Variation 12.3 % (11.7-14.2); RDW Standard Deviation 37.1 fL (35.1-46.3); Red Blood Cell Count 3.73 M/mm3 (4.30-5.90); White Blood Cell Count 6.14 K/mm3 (4.00-11.30)
[2022-09-22 09:29] LABS: Hemoglobin 11.6 g/dL (13.5-17.5); Mean Corpuscular HGB 31.1 pg (26.0-34.0); Mean Corpuscular HGB Conc 38.2 g/dL (31.5-36.5)
[2022-09-22 11:41] LABS: Bun/Creatinine Ratio 19.8 (12.0-20.0); Creatinine, Blood 1.26 mg/dL (0.60-1.20); Potassium, Blood 4.5 mmol/L (3.5-5.5)
[2022-09-22 16:46] LABS: Calcium, Blood 6.7 mg/dL (8.5-10.1); Creatinine, Blood 1.16 mg/dL (0.60-1.20); Potassium, Blood 4.9 mmol/L (3.5-5.5)
[2022-09-22 23:39] LABS: Calcium, Blood 6.9 mg/dL (8.5-10.1); Creatinine, Blood 1.12 mg/dL (0.60-1.20); Potassium, Blood 4.6 mmol/L (3.5-5.5)
[2022-09-23 04:24] LABS: Creatinine, Blood 1.13 mg/dL (0.60-1.20); Potassium, Blood 4.6 mmol/L (3.5-5.5)
--- NOTE | 2022-09-23 05:02 | NUR ---
SHIFT SUMMARY BEGINNING OF SHIFT, PT PULLING IV OUT, RIPPING OFF OSTOMY, GETTING OUT OF BED, HITTING HEAD/BITING SELF. PLACED IN VEST/SBWRS. HAS BEEN DOWNGRADED SINCE THEN. NEW IV PLACED. PT REMAINS NPO. PT CRIES ABOUT THIS OFTEN AND YELLS OUT FOR FOOD. PT TOLERATED HIS PO MEDS CRUSHED IN APPLESAUCE WELL WITHOUT SIGNS OF ASPIRATION. WILL PLAN FOR SECOND SPEECH EVAL TODAY. OTHERWISE, PT BEING MORE COOPERATIVE WITH CARE TOWARDS END OF SHIFT. BED ALARM ON. BED IN LOW POSITION.
--- NOTE | 2022-09-23 09:20 | NUR ---
AM NOTE: PATIENT AT BASELINE MENTATION. ALERT TO SELF. PATIENT SEEMS TO BE HAPPY THIS MORNING ASKING FOR FOOD AND TALKING ABOUT UPCOMING HOLIDAYS. CAREGIVER AT BEDSIDE. SPEECH THERAPY IN THIS AM AND DIET ORDERED. PATIENT ABLE TO TAKE MEDS CRUSHED IN APPLESAUCE. PATIENT ABLE TO SIT UP ON EDGE OF BED AND FOLLOW SIMPLE COMMANDS. RESTRAINTS DISCONTINUED THIS AM, CAREGIVER IS AT BEDSIDE. SPOKE WITH DR. NAVAS THIS AM, REGARDING NO IV. NO IV ACCESS ORDER AT THIS TIME, WILL CONTINUE TO REASSES. VITALS SIGNS WNL. ON ROOM AIR SATING ABOVE 94%. LUNGS SOUNDING CLEAR. OCCASIONAL COUGH. RESPIRATIONS EVEN AND UNLABORED. HEART SOUNDS WNL. DENIES CHEST PAIN/PRESSURE. BP STABLE. NO SIGNS OF EDEMA. EATING WNL PER SPEECH THERAPY ORDERS. COLOSTOMY IN PLACE DRAINING SOFT STOOL. ATTENDS IN PLACE FOR INCONT EPISODES OF URINE. GROIN/ABDOMINAL FOLDS EXCORIATED AND RED. CLEANED AND POWDER APPLIED. DR. SHERWOOD BY TO SEE PATIENT THIS AM. PLACE FOR MEDICAL STATUS AND NA LAB DRAW AT 1200. ORDERS IN PLACE. PATIENT AND CAREGIVER WATCHING CARTOONS AT THIS TIME. WILL CONTINUE TO MONITOR.
--- NOTE | 2022-09-23 12:36 | NUR ---
1200 NA LAB RESULT CALLED INTO DR. NAVAS. NO NEW ORDERS FOR THIS RN TO PLACE. DR. NAVAS TO PLACE 09/24 AM LABS. 1200 VITALS REMAIN STABLE. PATIENT EATING PUREE DIET AND CONSUMED 100% OF LUNCH. DRINKING WATER WELL. BED ALARM ON.
[2022-09-23 18:25] LABS: Calcium, Blood 6.9 mg/dL (8.5-10.1); Creatinine, Blood 1.17 mg/dL (0.60-1.20)
--- NOTE | 2022-09-23 18:28 | NUR ---
SHIFT SUMMARY/TRANSFER NOTE- PT TRANSFERED TO MEDICAL FLOOR FROM PCU. RECIEVED REPORT FROM PHARMACY SERVICES REPRESENTATIVEEKATERINA GOODMAN. PT TRANSFERED UP IN THE BED. PER REPORT PT HAS REMOVED HIS OSTOMY APPLIANCE 4 TIMES THIS SHIFT. THE PT IS DEVELOPEMENTALLY DELAYED AND AUTISTIC (PER MD NOTE) HE WILL HIT HIS OWN HEAD AND BIT HIMSELF IF HE GETS UPSET. FOR THIS SELF ENDANGERING BEHAVIOR HE HAS BEEN PLACED IN RESTRAINTS DURRING THIS HOSPITAL STAY, RESTRAINT WAS DC'D AT THE START OF THIS SHIFT TODAY. PT WAS CRYING WHEN HE ARRIVED ON MEDICAL FLOOR, BUT IS CURRENTLY PLEASENT WATCHING CARS, OSTOMY APPLIANCE COVERED WITH BLANKETS TO HELP KEEP IT OUT OF SIGHT. WILL CTM AND PASS ON TO NIGHT RN IN BEDSIDE REPORT.
--- NOTE | 2022-09-23 18:31 | NUR ---
TRANSFER: NO ACUTE CHANGES. 1800 NA LAB DRAWN, WAITING FOR RESULTS. REPORTED OFF TO SHAYY TOBAR. PATIENT EATING WELL. UPSET AND YELLING OUT THIS AFTERNOON, AT TIMES HITTING SELF. CALMS DOWN WITH RN OR BACK TENDER FOURDRINIER PRESENCE IN ROOM. TRANSFERRED UPSTAIRS WITH ALL PERSONAL BELONGINGS AND CHART.
--- NOTE | 2022-09-24 06:00 | NUR ---
END OF SHIFT NURSING REPORT Received report from out going RN and resumed PT care. Patient resting in bed, declines any distress. 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 1930: Removed colostomy bag and attempted to throw it at STATE EDITOR - missed and splatered colostomy content onto wall. Guidance, compassion and deescalation tactics used to soothe pt cipriano. CN and nurse mortgage operations manager notified of patient behavior and need for a sitter. No Sitter available at this time. 2229: Patient placed on soft bilateral upper extrimity RESTRAINS following a tantrum episode. He removed colostomy bag, flung it across the room and started stricking his own face during clean up. scant bleeding noted on stoma from patient grabbing at it. Dr Lambert notified of current behavior and ordered to maintain restrains to prevent self harm. 0340: Was able to free right restrain, and was found biting his wrist and arm. No skin break, skin red. Restrain put back on and patient distracted. Patient stayed up all night, and fell asleep around 0630.
[2022-09-24 06:54] LABS: Bun/Creatinine Ratio 8.8 (12.0-20.0); Creatinine, Blood 1.25 mg/dL (0.60-1.20); Potassium, Blood 4.6 mmol/L (3.5-5.5)
[2022-09-24 14:18] LABS: Bun/Creatinine Ratio 8.7 (12.0-20.0); Creatinine, Blood 1.15 mg/dL (0.60-1.20); Potassium, Blood 4.4 mmol/L (3.5-5.5)
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
--- NOTE | 2022-09-24 19:43 | NUR ---
X-RAY TO RIGHT KNEE AND WRIST Received report from out going RN and resumed PT care. Patient resting in bed, sitter Lauren at bedside. Patient had a fall darian 1635 and seemed to be distressed and crying about right knee and right wrist. MD notified and X-ray orded.
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
[2022-09-25 06:12] LABS: Bun/Creatinine Ratio 6.1 (12.0-20.0); Calcium, Blood 6.8 mg/dL (8.5-10.1); Creatinine, Blood 1.32 mg/dL (0.60-1.20); Potassium, Blood 4.5 mmol/L (3.5-5.5)
[2022-09-25 16:55] LABS: Bun/Creatinine Ratio 5.1 (12.0-20.0); Calcium, Blood 7.2 mg/dL (8.5-10.1); Creatinine, Blood 1.17 mg/dL (0.60-1.20); Potassium, Blood 4.6 mmol/L (3.5-5.5)
--- NOTE | 2022-09-25 19:16 | NUR ---
SHIFT SUMMARY: NO CHANGES THIS SHIFT. PATIENT STILL ON BILATERAL SOFT WRIST RESTRAINTS. PATIENT STILL NOT FOLLOWING DIRECTIONS AND SOME EPISODE OF YELLING OUT. RECEIVED BEDBATH AND LINEN CHANGED. OSTOMY PRODUCING LIQUID GREENISH BROWN STOOL ABOUT 3700 MLS THIS SHIFT. IV TO L FOREARM INFUSING NS AT 150 MLS/HR. NA IMPROVING FROM 126 TO 129 TODAY. Q2 TURN, APPLIED MEDICATED POWDER TO GROIN, FOLDS AREA AND ATTENDS CHANGED T/O SHIFT. BED ALARM ON FOR SAFETY. CALL LIGHT IN REACH.
[2022-09-26 05:42] LABS: Bun/Creatinine Ratio 5.6 (12.0-20.0); Calcium, Blood 7.7 mg/dL (8.5-10.1); Creatinine, Blood 1.24 mg/dL (0.60-1.20); Potassium, Blood 4.7 mmol/L (3.5-5.5)
--- NOTE | 2022-09-26 06:00 | NUR ---
END OF SHIFT NURSING REPORT Mr Beavers presented in the ED on Aug with Hypotention and admitted with hyponatrimia 119. He lives in [facility] home with hx of Autisim and developmental delay. He has a RUQ colostomy with increased output total of 5350ml within the last 24 hours. Ostomy output is watery with semi-digested food particles. He is continues on soft bilateral wrist restrains to protect self and caregivers. He manageed to loosen up R-Wrist restrain and immediately remove colostomy bag and base. Stoma intact intact, without trauma or bleeding. Stoma and abdomen cleaned and new colostomy base and bag applied with paste. Restrains re-adjusted and patient repositioned. frequent rounding continued for the rest of the shift.
[2022-09-26 12:26] LABS: Bun/Creatinine Ratio 5.9 (12.0-20.0); Calcium, Blood 7.5 mg/dL (8.5-10.1); Creatinine, Blood 1.19 mg/dL (0.60-1.20); Potassium, Blood 4.8 mmol/L (3.5-5.5)
--- NOTE | 2022-09-26 16:25 | NUR ---
SHIFT SUMMARY PATIENT IS ALERT BUT NOT ORIENTED. PATIENT REMAINS ORIENTED TO SELF AND LOCATION. PATIENT HAS HAD NO ACUTE EVENTS THIS SHIFT. VITAL SIGNS REVIEWED. PATIENT HAS HAD THEIR RESTRAINTS RENEWED IN BEGINNING OF SHIFT FOR SAFETY AND PULLING AT LINES. PATIENTS WAS SUPPOSED TO DISCHARGE BACK TO [facility]. DISCHARGE WAS CANCELLED DUE TO PATIENTS SODIUM FALLING 2PTS. AWARE AND ORDERED NS INFUSION AT 150HR. PATIENT HAS BEEN RESTING MOST OF SHIFT. PATIENT HAS HAD NO COMPLAINTS OF PAIN, NAUSEA, SOB OR VOMITTING THIS SHIFT. WILL MONITOR UNTIL SHIFT CHANGE.
[2022-09-27 05:47] LABS: Bun/Creatinine Ratio 4.7 (12.0-20.0); Calcium, Blood 7.2 mg/dL (8.5-10.1); Creatinine, Blood 1.27 mg/dL (0.60-1.20); Potassium, Blood 4.4 mmol/L (3.5-5.5)
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
--- NOTE | 2022-09-27 07:00 | NUR ---
RESTRAINTS RENEWED PATIENT CONTINUES TO BE HIGH FALL RISK AND HAVING UNSAFE BEHAVIORS (SELF HARM BY PUNCHING SELF IN HEAD WHENEVER FRUSTRATED, NOT FOLLOWING SIMPLE DIRECTIONS, ATTEMPTING OOB WITHOUT ASSISTANCE). Janet.O. FROM DR. NAVAS TO RENEW RESTRAINTS.
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
== END 2022-09-27 14:58 | disposition home or self-care (01) | DRG 682 ==
LOC: ER 07:53 → PCU 11:35 → MEDS 09-23 18:19
PROVIDERS: Emergency Medicine; Family Medicine; Nurse Practitioner Acute Care; ADMIT Internal Medicine
DX: N17.9 Acute kidney failure, unspecified (principal); J69.0 Pneumonitis due to inhalation of food and vomit; T83.511A Infection and inflammatory reaction due to indwelling urethral catheter, initial encounter; E87.1 Hypo-osmolality and hyponatremia; N39.0 Urinary tract infection, site not specified; K51.90 Ulcerative colitis, unspecified, without complications; F84.0 Autistic disorder; E87.20 Acidosis, unspecified; N40.0 Benign prostatic hyperplasia without lower urinary tract symptoms; N18.9 Chronic kidney disease, unspecified; E11.22 Type 2 diabetes mellitus with diabetic chronic kidney disease; K21.9 Gastro-esophageal reflux disease without esophagitis; E86.1 Hypovolemia; E03.9 Hypothyroidism, unspecified; T50.2X5A Adverse effect of carbonic-anhydrase inhibitors, benzothiadiazides and other diuretics, initial encounter; D50.9 Iron deficiency anemia, unspecified; R63.1 Polydipsia; N31.9 Neuromuscular dysfunction of bladder, unspecified; I12.9 Hypertensive chronic kidney disease with stage 1 through stage 4 chronic kidney disease, or unspecified chronic kidney disease; I95.9 Hypotension, unspecified; E78.5 Hyperlipidemia, unspecified; F32.A Depression, unspecified; F29 Unspecified psychosis not due to a substance or known physiological condition; Q67.6 Pectus excavatum; Z86.14 Personal history of Methicillin resistant Staphylococcus aureus infection; Z87.19 Personal history of other diseases of the digestive system; Z87.09 Personal history of other diseases of the respiratory system; Z90.49 Acquired absence of other specified parts of digestive tract; Z93.2 Ileostomy status; Z93.1 Gastrostomy status; Z93.3 Colostomy status; Z98.890 Other specified postprocedural states; Z88.2 Allergy status to sulfonamides; Z88.8 Allergy status to other drugs, medicaments and biological substances; Z79.01 Long term (current) use of anticoagulants; Z79.4 Long term (current) use of insulin; Z79.51 Long term (current) use of inhaled steroids; Z79.82 Long term (current) use of aspirin; Z79.899 Other long term (current) drug therapy; Y84.6 Urinary catheterization as the cause of abnormal reaction of the patient, or of later complication, without mention of misadventure at the time of the procedure
CPT/HCPCS: 36415; 51702; 71045; 73120; 73560-RT; 74176; 80048; 80053; 81001; 82533; 82728; 82947; 83540; 83550; 83930; 83935; 84145; 84295; 84300; 84443; 85025; 87086; 92526; 92610; 94760; 96361-59; 96365-59; 96366-59; 99285-25; A9270; J0295; J1650; J1815; J7030

== ENCOUNTER 2023-01-12 22:51 | Emergency (ER) | payer OTHER ==
[~2023-01-12] VITALS: Ht 185.4 cm; Wt 131.5 kg
[2023-01-12 23:22] LABS: BASOPHILS ABSOLUTE AUTO 0.05 K/mm3 (0.00-0.23); BASOPHILS PERCENT AUTO 1 % (0-2); EOSINOPHILS ABSOLUTE AUTO 0.28 K/mm3 (0.00-0.68); EOSINOPHILS PERCENT AUTO 4 % (0-6); Hematocrit 34.4 % (37.0-53.0); Hemoglobin 12.5 g/dL (13.5-17.5); IMMATURE GRAN ABSOLUTE AUTO 0.08 K/mm3 (0.00-0.10); IMMATURE GRAN PERCENT AUTO 1 % (0-1); LYMPHOCYTES PERCENT AUTO 14 % (21-46); MONOCYTES ABSOLUTE AUTO 0.77 K/mm3 (0.16-1.47); MONOCYTES PERCENT AUTO 10 % (4-13); Mean Corpuscular HGB 30.9 pg (26.0-34.0); Mean Corpuscular HGB Conc 36.3 g/dL (31.5-36.5); Mean Corpuscular Volume 85 fL (80-100); Mean Platelet Volume 8.7 fL (9.1-12.4); NEUTROPHILS ABSOLUTE AUTO 5.39 K/mm3 (1.96-9.15); NEUTROPHILS PERCENT AUTO 70 % (41-73); Platelet Count 168 K/mm3 (150-400); RDW Coefficient Variation 11.9 % (11.7-14.2); RDW Standard Deviation 36.6 fL (35.1-46.3); Red Blood Cell Count 4.05 M/mm3 (4.30-5.90); White Blood Cell Count 7.67 K/mm3 (4.00-11.30)
[2023-01-12 23:41] LABS: Albumin, Blood 3.4 g/dL (3.4-5.0); Bilirubin, Total 0.5 mg/dL (0.1-1.0); Bun/Creatinine Ratio 15.1 (12.0-20.0); Calcium, Blood 8.2 mg/dL (8.5-10.1); Creatinine, Blood 0.93 mg/dL (0.60-1.20); Globulin, Blood 3.4 g/dL (2.2-4.0); Potassium, Blood 4.2 mmol/L (3.5-5.5); Total Protein, Blood 6.8 g/dL (6.4-8.2)
[2023-01-13 02:58] LABS: Source, Urine Clean Catch
[2023-01-13 03:01] LABS: Bilirubin, Urine Neg (Neg); Blood, Urine Neg (Neg); Glucose Qualitative, Urine 2+ (Neg); Ketones, Urine Neg (Neg); Leukocyte Esterase, Urine Neg (Neg); Nitrite, Urine Neg (Neg); Protein, Urine 1+ (Neg); Urobilinogen, Urine NORM (Normal); pH, Urine 6.5 (5.0-8.0)
[2023-01-13 03:10] LABS: Appearance, Urine Clear (Clear); Color, Urine Yellow (P-Yellow)
[2023-01-13 04:18] LABS: Bun/Creatinine Ratio 15.7 (12.0-20.0); Calcium, Blood 7.9 mg/dL (8.5-10.1); Creatinine, Blood 0.96 mg/dL (0.60-1.20); Potassium, Blood 4.3 mmol/L (3.5-5.5)
[2023-01-13 05:22] VITALS: BP 137/84
== END 2023-01-13 04:51 | disposition home or self-care (01) ==
LOC: ER 22:51
PROVIDERS: Student in an Organized Health Care Education/Training Program
DX: R10.9 Unspecified abdominal pain (principal); E87.1 Hypo-osmolality and hyponatremia; Z88.2 Allergy status to sulfonamides; Z88.1 Allergy status to other antibiotic agents; Z79.899 Other long term (current) drug therapy; Z79.4 Long term (current) use of insulin; Z79.82 Long term (current) use of aspirin; E11.22 Type 2 diabetes mellitus with diabetic chronic kidney disease; N18.9 Chronic kidney disease, unspecified; K21.9 Gastro-esophageal reflux disease without esophagitis; I12.9 Hypertensive chronic kidney disease with stage 1 through stage 4 chronic kidney disease, or unspecified chronic kidney disease; E03.9 Hypothyroidism, unspecified; E78.5 Hyperlipidemia, unspecified
CPT/HCPCS: 74177; 80048; 80053; 83690; 85025; 99284; J7030; Q9967

== ENCOUNTER 2023-04-28 09:33 | Day surgery (SDC) | payer OTHER ==
[~2023-04-28] VITALS: Ht 177.8 cm; Wt 92.3 kg
[2023-04-28 12:20] VITALS: BP 142/95
== END 2023-04-28 12:10 | disposition home or self-care (01) ==
LOC: ORSCSDS 09:33
PROVIDERS: Surgery
PROC: 0DJD8ZZ Inspection of Lower Intestinal Tract, Via Natural or Artificial Opening Endoscopic (ICD-10-PCS; principal; 2023-04-28 10:45)
DX: K62.89 Other specified diseases of anus and rectum (principal); E11.9 Type 2 diabetes mellitus without complications; I10 Essential (primary) hypertension; G47.33 Obstructive sleep apnea (adult) (pediatric); F84.0 Autistic disorder; E03.9 Hypothyroidism, unspecified; Z79.4 Long term (current) use of insulin; Z79.82 Long term (current) use of aspirin; Z79.899 Other long term (current) drug therapy
CPT/HCPCS: 82947; J2704; J7120

== ENCOUNTER → 2023-07-27 | Outpatient (CLI) | payer OTHER | END | disposition home or self-care (01) | LOC: LAB 12:00 → LAB SHORT 12:00 | DX: L30.9 Dermatitis, unspecified (principal) | CPT/HCPCS: 87210 ==

== ENCOUNTER → 2023-08-24 | Outpatient (CLI) | payer OTHER | LOC: LAB 12:36 → LAB SHORT 12:36 | PROVIDERS: Family Medicine | DX: E11.9 Type 2 diabetes mellitus without complications (principal) | CPT/HCPCS: 82043; 82570 ==

== ENCOUNTER → 2023-09-15 | Outpatient (CLI) | payer OTHER ==
[2023-09-15 19:07] LABS: Creatinine, Urine Random 12.8 mg/dL (27.00-270.00); Microalb/Creat Ratio UR, Rand 117.969 mg/g (0.000-30.000); Microalbumin, Random Urine 15.1 mg/L (0.000-20.000)
== END ==
LOC: LAB 10:30 → LAB SHORT 10:30
PROVIDERS: Family Medicine
DX: E11.42 Type 2 diabetes mellitus with diabetic polyneuropathy (principal); E11.69 Type 2 diabetes mellitus with other specified complication; E87.1 Hypo-osmolality and hyponatremia
CPT/HCPCS: 82043; 82570; 83935; 84300

== ENCOUNTER 2023-10-19 14:34 | Inpatient (IN) | payer OTHER ==
[~2023-10-19] VITALS: Ht 167.6 cm; Wt 88.7 kg
[2023-10-19] MEDS ORDERED: NS 1,000 ML IV SCH (14:45)
[2023-10-19 15:02] LABS: BASOPHILS ABSOLUTE AUTO 0.07 K/mm3 (0.00-0.23); BASOPHILS PERCENT AUTO 1 % (0-2); EOSINOPHILS ABSOLUTE AUTO 0.32 K/mm3 (0.00-0.68); EOSINOPHILS PERCENT AUTO 2 % (0-6); Hematocrit 45.4 % (37.0-53.0); Hemoglobin 15.4 g/dL (13.5-17.5); IMMATURE GRAN ABSOLUTE AUTO 0.27 K/mm3 (0.00-0.10); IMMATURE GRAN PERCENT AUTO 2 % (0-1); LYMPHOCYTES ABSOLUTE AUTO 2.03 K/mm3 (0.84-5.20); LYMPHOCYTES PERCENT AUTO 14 % (21-46); MONOCYTES ABSOLUTE AUTO 0.99 K/mm3 (0.16-1.47); MONOCYTES PERCENT AUTO 7 % (4-13); Mean Corpuscular HGB Conc 33.9 g/dL (31.5-36.5); Mean Corpuscular Volume 88 fL (80-100); Mean Platelet Volume 9.7 fL (9.1-12.4); NEUTROPHILS ABSOLUTE AUTO 10.49 K/mm3 (1.96-9.15); NEUTROPHILS PERCENT AUTO 74 % (41-73); Platelet Count 367 K/mm3 (150-400); RDW Coefficient Variation 12.1 % (11.7-14.2); RDW Standard Deviation 39.6 fL (35.1-46.3); Red Blood Cell Count 5.14 M/mm3 (4.30-5.90); White Blood Cell Count 14.17 K/mm3 (4.00-11.30)
[2023-10-19] MEDS ORDERED: Diltiazem HCl 5 MG / ML 5ML Vial IV ONE (15:20)
[2023-10-19 15:33] LABS: Albumin, Blood 3.2 g/dL (3.4-5.0); Albumin/Globulin Ratio 0.7 (0.8-1.8); Bilirubin, Total 0.6 mg/dL (0.1-1.0); Bun/Creatinine Ratio 17.2 (12.0-20.0); Creatinine, Blood 6.05 mg/dL (0.60-1.20); Globulin, Blood 4.8 g/dL (2.2-4.0); Magnesium, Blood 1.3 mg/dL (1.6-2.4); Potassium, Blood 4.8 mmol/L (3.5-5.5)
[2023-10-19] MEDS ORDERED: BELSOMRA10 MG PO (15:42)
[2023-10-19 15:43] LABS: Influenza A, PCR NEGATIVE (NEGATIVE); Influenza B, PCR NEGATIVE (NEGATIVE); Resp Syncytial Virus, PCR NEGATIVE (NEGATIVE); SARS-Cov-2 (COVID-19) PCR, MMC NEGATIVE (NEGATIVE)
[2023-10-19 16:51] LABS: Source, Urine Clean Catch
[2023-10-19 16:54] LABS: Appearance, Urine Cloudy (Clear); Bilirubin, Urine Neg (Neg); Blood, Urine 5+ (Neg); Color, Urine Yellow (P-Yellow); Glucose Qualitative, Urine Neg (Neg); Ketones, Urine Neg (Neg); Leukocyte Esterase, Urine 3+ (Neg); Nitrite, Urine Neg (Neg); Protein, Urine 3+ (Neg); Urobilinogen, Urine NORM (Normal)
[2023-10-19 17:02] LABS: Bacteria Mod /hpf; Squamous Epithelial Cells Few /hpf (Few); White Blood Cells, Urine TNTC /hpf (0-5)
[2023-10-19 17:03] LABS: Hyaline Casts 0-2 /lpf (0-2)
[2023-10-19] MEDS ORDERED: Piperacillin/Tazobactam Sod 3.375 GM in NS 50 ML IV ONE ×2 (17:25→20:05)
[2023-10-19] MEDS ORDERED: Magnesium Sulf 2 GM/Water 50ML 50 ML IV ONE (17:25)
[2023-10-19] MEDS ORDERED: Metoprolol Tartrate 1 MG/ML 5 ML VIAL IV PRN (17:35)
[2023-10-19] MEDS ORDERED: Lactated Ringer's 1,000 ML IV SCH (17:35)
[2023-10-19] MEDS ORDERED: Ondansetron HCl 2 MG / ML 2ML Vial IV PRN (17:35)
[2023-10-19] MEDS ORDERED: Albuterol 2.5 MG/3 ML VIAL INH PRN (17:40)
[2023-10-19] MEDS ORDERED: Acetaminophen 325 MG TABLET PO PRN (17:40)
[2023-10-19] MEDS ORDERED: FLU VACC QS2023-24(6MOS UP)/PF 60 MCG/0.5 ML SYRINGE IM SCH (17:40)
[2023-10-19 17:49] LABS: Thyroid Stimulating Hormone 0.661 uIU/mL (0.360-4.800)
[2023-10-19] MEDS ORDERED: Zolpidem Tartrate 5 MG Tab PO PRN (17:50)
[2023-10-19] MEDS ORDERED: Lactated Ringer's 1,000 ML IV ONE (18:00)
[2023-10-19 20:19] VITALS: BP 108/68
[2023-10-19] MEDS ORDERED: OLANZapine 5 MG Tab PO SCH (21:00)
[2023-10-19] MEDS ORDERED: Tamsulosin HCl 0.4 MG Cap PO SCH (21:00)
[2023-10-19] MEDS ORDERED: BusPIRone HCl 10 MG Tab PO SCH (21:00)
[2023-10-19] MEDS ORDERED: Aspirin 81 MG TabEC PO SCH (21:00)
[2023-10-19] MEDS ORDERED: Metoprolol Tartrate 25 MG Tab PO SCH (21:00)
[2023-10-19 21:04] VITALS: BP 87/59
[2023-10-19] MEDS ORDERED: OLAN10 PO (21:20)
[2023-10-19 21:30] VITALS: BP 85/56
[2023-10-19 21:49] LABS: Bun/Creatinine Ratio 17.9 (12.0-20.0); Calcium, Blood 9.6 mg/dL (8.5-10.1); Creatinine, Blood 5.8 mg/dL (0.60-1.20); Potassium, Blood 4.9 mmol/L (3.5-5.5)
[2023-10-19 22:00] VITALS: BP 82/62
[2023-10-19 22:30] VITALS: BP 95/67
[2023-10-19 23:00] VITALS: BP 92/62
[2023-10-20] VITALS (8 sets, daily range): BP systolic 92–118; BP diastolic 55–86
[2023-10-20 04:13] LABS: Hematocrit 41.6 % (37.0-53.0); Hemoglobin 13.8 g/dL (13.5-17.5); Mean Corpuscular HGB 29.7 pg (26.0-34.0); Mean Corpuscular HGB Conc 33.2 g/dL (31.5-36.5); Mean Corpuscular Volume 90 fL (80-100); Mean Platelet Volume 9.8 fL (9.1-12.4); Platelet Count 311 K/mm3 (150-400); RDW Coefficient Variation 12.1 % (11.7-14.2); RDW Standard Deviation 39.8 fL (35.1-46.3); Red Blood Cell Count 4.65 M/mm3 (4.30-5.90); White Blood Cell Count 13.13 K/mm3 (4.00-11.30)
[2023-10-20 04:34] LABS: Albumin, Blood 2.8 g/dL (3.4-5.0); Albumin/Globulin Ratio 0.7 (0.8-1.8); Bilirubin, Total 0.5 mg/dL (0.1-1.0); Bun/Creatinine Ratio 19.6 (12.0-20.0); Calcium, Blood 9.3 mg/dL (8.5-10.1); Creatinine, Blood 5.05 mg/dL (0.60-1.20); Globulin, Blood 4.2 g/dL (2.2-4.0); Magnesium, Blood 1.8 mg/dL (1.6-2.4); Potassium, Blood 4.4 mmol/L (3.5-5.5)
--- NOTE | 2023-10-20 04:45 | NUR ---
SHIFT SUMMARY PT TRANSFERRED TO UNIT AT 2014. PT ABLE TO TRANSFER FROM GURNEY TO BED WITH 1P ASSIST. CAREGIVER AT BEDSIDE T/O THIS SHIFT FROM [facility]. PT ABLE TO ANSWER SIMPLE QUESTIONS. MOSTLY ORIENTED TO SELF. CHILD-LIKE MENTATION NOTED. MUMBLED/SLURRED SPEECH MAKES COMMUNICATION DIFFICULT. PT WITH AFIB. AT TIME OF TRANSFER HR 130-140'S, 2.5 MG LOPRESSOR PUSH GIVEN WITH SBP 110'S AT TIME OF ADMINISTRATION. AFTER HR 100-110'S, SBP 80-90'S FOR THE REMAINDER OF THIS SHIFT. HR CONTINUES TO MAINTAIN 100-110'S. NO FURTHER PUSHES GIVEN. MAP >65. ON RA WITH SPO2 >92%. LR INFUSING PER EMAR. INCONTINENT OF URINE. OSTOMY APPLIANCE CHANGED PRIOR TO ADMISSION; DARK GREEN LOOSE OUTPUT NOTED, EMPTIED X1 THIS SHIFT. REPOSITIONING Q2HRS. REDNESS NOTED IN REMIGIO/ABDOMINAL FOLDS; CLEANED WITH POWDER APPLIED. BED IN LOWEST POSITION AND CALL LIGHT WITHIN REACH. THIS RN WILL REPORT TO ONCOMING DAYSHIFT RN.
[2023-10-20] MEDS ORDERED: Levothyroxine Sodium 0.025 MG Tab PO SCH (06:00)
[2023-10-20] MEDS ORDERED: Omeprazole 20 MG CapCR PO SCH (06:00)
[2023-10-20] MEDS ORDERED: Levothyroxine Sodium 0.1 MG Tab PO SCH (06:00)
--- NOTE | 2023-10-20 06:27 | NUR ---
PATIENT UPDATE CALL PLACED TO MD WOO REGARDING AFIB WITH HR 120-130'S, AND SBP 80-90'S. MD WOO WITH ORDER TO GIVE 250MLS LR BOLUS, AND TO START AMIODARONE BOLUS AND DRIP. LS CLEAR. NO NOTED S/S OF FLUID OVERLOAD. PT ANSWERING QUESTIONS. NO FURTHER ORDERS
[2023-10-20] MEDS ORDERED: Lactated Ringer's 250 ML IV SCH ×2 (06:30→06:45)
[2023-10-20] MEDS ORDERED: Insulin Human Lispro 100 Units/ML 3ML Syringe SC SCH (07:30)
[2023-10-20] MEDS ORDERED: Heparin Sodium,Porcine 5,000 UNIT/0.5 ML SDV SC SCH (09:00)
[2023-10-20] MEDS ORDERED: Piperacillin/Tazobactam Sod 3.375 GM in NS 50 ML IV SCH (09:00)
--- NOTE | 2023-10-20 11:28 | NUR ---
"Spiritual Care | Pt. request Pt. is in bed, and acaregiver is at bedside and welcomes my visit. Pt. is pleasant but displays evidence of an intellectual disability. Attempts to connect with the Pt. were unsuccesful. When this slp teacher offered to pray, there was no response and Pt. drifted asleep. The caregiver verbalized gratitude for the spiritual care visit."
[2023-10-20] MEDS ORDERED: Miconazole Nitrate 2% 85 GM PWD TOP PRN (13:45)
--- NOTE | 2023-10-20 18:15 | NUR ---
ASSUMED CARE OF PT AT 0700 THIS AM. NO ACUTE EVENTS T/O THE SHIFT. PT HAS BEEN ON AMIO GTT PER MD ORDERS ALL DAY. POWERGLIDE TO GEOVANI PLACED THIS AM. PT HAS BEEN RESTING MOST OF THE DAY WITH EYES CLOSED, RESPIRATIONS EVEN AND UNLABORED. [facility] STAFF HAVE BEEN AT BEDSIDE T/O THE SHIFT. THEY REPORT PT IS MORE LETHARGIC THAN HIS BASELINE, BUT HE AWAKENS TO NAME, IS ABLE TO FOLLOW DIRECTIONS AND ANSWER SIMPLE QUESTIONS. DISCUSSED HOME MEDICATION CONCERNS BROUGHT UP BY CAREGIVERS W DR HENDERSON THIS EVENING. ORDERS TO CHECK TSH IN AM FOR LEVOTHYROXINE DOSAGE. PT HAS BEEN LETHARGIC MOST OF THE DAY, OLANZIPINE NOT INCREASED TO HOME DOSAGE AT THIS TIME PER DR HENDERSON. [facility] STAFF ALSO STATES PT TAKES CLONAZEPAM AT BEDTIME FOR BEHAVIORAL DISTURBANCES IN ADDITION TO THE OLANZIPINE. PLAN IS TO MONITOR PT AND ORDER THESE MEDICATIONS APPROPRIATE. ECHO NOT COMPLETED TODAY D/T HR>100. DR HENDERSON NOTIFIED. HR CONTROL HAS BEEN BETWEEN 100-120 AT REST, UP TO 140s WITH ACTIVITY. DR HENDERSON NOTIFIED. BPs HAVE BEEN IN THE 90s SYSTOLIC, UNABLE TO GIVE METOPROLOL IV PUSH FOR BETTER HR CONTROL. DR HENDERSON MADE AWARE. RENAL US COMPLETED AND RESULTS AVAILABLE IN CHART. [facility] STAFF CONTINUES TO BE AT BEDSIDE, THEY WILL CALL WITH ANY PT NEEDS. PT RESTING COMFORTABLY AT THIS TIME. WILL CONTINUE TO MONITOR AND GIVE REPORT TO [facility] SHIFT RN.
[2023-10-20] MEDS ORDERED: Lactobacil 2-S.Thermo-Bifido 1 1 Cap PO SCH (21:00)
[2023-10-20] MEDS ORDERED: Metoprolol Tartrate 25 MG Tab PO SCH (21:00)
[2023-10-21 00:02] VITALS: BP 91/64
[2023-10-21 04:00] LABS: Albumin, Blood 2.8 g/dL (3.4-5.0); Anion Gap 4 mmol/L (6-16); Blood Urea Nitrogen 89 mg/dL (8-24); Bun/Creatinine Ratio 23.3 (12.0-20.0); CO2, Blood 22 mmol/L (21-32); Calcium, Blood 9.3 mg/dL (8.5-10.1); Chloride, Blood 114 mmol/L (98-108); Creatinine, Blood 3.82 mg/dL (0.60-1.20); Glomerular Filtration Rate 16 (60-); Glucose, Blood 160 mg/dL (70-99); Magnesium, Blood 1.6 mg/dL (1.6-2.4); Phosphorus, Blood 3.8 mg/dL (2.5-4.9); Potassium, Blood 4.6 mmol/L (3.5-5.5); Sodium, Blood 140 mmol/L (136-145); Thyroxine (T4) 10.4 ug/dL (4.5-12.1); Vancomycin, Random 22.3 ug/mL
[2023-10-21 05:37] VITALS: BP 101/90
--- NOTE | 2023-10-21 06:06 | NUR ---
SHIFT SUMMARY ASSUMED CARE OF PT AT 1900. ORIENTATION DIFFICULT TO ASSESS DUE TO MENTATION. [facility] PT ABLE TO SAY ONE WORD SENTENCES. TELE SHOWED AFIB. PT HR WAS BETWEEN 110-120. LUNG SOUNDS DIMINISHED. PT TORE OFF OSTOMY ONCE THIS SHIFT. PT WAS INCONTIENT EXCEPT FOR ONCE. URINE CLOUDY WITH SEDIMENT. PT PICKED AT LINES. CAREGIVER IN ROOM TO REDIRECT.
[2023-10-21 07:44] VITALS: BP 146/74
[2023-10-21] MEDS ORDERED: Metoprolol Tartrate 50 MG Tab PO SCH (09:00)
[2023-10-21] MEDS ORDERED: Metoprolol Succinate 25 MG TABCR PO SCH (09:00)
[2023-10-21 12:19] VITALS: BP 143/96
[2023-10-21] MEDS ORDERED: ClonazePAM 1 MG Tab PO PRN (16:25)
[2023-10-21] MEDS ORDERED: OLANZapine 5 MG Tab PO SCH (16:30)
[2023-10-21 16:40] VITALS: BP 125/83
--- NOTE | 2023-10-21 18:20 | NUR ---
ASSUMED CARE OF PT AT 0700 THIS AM. NO ACUTE CHANGES T/O THE SHIFT. [facility] STAFF AT BEDSIDE ALL DAY. THEY REPORT PT IS NEARLY BACK TO BASELINE. PT HAS PULLED OUT LFA IV TODAY AND PULLED OF HIS OSTOMY APPLIANCE X 2. PT NOTED TO BE BECOMING MORE AGITATED THIS AFTERNOON. DR HENDERSON NOTIFIED AND HOME DOSE OF OLANZIPINE AND CLONAZEPAM ORDERED. OLANZIPINE EFFECTIVE FOR AGITATION AND CLONAZEPAM IS PRN. POWERGLIDE REMAINS INTACT TO GEOVANI. SEE DOCUMENTED VS AND ASSESSMENT FOR FURTHER DETAILS. [facility] STAFF ABLE TO USE CALL LIGHT FOR PT NEEDS. BED IN LOWEST LOCKED POSITION. WILL CONTINUE TO MONITOR AND GIVE REPORT TO NOC SHIFT RN.
[2023-10-21 20:15] VITALS: BP 132/78
[2023-10-21] MEDS ORDERED: OLANZapine 10 MG Tab PO SCH (21:00)
[2023-10-21] MEDS ORDERED: Doxycycline Hyclate 100 MG TAB PO SCH (21:00)
[2023-10-22] MEDS ORDERED: Melatonin 5 MG Tablet PO PRN (01:00)
[2023-10-22] MEDS ORDERED: Melatonin 5 MG Tablet PO ONE (01:00)
--- NOTE | 2023-10-22 05:15 | NUR ---
SHIFT SUMMARY ASSUMED CARE OF PT AT 1900. PT IS ALERT AND CAREGIVER SAYS PT IS BACK AT BASELINE MENTATION. LUNG SOUNDS DIMINISHED. TELE SHOWS AFIB IN THE 110-120BPM. PT WAS PLEASENT UNTIL ABOUT 0030 WHEN HE BECAME VERY AGITATED AND TORE OFF HIS OSTOMY BAG AND TELE STICKERS. PT REFUSED TO HAVE THEM BACK ON AND TRIED TO GET OUT OF BED MULTIPLE TIMES. CAREGIVER SAID THIS IS UNUSAL BEHAVIOR FOR HIM. PT GIVEN PRN MEDICATIONS AND FELL ASLEEP AROUND 0100. PT HAS BEEN SLEEPING SINCE UNDISTURBED.
[2023-10-22 05:50] VITALS: BP 152/97
[2023-10-22 06:02] LABS: Hematocrit 36.6 % (37.0-53.0); Hemoglobin 12.3 g/dL (13.5-17.5); Mean Corpuscular HGB 29.9 pg (26.0-34.0); Mean Corpuscular HGB Conc 33.6 g/dL (31.5-36.5); Mean Corpuscular Volume 89 fL (80-100); Mean Platelet Volume 9.4 fL (9.1-12.4); Platelet Count 253 K/mm3 (150-400); RDW Standard Deviation 39.5 fL (35.1-46.3); Red Blood Cell Count 4.11 M/mm3 (4.30-5.90); White Blood Cell Count 7.78 K/mm3 (4.00-11.30)
[2023-10-22 06:22] LABS: Albumin, Blood 2.6 g/dL (3.4-5.0); Anion Gap 0 mmol/L (6-16); Blood Urea Nitrogen 59 mg/dL (8-24); Bun/Creatinine Ratio 23.4 (12.0-20.0); CO2, Blood 24 mmol/L (21-32); Chloride, Blood 118 mmol/L (98-108); Creatinine, Blood 2.52 mg/dL (0.60-1.20); Glomerular Filtration Rate 27 (60-); Glucose, Blood 125 mg/dL (70-99); Magnesium, Blood 1.3 mg/dL (1.6-2.4); Phosphorus, Blood 3.4 mg/dL (2.5-4.9); Potassium, Blood 4.9 mmol/L (3.5-5.5); Sodium, Blood 142 mmol/L (136-145)
[2023-10-22] MEDS ORDERED: Mag Sulfate 1 GM/D5% 100ML 100 ML IV STA (08:04)
[2023-10-22 08:10] VITALS: BP 141/87
[2023-10-22] MEDS ORDERED: Metoprolol Tartrate 50 MG Tab PO SCH (09:00)
[2023-10-22] MEDS ORDERED: Amiodarone HCl 200 MG Tab PO SCH (09:00)
[2023-10-22 15:21] VITALS: BP 143/90
--- NOTE | 2023-10-22 17:32 | NUR ---
SHIFT SUMMARY: PT SLEPT T/OUT THE MORNING, PER HIS CAREGIVERS THIS IS HIS NORMAL ROUTINE. PT ALERT T/OUT THE AFTERNOON, COOPERATIVE W/CARE, ABLE TO MAKE NEEDS KNOWN. O2 SATS MAINTAINED >93% ON RA, LS CLEAR AND DIM IN BASES W/FAINT CRACKLES HEARD TO LLL. AFIB CONTINUES ON MONITOR, RATE RANGING FROM MID 80s-110. PT REPOSITIONING SELF, BOOSTED IN BED NEEDED. ATTENDS IN PLACED, CHECKED OFTEN AND CHANGED NEEDED. OSTOMY BAG EMPTIED NEEDED. FLUIDS PLACED ON STANDBY PER PT REQUEST AND PROVIDER OKAY, PT IS DRINKING FLUIDS AND EATING. CURRENTLY, PT IS SITTING UP IN BED W/MEAL TRAY AND CAREGIVER AT BEDSIDE. WILL CONTINUE TO MONITOR AND TREAT ACCORDINGLY UNTIL CHANGE OF SHIFT.
[2023-10-22 20:00] VITALS: BP 165/91
--- NOTE | 2023-10-22 22:53 | NUR ---
ASSUMPTION OF CARE THIS RN ASSUMED CARE AT 1915, REPORT FROM EKATERINA COTTO. PT WITH DEVELOPMENTAL DELAY AT BASELINE AND UNABLE TO ANSWER ORIENTATION QUESTIONS. CAREGIVER AT BEDSIDE, PT LIVES AT [facility]. VS; SBP 165, SR - HR 85, RR22, 98.1 T, SPO2 100% ON RA. PT DENIES PAIN, DENIES DIZZINESS, SOB, CP/PRESSURE. PT DOES NOT APPEAR TO BE IN DISTRESS, IS INTERACTIVE AND ASKING THIS RN QUESTIONS AND CONVERSING. OSTOMY IN PLACE AND DRAINING LOOSE, LIQUID STOOL THAT IS GREEN/BROWN IN COLOR. PT ABLE TO VERBALIZE WHEN TO VOID USING URINAL, ATTENDS IN PLACE WELL. PT ABLE TO VERBALIZE NEEDS FOR DRINKS AND TOLERATING PO INTAKE WELL. PT SWALLOWED MEDICATIONS WELL CRUSHED IN APPLESAUCE. PT IS ABLE TO MOVE AND REPOSITION IN THE BED, ALTHOUGH ASSISTANCE NEEDED AT TIMES FOR BOOSTING OR REDJUSTING. CALL LIGHT IN REACH, BED IN LOWEST POSITION, CAREGIVER AT BEDSIDE.
[2023-10-23 00:26] VITALS: BP 150/93
[2023-10-23] MEDS ORDERED: Levothyroxine Sodium 0.112 MG Tab PO SCH (06:00)
[2023-10-23 07:33] LABS: Hemoglobin 12.2 g/dL (13.5-17.5); Mean Corpuscular HGB 29.8 pg (26.0-34.0); Mean Corpuscular HGB Conc 33.9 g/dL (31.5-36.5); Mean Corpuscular Volume 88 fL (80-100); Mean Platelet Volume 9.5 fL (9.1-12.4); Platelet Count 246 K/mm3 (150-400); RDW Coefficient Variation 11.8 % (11.7-14.2); RDW Standard Deviation 37.8 fL (35.1-46.3); Red Blood Cell Count 4.09 M/mm3 (4.30-5.90); White Blood Cell Count 7.53 K/mm3 (4.00-11.30)
--- NOTE | 2023-10-23 07:38 | NUR ---
SHIFT SUMMARY PT REMAINS AT BASELINE ORIENTATION, NO ACUTE CHANGES TO NEURO THIS SHIFT. VSS; SEE VITALS. PT IN NSR SINCE 1553 ON 10/22 PER TELE. PT REMAINS IN NSR DURING THE NIGHT WITH RATE IN 60 - 70'S, AFEBRILE, ON RA WITH SPO2 >94%. PT DENIES CP/PRESSURE, SOB, DIZZINESS, N/V. COLOSTOMY APPLIANCE INTACT, WITH GOOD OUTPUT. PT VOIDING USING URINAL, ALTHOUGH HAD ONE INCONTINENT EPISODE OF URINE THIS SHIFT. CAREGIVERS AT BEDSIDE DURING THE NIGHT. PT HAD UNEVENTFUL EVENING AND IS READY "TO GO HOME". PT TOLERATING PO INTAKE WELL PER DIET ORDERS. WILL UPDATE ONCOMING RN
[2023-10-23 07:40] LABS: Albumin, Blood 2.9 g/dL (3.4-5.0); Anion Gap 2 mmol/L (6-16); Blood Urea Nitrogen 36 mg/dL (8-24); Bun/Creatinine Ratio 19.6 (12.0-20.0); CO2, Blood 24 mmol/L (21-32); Chloride, Blood 114 mmol/L (98-108); Creatinine, Blood 1.84 mg/dL (0.60-1.20); Glomerular Filtration Rate 39 (60-); Glucose, Blood 162 mg/dL (70-99); Magnesium, Blood 1.2 mg/dL (1.6-2.4); Phosphorus, Blood 2.8 mg/dL (2.5-4.9); Potassium, Blood 4.6 mmol/L (3.5-5.5); Sodium, Blood 140 mmol/L (136-145)
[2023-10-23] MEDS ORDERED: Magnesium Sulf 2 GM/Water 50ML 50 ML IV ONE (08:40)
[2023-10-23 08:59] VITALS: BP 157/84
[2023-10-23] MEDS ORDERED: Amiodarone HCl200 MG PO (11:00)
[2023-10-23] MEDS ORDERED: DOXYCYCLINE HY100 M1 PO (11:01)
--- NOTE | 2023-10-23 12:34 | NUR ---
PT DISCHARGED THE PTS CARE GIVERS VERBALIZED UNDERSTANDING OF THE DC INSTRUCTIONS. PTS PRESCRIPTIONS FAXED TO [facility] REQUESTED. PTS OSTOMY BURPED AND INTACT AT TIME OF DC. PTS CARE GIVERS ASSISTED PT WITH DRESSING. PT TRANSFERED VIA WHEELCHAIR ACCOMPANIED BY THE CARE GIVERS
== END 2023-10-23 12:03 | disposition home or self-care (01) | DRG 872 ==
LOC: ER 14:34 → PCU 17:31
PROVIDERS: Internal Medicine; Nurse Practitioner Acute Care; Physician Assistant; ADMIT Student in an Organized Health Care Education/Training Program
DX: A41.9 Sepsis, unspecified organism (principal); N39.0 Urinary tract infection, site not specified; N17.9 Acute kidney failure, unspecified; F84.0 Autistic disorder; N18.9 Chronic kidney disease, unspecified; E11.22 Type 2 diabetes mellitus with diabetic chronic kidney disease; E83.42 Hypomagnesemia; N31.9 Neuromuscular dysfunction of bladder, unspecified; I48.91 Unspecified atrial fibrillation; I12.9 Hypertensive chronic kidney disease with stage 1 through stage 4 chronic kidney disease, or unspecified chronic kidney disease; I95.9 Hypotension, unspecified; B95.62 Methicillin resistant Staphylococcus aureus infection as the cause of diseases classified elsewhere; K21.9 Gastro-esophageal reflux disease without esophagitis; N40.0 Benign prostatic hyperplasia without lower urinary tract symptoms; F32.A Depression, unspecified; E86.0 Dehydration; E03.9 Hypothyroidism, unspecified; E78.5 Hyperlipidemia, unspecified; Z98.890 Other specified postprocedural states; Z90.49 Acquired absence of other specified parts of digestive tract; Z11.52 Encounter for screening for COVID-19; Z79.899 Other long term (current) drug therapy; Z79.4 Long term (current) use of insulin; Z87.19 Personal history of other diseases of the digestive system; Z79.890 Hormone replacement therapy; Z79.82 Long term (current) use of aspirin; Z88.1 Allergy status to other antibiotic agents; Q67.6 Pectus excavatum; Z93.2 Ileostomy status
CPT/HCPCS: 0241U; 36415; 51701; 51798; 71045; 76770; 80048; 80053; 80069; 80202; 81001; 82947; 83605; 83735; 84436; 84443; 85025; 85027; 87040; 87077; 87086; 87147; 87186; 93005; 93010; 93306; 94760; 96361; 96365; 96366; 96375; 99285-25; A9270; C1751; J0282; J1644; J2543; J3370; J3475; J7030; J7050; J7060; J7120

== ENCOUNTER → 2024-02-08 | Outpatient (CLI) | payer OTHER ==
[~2024-02-08] MED LIST changes: +Amiodarone HCl200 MG PO; +BELSOMRA10 MG PO; +DOXYCYCLINE HY100 M1 PO
[2024-02-08 10:47] LABS: Source, Urine Voided
[2024-02-08 12:55] LABS: Appearance, Urine Clear (Clear); Bilirubin, Urine Neg (Neg); Blood, Urine Neg (Neg); Color, Urine Yellow (P-Yellow); Glucose Qualitative, Urine Neg (Neg); Ketones, Urine Neg (Neg); Leukocyte Esterase, Urine Neg (Neg); Nitrite, Urine Neg (Neg); Protein, Urine Neg (Neg); Specific Gravity, Urine 1.005 (1.003-1.022); Urobilinogen, Urine NORM (Normal); pH, Urine 6.5 (5.0-8.0)
== END ==
LOC: LAB 09:35 → LAB SHORT 09:35 → LAB FUT 02-01 11:00
PROVIDERS: Family Medicine
DX: R30.0 Dysuria (principal)
CPT/HCPCS: 81003

== ENCOUNTER 2024-06-18 21:08 | Emergency (ER) | payer OTHER ==
[~2024-06-18] VITALS: Ht 182.9 cm; Wt 113.4 kg
[2024-06-18 23:18] LABS: BASOPHILS ABSOLUTE AUTO 0.02 K/mm3 (0.00-0.23); BASOPHILS PERCENT AUTO 0 % (0-2); EOSINOPHILS ABSOLUTE AUTO 0.35 K/mm3 (0.00-0.68); EOSINOPHILS PERCENT AUTO 5 % (0-6); Hematocrit 35.4 % (37.0-53.0); Hemoglobin 12.7 g/dL (13.5-17.5); IMMATURE GRAN ABSOLUTE AUTO 0.03 K/mm3 (0.00-0.10); IMMATURE GRAN PERCENT AUTO 0 % (0-1); LYMPHOCYTES PERCENT AUTO 16 % (21-46); MONOCYTES ABSOLUTE AUTO 0.72 K/mm3 (0.16-1.47); MONOCYTES PERCENT AUTO 10 % (4-13); Mean Corpuscular HGB 31.6 pg (26.0-34.0); Mean Corpuscular HGB Conc 35.9 g/dL (31.5-36.5); Mean Corpuscular Volume 88 fL (80-100); Mean Platelet Volume 9.1 fL (9.1-12.4); NEUTROPHILS ABSOLUTE AUTO 5.26 K/mm3 (1.96-9.15); NEUTROPHILS PERCENT AUTO 69 % (41-73); Platelet Count 139 K/mm3 (150-400); RDW Coefficient Variation 11.9 % (11.7-14.2); RDW Standard Deviation 38.1 fL (35.1-46.3); Red Blood Cell Count 4.02 M/mm3 (4.30-5.90); White Blood Cell Count 7.58 K/mm3 (4.00-11.30)
[2024-06-18 23:38] LABS: Bilirubin, Total 0.5 mg/dL (0.1-1.0); Bun/Creatinine Ratio 14.7 (12.0-20.0); Calcium, Blood 8.2 mg/dL (8.5-10.1); Creatinine, Blood 1.16 mg/dL (0.60-1.20); Potassium, Blood 3.8 mmol/L (3.5-5.5)
[2024-06-19 01:30] VITALS: BP 183/105
== END 2024-06-19 02:02 | disposition home or self-care (01) ==
LOC: ER 21:08
PROVIDERS: Student in an Organized Health Care Education/Training Program
DX: I12.9 Hypertensive chronic kidney disease with stage 1 through stage 4 chronic kidney disease, or unspecified chronic kidney disease (principal); E11.22 Type 2 diabetes mellitus with diabetic chronic kidney disease; N18.9 Chronic kidney disease, unspecified; F84.0 Autistic disorder; N31.9 Neuromuscular dysfunction of bladder, unspecified; E03.9 Hypothyroidism, unspecified; E78.5 Hyperlipidemia, unspecified; Q67.6 Pectus excavatum; Z88.2 Allergy status to sulfonamides; Z88.1 Allergy status to other antibiotic agents; Z79.890 Hormone replacement therapy; Z79.4 Long term (current) use of insulin; Z79.82 Long term (current) use of aspirin; Z79.899 Other long term (current) drug therapy
CPT/HCPCS: 80053; 85025; 99283

== ENCOUNTER → 2024-10-15 | Outpatient (CLI) | payer OTHER ==
[2024-10-15 15:19] LABS: Source, Urine Clean Catch
[2024-10-15 17:57] LABS: Appearance, Urine Clear (Clear); Bilirubin, Urine Neg (Neg); Blood, Urine 1+ (Neg); Glucose Qualitative, Urine Neg (Neg); Ketones, Urine Neg (Neg); Leukocyte Esterase, Urine 3+ (Neg); Nitrite, Urine Neg (Neg); Protein, Urine Neg (Neg); Urobilinogen, Urine NORM (Normal)
[2024-10-15 18:16] LABS: Color, Urine Pale Yellow (P-Yellow)
[2024-10-15 18:17] LABS: Bacteria Few /hpf; Squamous Epithelial Cells Rare /hpf (Few); White Blood Cells, Urine TNTC /hpf (0-5)
== END ==
LOC: LAB 15:15 → LAB SHORT 15:15
PROVIDERS: Family Medicine
DX: R82.998 Other abnormal findings in urine (principal)
CPT/HCPCS: 81001; 87077; 87086; 87147; 87186

== ENCOUNTER 2025-05-02 07:33 | Day surgery (SDC) | payer OTHER ==
[~2025-05-02] VITALS: Ht 177.8 cm; Wt 96.8 kg
[~2025-05-02 07:33] MED LIST changes: +ALBU90OI INH; +EUTHYROX175 MCG PO; +FINA5 PO; +LOSARTAN POTASS50 M1 PO; +METO100 PO; +ROSUVASTATIN CAL5 MG PO; -Synthroid200 MCG PO; +TUMS500 MG PO
[2025-05-02 08:08] VITALS: BP 136/91
--- NOTE | 2025-05-02 08:51 | NUR ---
History, Chart, Medications and Allergies reviewed before start of procedure. PT IS AUTISTIC AND ORIENTED TO SELF AND PLACE. HIS CAREGIVER REMAINS AT BEDSIDE DURING ADMISSION. PT TO UNIT VIA W/C BUT ABLE TO TRANSFER TO [facility] WITH MINIMAL ASSISTANCE. Patient confirms NPO status and agrees with scheduled surgery EXCEPT BLOOD PRESSURE MEDICATIONS THIS AM. Patient States Post-Procedure ride home has been arranged WITH CAREGIVER. 5 IV ATTEMPTED AND FAILED DUE TO VEINS ROLLING AND BLOWING. PT TOLERATED WELL.
--- NOTE | 2025-05-02 09:23 | NUR ---
05/02/25 0923 Beau Romo MONITOR INTACT WITH CONTINUOUS PULSE OXIMETRY, CONTINUOUS END TITAL CO2, 3-LEAD EKG AND INTERMITTENT BLOOD PRESSURE.O2 VIA POM INTACT THROUGHOUT SEDATION/PROCEDURE.
--- NOTE | 2025-05-02 10:06 | NUR ---
PT TO DAY SURGERY STEP DOWN FROM SIG FLEX WITH DR LEO. PT IS AWAKE, ON LEFT SIDE; SLEEPY, BUT RESPONDS TO VOICE AND ABLE TO MOVE. REQUESTING PO FLUIDS. SON AT BEDSIDE. PT HAS NO COMPLAINTS.
[2025-05-02 10:07] VITALS: BP 155/96
--- NOTE | 2025-05-02 10:19 | NUR ---
PT TOLERATING NECTAR THICKEN PO FLUIDS WELL. Discharge instructions reviewed with patient. Patient verbalizes understanding. Copy given to patient to take home. Recommendation sheet given to pt son.
[2025-05-02 10:20] VITALS: BP 139/86
--- NOTE | 2025-05-02 10:30 | NUR ---
Patient up to [facility] independently and to own wheelchair for discharge to home with son. Discharged via wheelchair to private car for ride home.
== END 2025-05-02 10:30 | disposition home or self-care (01) ==
LOC: ORSCMMR 07:33 → ORD 09:00 → ORSCMMR 10:30
PROVIDERS: Surgery
PROC: 0DJD8ZZ Inspection of Lower Intestinal Tract, Via Natural or Artificial Opening Endoscopic (ICD-10-PCS; principal; 2025-05-02 09:00)
DX: K51.20 Ulcerative (chronic) proctitis without complications (principal); Z90.49 Acquired absence of other specified parts of digestive tract; J44.9 Chronic obstructive pulmonary disease, unspecified; E11.9 Type 2 diabetes mellitus without complications; Z79.4 Long term (current) use of insulin; I10 Essential (primary) hypertension; F41.1 Generalized anxiety disorder; K21.9 Gastro-esophageal reflux disease without esophagitis; G47.33 Obstructive sleep apnea (adult) (pediatric); Z79.899 Other long term (current) drug therapy
CPT/HCPCS: 82947; J2704; J7120